=== PATIENT | female | born 1945 | race Caucasian/White ===

== ENCOUNTER 2017-04-19 06:59 | Day surgery (SDC) | payer OTHER, MEDICARE ==
[2017-04-19] MEDS ORDERED: NS 1,000 ML IV SCH (07:15)
[2017-04-19] MEDS ORDERED: FLUMAZENIL 0.5 MG/5 ML MDV IVP ONE (07:24)
[2017-04-19] MEDS ORDERED: MIDAZOLAM 2 MG/2 ML VIAL ONE (07:25)
[2017-04-19] MEDS ORDERED: fentaNYL 100 MCG/2 ML INJ ONE (07:25)
[2017-04-19] MEDS ORDERED: NALOXONE HCL 0.4 MG/ML INJ ONE (07:25)
[2017-04-19 11:41] VITALS: BP 141/70; RESP 20; O2SAT 97
== END 2017-04-19 13:15 | disposition home or self-care (01) ==
LOC: FIMAGING 06:59
PROVIDERS: ATTEND Internal Medicine Hematology & Oncology
PROC: 0BBC3ZX Excision of Right Upper Lung Lobe, Percutaneous Approach, Diagnostic (ICD-10-PCS; principal; 2017-04-19 10:27)
DX: C34.11 Malignant neoplasm of upper lobe, right bronchus or lung (principal)
CPT/HCPCS: J2250; J2310; J3010

== ENCOUNTER → 2017-05-10 | Outpatient (CLI) | payer OTHER, MEDICARE ==
[~2017-05-10] MED LIST: GADOBUTROL 10 ML VIAL IVP ONE
== END ==
LOC: FIMAGING 10:07
PROVIDERS: ATTEND Internal Medicine Hematology & Oncology
DX: M43.6 Torticollis (principal); M50.31 Other cervical disc degeneration, high cervical region; M46.92 Unspecified inflammatory spondylopathy, cervical region; M48.02 Spinal stenosis, cervical region
CPT/HCPCS: 72156; A9585

== ENCOUNTER → 2017-05-18 | Outpatient (CLI) | payer OTHER, MEDICARE | LOC: FIMAGING 10:30 | PROVIDERS: ATTEND Neurological Surgery | DX: M43.12 Spondylolisthesis, cervical region (principal); M43.13 Spondylolisthesis, cervicothoracic region; M50.31 Other cervical disc degeneration, high cervical region ==

== ENCOUNTER → 2017-05-19 | Outpatient (CLI) | payer OTHER, MEDICARE | LOC: FIMAGING 11:58 | PROVIDERS: ATTEND Internal Medicine Critical Care Medicine | DX: Z01.811 Encounter for preprocedural respiratory examination (principal); C34.90 Malignant neoplasm of unspecified part of unspecified bronchus or lung; Z90.2 Acquired absence of lung [part of] | CPT/HCPCS: 78598; A9540; A9558 ==

== ENCOUNTER 2017-05-23 10:36 | Inpatient (IN) | payer OTHER, MEDICARE ==
--- NOTE | 2017-05-23 10:46 | PDHPUP ---
History & Physical Update H&P update statement: This history and physical update is based on an assessment of the patient which was completed after admission or registration (within 24 hours), but prior to the surgery/procedure. H&P update: H&P reviewed & patient examined, no change in patient's condition since H&P completed
[2017-05-23] MEDS ORDERED: ceFAZolin 2 GM/SWFI 2 GM/20 ML SYR IVP ONE (10:48)
[2017-05-23] MEDS ORDERED: LR 1,000 ML IV ONE (10:49)
[2017-05-23] MEDS ORDERED: LIDOCAINE 1% 2 ML INJ ID PRN (10:49)
--- NOTE | 2017-05-23 11:18 | PDANEPAE ---
ANE History of Present Illness Lung cancer ANE Past Medical History - Cardiovascular History Hx Hypertension: No Hx Arrhythmias: No Hx Chest Pain: No Hx Coronary Artery / Peripheral Vascular Disease: No Hx CHF / Valvular Disease: No Hx Palpitations: No - Pulmonary History Hx COPD: No Hx Asthma/Reactive Airway Disease: No Hx Recent Upper Respiratory Infection: No Hx Oxygen in Use at Home: No Hx Sleep Apnea: No Sleep Apnea Screening Result - Last Documented: Negative Pulmonary History Comment: chronic bronchitis - Neurologic History Hx Cerebrovascular Accident: No Hx Seizures: No Hx Dementia: No Neurologic History Comment: cervical dystonia; - Endocrine History Hx Diabetes: No - Renal History Hx Renal Disorders: No - Liver History Hx Hepatic Disorders: No - Neurological & Psychiatric Hx Hx Neurological and Psychiatric Disorders: No - Cancer History Hx Cancer: Yes Cancer History Comment: Small cell lung ca; - Congenital Disorder History Hx Congenital Disorders: No - GI History Hx Gastrointestinal Disorders: No - Other Health History 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 - Chronic Pain History Chronic Pain: Yes (arthritis) - Surgical History Prior Surgeries: lung CA; partial hysterectomy; T&A; wisdom teeth extraction; ANE Review of Systems Review of Systems: - Exercise capacity METS (RN): 4 METS ANE Patient History - Allergies Allergies/Adverse Reactions: No Known Allergies Allergy (Unverified 07/03/16 16:40) - Home Medications Home medications: home medication list seen and reviewed Home Medications: Albuterol [Proventil Inhaler HFA (*)] 1 - 2 puffs IH DAILY PRN 05/19/17 [Last Taken Unknown] Amitriptyline HCl [Elavil 50 mg (*)] 50 mg PO HS 05/19/17 [Last Taken 05/22/17] Cholecalciferol Vit D3 [Vitamin D3 (*)] 1,000 units PO BID 05/19/17 [Last Taken 05/22/17] Estradiol [Estradiol 1 MG (*)] 0.5 mg PO DAILY 05/19/17 [Last Taken 05/22/17] Herbals/Supplements -Info Only 1 ea PO DAILY 05/19/17 [Last Taken 05/22/17] Multivitamins [Multivitamin (*)] 1 each PO DAILY 05/19/17 [Last Taken 05/22/17] [place]-3 Fatty Acids [Fish Oil 1000 mg (*)] 1,000 mg PO BID 05/19/17 [Last Taken 05/16/17] Vitamin B Complex [Super B-50 Complex] 1 each PO DAILY 05/19/17 [Last Taken ] Docusate Sodium [Colace 100 MG (*)] 100 mg PO DAILY PRN 05/23/17 [Last Taken ] - Anes Hx Anes Hx: no prior problems - Smoking Hx Smoking Status: Former smoker - Family Anes Hx Family Hx Anesthesia Complications: denies ANE Labs/Vital Signs - Vital Signs Height: 157.48 cm Weight: 56.245 kg ANE Physical Exam - Airway Neck exam: FROM Mallampati Score: Class 1 Mouth exam: normal dental/mouth exam - Pulmonary Pulmonary: no respiratory distress - Cardiovascular Cardiovascular: regular rate and rhythym - ASA Status ASA Status: II ANE Anesthesia Plan Anesthesia Plan: general endotracheal anesthesia (With double lumen ET, a-line, thorasic epidural (PSR for POPM) with PCEA), epidural Lines/Monitors: arterial line
[2017-05-23] MEDS ORDERED: MIDAZOLAM 2 MG/2 ML VIAL IVP ONE (12:02)
[2017-05-23] MEDS ORDERED: BUPIVACAINE 0.5% 30 ML SDV ONE (12:12)
[2017-05-23] MEDS ORDERED: ROCURONIUM 50 MG/5 ML VIAL ONE (12:16)
[2017-05-23] MEDS ORDERED: LIDOCAINE 2% 5 ML SDV ONE (12:17)
[2017-05-23] MEDS ORDERED: PROPOFOL 200 MG/20 ML VIAL ONE (12:17)
[2017-05-23] MEDS ORDERED: fentaNYL 100 MCG/2 ML INJ ONE ×3 (12:17→17:01)
[2017-05-23] MEDS ORDERED: PHENYLEPHRINE HCL 100 MCG/ML SYR ONE ×2 (14:32→16:18)
[2017-05-23] MEDS ORDERED: NARCOTIC DRIP BAG-TOTAL ALL TYPES EP PRN (14:36)
[2017-05-23] MEDS ORDERED: diphenhydrAMINE 25 MG CAP PO PRN (14:36)
[2017-05-23] MEDS ORDERED: NALOXONE HCL 0.4 MG/ML INJ IVP PRN ×2 (14:36→14:47)
[2017-05-23] MEDS ORDERED: DEXAMETHASONE 4 MG/ML VIAL ONE ×2 (14:45)
[2017-05-23] MEDS ORDERED: ONDANSETRON 4 MG/2 ML VIAL ONE (14:46)
[2017-05-23] MEDS ORDERED: ONDANSETRON 4 MG/2 ML VIAL IVP PRN ×2 (14:47→16:40)
[2017-05-23] MEDS ORDERED: PROMETHAZINE HCL 25 MG/ML INJ IVP PRN (14:47)
[2017-05-23] MEDS ORDERED: SUGAMMADEX SODIUM 200 MG/2 ML VIAL IVP ONE (16:19)
--- NOTE | 2017-05-23 16:39 | POSTOPPROG ---
Post Op Note Date of Operation: 05/23/17 Surgeon: Mark Hassan Linderman Machine Operator: Sharyn Perez Anesthesiologist: Lyle Gallego Anesthesia: GET(General Endotracheal) Pre-op Diagnosis: recurrent lung cancer, adenocarcinoma Post-op Diagnosis: same Indication: 71 Y F c hx R lung CA ~19 y ago, now with second likely primary lung CA. Procedure: R VATS, thoracotomy, pneumonectomy Findings: see below Inf/Abcess present in the surg proc area at time of surgery?: No EBL: 250cc Complications: none Specimen(s): Pathology: multiple, including mediastinal and hilar LNs, R lung, and pleural biopsies Findings: Previous surgical absence of lobe. Many adhesions with lung adhered to thoracic wall. Tumor in lung and adherent to posterior chest wall. Phrenic nerve preserved. Pericardium entered due to adhesions. No definable fissure. Unable to isolate and preserve other lobe.
--- NOTE | 2017-05-23 16:39 | POSTANESTH ---
Post Anesthetic Evaluation Cardiovascular Status: Normal, Stable Respiratory Status: Normal, Stable Level of Consciousness/Mental Status: Can Participate in Eval Pain Control: Adequate, Prn Tx Ordered Nausea/Vomiting Control: Adequate, Prn Tx Ordered Complications Possibly Related to Anesthesia: None Noted
[2017-05-23] MEDS ORDERED: ALBUTEROL 200 PUFFS/18 GM MDI IH PRN (16:43)
[2017-05-23] MEDS: fentaNYL 100 MCG/2 ML INJ IVP PRN ×2 (17:02→17:28)
[2017-05-23] MEDS: NS 1,000 ML IV SCH (18:56)
--- NOTE | 2017-05-23 19:45 | SOAPPROG ---
SOAP Progress Note Assessment/Plan: Assessment: stable/ cxr ok/ hct pending Plan:icu monitor 05/23/17 19:43 Objective: Vital Signs Temp Pulse Resp BP Pulse Ox 36.3 C 87 16 105/49 L 100 05/23/17 17:59 05/23/17 18:00 05/23/17 18:00 05/23/17 18:00 05/23/17 18:00 05/22/17 05/23/17 05/24/17 05:59 05:59 05:59 Intake Total 2210 Output Total 250 Balance 1960 ICD10 Worksheet Patient Problems: Problems Problem Status Onset Lung cancer Acute - ICD10 Problem Qualifiers (1) Lung cancer
[2017-05-23] MEDS ORDERED: ALBUMIN 5% 500 ML IV ONE (20:00)
[2017-05-23] MEDS: AMITRIPTYLINE HCL 50 MG TAB PO SCH (20:13)
[2017-05-23 20:14] LABS: HEMATOCRIT 27.4 % (38.0-47.0)
[2017-05-23] MEDS: DOCUSATE SODIUM 100 MG CAP PO PRN (20:18)
[2017-05-24] MEDS ORDERED: ALBUMIN 5% 500 ML IV ONE (02:00)
[2017-05-24] MEDS: NS 1,000 ML IV SCH ×2 (02:49→12:13)
[2017-05-24] MEDS: HYDROmorph 10MCG/ML&BUP 0.0625% in 100ML NS EP SCH (03:33)
[2017-05-24 04:57] LABS: ANION GAP 11 mEq/L (8-16); CALCIUM 7.3 mg/dL (8.5-10.4); CARBON DIOXIDE 22 mEq/l (22-31); CHLORIDE 108 mEq/L (97-110); CREATININE 0.7 mg/dL (0.6-1.0); GLOMERULAR FILTRATION RATE > 60; GLUCOSE 116 mg/dL (70-100); POTASSIUM 4.1 mEq/L (3.5-5.2); SODIUM 141 mEq/L (134-144)
[2017-05-24 05:04] LABS: HEMATOCRIT 21.2 % (38.0-47.0)
--- NOTE | 2017-05-24 08:59 | SOAPPROG ---
SOAP Progress Note Assessment/Plan: Assessment/Plan: 71 Y F s/p R thoracotomy with completion pneumonectomy for 2nd primary lung cancer. POD#1. Hypotensive. Acute post op blood loss anemia. --Getting fluids and pRBCs. Continue to monitor. Continue epidural--pain well controlled. Continue fernandez while epidural in place. IS. Continue ICU care. S: pain controlled. tired. no sob. feels like R breast implant shifted, but same size. explained that we did breach capsule but implant did not appear damaged. O: gen: alert, nad heent: mild pallor, not much change from baseline, mmm chest: no BS R, CTAB L anteriorly cor: rrr abd: soft, nt ext: no edema wounds: well dressed no shadowing. 05/24/17 08:51 Objective: Vital Signs Temp Pulse Resp BP Pulse Ox 38.5 C H 100 25 H 91/46 L 96 05/24/17 08:00 05/24/17 08:00 05/24/17 08:00 05/24/17 08:00 05/24/17 08:00 Laboratory Results 05/24/17 04:05 05/24/17 04:05 05/23/17 05/24/17 05/25/17 05:59 05:59 05:59 Intake Total 5262 Output Total 1000 Balance 4262 ICD10 Worksheet Patient Problems: Problems Problem Status Onset Lung cancer Acute
[2017-05-24] MEDS: ENOXAPARIN 40 MG/0.4 ML SYR SC SCH (09:09)
[2017-05-24] MEDS: REGARDING ANTICOAG MISC SCH (09:10)
[2017-05-24] MEDS: DC NARCS MISC SCH (09:10)
--- NOTE | 2017-05-24 10:36 | GCON ---
[f rep st] CONSULTATION GAS PLANT TECHNICIAN CONSULTATION REASON FOR CONSULTATION: Exam postoperatively after receiving pneumonectomy for lung cancer. HISTORY OF PRESENT ILLNESS: Ms. Hampton is a very pleasant 71-year-old white female with a past [facility] history of osteoporosis, arthritis, and lung cancer. She is again examined postoperatively after receiving a right pneumonectomy for secondary primary lung cancer, pathology of which is currently p ending. I discussed with the patient who states overall she is doing quite well. She states that th e pain is tolerable and she is not currently breathless. She is currently resting in bed. Chest tub e is in place. PAST MEDICAL HISTORY: Significant for arthritis migraines, osteoporosis, and lung cancer. ALLERGIES: No known allergies to medications. SOCIAL HISTORY: Previous heavy smoker; quit 11 years ago. Infrequent alcohol use. She is a nd has excellent family support. HOME MEDICATIONS: Include alprazolam, amitriptyline, codeine, guaifenesin, prednisone, ProAir, calci um, estradiol, vitamin D, vitamin E, and other multivitamins. PHYSICAL EXAMINATION: VITAL SIGNS: Blood pressure is 91/46, pulse is 100 respirations are 25, tempe rature is 38.5, oxygen saturation 96% on 1 L. GENERAL: She is a well-developed, well-nourished, 71- year-old white female who is resting comfortably in no acute distress. HEENT: Eyes PERRL, EOMI. Th roat shows no erythema or tonsillar hypertrophy. NECK: Supple. No cervical adenopathy. HEART: Re gular rate and rhythm without murmurs, rubs, gallops. LUNGS: Diminished breath sounds on the right. ABDOMEN: Soft, nontender. Bowel sounds are present in all 4 quadrants. EXTREMITIES: No clubbing , cyanosis, or edema. LABORATORIES: Hemoglobin is 7, hematocrit 21. Sodium is 141, potassium 4.1, chloride 108, CO2 is 22 , BUN 16, creatinine 0.7, glucose is 116. Chest x-ray shows status post right pneumonectomy. There is some subcutaneous emphysema. No chest t ubes are noted. IMPRESSION: 1. Lung cancer. 2. Status post right pneumonectomy. 3. History of arthritis. 4. History of migraines. 5. Pain, well controlled. RECOMMENDATIONS: 1. DVT and PE prophylaxis. 2. Stress ulcer prophylaxis. 3. Adequate pain control. 4. PT and OT and out of bed. 5. Adequate nutrition. 6. Await pathology. /[id number]/MODL
--- NOTE | 2017-05-24 10:39 | ASMTCMCOM ---
CM Note CM Note Notes: Patient admitted after planned thoracotomy and pneumonectomy for second primary lung cancer. She is stable in the ICU. Lives independently with . No therapy evals were ordered, therefore I anticipate discharge home with family support. CM available for any changes/needs. Date Signed: 05/24/2017 10:38 AM Electronically Signed By:Taylor Bone RN
[2017-05-24 14:14] LABS: HEMATOCRIT 33.9 % (38.0-47.0); HEMOGLOBIN 11.5 g/dL (12.6-16.3)
--- NOTE | 2017-05-24 16:04 | POSTANESTH ---
Post Anesthetic Evaluation Cardiovascular Status: Normal, Stable, Similar to Pre-Op Cond Respiratory Status: Normal, Stable, Similar to Pre-op Cond. Level of Consciousness/Mental Status: Can Participate in Eval, Alert and Oriented Pain Control: Adequate, Prn Tx Ordered Nausea/Vomiting Control: Adequate, Prn Tx Ordered Complications Possibly Related to Anesthesia: None Noted Notes: Pt seen and examined. POD#1 s/p thoracotomy w/ lobectomy and thoracic epidural for POPC. Pt is comfortable rates pain as 2/10 at rest and 5-6/10 with coughing. Denies nausea or pruritis. Back site is c/d/i. no e/e/e. Has not yet ambulated. Recommend to continue PCEA as ordered. Would ambulate with assistance. Thank you for this interesting consult, please do not hesitate to call with questions or concerns.
[2017-05-24] MEDS ORDERED: FUROSEMIDE 20 MG/2 ML VIAL IVP ONE (18:00)
[2017-05-24 18:28] LABS: HEMATOCRIT 33.1 % (38.0-47.0); HEMOGLOBIN 11.3 g/dL (12.6-16.3)
[2017-05-24 18:37] LABS: ANION GAP 9 mEq/L (8-16); CALCIUM 6.9 mg/dL (8.5-10.4); CARBON DIOXIDE 21 mEq/l (22-31); CHLORIDE 102 mEq/L (97-110); CREATININE 1.6 mg/dL (0.6-1.0); GLOMERULAR FILTRATION RATE 32; GLUCOSE 128 mg/dL (70-100); POTASSIUM 4.6 mEq/L (3.5-5.2); SODIUM 132 mEq/L (134-144)
[2017-05-24] MEDS: DOCUSATE SODIUM 100 MG CAP PO PRN (20:34)
[2017-05-24] MEDS: AMITRIPTYLINE HCL 50 MG TAB PO SCH (20:34)
[2017-05-25] MEDS: NS 1,000 ML IV SCH (03:59)
[2017-05-25] MEDS: HYDROmorph 10MCG/ML&BUP 0.0625% in 100ML NS EP SCH (06:08)
[2017-05-25 06:18] LABS: HEMATOCRIT 33.4 % (38.0-47.0); HEMOGLOBIN 10.8 g/dL (12.6-16.3)
[2017-05-25 06:36] LABS: ANION GAP 7 mEq/L (8-16); CALCIUM 6.9 mg/dL (8.5-10.4); CARBON DIOXIDE 21 mEq/l (22-31); CHLORIDE 106 mEq/L (97-110); CREATININE 1.7 mg/dL (0.6-1.0); GLOMERULAR FILTRATION RATE 30; GLUCOSE 102 mg/dL (70-100); POTASSIUM 4.3 mEq/L (3.5-5.2); SODIUM 134 mEq/L (134-144)
[2017-05-25] MEDS ORDERED: ALBUMIN 25% 0 ML IV ONE (08:37)
[2017-05-25] MEDS: ENOXAPARIN 40 MG/0.4 ML SYR SC SCH (08:40)
[2017-05-25] MEDS: DC NARCS MISC SCH (08:40)
[2017-05-25] MEDS: REGARDING ANTICOAG MISC SCH (08:41)
[2017-05-25] MEDS ORDERED: ALBUMIN 25% 100 ML IV ONE (09:00)
--- NOTE | 2017-05-25 09:02 | PDINTPN ---
Gradall Operator Progress Note Assessment/Plan: Assessment/Plan: * Lung cancer * Status post right pneumonectomy * History of migraines * Decreased urine output * Pain-well controlled * Respiratory -Stable Overall doing well Subjective: Up in chair. Comfortable Objective: Vital Signs Temp Pulse Resp BP Pulse Ox 36.8 C 101 H 23 H 133/64 H 100 05/25/17 08:00 05/25/17 08:00 05/25/17 08:00 05/25/17 08:00 05/25/17 08:00 Laboratory Results 05/25/17 05:50 05/25/17 05:50 05/24/17 05/25/17 05/26/17 05:59 05:59 05:59 Intake Total 5262 4838 Output Total 1000 500 Balance 4262 4338 Physical Exam - Physical Exam General Appearance: alert, no apparent distress EENT: PERRL/EOMI, normal ENT inspection Neck: supple Respiratory: chest non-tender, decreased breath sounds (right) Cardiac/Chest: normal peripheral pulses, regular rate, rhythm Peripheral Pulses: 2+: carotid (R), carotid (L), femoral (R), femoral (L), dorsalis-pedis (R), dorsalis-pedis (L) Abdomen: normal bowel sounds, non-tender, soft Pelvic Exam: deferred Skin: normal color, warm/dry Neuro/Psych: no motor/sensory deficits, alert, normal mood/affect, oriented x 3 ICD10 Worksheet Patient Problems: Problems Problem Status Onset Lung cancer Acute
--- NOTE | 2017-05-25 11:19 | POSTANESTH ---
Post Anesthetic Evaluation Cardiovascular Status: Normal, Stable Respiratory Status: Normal, Stable Level of Consciousness/Mental Status: Can Participate in Eval Pain Control: Adequate, Prn Tx Ordered Nausea/Vomiting Control: Adequate, Prn Tx Ordered Complications Possibly Related to Anesthesia: None Noted Notes: POD #2 post thoracotomy with thorasic epidural. Pt seen and examined. Sitting up in chair and doing well. Pain well controlled not requiring additional meds and "only pressing PCEA button a time or two per day". Denies weakness or numbness in lower extremities. Insertion site inspected and clean and dry without redness or swelling. Cath intact. Plan to continue PCEA at present settings for another day, or possibly two.
--- NOTE | 2017-05-25 13:26 | SOAPPROG ---
SOAP Progress Note Assessment/Plan: Assessment/Plan: 71yo F s/p completion pneumonectomy - Overall, looks ok but with low UOP - Epidural has been working appropriately, and her pain is controlled - Responds well to fluid bolus despite increasing Cr. Will attempt concentrated albumin today, nephrology consult if Cr still rising - Tx to SDU ok 05/25/17 13:25 Subjective: Pain controlled, tolerating diet Objective: Vital Signs Temp Pulse Resp BP Pulse Ox 36.7 C 105 H 23 H 125/78 H 100 05/25/17 12:00 05/25/17 12:00 05/25/17 12:00 05/25/17 12:00 05/25/17 12:00 Laboratory Results 05/25/17 05:50 05/25/17 05:50 05/24/17 05/25/17 05/26/17 05:59 05:59 05:59 Intake Total 5262 4838 Output Total 1000 500 Balance 4235 4338 ICD10 Worksheet Patient Problems: Problems Problem Status Onset Lung cancer Acute
[2017-05-25] MEDS: ALBUTEROL 3 ML DEYVIAL IH PRN ×2 (15:42→20:30)
[2017-05-25] MEDS: AMITRIPTYLINE HCL 50 MG TAB PO SCH (21:01)
[2017-05-25] MEDS: DOCUSATE SODIUM 100 MG CAP PO PRN (21:07)
[2017-05-25] MEDS ORDERED: LORazepam 0.5 MG TAB PO PRN (22:12)
[2017-05-25] MEDS ORDERED: METOPROLOL TARTRATE 25 MG TAB PO ONE (22:12)
--- NOTE | 2017-05-25 22:25 | CPEKG ---
Heart Rate: 146 RR Interval: 411 QRSD Interval: 80 QT Interval: 304 QTC Interval: 474 QRS [place]: 29 T Wave [place]: 67 EKG Severity - ABNORMAL ECG - EKG Impression: ATRIAL FIBRILLATION EKG Impression: CONSIDER ANTEROSEPTAL INFARCT EKG Impression: BORDERLINE T ABNORMALITIES, LATERAL LEADS Electronically Signed By: Romel Rich 26-May-2017 12:05:47
[2017-05-25] MEDS ORDERED: METOPROLOL TARTRATE 25 MG TAB ONE (22:59)
[2017-05-25 23:30] LABS: HEMATOCRIT 31.9 % (38.0-47.0); HEMOGLOBIN 10.8 g/dL (12.6-16.3)
[2017-05-25] MEDS ORDERED: BEER 1 EACH EA PO ONE (23:45)
--- NOTE | 2017-05-25 23:46 | PDHOSCONS ---
Hospitalist Consult Hospitalist Consult: Hospitalist Consultation requested by surgery service. Reason for consultation atrial fibrillation RVR and medical management CC - shortness of breath, atrial fibrillation new onset. HPI - Pleasant 71 yo F with pmx significant for RUL lung ca POD #2 s/p lobectomy , OA, daily alcohol use. OA, reactive airway disease, migraine HINES, osteoporosis with development of new onset Afib with RVR to rate 130s-140s. Patient denies any chest pain,palpitations. no history of LE edema, orthopnea, PND. She is reporting increased shortness of breath throughout the course of the day as well as increased wheezing. Patient denies any subjective fevers/ chills. She reports her postop pain is adequately controlled. She does feel a little bit more anxious but denies any tremor. ROS - negative except as noted above in HPI. Allergies - NKDA Medications - home and current medication list reviewed in EMR. PMHx lung ca s/p partial lobectomy 2000 and now POD #2. osteoarthritis. osteoporosis. reactive airway disease. migraine HINES. torticollis. PSH - RUL lobectomy 2000, now POD #2. bladder repair, hysterectomy. wrist surgery. FHx - breast ca in maternal aunt. patient otherwise denies fhx for CAD, CHF, lung disease or cancers. SHx - Patient is . lives with who has dementia. Patient quit smoking 2005 but has a total 50 pack year history. She drinks 2-3 beers on a daily basis but has never gone without for extended period of time. She denies any illicit drug use or marijuana. COR - FULL patient's with dementia so she desires any of her 3 sons to act as proxy if needed. EXAM Selected Entries 05/25/17 05/25/17 05/25/17 20:30 23:02 23:59 Heart Rate 114 H 142 H 144 H Respiratory 22 H 20 Rate O2 Sat (%) 100 98 Temperature (C) 36.9 C Blood Pressure 137/72 H 143/72 H Mean Arterial 95 Pressure (MAP) O2 (L/minute) 2 2 Activity During At Rest At Rest Vital Signs O2 Delivery Nasal Cannula Nasal Cannula Mode Blood Pressure Right Source Upper Automatic Heart Rate/ Monitor Temperature Axillary Source Heart Rate Automatic Automatic Source Cardiac Rhythm Sinus Tachycardia Gen - NAD. pleasant adult female lays quietly in bed. she appears fatigued and pale but in good spirits. skin - pallor. ENT - dry Mucous membranes. no nasal discharge. Eyes - EOMI. PERRLA. no scleral icterus or conjunctival injection CV - slightly distant heart sounds limited 2/2 tachycardia. trace LE edema. Resp - diminished on the right mid/lower lung base > left bases. wheezing on anterior lung woods. coarse breath sounds posterior lung woods bilaterally. Abd - + BS. soft. NTTP. nondistended. Ext - trace edema. 1+ pedal pulses. moves lower extremities. generalized weakness. Neuro - nonfocal. CN II-XII intact/symmetric. slight tremor bilateral hands. Psych - patient AAAx3. pleasant. slightly anxious but cooperative. thought process/content/questions appropriate. LABS Laboratory Tests 05/25/17 05/25/17 23:24 23:24 Hgb 10.8 L Hct 31.9 L Sodium 134 Potassium 4.0 Chloride 105 Carbon Dioxide 18 L Anion Gap 11 BUN 25 H Creatinine 1.3 H Estimated GFR 40 Glucose 125 H Calcium 7.4 L Troponin I 2.080 H TSH 4.350 EKG - afib, rate 130s. no acute ST changes. baseline in a few leads wanders likely 2/2 artifact. CXR - image and report reviewed. Portable AP Semiupright Chest, 11:52 PM Clinical History: 71-year-old female in the ICU who recently underwent a completion pneumonectomy for recurrent lung cancer on 05/23/2017, and has some new shortness of breath with a history of new-onset atrial fibrillation. Comparison Study: Chest, dated 05/24/2017, at 5:59 AM. Findings: Telemetry monitoring lead lines and oxygen tubing are present. There are skin jewels over the right lateral hemithorax and there is volume loss, consistent with the patient's recent right pneumonectomy. There is more fluid opacification in the right hemithorax, and there is persistent tracheal shift to the right, consistent with the volume loss. Subcutaneous emphysema on the right side persists. The cardiac silhouette is obscured. There is some new increased "haziness" of the left hemithorax, which may reflect some posterior- layering pleural fluid. The pulmonary vasculature is mildly congested. The stomach is moderately air-distended. Impression: 1. Postoperative changes following a recent right pneumonectomy with persistent subcutaneous emphysema on the right side, and some increasing fluid opacification of the right hemithorax. 2. Peribronchial thickening with pulmonary vascular congestion and haziness at the left lung base, which may represent some posterior-layering pleural fluid. Findings were discussed with RISA Betancourt, at extension [phone] at 0:06, on 2016. A/P - 71 yo F POD #2 s/p right upper lobe lobectomy now with new onset atrial fibrillation 1. New onset atrial fib acute with RVR - patient received po dosing metoprolol by surgery service. she also has received ppx dosing lovenox and given acute post op status will see if rate can be rapidly corrected before considering anticoagulation. echo ordered for AM. tsh WNL. patient also with increasing oxygen needs and new congestion on cxr. will diurese. also patient reports hx of daily etoh intake. no evidence of new BBB or acute changes on ekg. case discussed with cardiology. request goal HR for about 100s and prn metoprolol if needed. patient was sleeping and asx at time of onset. Lower suspicion for acute PE as pt on ppx dosing but consideration if work up unrevealing. 2. elevated troponin 2.0 - case was discussed with cardiology Dr. Ghosh. recommend ASA 325mg and okay with ppx dosing lovenox at this time. review of available records with pfts and h&p but I'm not sure if patient had cardiology pre-op eval. Patient is chest pain free at this point and other than HR vitals otherwise stable. 3. hypoxia - patient with increased o2 needs overnight and c/o increased SOB. likely multifactorial including afib and recent surgery with effusion on right. Patient appears congested on CXR and lasix will be given. 4. alcohol use - patient with slight tremor. BPs acceptable tachycardia in setting of afib however. will place on ciwa protocol. give beer with meals. 5. soo - likely pre-renal. s/p IVF now requiring diuresis. monitor bmp. 6. acute blood loss anemia - h/h stable. continue to monitor. 7. reactive airway disease - nebulizer prn. add steroids. oxygen prn. 8. hyperglycemia - nonfasting. continue to monitor. no hx DM II 9. hypocalcemia - would likely correct in setting of patient acute illness/ surgery. check cmp and check corrected calcium. FEN - s/p IVF. TKO now. lasix. electrolyte monitoring and correction as needed. diet as needed. PPX - SCds. on ppx lovenox. no recommendation to increase to tx dosing at this time per cardiology. COR - FULL. Any of patients 3 sons may act as proxy if needed. ADDENDUM - follow up telemetry monitoring with noted with patient in NSR but new ST elevations. EKG repeated and anterolateral ST elevations noted. awaiting repeat AM labs. Spoke with Dr. Ghosh again. Patient is entirely asymptomatic. received ASA and on ppx lovenox. after lasix her respiratory status reported improved. He will review chart and make further recommendations. plan for cardiology consult this AM.
[2017-05-26] MEDS ORDERED: methylPREDNISolone SOD SUCC 125 MG/2 ML VIAL IVP ONE
[2017-05-26 00:05] LABS: ANION GAP 11 mEq/L (8-16); CALCIUM 7.4 mg/dL (8.5-10.4); CARBON DIOXIDE 18 mEq/l (22-31); CHLORIDE 105 mEq/L (97-110); CREATININE 1.3 mg/dL (0.6-1.0); GLOMERULAR FILTRATION RATE 40; GLUCOSE 125 mg/dL (70-100); SODIUM 134 mEq/L (134-144)
[2017-05-26] MEDS ORDERED: FUROSEMIDE 20 MG/2 ML VIAL IVP ONE (00:24)
[2017-05-26] MEDS: methylPREDNISolone SOD SUCC 125 MG/2 ML VIAL IVP SCH ×2 (00:46→08:30)
[2017-05-26] MEDS ORDERED: ASPIRIN 325 MG TAB PO ONE (00:55)
[2017-05-26] MEDS ORDERED: METOPROLOL TARTRATE 5 MG/5 ML INJ IVP ONE (01:07)
[2017-05-26 03:37] LABS: BASE EXCESS -7.4 mEq/L (-2.5-2.5); BICARBONATE 18 mEq/L (22-26); MEASURED OXYGEN SATURATION 98 % (92-95); PCO2 35 mmHg (34-38); PO2 100 mmHg (65-75); TCO2 19 mEq/L (23-27)
[2017-05-26 03:38] LABS: O2 CONCENTRATIION 10 % (0-100); P/F RATIO 1000 RATIO
--- NOTE | 2017-05-26 05:40 | CPEKG ---
Heart Rate: 89 RR Interval: 674 P-R Interval: 208 QRSD Interval: 86 QT Interval: 364 QTC Interval: 443 P [place]: 19 QRS [place]: 15 T Wave [place]: 29 EKG Severity - ABNORMAL ECG - EKG Impression: SINUS RHYTHM EKG Impression: CONSIDER ANTEROSEPTAL INFARCT EKG Impression: ST ELEVATION SUGGESTS PERICARDITIS Electronically Signed By: Romel Rich 26-May-2017 12:05:34
--- NOTE | 2017-05-26 07:12 | CPEKG ---
Heart Rate: 95 RR Interval: 632 P-R Interval: 164 QRSD Interval: 90 QT Interval: 348 QTC Interval: 438 P [place]: 42 QRS [place]: 13 T Wave [place]: 35 EKG Severity - ABNORMAL ECG - EKG Impression: SINUS RHYTHM EKG Impression: CONSIDER ANTEROSEPTAL INFARCT EKG Impression: ST ELEVATION SUGGESTS PERICARDITIS Electronically Signed By: Romel Rich 26-May-2017 12:05:11
[2017-05-26 07:35] LABS: ALANINE AMINOTRANSFERASE 88 IU/L (9-52); ALBUMIN 3.4 g/dL (3.5-5.0); ALKALINE PHOSPHATASE 61 IU/L (38-126); ANION GAP 12 mEq/L (8-16); ASPARTATE AMINOTRANSFERASE 92 IU/L (14-46); CALCIUM 7.5 mg/dL (8.5-10.4); CARBON DIOXIDE 18 mEq/l (22-31); CHLORIDE 105 mEq/L (97-110); CREATININE 1.2 mg/dL (0.6-1.0); GLOMERULAR FILTRATION RATE 44; GLUCOSE 125 mg/dL (70-100); POTASSIUM 4.6 mEq/L (3.5-5.2); SODIUM 135 mEq/L (134-144); TOTAL PROTEIN 5.2 g/dL (6.3-8.2)
[2017-05-26] MEDS ORDERED: PERFLUTREN LIPID MICROSPHERES 1.1 MG/ML VIAL IV ONE (07:45)
[2017-05-26 07:47] LABS: CK-MB INTERPRETATION NEGATIVE (NEGATIVE); TROPONIN I 0.907 ng/mL (0.000-0.034)
[2017-05-26 07:58] LABS: CREATINE KINASE-MB FRACTION 5.54 ng/mL (0.00-3.19)
[2017-05-26] MEDS: ENOXAPARIN 40 MG/0.4 ML SYR SC SCH (08:23)
[2017-05-26] MEDS: DC NARCS MISC SCH (08:23)
[2017-05-26] MEDS: REGARDING ANTICOAG MISC SCH (08:24)
--- NOTE | 2017-05-26 09:11 | SOAPPROG ---
IRIS Progress Note Assessment/Plan: Assessment: Plan: Objective: Vital Signs Temp Pulse Resp BP Pulse Ox 36.6 C 99 15 124/109 H 97 05/26/17 08:00 05/26/17 08:00 05/26/17 08:00 05/26/17 08:00 05/26/17 08:00 Laboratory Results 05/26/17 07:09 05/26/17 07:09 05/25/17 05/26/17 05/27/17 05:59 05:59 05:59 Intake Total 4838 3259 Output Total 500 1050 Balance 4338 2209 ICD10 Worksheet Patient Problems: Problems Problem Status Onset Lung cancer Acute
--- NOTE | 2017-05-26 09:12 | SOAPPROG ---
SOAP Progress Note Assessment/Plan: Assessment: stable/ cxr ok/ hct pending Plan:icu monitor 05/23/17 19:43 05/26/17 09:09 WOUND OK/ CXR STABLE/ AFEBRILE/ WORKUP FOR TROPONIN ELEVATION SHOWS LIKELY PERICARDITIS SHE ALSO HAS LEFT PLEURAL EFFUSION/ CREAT IMPROVED AND UO IMPROVED/ HCT STABLE Objective: Vital Signs Temp Pulse Resp BP Pulse Ox 36.6 C 99 15 124/109 H 97 05/26/17 08:00 05/26/17 08:00 05/26/17 08:00 05/26/17 08:00 05/26/17 08:00 Laboratory Results 05/26/17 07:09 05/26/17 07:09 05/25/17 05/26/17 05/27/17 05:59 05:59 05:59 Intake Total 5628 3259 Output Total 500 1050 Balance 433 2205 ICD10 Worksheet Patient Problems: Problems Problem Status Onset Lung cancer Acute - ICD10 Problem Qualifiers (1) Lung cancer
--- NOTE | 2017-05-26 09:20 | PDINTPN ---
Costing Manager Progress Note Assessment/Plan: Assessment/Plan: * Lung cancer * Status post right pneumonectomy * History of migraines * Elevated troponin-query if this is pericarditis. * Decreased urine output * Pain-well controlled * Respiratory -Stable Overall doing well Subjective: Up in chair. Pain tolerable. Somewhat breathless with exertion. Objective: Vital Signs Temp Pulse Resp BP Pulse Ox 36.6 C 99 15 124/109 H 97 05/26/17 08:00 05/26/17 08:00 05/26/17 08:00 05/26/17 08:00 05/26/17 08:00 Laboratory Results 05/26/17 07:09 05/26/17 07:09 05/25/17 05/26/17 05/27/17 05:59 05:59 05:59 Intake Total 4838 3259 Output Total 500 1050 Balance 4338 2209 Physical Exam - Physical Exam General Appearance: alert, no apparent distress EENT: PERRL/EOMI Neck: non-tender, supple Respiratory: decreased breath sounds (Right), No respiratory distress, No wheezing Abdomen: normal bowel sounds, non-tender, soft Pelvic Exam: deferred Rectal: deferred Skin: normal color, warm/dry Extremities: normal range of motion, non-tender, normal inspection, normal capillary refill Neuro/Psych: no motor/sensory deficits, alert, normal mood/affect, oriented x 3 ICD10 Worksheet Patient Problems: Problems Problem Status Onset Lung cancer Acute
[2017-05-26 10:24] LABS: APTT 30.7 SEC (23.0-38.0); INR 1.16 (0.83-1.16); PROTIME(PATIENT) 14.8 SEC (12.0-15.0)
--- NOTE | 2017-05-26 10:24 | ECHO ---
[email or web address] [address] [address] Main: [phone] Fax: Transthoracic Echocardiogram Name: SARAH JAEGER MR#: [id number] Study Date: 05/26/2017 Study Time: 07:20 AM Date of : 1945 Age: 71 year(s) Height: ( ) Weight: ( ) BSA: Gender: Female Examination: Echo with Definity Indication: Post Surgery EKG Changes Image Quality: Contrast: Requested by: Luba Sams BP: 121 mmHg/109 mmHg Heart Rate: Rhythm: Indication: Post Surgery EKG Changes Procedure Staff Hydraulic Blocker: Sandro Wilkins Reading Physician: Freedom Ghosh Requesting Provider: Conclusions: This is an emergent bedside echo done in a patient postoperative from a right upper lobe resection. She developed ST elevations on her ECG in the high lateral leads. The left ventricle is normal in size with preserved left ventricular systolic function. The visually estimated ejection fraction is 55-60%. There appears to be normal contractility and thickening in all cardiac segments. There is a trivial pericardial effusion. Measurements: Chambers Valvular Assessment AV/MV Valvular Assessment TV/PV Normal Normal Normal Name Value Range Name Value Range Name Value Range Continued Measurements: Findings: Exam Comments: This is a emergent echo using Definity imaging enhancement was used to evaluate wall motion. No regional wall motion abnormalities were noted. Limited views were obtained due to lung interference and implants. .66mg of Definity was used.. (No Signature Object) Patient: SARAH JAEGER Study Date: 05/26/2017 Page 1 of 1 07:20 AM [id number]
--- NOTE | 2017-05-26 10:26 | PDCARCONS ---
Cardiology Consult Reason for Consult: Abnormal ECG with evidence of ST elevations in the high lateral leads; transient episode of atrial fibrillation postoperative from recent right upper lobe resection. Chief Complaint: As above. Requesting Physician: Dr. Bernice Sams. History of Present Illness: 71-year-old female with no cardiovascular history. She is currently in the step -down unit following a right upper lobe resection for probable recurrent lung cancer. She has a history of a previous partial right upper lobe resection done about [address] Hassan. Apparently recently she has had a recurrence of a malignancy in this distribution. She is now postoperative day 3 from this procedure. She has an epidural in place for pain control. Last night she developed transient episode of atrial fibrillation with a rapid ventricular response. Heart rates were noted to be in the 140s to 150s. She was treated with dose of metoprolol which improved her heart rate down to the 120s. A troponin drawn late yesterday evening was elevated at 2.08. The patient had no symptoms of palpitations and denied chest discomfort. At 1 point she did have vague left shoulder pain. On telemetry was noted that she had slight ST elevations. That prompted an ECG which was performed at 5:30 a.m. in the morning. The electrocardiogram demonstrated sinus rhythm with approximately [address] elevations appreciated in the high lateral leads. There were no reciprocal changes noted. In talking to her about this she states that she actually feels a little bit better today than she did yesterday. She adamantly denies chest pain or symptoms of significant dyspnea. Bedside echocardiogram was performed emergently. We used definity contrast. This demonstrated homogeneous contractility of all cardiac segments with a trivial pericardial effusion. In talking to Dr. Hassan about his surgery apparently he did enter the pericardium to control the pulmonary artery. History Information - Allergies/Home Medication List Allergies/Adverse Reactions: No Known Allergies Allergy (Unverified 07/03/16 16:40) Home Medications: Albuterol [Proventil Inhaler HFA (*)] 1 - 2 puffs IH DAILY PRN 05/19/17 [Last Taken Unknown] Amitriptyline HCl [Elavil 50 mg (*)] 50 mg PO HS 05/19/17 [Last Taken 05/22/17] Cholecalciferol Vit D3 [Vitamin D3 (*)] 1,000 units PO BID 05/19/17 [Last Taken 05/22/17] Estradiol [Estradiol 1 MG (*)] 0.5 mg PO DAILY 05/19/17 [Last Taken 05/22/17] Herbals/Supplements -Info Only 1 ea PO DAILY 05/19/17 [Last Taken 05/22/17] Multivitamins [Multivitamin (*)] 1 each PO DAILY 05/19/17 [Last Taken 05/22/17] [place]-3 Fatty Acids [Fish Oil 1000 mg (*)] 1,000 mg PO BID 05/19/17 [Last Taken 05/16/17] Vitamin B Complex [Super B-50 Complex] 1 each PO DAILY 05/19/17 [Last Taken ] Docusate Sodium [Colace 100 MG (*)] 100 mg PO DAILY PRN 05/23/17 [Last Taken ] I have personally reviewed and updated: family history, medical history, social history, surgical history Past Medical History: Lung cancer as described above. Osteoarthritis. Migraine headaches. Osteoporosis. Torticollis. - Surgical History Additional surgical history: Previous right upper lobe partial resection. Bladder repair. Hysterectomy. Arthrodesis. - Family History Positive for: non-pertinent - Social History Smoking Status: Former smoker Alcohol Use: Other (Moderate daily use) Drug Use: None Physical Exam Physical Exam: Temp Pulse Resp BP Pulse Ox 36.6 C 99 15 124/109 H 97 05/26/17 08:00 05/26/17 08:00 05/26/17 08:00 05/26/17 08:00 05/26/17 08:00 O2 (L/minute) 5 Constitutional: no apparent distress Ears, Nose, Mouth, Throat: moist mucous membranes Cardiovascular: regular rate and rhythym, no murmur, rub, or gallop, No JVD Peripheral Pulses: 2+: carotid (R), carotid (L) Respiratory: no respiratory distress, rhonchi (Right lung field) Gastrointestinal: soft, non-tender abdomen, no palpable masses Skin: warm Neurologic: AAOx3 Psychiatric: interacting appropriately Lab and Imaging 05/26/17 07:09 05/26/17 07:09 WBC TNP 05/26/17 07:09 RBC Not Reported 05/26/17 07:09 Hgb Not Reported 05/26/17 07:09 Hct Not Reported 05/26/17 07:09 MCV Not Reported 05/26/17 07:09 MCH Not Reported 05/26/17 07:09 MCHC Not Reported 05/26/17 07:09 RDW Not Reported 05/26/17 07:09 Plt Count Not Reported 05/26/17 07:09 MPV Not Reported 05/26/17 07:09 Neut % (Auto) Not Reported 05/26/17 07:09 Lymph % (Auto) Not Reported 05/26/17 07:09 [place] % (Auto) Not Reported 05/26/17 07:09 Eos % (Auto) Not Reported 05/26/17 07:09 Baso % (Auto) Not Reported 05/26/17 07:09 Nucleat RBC Rel Count Not Reported 05/26/17 07:09 Absolute Neuts (auto) Not Reported 05/26/17 07:09 Absolute Lymphs (auto) Not Reported 05/26/17 07:09 Absolute Monos (auto) Not Reported 05/26/17 07:09 Absolute Eos (auto) Not Reported 05/26/17 07:09 Absolute Basos (auto) Not Reported 05/26/17 07:09 Absolute Nucleated RBC Not Reported 05/26/17 07:09 Immature Gran % Not Reported 05/26/17 07:09 Immature Gran # Not Reported 05/26/17 07:09 Puncture Site RIGHT RADIAL 05/26/17 03:16 Patient Temperature 36.4 DEGREES 05/26/17 03:16 pCO2 35 mmHg (34-38) 05/26/17 03:16 pO2 100 mmHg (65-75) H 05/26/17 03:16 Total CO2 19 mEq/L (23-27) L 05/26/17 03:16 ABG pH 7.32 (7.35-7.45) L 05/26/17 03:16 ABG PO2/FiO2 Ratio 1000 RATIO 05/26/17 03:16 ABG HCO3 18 mEq/L (22-26) L 05/26/17 03:16 ABG O2 Saturation 98 % (92-95) H 05/26/17 03:16 ABG Base Excess -7.4 mEq/L (-2.5-2.5) L 05/26/17 03:16 O2 Concentration % 10 % (0-100) 05/26/17 03:16 Sodium 135 mEq/L (134-144) 05/26/17 07:09 Potassium 4.6 mEq/L (3.5-5.2) 05/26/17 07:09 Chloride 105 mEq/L (97-110) 05/26/17 07:09 Carbon Dioxide 18 mEq/l (22-31) L 05/26/17 07:09 Anion Gap 12 mEq/L (8-16) 05/26/17 07:09 BUN 25 mg/dL (7-23) H 05/26/17 07:09 Creatinine 1.2 mg/dL (0.6-1.0) H 05/26/17 07:09 Estimated GFR 44 05/26/17 07:09 Glucose 125 mg/dL (70-100) H 05/26/17 07:09 Calcium 7.5 mg/dL (8.5-10.4) L 05/26/17 07:09 Total Bilirubin 1.0 mg/dL (0.1-1.4) 05/26/17 07:09 AST 92 IU/L (14-46) H 05/26/17 07:09 ALT 88 IU/L (9-52) H 05/26/17 07:09 Alkaline Phosphatase 61 IU/L (38-126) 05/26/17 07:09 Creatine Kinase 1054 IU/L (0-156) H 05/26/17 07:09 CK-MB (CK-2) Fraction 5.54 ng/mL (0.00-3.19) H 05/26/17 07:09 CK-MB (CK-2) % 0.5 % (0.0-4.0) 05/26/17 07:09 Creatine Kinase Interp NEGATIVE (NEGATIVE) 05/26/17 07:09 Troponin I 0.907 ng/mL (0.000-0.034) H 05/26/17 07:09 Total Protein 5.2 g/dL (6.3-8.2) L 05/26/17 07:09 Albumin 3.4 g/dL (3.5-5.0) L 05/26/17 07:09 TSH 4.350 uIU/mL (0.465-4.680) 05/25/17 23:24 Patient ABO/Rh A NEGATIVE 05/23/17 10:48 Antibody Screen NEGATIVE 05/23/17 10:48 Crossmatch IS Only See Detail 05/23/17 10:48 Visualized and Interpreted Chest x-ray results: Yes Visualized and Interpreted imaging results: Yes Visualized and Interpreted EKG results: Yes EKG additional interpertation: Electrocardiogram done at 5:30 a.m. this morning demonstrates sinus rhythm with 1 mm of J-point/ST elevations in the high lateral leads. Echocardiogram: See the fully dictated report on the chart. A/P Assessment: 71-year-old female currently postoperative day 3 from a right upper lobe resection for recurrent lung cancer. She has no cardiac history. She developed transient atrial fibrillation last night and is now back in sinus rhythm. Her ECG indicates ST elevations in the high lateral leads without significant reciprocal changes. Additionally, she has a slight troponin elevation which at this point appears to be trending downward. This is noted in conjunction with recent lung surgery that involved opening the pericardium. A bedside echocardiogram which was done with definity contrast did not yield any wall motion. She did have a trace pericardial effusion. Her findings are most consistent probable pericarditis. At this point, I do not feel compelled to take her to the quality assurance qa lab analyst and perform angiography. I think that we can follow her conservatively and clinically. Plan: 1. We will trend her troponins throughout the day. 2. I would like to keep her NPO pending her next troponin draw. As long as he keeps trending down remains flat I think that we can go ahead feet her. 3. We will transition her over to p. o. beta blockers. 4. Further recommendations will be made pending her clinical course.
[2017-05-26] MEDS: METOPROLOL TARTRATE 25 MG TAB PO SCH ×2 (11:21→19:20)
--- NOTE | 2017-05-26 13:07 | HOSPPROG ---
Hospitalist Progress Note Assessment/Plan: # elevated troponin - agree likely d/t cassy/myocarditis # a-fib with RVR - started on metop - AC per cards when safe post-operatively # etOH use - placed on CIWA # hypoxia - received lasix; follow # RUL lobectomy POD#3 - epidural - adenoca on path - has hx lobectomy 2000 # GUS - improved with IVF # RAD - steroids (taper quickly), nebulizer # ABLA post op - s/p transfusion Subjective: feels better today; eating; thinks she is less confused Objective: Vital Signs Temp Pulse Resp BP Pulse Ox 36.7 C 99 17 133/91 H 100 05/26/17 12:00 05/26/17 12:00 05/26/17 12:00 05/26/17 12:00 05/26/17 12:00 Laboratory Results 05/26/17 07:09 05/26/17 07:09 05/25/17 05/26/17 05/27/17 05:59 05:59 05:59 Intake Total 4838 3259 Output Total 500 1050 400 Balance 4338 2209 -400 PT 14.8 SEC (12.0-15.0) 05/26/17 10:00 INR 1.16 (0.83-1.16) 05/26/17 10:00 chart reviewed ECG personally reviewed ECG personally reviewed - Physical Exam Constitutional: no apparent distress, appears nourished Cardiovascular: regular rate and rhythym, no murmur, rub, or gallop Respiratory: no respiratory distress, no rales or rhonchi, clear to auscultation , reduced air movement (R sided) Gastrointestinal: normoactive bowel sounds, soft, non-tender abdomen, no palpable masses ICD10 Worksheet Patient Problems: Problems Problem Status Onset Lung cancer Acute
--- NOTE | 2017-05-26 15:35 | POSTANESTH ---
Post Anesthetic Evaluation Cardiovascular Status: Normal, Stable Respiratory Status: Tx Decrease in SpO2 Level of Consciousness/Mental Status: Can Participate in Eval Pain Control: Adequate, Prn Tx Ordered (POD 3. Pain 2/10 level. Increases with activity. Site dry, no redness, tape secure Plan continue epidural for 24 to 48 hours.) Nausea/Vomiting Control: Adequate, Prn Tx Ordered
[2017-05-26] MEDS: AMITRIPTYLINE HCL 50 MG TAB PO SCH (19:20)
[2017-05-26] MEDS: DOCUSATE SODIUM 100 MG CAP PO PRN (19:25)
[2017-05-26] MEDS: LORazepam 1 MG TAB PO PRN (22:15)
[2017-05-27] MEDS: LORazepam 1 MG TAB PO PRN (04:36)
[2017-05-27 05:01] LABS: % IMMATURE GRANULYOCYTES 0.9 % (0.0-1.1); ABSOLUTE IMMATURE GRANULOCYTES 0.12 10^3/uL (0.00-0.10); ABSOLUTE NRBC COUNT 0.02 10^3/uL (0-0.01); ADD DIFF? NO; ADD MORPH? NO; ADD SCAN? NO; ATYPICAL LYMPHOCYTE FLAG 0 (0-99); FRAGMENT RBC FLAG 10 (0-99); HEMATOCRIT 31.5 % (38.0-47.0); HEMOGLOBIN 10.7 g/dL (12.6-16.3); LEFT SHIFT FLG 20 (0-99); LIPEMIA HEMOLYSIS FLAG 90 (0-99); MEAN CELL HEMOGLOBIN 29.2 pg (27.9-34.1); MEAN CELL VOLUME 86.1 fL (81.5-99.8); MEAN PLATELET VOLUME 10.2 fL (8.7-11.7); NRBC-AUTO% 0.1 % (0.0-0.2); PLATELET CLUMPS FLAG 30 (0-99); PLATELET COUNT 218 10^3/uL (150-400); RED BLOOD CELL COUNT 3.66 10^6/uL (4.18-5.33); RED CELL DISTRIBUTION WIDTH 14.7 % (11.5-15.2)
[2017-05-27 05:28] LABS: ANION GAP 8 mEq/L (8-16); CALCIUM 7.9 mg/dL (8.5-10.4); CARBON DIOXIDE 24 mEq/l (22-31); CHLORIDE 104 mEq/L (97-110); CREATININE 0.9 mg/dL (0.6-1.0); GLOMERULAR FILTRATION RATE > 60; GLUCOSE 148 mg/dL (70-100); POTASSIUM 4.5 mEq/L (3.5-5.2); SODIUM 136 mEq/L (134-144)
[2017-05-27] MEDS: methylPREDNISolone SOD SUCC 125 MG/2 ML VIAL IVP SCH ×2 (08:03→21:30)
[2017-05-27] MEDS: ENOXAPARIN 40 MG/0.4 ML SYR SC SCH (08:03)
[2017-05-27] MEDS: METOPROLOL TARTRATE 25 MG TAB PO SCH (08:03)
--- NOTE | 2017-05-27 08:39 | SOAPPROG ---
[facility] Progress Note Assessment/Plan: Assessment: 1. 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 2. Transient, perioperative atrial fibrillation with a rapid ventricular response. 3. Perioperative pericarditis. This is likely related to her surgical procedure and the need to open the pericardium. This is associated with elevated troponins however these are trending downward. 4. Hypertension. 5. Persistent tachycardia. Likely related to her recent surgery, anemia and pain. No indication of significant pericardial effusion. Plan: 1. Will increase her metoprolol up to 50 mg twice daily. 2. I have ordered an EKG for to be done this morning. 3. We will follow along with you. 05/27/17 08:39 Subjective: She states she feels a little bit better today. She denies chest pain/chest pressure and left arm discomfort. She is in sinus tachycardia currently. Troponins have been trending down gradually. Objective: Vital Signs Temp Pulse Resp BP Pulse Ox 37.1 C 118 H 23 H 153/84 H 100 05/26/17 20:00 05/27/17 08:00 05/27/17 08:00 05/27/17 08:00 05/27/17 08:00 Laboratory Results 05/27/17 04:40 05/27/17 04:40 05/26/17 05/27/17 05/28/17 05:59 05:59 05:59 Intake Total 3259 1500 Output Total 1050 650 Balance 2209 850 PT 14.8 SEC (12.0-15.0) 05/26/17 10:00 INR 1.16 (0.83-1.16) 05/26/17 10:00 Physical Exam - Physical Exam General Appearance: WD/WN, no apparent distress Neck: non-tender Respiratory: decreased breath sounds (in the right lung woods), No respiratory distress, No accessory muscle use, No rales, No rhonchi Cardiac/Chest: tachycardia, No edema, No gallop, No JVD Peripheral Pulses: 2+: carotid (R), carotid (L) Abdomen: non-tender, soft Pelvic Exam: deferred Rectal: deferred Neuro/Psych: alert, oriented x 3 ICD10 Worksheet Patient Problems: Problems Problem Status Onset Lung cancer Acute
[2017-05-27] MEDS: REGARDING ANTICOAG MISC SCH (08:56)
[2017-05-27] MEDS: DC NARCS MISC SCH (08:56)
[2017-05-27] MEDS ORDERED: METOPROLOL TARTRATE 25 MG TAB PO ONE ×2 (09:00→18:45)
[2017-05-27] MEDS: ALBUTEROL 3 ML DEYVIAL IH PRN ×2 (09:04→19:45)
[2017-05-27] MEDS ORDERED: methylPREDNISolone SOD SUCC 125 MG/2 ML VIAL IVP SCH ×2 (09:14→20:50)
--- NOTE | 2017-05-27 09:17 | HOSPPROG ---
Hospitalist Progress Note Assessment/Plan: # elevated troponin - agree likely d/t cassy/myocarditis # perioperative a-fib with RVR, now sinus tach - started on metop - increase today - AC per cards when safe post-operatively # acute encephalopathy - may be d/t ativan use and hospital delirium; some concern for etOH w/d but I think this is less likely - discussed with RN - will hold ativan today - stopped benadryl # etOH use - placed on CIWA # hypoxia - recheck CXR today - continue steroids (tapered); consider additional lasix # RUL lobectomy POD#4 - epidural - adenoca on path - has hx lobectomy 2000 # GUS - improved with IVF # RAD - steroids (taper quickly), nebulizer # ABLA post op - s/p transfusion Subjective: confused today; initially thought we are in [place] Objective: Vital Signs Temp Pulse Resp BP Pulse Ox 37.1 C 95 23 H 153/84 H 100 05/26/17 20:00 05/27/17 08:55 05/27/17 08:00 05/27/17 08:00 05/27/17 08:00 Laboratory Results 05/27/17 04:40 05/27/17 04:40 05/26/17 05/27/17 05/28/17 05:59 05:59 05:59 Intake Total 3259 1500 Output Total 1050 650 Balance 2209 850 PT 14.8 SEC (12.0-15.0) 05/26/17 10:00 INR 1.16 (0.83-1.16) 05/26/17 10:00 high risk with encephalopathy - Physical Exam Constitutional: unkempt Cardiovascular: systolic murmur, tachycardia, No irregularly irregular, No diastolic murmur Respiratory: no respiratory distress, no rales or rhonchi, reduced air movement (R sided), expiratory wheeze Gastrointestinal: normoactive bowel sounds, soft, non-tender abdomen, no palpable masses ICD10 Worksheet Patient Problems: Problems Problem Status Onset Lung cancer Acute
--- NOTE | 2017-05-27 09:31 | PDINTPN ---
Cable Operator Progress Note Assessment/Plan: Assessment/Plan: * Lung cancer * Status post right pneumonectomy-chest x-ray pending * History of migraines * Pericarditis * Confusion-likely secondary to receiving Ativan last night. Feels is unlikely to be withdrawal from alcohol * Decreased urine output * Pain-well controlled * Respiratory -Stable Overall doing well Subjective: Sitting up in chair. Comfortable. Somewhat confused, but easily room reoriented Objective: Vital Signs Temp Pulse Resp BP Pulse Ox 37.1 C 89 22 H 153/84 H 100 05/26/17 20:00 05/27/17 09:08 05/27/17 09:08 05/27/17 08:00 05/27/17 09:08 Laboratory Results 05/27/17 04:40 05/27/17 04:40 05/26/17 05/27/17 05/28/17 05:59 05:59 05:59 Intake Total 3259 1500 Output Total 1050 650 Balance 2209 850 PT 14.8 SEC (12.0-15.0) 05/26/17 10:00 INR 1.16 (0.83-1.16) 05/26/17 10:00 Physical Exam - Physical Exam General Appearance: alert EENT: PERRL/EOMI Neck: non-tender, full range of motion, supple, normal inspection Respiratory: decreased breath sounds (Right), No crackles, No wheezing Cardiac/Chest: normal peripheral pulses, regular rate, rhythm, systolic murmur Abdomen: normal bowel sounds, non-tender, soft Pelvic Exam: deferred Rectal: deferred Skin: normal color, warm/dry Extremities: normal range of motion, non-tender, normal inspection, normal capillary refill Neuro/Psych: alert, oriented x 3, other (Periods of confusion) ICD10 Worksheet Patient Problems: Problems Problem Status Onset Lung cancer Acute
--- NOTE | 2017-05-27 09:34 | CPEKG ---
Heart Rate: 93 RR Interval: 645 P-R Interval: 204 QRSD Interval: 88 QT Interval: 356 QTC Interval: 443 P [place]: 50 QRS [place]: 21 T Wave [place]: 30 EKG Severity - ABNORMAL ECG - EKG Impression: SINUS RHYTHM EKG Impression: VENTRICULAR PREMATURE COMPLEX EKG Impression: CONSIDER ANTEROSEPTAL INFARCT Electronically Signed By: Santino Somers 29-May-2017 11:48:53
[2017-05-27] MEDS ORDERED: FLU VACC QS 2017-18 (3YR+)/PF 0.5 ML SYR (FLUARIX QUAD) IM ONE (09:48)
[2017-05-27] MEDS ORDERED: FUROSEMIDE 20 MG/2 ML VIAL IVP ONE (11:27)
--- NOTE | 2017-05-27 11:36 | SOAPPROG ---
SOAP Progress Note Assessment/Plan: Assessment/Plan: 71yo F s/p completion pneumonectomy - disoriented this AM, got ativan last night. Will dc this from MAR - Epidural in place, ideally remove this tomorrow - Aggressive IS, pulm toilet. Stable on NC - pericarditis stable - Cont SDU 05/25/17 13:25 05/27/17 11:33 05/27/17 11:35 Subjective: disoriented this AM but denies pain Objective: Vital Signs Temp Pulse Resp BP Pulse Ox 35.7 C L 88 22 H 153/84 H 100 05/27/17 09:55 05/27/17 09:55 05/27/17 09:08 05/27/17 08:00 05/27/17 09:08 Laboratory Results 05/27/17 04:40 05/27/17 04:40 05/26/17 05/27/17 05/28/17 05:59 05:59 05:59 Intake Total 3259 1500 Output Total 1050 650 Balance 2209 850 PT 14.8 SEC (12.0-15.0) 05/26/17 10:00 INR 1.16 (0.83-1.16) 05/26/17 10:00 ICD10 Worksheet Patient Problems: Problems Problem Status Onset Lung cancer Acute
--- NOTE | 2017-05-27 12:44 | POSTANESTH ---
Post Anesthetic Evaluation Cardiovascular Status: Normal, Stable, Similar to Pre-Op Cond Respiratory Status: Normal, Stable, Similar to Pre-op Cond. Level of Consciousness/Mental Status: Can Participate in Eval, Mildly Sleepy, Arousable Pain Control: Adequate, Prn Tx Ordered (Patient seen and evaluated due to continuos thoracic epdirual. Patient reports pain level of 1/10 when not coughing. Pain increases with activity and coughing. On inspection of patient' s back, entire epidural catheter could be seen under tegaderm dressing. Pump still running and epidural infusion could be watched exiting catheter's fenestrations and running down patient's back. Nurse reported that overnight the dressing needed to be "re-enforced" with additional tegaderms. Suspect the catheter came out sometime overnight with patient movement that also disrupted the original tegaderm dression. Patient did receive lovenox this morning around 8am. PHUONG draft recommendations request holding lovenox for 4 hours after catheter is removed. As actual time that catheter was removed cannot be determined, have asked TECHNOLOGY PROFESSIONAL to assess for any loss of lower extremity motor function and notify anesthesia immediately if symptoms present.)
[2017-05-27] MEDS ORDERED: DILTIAZEM 125 MG in D5W 125 ML IV SCH (13:30)
[2017-05-27] MEDS ORDERED: METOPROLOL TARTRATE 5 MG/5 ML INJ IVP ONE (14:00)
[2017-05-27] MEDS ORDERED: METOPROLOL TARTRATE 5 MG/5 ML INJ IVP PRN (16:37)
--- NOTE | 2017-05-27 18:30 | ASMTCMCOM ---
CM Note CM Note Notes: Reviewed chart regarding discharge plan, pt's progress. Per MD notes, pt confused, disoriented today; received Ativan last noc. Pt slowly improving s/p planned thoracotomy, pneumoncetomy for lung cancer. Epidural remains in place, will likely be discontinued 05/28/17. PT/OT rec home w/ home care. CM will cont to follow and will meet w/ pt to discuss HC options. Current Discharge Plan: Home w/ home care and family support Date Signed: 05/27/2017 06:29 PM Electronically Signed By:Pauline Garnica RN
[2017-05-27] MEDS ORDERED: LORazepam 0.5 MG TAB PO ONE (18:45)
[2017-05-27] MEDS: DOCUSATE SODIUM 100 MG CAP PO PRN (19:46)
[2017-05-27] MEDS: AMITRIPTYLINE HCL 50 MG TAB PO SCH (19:47)
[2017-05-27] MEDS ORDERED: LEVALBUTEROL 1.25 MG/3 ML DEYVIAL IH ONE (20:49)
[2017-05-27] MEDS ORDERED: HALOPERIDOL LACT 5 MG/ML INJ IVP PRN (20:49)
[2017-05-27] MEDS ORDERED: METOPROLOL TARTRATE 50 MG TAB PO SCH (21:00)
[2017-05-27] MEDS ORDERED: METOPROLOL TARTRATE 25 MG TAB PO SCH (21:00)
[2017-05-27 21:11] LABS: CALCULATED OXYGEN SATURATION 54 % (92-95); O2 CONCENTRATIION 40 % (0-100)
[2017-05-27] MEDS: IPRATROPIUM BROMIDE 0.5 MG/2.5 ML DEYVIAL IH SCH (21:15)
[2017-05-27] MEDS ORDERED: FUROSEMIDE 40 MG/4 ML VIAL IVP ONE (21:35)
[2017-05-27] MEDS ORDERED: DILTIAZEM 25 MG/5 ML VIAL IVP SCH (21:45)
--- NOTE | 2017-05-27 21:47 | HOSPPROG ---
Hospitalist Progress Note Assessment/Plan: 75minutes of critical care time spent, at bedside with patient, addressing the following issues: -contacted by nurse for ongoing tachypnea, atrial fibrillation with rapid ventricular response, acute encephalopathy -evaluated patient, she is visibly tachypneic, visibly labored breathing, alert awake oriented x3 with 6/7 concentration, 3/3 naming, but poor attention, somnolence, picking, experiencing visual hallucinations, heart rhythm is irregularly irregular, tachycardic, rate between 110-140, lungs have expiratory wheezes in the left posterior and left anterior woods, with some inspiratory crackles in the left and right bases, trace bilateral lower extremity edema -reviewed daily progress notes, chest x-ray from this morning, labs -I believe the most likely cause of the patient's respiratory distress is a combination of worsening acute reactive airway disease as well as ongoing congestive heart failure exacerbation, based on chest x-ray demonstrating some increased pulmonary infiltrates on the left and her profoundly reactive airways on physical exam -given her AFib RVR, adjust her nebulizer treatments to Xopenex/Atrovent scheduled q.6 hours, give 1 dose of single agent Xopenex now, increase steroids to methylprednisolone 60 mg q.6 hours scheduled -give dose of 40 mg IV Lasix now, place Renee catheter for strict I&Os -discussed with Dr. Toan Mar, we agree that the AFib RVR is likely a response to the patient's reactive airways and CHF, patient should likely receive a orion blocking agent given her reactive airways, would like to titrate off of the metoprolol and on to diltiazem, give 1 dose of 5 mg IV now, gauge response, initiate drip thereafter and discontinue the scheduled metoprolol if reasonable response achieved -getting EKG and trop -if no response from the diltiazem, then Dr. Mar is agreeable to either digoxin load or amiodarone drip -discussed with Dr. Cornelius Mirza, primary surgery service, updated him on the situation and we discussed the risks of positive pressure ventilation in a patient who is post lobectomy, notably tension pneumothorax and tamponade -we agreed that we should attempt to oxygenate the patient with high-flow oxygen , the above treatment modalities for the underlying cause of her respiratory distress, and as a last resort temporizing things with BiPAP and then possibly intubate if necessary -d/w Dr. Self, we will hold on BiPAP at this time given the risks to the R stump -if she requires intubation, then she will need a bronchoscope and the left mainstem should be location of tube -if the patient is on positive pressure ventilation, and she experiences further decompensation, stat chest x-ray should be performed to evaluate for pneumothorax -signed out above information to Dr. Sams -she remains critically ill, high risk of worsening morbidity/mortality Objective: Vital Signs Temp Pulse Resp BP Pulse Ox 36.7 C 138 H 38 H 133/98 H 94 05/27/17 19:50 05/27/17 19:50 05/27/17 19:50 05/27/17 19:50 05/27/17 19:50 Laboratory Results 05/27/17 04:40 05/27/17 04:40 05/26/17 05/27/17 05/28/17 05:59 05:59 05:59 Intake Total 3259 1500 250 Output Total 0048 393 2513 Balance 2209 850 -1300 PT 14.8 SEC (12.0-15.0) 05/26/17 10:00 INR 1.16 (0.83-1.16) 05/26/17 10:00 ICD10 Worksheet Patient Problems: Problems Problem Status Onset Lung cancer Acute
[2017-05-27 21:49] LABS: BICARBONATE 20 mEq/L (22-26); MEASURED OXYGEN SATURATION 90 % (92-95); PCO2 31 mmHg (34-38); PO2 58 mmHg (65-75); TCO2 21 mEq/L (23-27)
--- NOTE | 2017-05-27 22:11 | CPEKG ---
Heart Rate: 109 RR Interval: 550 QRSD Interval: 82 QT Interval: 344 QTC Interval: 464 QRS [place]: 26 T Wave [place]: 19 EKG Severity - ABNORMAL ECG - EKG Impression: ATRIAL FIBRILLATION, V-RATE 94-133 Electronically Signed By: Santino Somers 29-May-2017 11:48:20
--- NOTE | 2017-05-27 23:54 | GOP ---
[f rep st] OPERATIVE REPORT DATE OF OPERATION: 05/23/2017 SURGEON: Mark Hassan MD SHEET HEATER: Sharyn Perez P.A.-C. ANESTHESIOLOGIST: Dr. Small. PREOPERATIVE DIAGNOSIS: Recurrent right lung cancer. POSTOPERATIVE DIAGNOSIS: Recurrent right lung cancer. PROCEDURE PERFORMED: 1. Thoracoscopy. 2. Thoracotomy. 3. Intrapericardial pneumonectomy. FINDINGS: We found a fairly large tumor in the upper segment of the remaining right lower lobe on the right side. The lung was somewhat fixed to the chest wall from a previous old thoracotomy incision. There was no clear separation between the lower lobe and the middle lobe. We tried for quite some time to separate the middle lobe from the lower lobe, but the middle lobe was quite atretic and small. This was thought to be unsalvageable considering the difficult of the dissection. Some lymph nodes were dissected free from the mediastinum and sent out for evaluation, but did not appear to be involved. DESCRIPTION OF PROCEDURE: The patient was taken to the operating room after she received satisfactory general endotracheal anesthesia by Dr. Small with a double-lumen endotracheal tube, art line monitoring and an epidural catheter. The patient was placed in the left lateral decubitus position and prepped and draped in the usual sterile fashion. A short incision was made in the lower portion of the right chest below the previous thoracotomy incision and a trocar was introduced into the chest. Adequate visualization was obtained. However, the lung with markedly adherent to the chest wall. Additional trocars were placed under direct vision. I attempted to dissect through the lung to the chest wall, but this was met with significant difficulty and was considered somewhat risky. The lung was cleared from the old thoracotomy incision relatively easily and the procedure was then converted to an open thoracotomy. Posterior lateral incision was made through the previous thoracotomy incision and carried down. The muscle was divided with electrocautery and the 4th intercostal space was entered carefully . Extensive dissection adhesiolysis was then performed to free the lung away from the rest of the chest wall so the incision could be enlarged and the ribs spread. This was slowly and tediously accomplished until the entire lung was freed up from the posterior lateral chest wall. The area of the tumor was then delineated. The hilum was difficult to dissect because of previous surgery. However, the inferior pulmonary vein was easy to identify and this was dissected free and encircled. The pulmonary artery was a little more difficult. The pericardium was opened for a short distance superiorly and the proximal pulmonary artery was identified and exposed for control. The pulmonary artery was encircled and eventually divided with the Endo-PRASHANT stapler, as was the inferior pulmonary vein. Prior to that, however, extensive dissection was done freeing up the lung, trying to separate the middle lobe from the remaining lower lobe. It was unclear which lobe the tumor actually involved, and there was no clear demarcation between a somewhat atretic remaining middle lobe and the right lower lobe. After a long dissection, it was elected to proceed with a pneumonectomy. After division of the pulmonary artery and inferior pulmonary vein, the bronchus was identified. This was dissected free and divided with a PRASHANT stapler. Any remaining attachments to the chest wall or mediastinum were freed up and until the lung could be removed and sent to pathology. Hemostasis was then carefully obtained. The bronchial stump was tested under water and appeared to be quite airtight. Hemostasis was assured. A segment of associated pleura was freed up and secured over the bronchial stump with 3-0 Vicryl sutures. The chest was then closed with #1 Vicryl pericostal sutures drilled through the inferior rib, and the muscles were approximated with running 0 Vicryl sutures, the subcu with 2-0 Vicryl sutures and the skin with skin jewels. All port incisions were infiltrated with 0.5% Marcaine. No chest tube was used. She tolerated the procedure quite well. Blood loss was less than 500 mL. There were no complications. She was taken to the recovery room in good condition. /[id number]/MODL MTDD
[2017-05-28] MEDS ORDERED: methylPREDNISolone SOD SUCC 125 MG/2 ML VIAL IVP SCH
[2017-05-28] MEDS: LEVALBUTEROL 0.63 MG/3 ML DEYVIAL IH SCH ×4 (00:14→17:25)
[2017-05-28] MEDS: IPRATROPIUM BROMIDE 0.5 MG/2.5 ML DEYVIAL IH SCH ×4 (00:14→17:25)
[2017-05-28] MEDS: DILTIAZEM 125 MG in D5W 125 ML IV SCH ×2 (01:02→07:09)
[2017-05-28] MEDS ORDERED: HALOPERIDOL LACT 5 MG/ML INJ IVP ONE (01:28)
[2017-05-28] MEDS: methylPREDNISolone SOD SUCC 125 MG/2 ML VIAL IVP SCH ×4 (04:03→23:04)
[2017-05-28] MEDS ORDERED: FUROSEMIDE 40 MG/4 ML VIAL IVP ONE ×3 (04:41→15:45)
[2017-05-28] MEDS ORDERED: QUEtiapine FUMARATE 25 MG TAB PO SCH (04:45)
--- NOTE | 2017-05-28 05:18 | HOSPPROG ---
Hospitalist Progress Note Assessment/Plan: Hospitalist Night Float Note Paged by RN. Reports concerned that patient was restless and not sleeping through the night. was wanting medications to ensure patient was sedated. Patient overnight has diuresed 2000 mls. respiratory status without changes. bipap placed for approximately 15 minutes before I arrived. Spoke to patient's . reviewed current status and that patient with intermittent confusion likely due to encephalopathy with multiple conditions both respiratory/cardiac on going. I noted that completely sedating patient could jeopardize patient respiratory drive and that it is not recommended. reviewed that patient with steroids, neb treatment for Reactive airway, dilt for afib 2/2 RAD. patient was restless and received 2 doses of haldol overnight with temporary response but remained awake. Will do trial of low dose seroquel. d/c bipap at this time. Patient without need for additional airway support so will continue to monitor with vapotherm. additional dose lasix ordered. cxr this AM. Objective: Vital Signs Temp Pulse Resp BP Pulse Ox 37.2 C 98 33 H 132/116 H 95 05/28/17 00:00 05/28/17 03:57 05/28/17 03:57 05/28/17 03:57 05/28/17 03:57 Laboratory Results 05/27/17 04:40 05/27/17 04:40 05/26/17 05/27/17 05/28/17 05:59 05:59 05:59 Intake Total 3259 1500 250 Output Total 0561 308 0828 Balance 2209 850 -1300 PT 14.8 SEC (12.0-15.0) 05/26/17 10:00 INR 1.16 (0.83-1.16) 05/26/17 10:00 ICD10 Worksheet Patient Problems: Problems Problem Status Onset Lung cancer Acute
[2017-05-28 05:41] LABS: % IMMATURE GRANULYOCYTES 1.3 % (0.0-1.1); ABSOLUTE IMMATURE GRANULOCYTES 0.29 10^3/uL (0.00-0.10); ABSOLUTE NRBC COUNT 0.04 10^3/uL (0-0.01); ADD DIFF? NO; ADD MORPH? NO; ADD SCAN? NO; ATYPICAL LYMPHOCYTE FLAG 10 (0-99); FRAGMENT RBC FLAG 0 (0-99); HEMATOCRIT 33.9 % (38.0-47.0); HEMOGLOBIN 11.3 g/dL (12.6-16.3); LEFT SHIFT FLG 10 (0-99); LIPEMIA HEMOLYSIS FLAG 80 (0-99); MEAN CELL HEMOGLOBIN 28.3 pg (27.9-34.1); MEAN CELL HEMOGLOBIN CONCENTR. 33.3 g/dL (32.4-36.7); MEAN PLATELET VOLUME 10.1 fL (8.7-11.7); NRBC-AUTO% 0.2 % (0.0-0.2); PLATELET CLUMPS FLAG 0 (0-99); PLATELET COUNT 298 10^3/uL (150-400); RED BLOOD CELL COUNT 3.99 10^6/uL (4.18-5.33); RED CELL DISTRIBUTION WIDTH 14.4 % (11.5-15.2)
[2017-05-28 05:45] LABS: CALCULATED OXYGEN SATURATION 95 % (92-95); O2 CONCENTRATIION 100 % (0-100)
[2017-05-28 06:43] LABS: ALANINE AMINOTRANSFERASE 158 IU/L (9-52); ALBUMIN 3.6 g/dL (3.5-5.0); ALKALINE PHOSPHATASE 176 IU/L (38-126); ANION GAP 16 mEq/L (8-16); ASPARTATE AMINOTRANSFERASE 111 IU/L (14-46); BILIRUBIN,TOTAL 1.9 mg/dL (0.1-1.4); CALCIUM 8.6 mg/dL (8.5-10.4); CARBON DIOXIDE 27 mEq/l (22-31); CHLORIDE 99 mEq/L (97-110); GLOMERULAR FILTRATION RATE 55; GLUCOSE 175 mg/dL (70-100); POTASSIUM 3.4 mEq/L (3.5-5.2); SODIUM 142 mEq/L (134-144); TOTAL PROTEIN 6.3 g/dL (6.3-8.2)
[2017-05-28 06:54] LABS: TROPONIN I 0.188 ng/mL (0.000-0.034)
[2017-05-28] MEDS ORDERED: PROTOCOL MAGNESIUM 1 DOSE IV PRN (08:17)
[2017-05-28] MEDS ORDERED: PROTOCOL POTASSIUM 1 DOSE MISC PRN (08:17)
--- NOTE | 2017-05-28 08:34 | PDINTPN ---
[employer] Progress Note Assessment/Plan: Assessment/Plan: * Lung cancer * Status post right pneumonectomy * Pneumonia-possible aspiration -will start Zosyn and azithromycin * Acute respiratory failure-secondary to above. Now on high-flow oxygen. Will hold on BiPAP secondary to fresh pneumonectomy in stump. If she requires intubation, this will be a somewhat difficult left mainstem intubation. -wean FiO2 as tolerated * Increase loops of bowel seen on chest x-ray-will obtain abdominal series * AFib-episode last night. Currently in sinus but mildly tachycardic * History of migraines * Pericarditis * Confusion-likely metabolic * Pain-well controlled Case discussed with Cardiology, hospitalist and nurse. Subjective: Confused and somewhat breathless. Pain is okay. Denies any current nausea or vomiting. Objective: Vital Signs Temp Pulse Resp BP Pulse Ox 36.4 C 100 25 H 137/56 H 100 05/28/17 07:00 05/28/17 07:09 05/28/17 07:00 05/28/17 07:00 05/28/17 07:00 Laboratory Results 05/28/17 05:09 05/28/17 05:09 05/27/17 05/28/17 05/29/17 05:59 05:59 05:59 Intake Total 1500 450 Output Total 650 3850 Balance 850 -3400 PT 14.8 SEC (12.0-15.0) 05/26/17 10:00 INR 1.16 (0.83-1.16) 05/26/17 10:00 Chest [id number] by myself. Left lung showing evidence of infiltrate in all lobes. Also likely fluid overload. Subcutaneous air still present. Physical Exam - Physical Exam General Appearance: alert, anxiety EENT: PERRL/EOMI Neck: non-tender, supple Respiratory: respiratory distress (Moderate), crackles (Throughout left lung), other (Subcutaneous emphysema), No wheezing Cardiac/Chest: normal peripheral pulses, regular rate, rhythm, systolic murmur Abdomen: non-tender, soft, distended (Mild) Pelvic Exam: deferred Rectal: deferred Skin: normal color, warm/dry Neuro/Psych: alert, other (Some confusion) ICD10 Worksheet Patient Problems: Problems Problem Status Onset Lung cancer Acute
--- NOTE | 2017-05-28 08:42 | HOSPPROG ---
Hospitalist Progress Note Assessment/Plan: # sepsis - suspect d/t pna - BCx drawn # acute hypoxic resp failure - d/t pna, pulm edema, single lung - abx, BDs, steroids, diuretics # pneumonia - start zosyn azith (per pulmonary) # acute dCHF with pulm edema - diuresis, rate control per cards # perioperative a-fib with RVR, back in a-fib, was sinus yesterday morning - Dr Ghosh to change to metop (had been on dilt overnight) - AC per cards when safe post-operatively # elevated troponin - agree likely d/t cassy/myocarditis # acute encephalopathy - suspect this is metabolic d/t infection and ICU delirium - care with sedating meds # etOH use - does not appear to be in w/d # RUL lobectomy POD#5 - adenoCa on path - has hx lobectomy 2000 # GUS - improved with IVF # RAD - steroids (taper quickly), nebulizer # ABLA post op - s/p transfusion 40 minutes floor CC time Subjective: confused overnight; now on significantly more O2 Objective: Vital Signs Temp Pulse Resp BP Pulse Ox 36.4 C 100 25 H 137/56 H 100 05/28/17 07:00 05/28/17 07:09 05/28/17 07:00 05/28/17 07:00 05/28/17 07:00 Laboratory Results 05/28/17 05:09 05/28/17 05:09 05/27/17 05/28/17 05/29/17 05:59 05:59 05:59 Intake Total 1500 450 Output Total 650 3850 Balance 850 -3400 PT 14.8 SEC (12.0-15.0) 05/26/17 10:00 INR 1.16 (0.83-1.16) 05/26/17 10:00 - Physical Exam Constitutional: unkempt Cardiovascular: regular rate and rhythym, no murmur, rub, or gallop Respiratory: reduced air movement (R sided), inspiratory crackles (L sided, mostly higher), respiratory distress (moderate) Gastrointestinal: soft, non-tender abdomen, no palpable masses ICD10 Worksheet Patient Problems: Problems Problem Status Onset Lung cancer Acute
--- NOTE | 2017-05-28 09:29 | SOAPPROG ---
SOAP Progress Note Assessment/Plan: Assessment: 1. Postoperative day 5 following a right upper lobe resection for recurrent adenocarcinoma. 2. Multiple episodes of self-limited perioperative atrial fibrillation with a rapid ventricular response. 3. Perioperative pericarditis. This is likely related to her surgical procedure and the need to open the pericardium. This is associated with elevated troponins that continued to trend downward. 4. Hypertension. 5. Persistent tachycardia. Likely related to her recent surgery, anemia, infection, hypoxemia and pain. No indication of significant pericardial effusion. 6. Respiratory failure. This is multifactorial related to her pneumonectomy, mild congestive heart failure and probable pneumonia. Plan: 1. I have discussed her case with the filter bed placer and Hospital Medicine. There are plans for broad-spectrum antibiotics to be started today. 2. I have given her a dose of Lasix 40 mg IV this morning. We will plan to carefully follow her net fluid output. 3. I will discontinue her IV diltiazem. I started her on p.o. Cardizem 30 mg every 6 hours. 4. We will follow along with you. Unfortunately, I think her prognosis is guarded. 05/28/17 09:27 Subjective: Yesterday afternoon she developed atrial fibrillation with a rapid ventricular response. She was treated with IV metoprolol. P.o. metoprolol was continued. Apparently, she developed worsening respiratory failure. As result, she was moved over to the ICU. She has been afebrile. She has developed a leukocytosis. Her chest x-ray indicates cephalization as well as patchy infiltrates in the left lung suspicious for pneumonia. Objective: Vital Signs Temp Pulse Resp BP Pulse Ox 36.4 C 100 25 H 137/56 H 100 05/28/17 07:00 05/28/17 07:09 05/28/17 07:00 05/28/17 07:00 05/28/17 07:00 Laboratory Results 05/28/17 05:09 05/28/17 05:09 05/27/17 05/28/17 05/29/17 05:59 05:59 05:59 Intake Total 1500 450 Output Total 650 3850 Balance 850 -3400 PT 14.8 SEC (12.0-15.0) 05/26/17 10:00 INR 1.16 (0.83-1.16) 05/26/17 10:00 Physical Exam - Physical Exam General Appearance: WD/WN, mild distress Neck: non-tender Respiratory: other (Diffuse rhonchorous breath sounds, obvious crepitus) Cardiac/Chest: tachycardia Peripheral Pulses: 2+: carotid (R), carotid (L) Abdomen: non-tender Pelvic Exam: deferred Rectal: deferred ICD10 Worksheet Patient Problems: Problems Problem Status Onset Lung cancer Acute
[2017-05-28] MEDS ORDERED: LORazepam 2 MG/ML INJ ONE (09:43)
[2017-05-28] MEDS: ENOXAPARIN 40 MG/0.4 ML SYR SC SCH (09:49)
[2017-05-28] MEDS ORDERED: POTASSIUM CL 10 MEQ TAB PO ONE (10:33)
[2017-05-28] MEDS: AZITHROMYCIN IV 500 MG in D5W 250 ML IV SCH (10:46)
[2017-05-28] MEDS ORDERED: LORazepam 2 MG/ML INJ IVP ONE (11:05)
[2017-05-28] MEDS ORDERED: POTASSIUM CL 10 MEQ TAB ONE (11:06)
[2017-05-28] MEDS: DILTIAZEM 30 MG TAB PO SCH ×2 (12:02→17:28)
[2017-05-28] MEDS: PIPERACILLIN/TAZO 4.5 GM/DEX 100 ML IV SCH ×3 (12:03→23:04)
--- NOTE | 2017-05-28 14:47 | SOAPPROG ---
SOAP Progress Note Assessment/Plan: Assessment/Plan: 71yo F s/p completion pneumonectomy - Mental status back at baseline, cont to hold benzos - pulm status remains tenuous, on hi flow NC today and maintaing. Lungs sound wet and did get lasix earlier today. CXR also shows what appears to be pna as well. - Discussed with david Self for bipap if needed, if requires intubation will attempt to make L mainstem if possible. 05/25/17 13:25 05/27/17 11:33 05/27/17 11:35 05/28/17 14:45 Subjective: more alert and oriented today. Objective: Vital Signs Temp Pulse Resp BP Pulse Ox 36.6 C 97 30 H 132/71 H 94 05/28/17 12:00 05/28/17 14:00 05/28/17 14:00 05/28/17 14:00 05/28/17 14:00 Microbiology 05/28/17 10:10 Respiratory Panel (PCR) - Final Nasal, Sinus - Other No Organism Detected Laboratory Results 05/28/17 05:09 05/28/17 05:09 05/27/17 05/28/17 05/29/17 05:59 05:59 05:59 Intake Total 0962 290 6922 Output Total 650 3850 1725 Balance 850 -3400 -503 PT 14.8 SEC (12.0-15.0) 05/26/17 10:00 INR 1.16 (0.83-1.16) 05/26/17 10:00 ICD10 Worksheet Patient Problems: Problems Problem Status Onset Lung cancer Acute
--- NOTE | 2017-05-28 14:56 | CPEKG ---
Heart Rate: 97 RR Interval: 619 P-R Interval: 175 QRSD Interval: 86 QT Interval: 348 QTC Interval: 442 P [place]: 57 QRS [place]: 30 T Wave [place]: 43 EKG Severity - ABNORMAL ECG - EKG Impression: SINUS RHYTHM EKG Impression: Q WAVES ANTERIOR LEADS, POSSIBLE OLD ANTERIOR SD AGE INDETERMINANT Electronically Signed By: Santino Somers 29-May-2017 11:48:03
[2017-05-28] MEDS: LORazepam 2 MG/ML INJ IVP PRN ×2 (16:52→20:39)
[2017-05-28 17:57] LABS: POTASSIUM 3.2 mEq/L (3.5-5.2)
[2017-05-28] MEDS ORDERED: PROPOFOL/EMULSION 1,000 MG/100 ML BOTTLE IV ONE (19:21)
--- NOTE | 2017-05-28 19:57 | PDINTPN ---
Orthotic/Prosthetic Clinician Progress Note Assessment/Plan: Assessment/Plan: * Lung cancer * Status post right pneumonectomy * Pneumonia-possible aspiration -will start Zosyn and azithromycin * Acute respiratory failure-secondary to above. Worsening FiO2 requirements as well as tachypnea -will intubated placed on mechanical ventilation * Increase loops of bowel seen on chest x-ray-will obtain abdominal series * AFib-episode last night. Currently in sinus but mildly tachycardic * History of migraines * Sedation-will start propofol and fentanyl drips * Pericarditis * Confusion-likely metabolic * Pain-well controlled Case discussed with Cardiology, hospitalist and nurse. 35 minutes of critical care time spent with patient Subjective: Called to see patient regarding worsening respiratory status. Markedly more hypoxemic with increased work of breathing. Objective: Vital Signs Temp Pulse Resp BP Pulse Ox 36.7 C 101 H 31 H 156/54 H 93 05/28/17 16:00 05/28/17 18:00 05/28/17 18:00 05/28/17 18:00 05/28/17 18:00 Microbiology 05/28/17 10:10 Respiratory Panel (PCR) - Final Nasal, Sinus - Other No Organism Detected Laboratory Results 05/28/17 05:09 05/28/17 17:30 05/27/17 05/28/17 05/29/17 05:59 05:59 05:59 Intake Total 6324 583 8874 Output Total 650 3850 2175 Balance 850 -3400 -603 PT 14.8 SEC (12.0-15.0) 05/26/17 10:00 INR 1.16 (0.83-1.16) 05/26/17 10:00 Laboratory Results 05/28/17 05:09 05/28/17 17:30 05/28/17 05:29 Patient Temperature 37.0 DEGREES DEGREES POC pH 7.48 H (7.35 - 7.45) POC pCO2 32 mmHg L mmHg (34 - 38) POC pO2 69 mmHg mmHg (65 - 75) POC HCO3 24 mEq/L mEq/L (22 - 26) POC Total CO2 25 mEq/L mEq/L (23 - 27) POC Base Excess 1.0 mEq/L mEq/L (-2.5 - 2.5) POC O2 Sat (Calc) 95 % % (92 - 95) Physical Exam - Physical Exam General Appearance: alert, severe distress EENT: PERRL/EOMI Neck: non-tender, full range of motion Respiratory: crackles (Left), No respiratory distress, No wheezing Cardiac/Chest: normal peripheral pulses, regular rate, rhythm Abdomen: normal bowel sounds, non-tender, soft Pelvic Exam: deferred Rectal: deferred Skin: normal color, warm/dry Extremities: normal range of motion, non-tender, normal inspection, normal capillary refill ICD10 Worksheet Patient Problems: Problems Problem Status Onset Lung cancer Acute
[2017-05-28] MEDS: PROPOFOL/EMULSION 100 ML IV SCH (20:00)
[2017-05-28] MEDS ORDERED: SUCCINYLCHOLINE CHLORIDE*ANESTHESIA ONLY*200 MG/10 ML SYR IVP ONE (20:01)
[2017-05-28] MEDS ORDERED: MIDAZOLAM 2 MG/2 ML VIAL ONE (20:01)
--- NOTE | 2017-05-28 20:13 | GPN ---
[f rep st] PROCEDURE NOTE PROCEDURE: Fiberoptic bronchoscopy. INDICATION: Left-sided pneumonia. ANESTHESIA: She is currently sedated and on mechanical ventilation. The procedure was performed in the intensive care unit. Continuous pulse ox, EKG and blood pressure monitoring. Please note N95 masks were used throughout the procedure. Also note, patient is on [facility] anical ventilation, which is by definition a closed circuit and posed no risk for airborne pathogens. DESCRIPTION OF PROCEDURE: The bronchoscope was entered through a #7 endotracheal tube. Distal trach ea and robin were visualized, showed no endobronchial lesion, normal-appearing mucosa. The bronchos cope was entered into the right. The stump is healing well. Bronchoscope was entered in the left pro ng. Left upper lobe, lingula, left lower lobe including subsegments were subsequently visualized and showed no endobronchial lesions and normal-appearing mucosa. Bronchoalveolar lavage was taken from the left lower lobe. This was sent for C and S, AFB, fungal cultures, and viral studies. Patient tolerated the procedure well. There were no apparent complications. Portable chest x-ray crouch s been called for. /[id number]/MODL
[2017-05-28] MEDS: FAMOTIDINE 20 MG/NACL 50 ML IV SCH (20:21)
[2017-05-28] MEDS: CHLORHEXIDINE GLUCONATE 15 ML UDL PO SCH (20:21)
[2017-05-28] MEDS: fentaNYL/NACL 100 ML IV SCH (20:34)
[2017-05-28 21:19] LABS: BASE EXCESS 3.4 mEq/L (-2.5-2.5); BICARBONATE 27 mEq/L (22-26); MEASURED OXYGEN SATURATION 98 % (92-95); PCO2 39 mmHg (34-38); PO2 117 mmHg (65-75); TCO2 28 mEq/L (23-27)
[2017-05-28 21:21] LABS: ASSIST CONTROL YES; END TIDAL CO2 22; O2 CONCENTRATIION 100 % (0-100); P/F RATIO 117 RATIO; TOTAL RATE 16
[2017-05-29] MEDS: IPRATROPIUM HFA INHALER IH SCH ×5 (00:17→23:33)
[2017-05-29] MEDS: LEVALBUTEROL INHALER 200 PUFFS/15 GM MDI IH SCH ×5 (00:18→23:32)
[2017-05-29] MEDS: DILTIAZEM 30 MG TAB PO SCH ×2 (00:21→06:13)
[2017-05-29] MEDS: PROPOFOL/EMULSION 100 ML IV SCH ×3 (00:21→18:43)
[2017-05-29] MEDS: POTASSIUM Cl (KCl) 50 ML IV SCH ×2 (00:21→01:45)
[2017-05-29] MEDS: AMITRIPTYLINE HCL 50 MG TAB PO SCH (00:22)
[2017-05-29] MEDS: methylPREDNISolone SOD SUCC 125 MG/2 ML VIAL IVP SCH ×3 (04:39→18:14)
[2017-05-29 04:43] LABS: % IMMATURE GRANULYOCYTES 1.4 % (0.0-1.1); ABSOLUTE IMMATURE GRANULOCYTES 0.21 10^3/uL (0.00-0.10); ABSOLUTE NRBC COUNT 0.02 10^3/uL (0-0.01); ADD DIFF? NO; ADD MORPH? NO; ADD SCAN? NO; ATYPICAL LYMPHOCYTE FLAG 10 (0-99); FRAGMENT RBC FLAG 0 (0-99); HEMATOCRIT 28.7 % (38.0-47.0); HEMOGLOBIN 9.9 g/dL (12.6-16.3); LEFT SHIFT FLG 10 (0-99); LIPEMIA HEMOLYSIS FLAG 90 (0-99); MEAN CELL HEMOGLOBIN CONCENTR. 34.5 g/dL (32.4-36.7); MEAN CELL VOLUME 84.2 fL (81.5-99.8); MEAN PLATELET VOLUME 9.8 fL (8.7-11.7); NRBC-AUTO% 0.1 % (0.0-0.2); PLATELET CLUMPS FLAG 0 (0-99); PLATELET COUNT 222 10^3/uL (150-400); RED BLOOD CELL COUNT 3.41 10^6/uL (4.18-5.33); RED CELL DISTRIBUTION WIDTH 14.5 % (11.5-15.2)
[2017-05-29 04:54] LABS: ALANINE AMINOTRANSFERASE 108 IU/L (9-52); ALBUMIN 2.6 g/dL (3.5-5.0); ALKALINE PHOSPHATASE 111 IU/L (38-126); ANION GAP 7 mEq/L (8-16); ASPARTATE AMINOTRANSFERASE 43 IU/L (14-46); BILIRUBIN,TOTAL 1.2 mg/dL (0.1-1.4); CALCIUM 7.6 mg/dL (8.5-10.4); CARBON DIOXIDE 30 mEq/l (22-31); CHLORIDE 102 mEq/L (97-110); CREATININE 1.1 mg/dL (0.6-1.0); GLOMERULAR FILTRATION RATE 49; GLUCOSE 137 mg/dL (70-100); MAGNESIUM 2.1 mg/dL (1.6-2.3); POTASSIUM 3.9 mEq/L (3.5-5.2); SODIUM 139 mEq/L (134-144); TOTAL PROTEIN 4.5 g/dL (6.3-8.2)
[2017-05-29] MEDS: fentaNYL/NACL 100 ML IV SCH (05:11)
[2017-05-29 05:57] LABS: BASE EXCESS 4.3 mEq/L (-2.5-2.5); BICARBONATE 28 mEq/L (22-26); MEASURED OXYGEN SATURATION 95 % (92-95); PCO2 39 mmHg (34-38); PO2 74 mmHg (65-75); TCO2 29 mEq/L (23-27)
[2017-05-29 05:58] LABS: ASSIST CONTROL YES
[2017-05-29 05:59] LABS: END TIDAL CO2 21; O2 CONCENTRATIION 75 % (0-100); P/F RATIO 99 RATIO; TOTAL RATE 30
[2017-05-29] MEDS: PIPERACILLIN/TAZO 4.5 GM/DEX 100 ML IV SCH ×3 (06:13→18:14)
[2017-05-29] MEDS ORDERED: POTASSIUM Cl (KCl) 50 ML IV ONE (06:35)
[2017-05-29] MEDS: CHLORHEXIDINE GLUCONATE 15 ML UDL PO SCH ×2 (08:39→20:05)
--- NOTE | 2017-05-29 08:46 | CPEKG ---
Heart Rate: 89 RR Interval: 674 P-R Interval: 216 QRSD Interval: 86 QT Interval: 380 QTC Interval: 463 P [place]: 30 QRS [place]: 22 T Wave [place]: 36 EKG Severity - ABNORMAL ECG - EKG Impression: SINUS RHYTHM EKG Impression: CONSIDER ANTEROSEPTAL INFARCT Electronically Signed By: Santino Somers 29-May-2017 11:47:03
--- NOTE | 2017-05-29 09:10 | SOAPPROG ---
SOAP Progress Note Assessment/Plan: Assessment: stable/ cxr ok/ hct pending Plan:icu monitor 05/23/17 19:43 05/26/17 09:09 WOUND OK/ CXR STABLE/ AFEBRILE/ WORKUP FOR TROPONIN ELEVATION SHOWS LIKELY PERICARDITIS SHE ALSO HAS LEFT PLEURAL EFFUSION/ CREAT IMPROVED AND UO IMPROVED/ HCT STABLE 05/29/17 09:04 PT STABLE NOW BUT HAD TO BE REINTUBATED OVER THE WEEKEND/ CXR STABLE WITH INTERSTITIAL INFILTRATE/ HCT 29/ LABS OK WOUND OK/ CHEST CLEAR/ VS STABLE/ UO BRISK/ AFEBRILE CONTINUE VENT SUPPORT AND DIURESIS Objective: Vital Signs Temp Pulse Resp BP Pulse Ox 36.6 C 90 29 H 100/51 L 92 05/29/17 00:00 05/29/17 07:00 05/29/17 08:03 05/29/17 07:00 05/29/17 08:03 Microbiology 05/28/17 10:10 Respiratory Panel (PCR) - Final Nasal, Sinus - Other No Organism Detected Laboratory Results 05/29/17 04:35 05/29/17 04:35 05/28/17 05/29/17 05/30/17 05:59 05:59 05:59 Intake Total 450 2203 Output Total 3850 2750 Balance -3400 -547 PT 14.8 SEC (12.0-15.0) 05/26/17 10:00 INR 1.16 (0.83-1.16) 05/26/17 10:00 ICD10 Worksheet Patient Problems: Problems Problem Status Onset Lung cancer Acute - ICD10 Problem Qualifiers (1) Lung cancer
[2017-05-29] MEDS ORDERED: methylPREDNISolone SOD SUCC 125 MG/2 ML VIAL IVP SCH (09:42)
--- NOTE | 2017-05-29 09:47 | HOSPPROG ---
Hospitalist Progress Note Assessment/Plan: # sepsis - suspect d/t pna - BCx drawn, pending - not on pressors # acute hypoxic resp failure - d/t pna, pulm edema, single lung - re-intubated 05/28; consider optimal placement of ETT - abx, BDs, steroids (taper today), diuretics # pneumonia - start zosyn, azith (per pulmonary) # acute dCHF with pulm edema - diuresis, rate control per cards - still positive about 7L since admit # perioperative a-fib with RVR, now back in NSR - PO dilt - AC per cards when safe post-operatively # elevated troponin - agree likely d/t cassy/myocarditis # acute encephalopathy - suspect this is metabolic d/t infection and ICU delirium - care with sedating meds # etOH use - does not appear to be in w/d # RUL lobectomy POD#6 - adenoCa on path - has hx lobectomy 2000 # GUS - improved with IVF # RAD - steroids (taper today), nebulizer # ABLA post op - s/p transfusion 35 minutes floor CC time Subjective: re-intubated last night for worsening resp distress Objective: Vital Signs Temp Pulse Resp BP Pulse Ox 36.6 C 90 29 H 100/51 L 92 05/29/17 00:00 05/29/17 07:00 05/29/17 08:03 05/29/17 07:00 05/29/17 08:03 Microbiology 05/28/17 19:45 Gram Stain - Final Lung Left Lower Lobe - Aspirate 05/28/17 10:10 Respiratory Panel (PCR) - Final Nasal, Sinus - Other No Organism Detected Laboratory Results 05/29/17 04:35 05/29/17 04:35 05/28/17 05/29/17 05/30/17 05:59 05:59 05:59 Intake Total 450 2203 Output Total 3850 2750 Balance -3400 -547 PT 14.8 SEC (12.0-15.0) 05/26/17 10:00 INR 1.16 (0.83-1.16) 05/26/17 10:00 - Physical Exam Constitutional: other (intubated, sedated) Cardiovascular: regular rate and rhythym, no murmur, rub, or gallop Respiratory: no respiratory distress, reduced air movement (R sided), inspiratory crackles (mild) Gastrointestinal: soft, non-tender abdomen, no palpable masses ICD10 Worksheet Patient Problems: Problems Problem Status Onset Lung cancer Acute
[2017-05-29] MEDS: AZITHROMYCIN IV 500 MG in D5W 250 ML IV SCH (09:57)
[2017-05-29] MEDS: FAMOTIDINE 20 MG/NACL 50 ML IV SCH ×2 (09:57→20:05)
[2017-05-29] MEDS: ENOXAPARIN 40 MG/0.4 ML SYR SC SCH (09:58)
--- NOTE | 2017-05-29 11:49 | PDCARPN ---
Cardiology Progress Note Chief Complaint: No complaints - intubated and sedated (last night) Assessment/Plan: Assessment: Patient is a 71 y/o female with history of adenocarcinoma (lung) s/p right upper lobe resection (POD#6) with HTN, diastolic CHF, and pAF, with normal sinus rhythm currently noted. Last night, respiratory distress led to intubation by pulm/crit care team. Minimal troponin elevation thought secondary to cassy- post operative pericarditis (this being the diagnosis rendered over weekend). No further elevation in troponin has been noted ( reassessment today is pending). Ongoing broad spectrum antibiotic coverage for suspected pneumonia. Plans to extubate later today (if possible). I was present for multi D rounds this morning, and spoke directly with the . Plan: (1) From a cardiovascular standpoint, would continue with conservative management (2) Would repeat troponin today (3) There is a likelihood that the patient may revisit atrial fibrillation with all the events that are being noted. Would continue CCB therapy as at present for rate and rhythm control (4) We will continue to follow this patient Subjective: Intubated and sedated Reviewed/Discussed With: family, hospitalist, multidisciplinary team Objective: Vital Signs (8 Hrs) Pulse Resp BP Pulse Ox 05/29/17 11:19 93 22 H 92 05/29/17 11:00 93 24 H 112/61 92 05/29/17 10:00 96 20 104/52 L 93 05/29/17 09:00 90 17 107/52 L 95 05/29/17 08:03 29 H 92 05/29/17 07:00 90 16 100/51 L 96 05/29/17 06:00 91 20 117/61 97 05/29/17 04:00 91 15 104/55 L 97 Intake/Output (24 Hrs) 05/28/17 05/29/17 05/30/17 05:59 05:59 05:59 Intake Total 450 2203 Output Total 3850 2750 Balance -3400 -547 Intake: Oral (ml) 200 1100 IV Intake (ml) 888 IV Infused (ml) 250 215 Ns 1,000 ml @ 30 mls/hr 250 IV CONT GENIE Rx#: [id number] Propofol/Emulsion 100 ml 116 @ Per Protocol IV CONT GENIE Rx#:[id number] fentaNYL/NACL 100 ml @ 99 Per Protocol IV CONT GENIE Rx#:[id number] Output: Urine (ml) 3850 2750 Catheter 2300 2300 Toilet 1550 450 Other: Weight 59.7 kg Number of Voids Catheter 12 Number of Stools Catheter 1 Result Diagrams: 05/29/17 04:35 05/29/17 04:35 Cardiac Labs: Cardiac Lab Results (72 Hrs) 05/28/17 05/27/17 05/26/17 05:09 21:15 13:16 Troponin I 0.188 H 0.208 H 0.503 H Telemetry: normal sinus rhythm - Physical Exam Constitutional: other (sedated and intubated) Ears, Nose, Mouth, Throat: moist mucous membranes Cardiovascular: regular rate and rhythm, no murmurs Peripheral Pulses: 2+: dorsalis-pedis (R), dorsalis-pedis (L) Respiratory: other (diminished breath sounds on the right) Skin: other (trace edema to BLE) Neurologic: paresis Psychiatric: other (intubated and sedated) ICD10 Worksheet Patient Problems: Problems Problem Status Onset Lung cancer Acute
--- NOTE | 2017-05-29 12:26 | PDINTPN ---
Milking Worker Progress Note Assessment/Plan: Assessment: * Lung cancer, recurrent * Status post right pneumonectomy * Pneumonia verses relative pulmonary edema in unilateral lung. On Zosyn and azithromycin, CVP pending * Acute respiratory failure-secondary to above. On 75% FiO2. On CPAP and doing well with this. Inspiratory pressures are low: 16. * AFib. Paroxysmal, no recurrence. In sinus rhythm now, blood pressure okay. * History of migraines * Pericarditis * Confusion, postop. Hard to assess now * Pain. Appears well controlled * Prophylaxis: On enoxaparin and Pepcid Plan: Continue ventilatory support, supportive care. Continue antibiotics. Check CVP: Diurese as tolerated. Continue patient on CPAP is she is tolerating this well, keep peak pressures as low as possible. Follow laboratory , blood gas and chest x-ray. 50 minutes of critical care time spent directly with the patient. X-rays and records personally reviewed. Discussed with the patient's and son, surgery, RT, nursing, and the ICU multi disciplinary team. Subjective: Sedated, on the ventilator, appears comfortable. Objective: Vital Signs Temp Pulse Resp BP Pulse Ox 36.6 C 93 22 H 112/61 92 05/29/17 00:00 05/29/17 11:19 05/29/17 11:19 05/29/17 11:00 05/29/17 11:19 Microbiology 05/28/17 19:45 Gram Stain - Final Lung Left Lower Lobe - Aspirate 05/28/17 10:10 Respiratory Panel (PCR) - Final Nasal, Sinus - Other No Organism Detected Laboratory Results 05/29/17 04:35 05/29/17 04:35 05/28/17 05/29/17 05/30/17 05:59 05:59 05:59 Intake Total 450 2203 Output Total 3850 2750 Balance -3400 -547 PT 14.8 SEC (12.0-15.0) 05/26/17 10:00 INR 1.16 (0.83-1.16) 05/26/17 10:00 Microbiology 05/28/17 10:10 Nasal, Sinus - Other Respiratory Panel (PCR) - Final No Organism Detected Laboratory Tests 05/29/17 05/29/17 04:35 05:40 pCO2 39 H pO2 74 ABG pH 7.47 H O2 Concentration % 75 Respiration Rate 30 Calcium 7.6 L Magnesium 2.1 Total Bilirubin 1.2 AST 43 ALT 108 H Albumin 2.6 L CXR: Status post right pneumonectomy. Endotracheal tube at the robin. Infiltrates on the left about the same, most consistent with volume overload/ congestive heart failure. Cannot rule out a component of pneumonia. Physical Exam - Physical Exam General Appearance: other (Sedated, on ventilator, appears comfortable) EENT: ET tube, other (Nasogastric tube in place) Neck: normal inspection (No obvious JVD) Respiratory: decreased breath sounds (On left), rales (Scattered rales at left base), other (Scant secretions), No rhonchi, No wheezing Cardiac/Chest: regular rate, rhythm (Distant heart tones) Abdomen: non-tender, soft, No normal bowel sounds (Decreased, present) Pelvic Exam: other (Renee catheter in place) Skin: warm/dry, pallor Extremities: No pedal edema Neuro/Psych: no motor/sensory deficits (Moves all extremities weakly), No cognition abnormalities (Can't assess) ICD10 Worksheet Patient Problems: Problems Problem Status Onset Lung cancer Acute
[2017-05-29] MEDS ORDERED: FUROSEMIDE 20 MG/2 ML VIAL IVP ONE (12:36)
[2017-05-29] MEDS: DILTIAZEM 30 MG TAB TUBE SCH ×2 (12:38→18:14)
--- NOTE | 2017-05-29 16:40 | ASMTCMCOM ---
CM Note CM Note Notes: Spoke to and son regarding possible discharge plans. Explained the different levels of rehab. They report that patient was independent at home but needs knee surgery so needed some assist getting up and down the stairs. and son live at home with her. 's mother is in [facility]. Patient on vent will need therapy evals. Patient may qualify for In-pt Rehab? If SNF level their preference 1. [facility], 2. [facility]. CM to follow. Date Signed: 05/29/2017 04:39 PM Electronically Signed By:Flower Rouse LCSW
[2017-05-29 18:14] LABS: POTASSIUM 4.6 mEq/L (3.5-5.2)
[2017-05-29] MEDS: AMITRIPTYLINE HCL 50 MG TAB TUBE SCH (20:05)
[2017-05-30] MEDS: methylPREDNISolone SOD SUCC 125 MG/2 ML VIAL IVP SCH ×3 (00:03→11:39)
[2017-05-30] MEDS: PIPERACILLIN/TAZO 4.5 GM/DEX 100 ML IV SCH ×2 (00:03→05:35)
[2017-05-30] MEDS: DILTIAZEM 30 MG TAB TUBE SCH ×5 (00:03→23:27)
[2017-05-30 03:47] LABS: CALCULATED OXYGEN SATURATION 85 % (92-95); O2 CONCENTRATIION 75 % (0-100)
[2017-05-30 04:31] LABS: ABSOLUTE NRBC COUNT 0.05 10^3/uL (0-0.01); ADD DIFF? YES; ADD MORPH? NO; ADD SCAN? NO; ATYPICAL LYMPHOCYTE FLAG 20 (0-99); FRAGMENT RBC FLAG 0 (0-99); HEMATOCRIT 32.5 % (38.0-47.0); HEMOGLOBIN 10.5 g/dL (12.6-16.3); LEFT SHIFT FLG 20 (0-99); LIPEMIA HEMOLYSIS FLAG 80 (0-99); MEAN CELL HEMOGLOBIN 28.5 pg (27.9-34.1); MEAN CELL HEMOGLOBIN CONCENTR. 32.3 g/dL (32.4-36.7); MEAN CELL VOLUME 88.3 fL (81.5-99.8); MEAN PLATELET VOLUME 9.9 fL (8.7-11.7); NRBC-AUTO% 0.3 % (0.0-0.2); PLATELET CLUMPS FLAG 0 (0-99); PLATELET COUNT 284 10^3/uL (150-400); RED BLOOD CELL COUNT 3.68 10^6/uL (4.18-5.33); RED CELL DISTRIBUTION WIDTH 14.6 % (11.5-15.2)
[2017-05-30] MEDS: LEVALBUTEROL INHALER 200 PUFFS/15 GM MDI IH SCH ×3 (04:34→17:28)
[2017-05-30] MEDS: IPRATROPIUM HFA INHALER IH SCH ×3 (04:34→17:28)
[2017-05-30 04:42] LABS: ANION GAP 8 mEq/L (8-16); CALCIUM 8.2 mg/dL (8.5-10.4); CARBON DIOXIDE 31 mEq/l (22-31); CHLORIDE 101 mEq/L (97-110); CREATININE 1.4 mg/dL (0.6-1.0); GLOMERULAR FILTRATION RATE 37; GLUCOSE 128 mg/dL (70-100); MAGNESIUM 2.3 mg/dL (1.6-2.3); POTASSIUM 4.4 mEq/L (3.5-5.2); SODIUM 140 mEq/L (134-144)
[2017-05-30 05:30] LABS: PLATELET ESTIMATE ADEQUATE (ADEQ); POLYCHROMASIA 1+
[2017-05-30 05:31] LABS: MICROCYTES 2+
[2017-05-30] MEDS: PROPOFOL/EMULSION 100 ML IV SCH ×2 (05:40→23:02)
[2017-05-30] MEDS: FAMOTIDINE 20 MG/NACL 50 ML IV SCH (08:58)
[2017-05-30] MEDS: AZITHROMYCIN IV 500 MG in D5W 250 ML IV SCH (08:58)
[2017-05-30] MEDS: CHLORHEXIDINE GLUCONATE 15 ML UDL PO SCH ×2 (08:58→20:27)
[2017-05-30] MEDS: ENOXAPARIN 40 MG/0.4 ML SYR SC SCH (08:58)
[2017-05-30] MEDS ORDERED: ALBUMIN 25% 200 ML IV ONE (09:29)
--- NOTE | 2017-05-30 09:33 | HOSPPROG ---
Hospitalist Progress Note Assessment/Plan: 71F admitted post R lung resection (hx lobectomy). Course c/b resp failure requiring reintubation 05/28, wtill with high O2 requirements on vent. Must take great care with ventilation given recent lung resection. # sepsis - suspect d/t pna - BCx drawn, pending - not on pressors # acute hypoxic resp failure - d/t pna, pulm edema, single lung - re-intubated 05/28; mus be very careful with peak pressures given recent R sided pneumonectomy - abx, BDs, steroids (taper today), diuretics # pneumonia - cont zosyn, azith (per pulmonary) # GUS - suspect mild overdiuresis - small amount of albumin - recheck at 2p # acute dCHF with pulm edema - - positive about 7L since admit - will have to hold on diuresis # perioperative a-fib with RVR, now back in NSR - PO dilt - AC per cards when safe post-operatively # elevated troponin - agree likely d/t cassy/myocarditis # acute encephalopathy - suspect this is metabolic d/t infection and ICU delirium - care with sedating meds # etOH use - does not appear to be in w/d # RUL lobectomy POD#7 - adenoCa on path - has hx lobectomy 2000 # RAD - steroids (taper today), nebulizer # ABLA post op - s/p transfusion 35 minutes floor CC time Subjective: still intubated; unable to wean yesterday Objective: Vital Signs Temp Pulse Resp BP Pulse Ox 37.4 C 100 28 H 148/53 H 98 05/30/17 09:00 05/30/17 09:00 05/30/17 09:00 05/30/17 09:00 05/30/17 09:00 Microbiology 05/28/17 19:45 Gram Stain - Final Lung Left Lower Lobe - Aspirate 05/28/17 19:45 Mycobacterial Smear (ELISABETH) - Final Lung Left Lower Lobe - Bronchial Washings Laboratory Results 05/30/17 04:12 05/30/17 04:12 05/29/17 05/30/17 05/31/17 05:59 05:59 05:59 Intake Total 2203 1215 Output Total 2750 1225 Balance -547 -10 PT 14.8 SEC (12.0-15.0) 05/26/17 10:00 INR 1.16 (0.83-1.16) 05/26/17 10:00 - Physical Exam Constitutional: no apparent distress, other (alert, following commands) Cardiovascular: regular rate and rhythym, no murmur, rub, or gallop Respiratory: reduced air movement (R sided), inspiratory crackles, other (ET Tube), No expiratory wheeze, No bronchial breath sounds Gastrointestinal: normoactive bowel sounds, soft, non-tender abdomen, no palpable masses Genitourinary: fernandez in urethra ICD10 Worksheet Patient Problems: Problems Problem Status Onset Lung cancer Acute
--- NOTE | 2017-05-30 09:55 | SOAPPROG ---
SOAP Progress Note Assessment/Plan: Assessment/Plan: 71 Y F s/p R thoracotomy with completion pneumonectomy for 2nd primary lung cancer. Seen by myself earlier this am and also Dr. Hassan. D/w'ed pathology laboratory technologist. CXR stable. O2 requirements about the same, maybe slightly better. Wounds ok. Serious situation with only one lung and now has compromise. Continue respiratory support. Cr up today, 1.4. Continue ICU care. S: sedated. on vent. O: gen: alert, nad heent: mild pallor, not much change from baseline, mmm chest: + rhonchi on R cor: rrr abd: soft, nt wounds: cdi 05/30/17 09:55 Objective: Vital Signs Temp Pulse Resp BP Pulse Ox 37.4 C 100 28 H 148/53 H 98 05/30/17 09:00 05/30/17 09:00 05/30/17 09:00 05/30/17 09:00 05/30/17 09:00 Microbiology 05/28/17 19:45 Gram Stain - Final Lung Left Lower Lobe - Aspirate 05/28/17 19:45 Mycobacterial Smear (ELISABETH) - Final Lung Left Lower Lobe - Bronchial Washings Laboratory Results 05/30/17 04:12 05/30/17 04:12 05/29/17 05/30/17 05/31/17 05:59 05:59 05:59 Intake Total 2203 1215 Output Total 2750 1225 Balance -547 -10 PT 14.8 SEC (12.0-15.0) 05/26/17 10:00 INR 1.16 (0.83-1.16) 05/26/17 10:00 ICD10 Worksheet Patient Problems: Problems Problem Status Onset Lung cancer Acute
--- NOTE | 2017-05-30 11:34 | PDINTPN ---
Floorwalker Progress Note Assessment/Plan: Assessment: 71-year-old with a history of lung cancer approximately 20 years ago with lobectomy on the left. Status post recurrence. Admitted 05/23 for left pneumonectomy. Extubated postoperatively but reintubated 05/28 secondary to respiratory failure. [place] to have possible aspiration pneumonia? Verses a component relative pulmonary edema. FiO2 requirements have been as high as 75% and chest x-ray on the left consistent with pulmonary edema with or without consolidation/pneumonia. * Lung cancer, recurrent * Status post right pneumonectomy * Pneumonia verses relative pulmonary edema in unilateral lung. On Zosyn and azithromycin, CVP pending * Acute respiratory failure-secondary to above. On 75% FiO2. On CPAP and doing well with this. Inspiratory pressures are low: 16. * AFib. Paroxysmal, no recurrence. In sinus rhythm now, blood pressures OK. * History of migraines * Pericarditis * Confusion, postop. Hard to assess now * Pain. Appears well controlled * Prophylaxis: On enoxaparin and Pepcid Plan: Continue ventilatory support, supportive care. Continue sedation. Continue antibiotics. Continue to follow CVP, diurese as necessary. Continue CPAP is she is tolerating this well, and pressures/peak pressures are low. Follow laboratory, blood gas and chest x-ray. 45 minutes of critical care time spent directly with the patient. Discussed with the patient's and son, surgery, RT, nursing, and the ICU multi disciplinary team. Subjective: Sedated, on ventilator. Appears comfortable. Objective: Vital Signs Temp Pulse Resp BP Pulse Ox 37.5 C 102 H 27 H 145/67 H 90 L 05/30/17 10:00 05/30/17 10:00 05/30/17 10:00 05/30/17 10:00 05/30/17 10:00 Microbiology 05/28/17 19:45 Gram Stain - Final Lung Left Lower Lobe - Aspirate 05/28/17 19:45 Mycobacterial Smear (ELISABETH) - Final Lung Left Lower Lobe - Bronchial Washings Laboratory Results 05/30/17 04:12 05/30/17 04:12 05/29/17 05/30/17 05/31/17 05:59 05:59 05:59 Intake Total 2203 1215 Output Total 2750 1225 105 Balance -547 -10 -105 PT 14.8 SEC (12.0-15.0) 05/26/17 10:00 INR 1.16 (0.83-1.16) 05/26/17 10:00 Laboratory Tests 05/30/17 05/30/17 03:29 04:12 POC pH 7.38 POC pCO2 53 H POC pO2 51 L POC FiO2 75 Calcium 8.2 L Magnesium 2.3 CXR: Improving left-sided infiltrates. Lines and tubes in good position. Decreased subcu air on right. Physical Exam - Physical Exam General Appearance: other (Sedated, on vent) EENT: ET tube, other (Nasogastric tube in place) Neck: normal inspection (No JVD. CVP reportedly 3-4 range.) Respiratory: decreased breath sounds (On left, few rales. Scant secretions.), rales, No respiratory distress, No rhonchi, No wheezing Cardiac/Chest: tachycardia (Sinus) Abdomen: normal bowel sounds, non-tender, soft, other (Tolerating tube feeding) Pelvic Exam: other (Renee catheter in place,) Skin: warm/dry, pallor Extremities: No pedal edema Neuro/Psych: no motor/sensory deficits, cognition abnormalities (Hard to assess) ICD10 Worksheet Patient Problems: Problems Problem Status Onset Lung cancer Acute
[2017-05-30] MEDS: PIPERACILLIN/TAZO 2.25 GM/DEX 50 ML IV SCH ×2 (11:40→17:36)
[2017-05-30 15:05] LABS: ANION GAP 10 mEq/L (8-16); CALCIUM 8.4 mg/dL (8.5-10.4); CARBON DIOXIDE 33 mEq/l (22-31); CHLORIDE 99 mEq/L (97-110); CREATININE 1.3 mg/dL (0.6-1.0); GLOMERULAR FILTRATION RATE 40; GLUCOSE 131 mg/dL (70-100); POTASSIUM 3.9 mEq/L (3.5-5.2); SODIUM 142 mEq/L (134-144)
--- NOTE | 2017-05-30 15:24 | ASMTCMCOM ---
CM Note CM Note Notes: "Family Meeting" with patient's and 2 sons. Medical questions answered by Dr. Prieto and Liza Chino, guest services. Family very pleased with the care at [facility]. Talked a little about possible SNF rehab needs on discharge. Family would like her information to go to [facility]. Referral made. Date Signed: 05/30/2017 03:24 PM Electronically Signed By:Flower Rouse LCSW
[2017-05-30] MEDS: LORazepam 2 MG/ML INJ IVP PRN (16:14)
--- NOTE | 2017-05-30 16:50 | PDCARPN ---
Cardiology Progress Note Chief Complaint: Patient intubated and sedated. Assessment/Plan: Assessment: 71-year-old female significant history of hypertension, diastolic heart failure paroxysmal atrial fibrillation, previous history lobectomy 15 years ago, recent adenocarcinoma (lung) status post right upper lobe resection (postop day 7). Complication due to respiratory failure with re-intubation on 05/18. Currently sedated and ventilated. Patient also experience postop atrial fibrillation with rapid ventricular response. Patient diagnosed with pneumonia. Noted to have elevated troponin, up to 2.5, felt to be cassy/myocarditis, troponins have been on a downward decline. Echocardiogram done on May 26 LV normal size with preserved LV systolic function, EF 55-60%, no wall motion abnormality , trivial pericardial effusion. Today Patient remains intubated and sedated on ventilator. She is following commands grossly. She remains in sinus rhythm/sinus tach with no malignant arrhythmias or pauses. Last troponin level recorded was May 28, 0.188. Today, creatinine elevation of 1.4, diuresis is hold. Patient is 7 kilos above hospital admission weight. Plan: 1. PAF: Patient has maintained sinus rhythm. Continue on diltiazem. Patient with CHADS-VAS score of 2, consider to start AC when deem safe from surgery 2. Acute diastolic heart failure: Patient remained 7 kilos above admission weight. Diuresis on hold due to elevated creatinine. Re-evaluate creatinine in a.m., with consideration restarting diuretic therapy. 3. Elevated troponin: Likely due to cassy/myocarditic, normal LV systolic function, downward trending troponins, repeat troponin level in a.m.. Consideration Lisha/MPI before discharge. 4. Acute hypoxic respiratory failure: Patient status post lobectomy comma pneumonia comma reintubated comma and currently on ventilator. Being followed by pulmonology. 5. Pneumonia: Patient remains on antibiotic therapy. 6. Status post right upper lobe resection: POD 7, dress CDI. 05/30/17 16:59 Subjective: Patient intubated and sedated Reviewed/Discussed With: family (Patient ), other (Dr Alvarado) Objective: Vital Signs (8 Hrs) Temp Pulse Resp BP Pulse Ox 05/30/17 16:00 37.2 C 100 20 143/69 H 96 05/30/17 15:37 97 10 L 94 05/30/17 14:00 37.2 C 96 12 140/57 H 96 05/30/17 12:00 37.4 C 103 H 12 140/63 H 96 05/30/17 11:45 102 H 5 L 99 05/30/17 11:39 102 H 139/59 H 05/30/17 10:00 37.5 C 102 H 27 H 145/67 H 90 L 05/30/17 09:00 37.4 C 100 28 H 148/53 H 98 Intake/Output (24 Hrs) 05/29/17 05/30/17 05/31/17 05:59 05:59 05:59 Intake Total 2203 1215 200 Output Total 2750 1225 455 Balance -382 -10 -255 Intake: Oral (ml) 1100 IV Intake (ml) 888 377 IV Infused (ml) 215 838 200 Albumin 25% 200 ml @ As 200 Directed IV ONCE ONE Rx#: [id number] Azithromycin IV 500 mg In 255 D5w 250 ml @ 255 mls/hr IV DAILY [facility] Rx#: [id number] Famotidine 20 mg/NaCl 50 50 ml @ 200 mls/hr IV Q12HRS [facility] Rx#:[id number] POTASSIUM Cl (KCl) 50 ml 50 @ 25 mls/hr IV ONCE ONE Rx#:[id number] Piperacillin/Tazo 4.5 gm/ 200 Dex 100 ml @ 200 mls/hr IV Q6HRS [facility] Rx#: [id number] Propofol/Emulsion 100 ml 116 104 @ Per Protocol IV CONT [facility] Rx#:[id number] fentaNYL/NACL 100 ml @ 99 179 Per Protocol IV CONT [facility] Rx#:[id number] Output: Urine (ml) 2750 1225 455 Catheter 2300 725 455 Toilet 450 500 Other: Weight 59.7 kg 60 kg Number of Stools Catheter 1 Result Diagrams: 05/30/17 04:12 05/30/17 14:30 Cardiac Labs: Cardiac Lab Results (72 Hrs) 05/28/17 05/27/17 05:09 21:15 Troponin I 0.188 H 0.208 H - Physical Exam Constitutional: no apparent distress, other (Patient intubated and sedated, following general commands) Ears, Nose, Mouth, Throat: moist mucous membranes Cardiovascular: regular rate and rhythm, no murmurs, jugular vein distention (5- 6 above sternal notch at 45 degree angle.), pulses symmetric bilat, No carotid bruit Peripheral Pulses: 1+: dorsalis-pedis (R), dorsalis-pedis (L) Respiratory: other (Absent sounds on right, diminished on left in bases. No rales noted. No wheezing is) Gastrointestinal: normoactive bowel sounds Skin: warm, other (Right lateral chest dressing clean dry and intact.), No no edema (+1 to 2 peripheral edema bilateral lower extremities to thighs.) Neurologic: other (Patient intubated and sedated on ventilator. Does follow general commands when asked. Shakes head yes and no to questions.) ICD10 Worksheet Patient Problems: Problems Problem Status Onset Lung cancer Acute
[2017-05-30] MEDS ORDERED: VANCOMYCIN 750 MG in D5W 150 ML IV SCH (17:30)
[2017-05-30] MEDS ORDERED: NS 1,000 ML IV SCH (17:30)
[2017-05-30] MEDS: methylPREDNISolone SOD SUCC 40 MG/ML VIAL IVP SCH ×2 (17:36→23:26)
[2017-05-30 18:06] LABS: POTASSIUM 3.9 mEq/L (3.5-5.2)
[2017-05-30] MEDS ORDERED: FAMOTIDINE 20 MG/NACL 50 ML IV SCH (21:00)
[2017-05-30] MEDS ORDERED: POTASSIUM Cl (KCl) 50 ML IV ONE (22:48)
[2017-05-30] MEDS: FAMOTIDINE 20 MG TAB TUBE SCH (23:03)
[2017-05-30] MEDS: AMITRIPTYLINE HCL 50 MG TAB TUBE SCH (23:03)
[2017-05-31] MEDS: LEVALBUTEROL INHALER 200 PUFFS/15 GM MDI IH SCH ×4 (00:07→19:10)
[2017-05-31] MEDS: IPRATROPIUM HFA INHALER IH SCH ×4 (00:07→19:10)
[2017-05-31] MEDS: PIPERACILLIN/TAZO 2.25 GM/DEX 50 ML IV SCH ×5 (00:13→23:25)
[2017-05-31 04:26] LABS: ABSOLUTE NRBC COUNT 0.04 10^3/uL (0-0.01); ADD DIFF? YES; ADD MORPH? NO; ADD SCAN? NO; ATYPICAL LYMPHOCYTE FLAG 20 (0-99); FRAGMENT RBC FLAG 0 (0-99); HEMATOCRIT 29.4 % (38.0-47.0); HEMOGLOBIN 9.6 g/dL (12.6-16.3); LEFT SHIFT FLG 40 (0-99); LIPEMIA HEMOLYSIS FLAG 80 (0-99); MEAN CELL HEMOGLOBIN 28.9 pg (27.9-34.1); MEAN CELL HEMOGLOBIN CONCENTR. 32.7 g/dL (32.4-36.7); MEAN CELL VOLUME 88.6 fL (81.5-99.8); MEAN PLATELET VOLUME 9.5 fL (8.7-11.7); NRBC-AUTO% 0.2 % (0.0-0.2); PLATELET CLUMPS FLAG 0 (0-99); PLATELET COUNT 304 10^3/uL (150-400); RED BLOOD CELL COUNT 3.32 10^6/uL (4.18-5.33); RED CELL DISTRIBUTION WIDTH 14.3 % (11.5-15.2)
[2017-05-31 04:39] LABS: ANION GAP 10 mEq/L (8-16); CALCIUM 8.6 mg/dL (8.5-10.4); CARBON DIOXIDE 32 mEq/l (22-31); CHLORIDE 101 mEq/L (97-110); CREATININE 1.4 mg/dL (0.6-1.0); GLOMERULAR FILTRATION RATE 37; GLUCOSE 126 mg/dL (70-100); MAGNESIUM 2.6 mg/dL (1.6-2.3); POTASSIUM 4.2 mEq/L (3.5-5.2); SODIUM 143 mEq/L (134-144)
[2017-05-31 04:49] LABS: TROPONIN I 0.059 ng/mL (0.000-0.034)
[2017-05-31 05:13] LABS: HYPOCHROMIA 1+; MICROCYTES 1+; PLATELET ESTIMATE ADEQUATE (ADEQ)
[2017-05-31 05:49] LABS: BASE EXCESS 4.1 mEq/L (-2.5-2.5); BICARBONATE 29 mEq/L (22-26); MEASURED OXYGEN SATURATION 92 % (92-95); PCO2 46 mmHg (34-38); PO2 60 mmHg (65-75); TCO2 30 mEq/L (23-27)
[2017-05-31 05:50] LABS: CPAP YES; END TIDAL CO2 30; P/F RATIO 133 RATIO; PATIENT RATE 18; PRESSURE SUPPORT 10
[2017-05-31] MEDS: methylPREDNISolone SOD SUCC 40 MG/ML VIAL IVP SCH ×2 (06:36→21:04)
[2017-05-31] MEDS: DILTIAZEM 30 MG TAB TUBE SCH (06:38)
[2017-05-31] MEDS: CHLORHEXIDINE GLUCONATE 15 ML UDL PO SCH (07:27)
[2017-05-31] MEDS: ENOXAPARIN 40 MG/0.4 ML SYR SC SCH (09:10)
[2017-05-31] MEDS: AZITHROMYCIN IV 500 MG in D5W 250 ML IV SCH (09:10)
[2017-05-31] MEDS ORDERED: DILTIAZEM 125 MG in D5W 125 ML IV ONE (09:48)
--- NOTE | 2017-05-31 09:51 | SOAPPROG ---
SOAP Progress Note Assessment/Plan: Assessment: stable/ cxr ok/ hct pending Plan:icu monitor 05/23/17 19:43 05/26/17 09:09 WOUND OK/ CXR STABLE/ AFEBRILE/ WORKUP FOR TROPONIN ELEVATION SHOWS LIKELY PERICARDITIS SHE ALSO HAS LEFT PLEURAL EFFUSION/ CREAT IMPROVED AND UO IMPROVED/ HCT STABLE 05/29/17 09:04 PT STABLE NOW BUT HAD TO BE REINTUBATED OVER THE WEEKEND/ CXR STABLE WITH INTERSTITIAL INFILTRATE/ HCT 29/ LABS OK WOUND OK/ CHEST CLEAR/ VS STABLE/ UO BRISK/ AFEBRILE CONTINUE VENT SUPPORT AND DIURESIS 05/31/17 09:49 MORE ALERT/ COMFORTABLE/ VS STABLE CXR IMPROVED/ UO BRISK/ LABS STABLE/ WOUND OK/ AFEBRILE/ HOPEFULLY WEAN TODAY Objective: Vital Signs Temp Pulse Resp BP Pulse Ox 37.3 C 104 H 12 155/61 H 96 05/31/17 06:00 05/31/17 08:30 05/31/17 08:30 05/31/17 06:00 05/31/17 08:30 Microbiology 05/28/17 19:45 Gram Stain - Final Lung Left Lower Lobe - Aspirate 05/28/17 19:45 Mycobacterial Smear (ELISABETH) - Final Lung Left Lower Lobe - Bronchial Washings Laboratory Results 05/31/17 04:15 05/31/17 04:15 05/30/17 05/31/17 06/01/17 05:59 05:59 05:59 Intake Total 1215 1355 Output Total 1225 955 Balance -10 400 PT 14.8 SEC (12.0-15.0) 05/26/17 10:00 INR 1.16 (0.83-1.16) 05/26/17 10:00 ICD10 Worksheet Patient Problems: Problems Problem Status Onset Lung cancer Acute - ICD10 Problem Qualifiers (1) Lung cancer
[2017-05-31] MEDS ORDERED: DILTIAZEM 125 MG in D5W 125 ML IV SCH (10:00)
[2017-05-31] MEDS ORDERED: DILTIAZEM 25 MG/5 ML VIAL IVP SCH (10:00)
[2017-05-31] MEDS: DILTIAZEM HCL/D5W 125 ML IV SCH (10:05)
[2017-05-31] MEDS: METOPROLOL TARTRATE 5 MG/5 ML INJ IVP SCH ×4 (10:08→23:25)
--- NOTE | 2017-05-31 11:48 | PDINTPN ---
Skidder Driver Progress Note Assessment/Plan: Assessment: 71-year-old with a history of lung cancer approximately 20 years ago with lobectomy on the left. Status post recurrence versus new primary. Admitted 05/23 for left pneumonectomy. Extubated postoperatively but reintubated 05/28 secondary to respiratory failure. [place] to have possible aspiration pneumonia? Verses a component relative pulmonary edema. FiO2 requirements have been as high as 75% and chest x-ray on the left consistent with pulmonary edema with or without consolidation/pneumonia/ARDS. * Lung cancer, recurrent * Status post right pneumonectomy * Pneumonia verses relative pulmonary edema/ARDS in unilateral lung. On Zosyn and azithromycin, CVP pending * Acute respiratory failure-secondary to above. On 45% FiO2 this a.m. Was back on SIMV yesterday and last night. Tolerated CPAP wean this morning. Inspiratory pressures remain low. Will extubate this a.m., realizing that re- intubation could be needed. I feel this is relatively unlikely. * AFib. Paroxysmal, recurrence again this morning. In sinus rhythm again now with diltiazem drip and metoprolol. Blood pressures are fine. * History of migraines * History of Pericarditis * Confusion, postop. Hard to assess currently. Will re-evaluate post extubation. * Pain. Appears well controlled * Prophylaxis: On enoxaparin and Pepcid Plan: Extubate this morning and follow respiratory status closely. May need some ventilatory support with Vapotherm or possibly BiPAP post extubation? Continue supportive care. Discontinue propofol, continue fentanyl at 25 for now. Continue Zosyn. Continue Zithromax for a total of 5 days, DC vancomycin. Continue to follow CVP, diurese as necessary. Follow laboratory, blood gas and chest x-ray as needed. 55 minutes of critical care time spent directly with the patient. Discussed with the patient's , RT, nursing, and the ICU multi disciplinary team. Addendum: Approximately 2 hours after extubation she became more confused with agitation and delirium. Unable to cooperate with staff, pulling at lines, tubes , oxygen, yelling out, etc. Haldol and Precedex ordered along with soft restraints and a roll belt. Subjective: On ventilator, restless at times. Now down to 45%. Objective: Vital Signs Temp Pulse Resp BP Pulse Ox 37.8 C 115 H 34 H 157/76 H 87 L 11/22/17 10:00 05/31/17 10:08 05/31/17 10:00 05/31/17 10:08 05/31/17 10:00 Microbiology 05/28/17 19:45 Gram Stain - Final Lung Left Lower Lobe - Aspirate 05/28/17 19:45 Mycobacterial Smear (ELISABETH) - Final Lung Left Lower Lobe - Bronchial Washings Laboratory Results 05/31/17 04:15 05/31/17 04:15 05/30/17 05/31/17 06/01/17 05:59 05:59 05:59 Intake Total 1215 1355 Output Total 1225 955 400 Balance -10 400 -400 PT 14.8 SEC (12.0-15.0) 05/26/17 10:00 INR 1.16 (0.83-1.16) 05/26/17 10:00 Laboratory Tests 05/31/17 05/31/17 04:15 05:43 pCO2 46 H pO2 60 L ABG pH 7.41 O2 Concentration % 45 PEEP 8 Pressure Support 10 CPAP YES Calcium 8.6 Magnesium 2.6 H Troponin I 0.059 H Sputum from 05/28: Growing MSSA CXR: About the same regarding interstitial changes on the left, right pneumonectomy. Lines and tubes in good position. Physical Exam - Physical Exam General Appearance: mild distress (Secondary to endotracheal tube), other ( Restless, arouses,) EENT: PERRL/EOMI, ET tube, other (Orogastric tube in place) Neck: normal inspection (No JVD. CVP pending.) Respiratory: lungs clear (Anteriorly on the left), decreased breath sounds (At left base), rales (Few rales at left base), No rhonchi (Little in the way of secretions), No wheezing Cardiac/Chest: irregularly irregular (Back in atrial fibrillation briefly this morning, now resolved, regular at approximately 100, sinus) Abdomen: normal bowel sounds, non-tender, soft Pelvic Exam: other (Renee catheter in place, good urine output) Skin: warm/dry, pallor Extremities: No pedal edema Neuro/Psych: cognition abnormalities (Appears intact), No no motor/sensory deficits (Moves all extremities) ICD10 Worksheet Patient Problems: Problems Problem Status Onset Lung cancer Acute
[2017-05-31] MEDS ORDERED: METOPROLOL TARTRATE 5 MG/5 ML INJ IVP SCH (12:00)
[2017-05-31] MEDS ORDERED: HALOPERIDOL LACT 5 MG/ML INJ IVP PRN (12:28)
[2017-05-31] MEDS ORDERED: HALOPERIDOL LACT 5 MG/ML INJ ONE (12:29)
[2017-05-31] MEDS ORDERED: DEXMEDETOMIDINE HCL 400 MCG in NS 100 ML IV SCH (12:30)
[2017-05-31] MEDS: DEXMEDETOMIDINE IN 0.9 % NACL 100 ML IV SCH ×2 (12:59→16:58)
[2017-05-31 14:19] LABS: O2 CONCENTRATIION 45 % (0-100)
--- NOTE | 2017-05-31 14:31 | PDCARPN ---
Cardiology Progress Note Chief Complaint: Patient is agitated, confused to time and place , wants to leave Assessment/Plan: Assessment: 71-year-old female significant history of hypertension, diastolic heart failure paroxysmal atrial fibrillation, previous history lobectomy 15 years ago, recent adenocarcinoma (lung) status post right upper lobe resection (postop day 7). Complication due to respiratory failure with re-intubation on 05/18. Patient also experience postop atrial fibrillation with rapid ventricular response. Patient diagnosed with pneumonia. Noted to have elevated troponin, up to 2.5, felt to be cassy/myocarditis, troponins have been on a downward decline. Echocardiogram done on May 26 LV normal size with preserved LV systolic function, EF 55-60%, no wall motion abnormality, trivial pericardial effusion. Today, around a 30, patient went back into atrial fibrillation comma with reported rates up to 140 BPM. Diltiazem IV restarted, p.o. diltiazem placed on hold. Patient was also given IV metoprolol. Returning back into sinus rhythm. Patient extubated, currently patient is very agitated, and confused about place and time. Rapidly desaturates without oxygen therapy. Has been started on Haldol comma and soon presedex. Chest x-ray done this morning, showing expected features of right pneumonectomy and minimum interstitial edema. BUN remains at 44, creatinine of 1.4, repeated troponin done this morning showing continued decrease, today at 0.05. Patient noted be hypertensive with agitation Plan: 1. PAF: Patient converted back into AFib briefly this morning, converted back to sinus rhythm with the being started on IV diltiazem and IV metoprolol. Will continue on current dosages, with plans of re-evaluation in the morning, potentially when she is more alert, and take p. o., changes soon over too p.o. Patient with CHADS-VAS score of 2, consider to start AC when deem safe from surgery 2. Acute diastolic heart failure: BUN and creatine remain elevated, consider to restart diuretics in a.m.. 3. Elevated troponin: Likely due to cassy/myocarditic, normal LV systolic function, downward trending troponins, repeat troponin level in a.m.. Consideration Lisha/MPI before discharge. 4. Acute hypoxic respiratory failure: Patient status post lobectomy, pneumonia. Extubated today, rapid desaturation off oxygen therapy, patient is being followed by pulmonology. 5. Pneumonia: Patient remains on antibiotic therapy. 6. Status post right upper lobe resection: POD 8, dress CDI, being followed by surgery. 05/31/17 14:15 Subjective: Patient agitated and not answering questions. Confused to time and place. Reviewed/Discussed With: other (Dr Alvarado and Dr Jake Prieto) Objective: Vital Signs (8 Hrs) Temp Pulse Resp BP Pulse Ox 05/31/17 14:00 37.4 C 93 16 165/78 H 88 L 05/31/17 13:10 98 13 173/72 H 93 05/31/17 12:42 162/78 H 05/31/17 12:00 107 H 18 185/80 H 92 05/31/17 10:08 115 H 157/76 H 05/31/17 10:05 115 H 05/31/17 10:00 37.8 C 86 34 H 157/76 H 87 L 05/31/17 08:30 104 H 12 96 05/31/17 06:15 101 H 92 Intake/Output (24 Hrs) 05/30/17 05/31/17 06/01/17 05:59 05:59 05:59 Intake Total 1215 1355 Output Total 1225 955 500 Balance -10 400 -500 Intake: IV Intake (ml) 377 874 IV Infused (ml) 838 481 Albumin 25% 200 ml @ As 200 Directed IV ONCE ONE Rx#: [id number] Azithromycin IV 500 mg In 255 D5w 250 ml @ 255 mls/hr IV DAILY [facility] Rx#: [id number] Famotidine 20 mg/NaCl 50 50 ml @ 200 mls/hr IV Q12HRS [facility] Rx#:[id number] POTASSIUM Cl (KCl) 50 ml 50 @ 25 mls/hr IV ONCE ONE Rx#:[id number] Piperacillin/Tazo 4.5 gm/ 200 Dex 100 ml @ 200 mls/hr IV Q6HRS [facility] Rx#: [id number] Propofol/Emulsion 100 ml 104 109 @ Per Protocol IV CONT [facility] Rx#:[id number] fentaNYL 1,000 mcg In Ns 83 100 ml @ Per Protocol IV CONT [facility] Rx#:[id number] fentaNYL/NACL 100 ml @ 179 89 Per Protocol IV CONT [facility] Rx#:[id number] Output: Urine (ml) 1225 955 500 Catheter 725 955 500 Toilet 500 Other: Weight 60 kg Result Diagrams: 05/31/17 04:15 05/31/17 04:15 Cardiac Labs: Cardiac Lab Results (72 Hrs) 05/31/17 04:15 Troponin I 0.059 H - Physical Exam Constitutional: apparent distress, other (Agitated, female.) Cardiovascular: regular rate and rhythm (Sinus tachycardia on the monitor.), jugular vein distention Skin: no edema, other (Right posterior dressing clean dry and intact.) Psychiatric: anxious, other (Agitated, confused to time and place.) ICD10 Worksheet Patient Problems: Problems Problem Status Onset Lung cancer Acute
--- NOTE | 2017-05-31 15:49 | HOSPPROG ---
Hospitalist Progress Note Assessment/Plan: patient currentlky followed by pulm crit care and cardiology as well as gen surger primary hosp medicine will sign off; please call w ?'s Objective: Vital Signs Temp Pulse Resp BP Pulse Ox 37.4 C 83 15 165/78 H 89 L 05/31/17 14:00 05/31/17 14:28 05/31/17 14:28 05/31/17 14:00 05/31/17 14:28 Microbiology 05/28/17 19:45 Gram Stain - Final Lung Left Lower Lobe - Aspirate Bronchial Washings Culture - Final [place] Albicans Staphylococcus Aureus 05/28/17 19:45 Mycobacterial Smear (ELISABETH) - Final Lung Left Lower Lobe - Bronchial Washings Laboratory Results 05/31/17 04:15 05/31/17 04:15 05/30/17 05/31/17 06/01/17 05:59 05:59 05:59 Intake Total 1215 1355 Output Total 1225 955 500 Balance -10 400 -500 PT 14.8 SEC (12.0-15.0) 05/26/17 10:00 INR 1.16 (0.83-1.16) 05/26/17 10:00 ICD10 Worksheet Patient Problems: Problems Problem Status Onset Lung cancer Acute
[2017-05-31 16:22] LABS: TCO2 28 mEq/L (23-27)
[2017-05-31 16:28] LABS: BASE EXCESS 1.8 mEq/L (-2.5-2.5); BICARBONATE 26 mEq/L (22-26); MEASURED OXYGEN SATURATION 70 % (92-95); PCO2 43 mmHg (34-38)
[2017-05-31] MEDS ORDERED: FUROSEMIDE 40 MG/4 ML VIAL IVP ONE (16:29)
[2017-05-31 16:34] LABS: O2 CONCENTRATIION 100 % (0-100); P/F RATIO 37 RATIO
[2017-05-31 16:36] LABS: PO2 37 mmHg (65-75)
[2017-05-31] MEDS: ENALAPRILAT DIHYDRATE 1.25 MG/ML VIAL IVP PRN (16:40)
--- NOTE | 2017-05-31 18:57 | SOAPPROG ---
SOAP Progress Note Assessment/Plan: Assessment: stable/ cxr ok/ hct pending Plan:icu monitor 05/23/17 19:43 05/26/17 09:09 WOUND OK/ CXR STABLE/ AFEBRILE/ WORKUP FOR TROPONIN ELEVATION SHOWS LIKELY PERICARDITIS SHE ALSO HAS LEFT PLEURAL EFFUSION/ CREAT IMPROVED AND UO IMPROVED/ HCT STABLE 05/29/17 09:04 PT STABLE NOW BUT HAD TO BE REINTUBATED OVER THE WEEKEND/ CXR STABLE WITH INTERSTITIAL INFILTRATE/ HCT 29/ LABS OK WOUND OK/ CHEST CLEAR/ VS STABLE/ UO BRISK/ AFEBRILE CONTINUE VENT SUPPORT AND DIURESIS 05/31/17 09:49 MORE ALERT/ COMFORTABLE/ VS STABLE CXR IMPROVED/ UO BRISK/ LABS STABLE/ WOUND OK/ AFEBRILE/ HOPEFULLY WEAN TODAY 05/31/17 18:55 Status post pneumonectomy on the right/doing well this a.m. but now struggling on BiPAP/vital signs stable/afebrile Anxiety seemed to create respiratory troubles for her rather than the other way around May need to consider re-intubation and sedation Path shows all negative nodes and clear margins but a large tumor at 5.5 cm Objective: Vital Signs Temp Pulse Resp BP Pulse Ox 37.7 C 89 25 H 160/95 H 90 L 05/31/17 18:00 05/31/17 18:00 05/31/17 18:00 05/31/17 18:00 05/31/17 18:00 Microbiology 05/28/17 19:45 Gram Stain - Final Lung Left Lower Lobe - Aspirate Bronchial Washings Culture - Final [place] Albicans Staphylococcus Aureus 05/28/17 19:45 Mycobacterial Smear (ELISABETH) - Final Lung Left Lower Lobe - Bronchial Washings Laboratory Results 05/31/17 04:15 05/31/17 04:15 05/30/17 05/31/17 06/01/17 05:59 05:59 05:59 Intake Total 1215 1355 485 Output Total 1222 109 875 Balance -10 400 -390 PT 14.8 SEC (12.0-15.0) 05/26/17 10:00 INR 1.16 (0.83-1.16) 05/26/17 10:00 ICD10 Worksheet Patient Problems: Problems Problem Status Onset Lung cancer Acute - ICD10 Problem Qualifiers (1) Lung cancer
[2017-05-31 19:35] LABS: POTASSIUM 3.9 mEq/L (3.5-5.2)
[2017-05-31] MEDS ORDERED: LIDOCAINE 2% JELLY 5 ML TUBE ONE (20:04)
[2017-05-31] MEDS ORDERED: PROPOFOL/EMULSION 1,000 MG/100 ML BOTTLE IV ONE (20:13)
[2017-05-31] MEDS ORDERED: LIDOCAINE 1% 300 MG/30 ML SDV ONE (20:20)
[2017-05-31] MEDS ORDERED: MIDAZOLAM 2 MG/2 ML VIAL IVP ONE (20:45)
[2017-05-31] MEDS ORDERED: VANCOMYCIN HCL/NORMAL SALINE 250 ML IV ONE (20:46)
--- NOTE | 2017-05-31 20:47 | CPEKG ---
Heart Rate: 81 RR Interval: 741 P-R Interval: 192 QRSD Interval: 92 QT Interval: 384 QTC Interval: 446 P [place]: 60 QRS [place]: 31 T Wave [place]: 38 EKG Severity - ABNORMAL ECG - EKG Impression: SINUS RHYTHM EKG Impression: CONSIDER ANTEROSEPTAL INFARCT Electronically Signed By: Romel Alvarado 01-Jun-2017 08:25:11
[2017-05-31] MEDS: AMITRIPTYLINE HCL 50 MG TAB TUBE SCH (20:50)
[2017-05-31] MEDS: FAMOTIDINE 20 MG TAB TUBE SCH (20:51)
[2017-05-31] MEDS ORDERED: fentaNYL 100 MCG/2 ML INJ ONE (20:58)
[2017-05-31] MEDS: PROPOFOL/EMULSION 100 ML IV SCH (21:04)
--- NOTE | 2017-05-31 21:08 | GPN ---
[f rep st] PROCEDURE NOTE DATE OF PROCEDURE: 05/31/2017 NAME OF PROCEDURE: Flexible fiberoptic bronchoscopy. REASON FOR PROCEDURE: Refractory hypoxemia. PROCEDURE NOTE: The risks and benefits of the procedure were explained to the patient's , who agreed to proceed. The entire procedure was performed in the intensive care unit with the patient u nder blood pressure, EKG and oximetry monitoring. It was my assessment that there was no risk of air borne infection from the procedure. Due to severe hypoxemia, with oxygen saturations in the mid 50s, the procedure was performed emergently. Two cc of Versed were given intravenously. A bite block wa s placed between the patient's teeth, and the bronchoscope was advanced through the bite block into t he vocal cords. 1% lidocaine was used topically on the posterior pharynx, and bronchoscope was quick ly advanced through the vocal cords into the main trachea. A 7.0 endotracheal tube was advanced over the bronchoscope and secured in place in the distal trachea. The endotracheal tube was bagged manua lly with 100% oxygen and saturations came up to the 70s. I reintroduced the bronchoscope and confirm ed placement in the distal trachea several cm above the robin. There was a small amount of thin blo jonas secretions in proximal airways and at the right mainstem bronchus stump, which was intact as well as could be visualized. There was no air leak from the stump. I then turned to the left-sided airw ays, which were all patent with no endobronchial lesions or significant secretions besides a small am ount of watery bloody secretions which were easily suctioned. A 15 cc lavage was done of the upper l obe, with return of watery bloody secretions. The bronchoscope was then removed after appropriate po sition was confirmed in the distal trachea. A specimen was sent for Gram stain and culture. There w ere no complications apparent at the end of the procedure. There was no blood loss. /[id number]/MODL
[2017-05-31 21:15] LABS: BASE EXCESS 3.8 mEq/L (-2.5-2.5); BICARBONATE 30 mEq/L (22-26); MEASURED OXYGEN SATURATION 98 % (92-95); PCO2 57 mmHg (34-38); PO2 125 mmHg (65-75); TCO2 32 mEq/L (23-27)
[2017-05-31 21:16] LABS: ASSIST CONTROL YES; END TIDAL CO2 35; O2 CONCENTRATIION 100 % (0-100); P/F RATIO 125 RATIO; TOTAL RATE 20
[2017-06-01] MEDS: LEVALBUTEROL INHALER 200 PUFFS/15 GM MDI IH SCH ×5 (00:34→23:35)
[2017-06-01] MEDS: IPRATROPIUM HFA INHALER IH SCH ×5 (00:35→23:35)
[2017-06-01] MEDS: DILTIAZEM HCL/D5W 125 ML IV SCH (01:06)
[2017-06-01] MEDS: PROPOFOL/EMULSION 100 ML IV SCH ×4 (03:49→23:12)
[2017-06-01 03:56] LABS: ADD MORPH? NO; ATYPICAL LYMPHOCYTE FLAG 20 (0-99); FRAGMENT RBC FLAG 0 (0-99); HEMATOCRIT 30.5 % (38.0-47.0); HEMOGLOBIN 9.9 g/dL (12.6-16.3); LEFT SHIFT FLG 30 (0-99); LIPEMIA HEMOLYSIS FLAG 80 (0-99); MEAN CELL HEMOGLOBIN 28.9 pg (27.9-34.1); MEAN CELL HEMOGLOBIN CONCENTR. 32.5 g/dL (32.4-36.7); MEAN CELL VOLUME 88.9 fL (81.5-99.8); MEAN PLATELET VOLUME 9.8 fL (8.7-11.7); PLATELET COUNT 181 10^3/uL (150-400); RED BLOOD CELL COUNT 3.43 10^6/uL (4.18-5.33)
[2017-06-01 04:16] LABS: ALANINE AMINOTRANSFERASE 78 IU/L (9-52); ALBUMIN 2.9 g/dL (3.5-5.0); ALKALINE PHOSPHATASE 134 IU/L (38-126); ANION GAP 9 mEq/L (8-16); ASPARTATE AMINOTRANSFERASE 40 IU/L (14-46); BILIRUBIN,TOTAL 0.6 mg/dL (0.1-1.4); CALCIUM 8.2 mg/dL (8.5-10.4); CARBON DIOXIDE 34 mEq/l (22-31); CHLORIDE 103 mEq/L (97-110); CREATININE 1.2 mg/dL (0.6-1.0); GLOMERULAR FILTRATION RATE 44; GLUCOSE 144 mg/dL (70-100); POTASSIUM 3.9 mEq/L (3.5-5.2); SODIUM 146 mEq/L (134-144); TOTAL PROTEIN 4.7 g/dL (6.3-8.2)
[2017-06-01] MEDS ORDERED: POTASSIUM Cl (KCl) 50 ML IV ONE (04:19)
[2017-06-01 04:25] LABS: ADD SCAN? NO; PLATELET CLUMPS FLAG 300 (0-99)
[2017-06-01 04:29] LABS: ADD DIFF? YES
[2017-06-01 04:34] LABS: PLATELET ESTIMATE ADEQUATE (ADEQ)
[2017-06-01 04:35] LABS: TOXIC GRANULATION PRESENT
[2017-06-01 04:47] LABS: ASSIST CONTROL YES; BASE EXCESS 5.3 mEq/L (-2.5-2.5); BICARBONATE 31 mEq/L (22-26); END TIDAL CO2 31; MEASURED OXYGEN SATURATION 96 % (92-95); O2 CONCENTRATIION 50 % (0-100); P/F RATIO 164 RATIO; PCO2 50 mmHg (34-38); PO2 82 mmHg (65-75); TCO2 32 mEq/L (23-27); TOTAL RATE 22
[2017-06-01] MEDS: PIPERACILLIN/TAZO 2.25 GM/DEX 50 ML IV SCH ×4 (05:04→23:13)
[2017-06-01] MEDS: METOPROLOL TARTRATE 5 MG/5 ML INJ IVP SCH ×4 (05:04→23:13)
[2017-06-01] MEDS: AZITHROMYCIN IV 500 MG in D5W 250 ML IV SCH (08:15)
[2017-06-01] MEDS: methylPREDNISolone SOD SUCC 40 MG/ML VIAL IVP SCH ×2 (08:15→20:05)
[2017-06-01] MEDS: ENOXAPARIN 40 MG/0.4 ML SYR SC SCH (08:15)
--- NOTE | 2017-06-01 09:57 | PDINTPN ---
Deck Mechanic Progress Note Assessment/Plan: Assessment: 71-year-old with a history of lung cancer approximately 20 years ago with lobectomy on the left. Status post recurrence versus new primary. Admitted 05/23 for left pneumonectomy. Extubated postoperatively but reintubated 05/28 secondary to respiratory failure. [place] to have possible aspiration pneumonia? Verses a component relative pulmonary edema. FiO2 requirements have been as high as 75% and chest x-ray on the left consistent with pulmonary edema with or without consolidation/pneumonia/ARDS. * Lung cancer, recurrent * Status post right pneumonectomy * Pneumonia verses relative pulmonary edema/ARDS in unilateral lung. On Zosyn and azithromycin, CVP pending * Acute respiratory failure-secondary to above. Reintubated last night secondary to recurrence respiratory failure, hypoxemia, agitation and confusion. On 50% FiO2 now, doing well, stable. Chest x-ray pending. Prolonged ventilatory support may be needed? * AFib. Paroxysmal. In sinus rhythm again now with diltiazem drip and metoprolol. Blood pressures fine. * History of migraines * History of Pericarditis * Confusion, postop. Hard to assess currently. Was quite agitated and confused , with acute delirium post extubation yesterday. * Pain. Appears well controlled * Prophylaxis: On enoxaparin and Pepcid * Nutrition: None currently. Will place NG and again 2 feedings Plan: Continue ventilatory support, propofol, fentanyl. Continue supportive care. Continue Zosyn, await repeat bronch cultures from yesterday but I anticipate these will be negative. Feeding tube to be placed, start tube feedings. Continue to follow CVP, diurese as necessary. Follow laboratory, blood gas and chest x-ray. 45 minutes of critical care time spent directly with the patient. Discussed with the patient's , RT, nursing, and the ICU multi disciplinary team. Subjective: Reintubated last night secondary to hypoxemia. This was associated with confusion/agitation/delirium. On ventilator, sedated with propofol and fentanyl , appears comfortable currently Objective: Vital Signs Temp Pulse Resp BP Pulse Ox 36.9 C 72 22 H 120/45 L 100 06/01/17 08:00 06/01/17 08:30 06/01/17 08:30 06/01/17 08:00 06/01/17 08:30 Microbiology 05/31/17 20:30 Gram Stain - Final Lung Left Lobe - Bronchial Washings 05/28/17 19:45 Gram Stain - Final Lung Left Lower Lobe - Aspirate Bronchial Washings Culture - Final [place] Albicans Staphylococcus Aureus Laboratory Results 06/01/17 03:45 06/01/17 03:45 05/31/17 06/01/17 06/02/17 05:59 05:59 05:59 Intake Total 1355 1204 Output Total 955 2000 Balance 400 -796 PT 14.8 SEC (12.0-15.0) 05/26/17 10:00 INR 1.16 (0.83-1.16) 05/26/17 10:00 Laboratory Tests 05/28/17 06/01/17 06/01/17 10:10 03:45 04:30 pCO2 50 H pO2 82 H ABG pH 7.40 O2 Concentration % 50 Respiration Rate 22 Assist Control YES Tidal Volume 325 Calcium 8.2 L Total Bilirubin 0.6 AST 40 ALT 78 H NT-Pro-B Natriuret Pep 52143 H Albumin 2.9 L Urine Legionella Ag Negative Ur Strep pneumoniae Ag Negative CXR: Pending Physical Exam - Physical Exam General Appearance: other (Sedated, on the ventilator) EENT: PERRL/EOMI, ET tube Neck: normal inspection (No obvious JVD) Respiratory: decreased breath sounds (Course), rales (Few rales at left base), No rhonchi, No wheezing Cardiac/Chest: regular rate, rhythm Abdomen: non-tender, soft, No normal bowel sounds (Present, decreased) Pelvic Exam: other (Renee catheter in place, good urine output, output greater than input last 24 hours) Skin: normal color, warm/dry Extremities: No pedal edema Neuro/Psych: cognition abnormalities (Agitated, confused prior to re-intubation) , No no motor/sensory deficits ICD10 Worksheet Patient Problems: Problems Problem Status Onset Lung cancer Acute
--- NOTE | 2017-06-01 10:28 | SOAPPROG ---
SOAP Progress Note Assessment/Plan: Assessment: s/p pneumonectomy - had to be reintubated last evening [place] out around Jun 07, 2017 May need dht and tube feeds S: Intubated and sedated O: Lying in bed, calm, sedated dressing intact on right chest Lung sounds coarse on L Intubated Plan: 06/01/17 10:25 06/01/17 10:28 Objective: Vital Signs Temp Pulse Resp BP Pulse Ox 36.9 C 72 22 H 120/45 L 100 06/01/17 08:00 06/01/17 08:30 06/01/17 08:30 06/01/17 08:00 06/01/17 08:30 Microbiology 05/31/17 20:30 Gram Stain - Final Lung Left Lobe - Bronchial Washings 05/28/17 19:45 Gram Stain - Final Lung Left Lower Lobe - Aspirate Bronchial Washings Culture - Final [place] Albicans Staphylococcus Aureus Laboratory Results 06/01/17 03:45 06/01/17 03:45 05/31/17 06/01/17 06/02/17 05:59 05:59 05:59 Intake Total 1355 1204 Output Total 955 1999 Balance 400 -796 PT 14.8 SEC (12.0-15.0) 05/26/17 10:00 INR 1.16 (0.83-1.16) 05/26/17 10:00 ICD10 Worksheet Patient Problems: Problems Problem Status Onset Lung cancer Acute
[2017-06-01] MEDS ORDERED: FUROSEMIDE 40 MG/4 ML VIAL IVP ONE (11:22)
[2017-06-01] MEDS ORDERED: POLYETHYLENE GLYCOL 3350 17 GM PKT PO PRN (12:48)
[2017-06-01] MEDS ORDERED: LACTULOSE 20 GM/30 ML UDCUP PO PRN (12:48)
[2017-06-01] MEDS ORDERED: MAGNESIUM HYDROXIDE 30 ML UDCUP PO PRN (12:48)
[2017-06-01] MEDS ORDERED: BISACODYL 10 MG SUPP PR PRN (12:48)
[2017-06-01] MEDS: PETROLAT,WHT/MIN OIL/SOD CHL 3.5 GM OPHT.OINT EACHEYE PRN (13:39)
[2017-06-01] MEDS: ALTEPLASE 2 MG VIAL IVP PRN (17:25)
[2017-06-01 18:28] LABS: POTASSIUM 3.6 mEq/L (3.5-5.2)
[2017-06-01] MEDS: POTASSIUM Cl (KCl) 50 ML IV SCH ×2 (20:04→20:05)
[2017-06-01] MEDS: AMITRIPTYLINE HCL 50 MG TAB TUBE SCH (20:04)
[2017-06-01] MEDS: SENNOSIDES 17.6 MG/10 ML UDL - IF LIQUID ORDERED PO SCH (20:04)
[2017-06-01] MEDS: FAMOTIDINE 20 MG TAB TUBE SCH (20:04)
[2017-06-02 04:26] LABS: ADD DIFF? YES; ADD MORPH? NO; ADD SCAN? NO; ATYPICAL LYMPHOCYTE FLAG 0 (0-99); FRAGMENT RBC FLAG 0 (0-99); HEMATOCRIT 30.5 % (38.0-47.0); LEFT SHIFT FLG 20 (0-99); LIPEMIA HEMOLYSIS FLAG 80 (0-99); MEAN CELL HEMOGLOBIN 28.8 pg (27.9-34.1); MEAN CELL HEMOGLOBIN CONCENTR. 32.8 g/dL (32.4-36.7); MEAN CELL VOLUME 87.9 fL (81.5-99.8); MEAN PLATELET VOLUME 9.8 fL (8.7-11.7); PLATELET CLUMPS FLAG 0 (0-99); PLATELET COUNT 280 10^3/uL (150-400); RED BLOOD CELL COUNT 3.47 10^6/uL (4.18-5.33); RED CELL DISTRIBUTION WIDTH 13.7 % (11.5-15.2)
[2017-06-02 04:47] LABS: ANION GAP 5 mEq/L (8-16); CALCIUM 8.4 mg/dL (8.5-10.4); CARBON DIOXIDE 36 mEq/l (22-31); CHLORIDE 103 mEq/L (97-110); CREATININE 1.2 mg/dL (0.6-1.0); GLOMERULAR FILTRATION RATE 44; GLUCOSE 148 mg/dL (70-100); POTASSIUM 4.1 mEq/L (3.5-5.2); SODIUM 144 mEq/L (134-144)
[2017-06-02] MEDS: PIPERACILLIN/TAZO 2.25 GM/DEX 50 ML IV SCH ×4 (05:02→23:21)
[2017-06-02] MEDS: METOPROLOL TARTRATE 5 MG/5 ML INJ IVP SCH ×4 (05:02→23:22)
[2017-06-02] MEDS: PROPOFOL/EMULSION 100 ML IV SCH ×4 (05:03→23:21)
[2017-06-02 05:06] LABS: CALCULATED OXYGEN SATURATION 99 % (92-95); O2 CONCENTRATIION 45 % (0-100)
[2017-06-02 05:11] LABS: PLATELET ESTIMATE ADEQUATE (ADEQ)
[2017-06-02] MEDS: LEVALBUTEROL INHALER 200 PUFFS/15 GM MDI IH SCH ×4 (05:13→23:05)
[2017-06-02] MEDS: IPRATROPIUM HFA INHALER IH SCH ×4 (05:13→23:06)
--- NOTE | 2017-06-02 09:17 | SOAPPROG ---
SOAP Progress Note Assessment/Plan: Assessment: s/p pneumonectomy - had to be reintubated RR down on vent since alkalotic [place] out around Jun 07, 2017 Tube feeds at goal Tough situation. If cannot be weaned again or requires reintubation, then trach will likely be needed S: Intubated and sedated O: Lying in bed, calm, sedated Lung sounds more clear today on the left. None on right Intubated Plan: 06/01/17 10:25 06/01/17 10:28 06/02/17 09:14 Objective: Vital Signs Temp Pulse Resp BP Pulse Ox 37.6 C 95 16 107/47 L 100 06/02/17 08:00 06/02/17 08:31 06/02/17 08:31 06/02/17 08:00 06/02/17 08:31 Microbiology 05/31/17 20:30 Gram Stain - Final Lung Left Lobe - Bronchial Washings Laboratory Results 06/02/17 04:10 06/02/17 04:10 06/01/17 06/02/17 06/03/17 05:59 05:59 05:59 Intake Total 1204 2218 Output Total 1999 2059 Balance -796 158 PT 14.8 SEC (12.0-15.0) 05/26/17 10:00 INR 1.16 (0.83-1.16) 05/26/17 10:00 ICD10 Worksheet Patient Problems: Problems Problem Status Onset Lung cancer Acute
[2017-06-02] MEDS: FUROSEMIDE 40 MG/4 ML VIAL IVP SCH (09:32)
[2017-06-02] MEDS: methylPREDNISolone SOD SUCC 40 MG/ML VIAL IVP SCH ×2 (09:32→19:50)
[2017-06-02] MEDS: ENOXAPARIN 40 MG/0.4 ML SYR SC SCH (09:33)
[2017-06-02] MEDS: SENNOSIDES 17.6 MG/10 ML UDL - IF LIQUID ORDERED PO SCH ×2 (09:33→19:50)
[2017-06-02] MEDS ORDERED: DEXMEDETOMIDINE IN 0.9 % NACL 100 ML IV SCH (10:30)
[2017-06-02] MEDS ORDERED: DEXMEDETOMIDINE HCL 400 MCG in NS 100 ML IV SCH (10:30)
[2017-06-02] MEDS ORDERED: PROPOFOL/EMULSION 1,000 MG/100 ML BOTTLE IV ONE (11:52)
[2017-06-02] MEDS: fentaNYL/NACL 100 ML IV SCH ×2 (12:24→19:27)
--- NOTE | 2017-06-02 12:44 | ASMTCMCOM ---
CM Note CM Note Notes: Patient had to be reintubated. If patient cannot be weaned she may need a trach. CM will follow. Date Signed: 06/02/2017 12:43 PM Electronically Signed By:Lucrecia James LCSW
--- NOTE | 2017-06-02 13:23 | PDINTPN ---
Economic Development Director Progress Note Assessment/Plan: Assessment: 71-year-old with a history of lung cancer approximately 20 years ago with lobectomy on the left. Status post recurrence versus new primary. Admitted 05/23 for left pneumonectomy. Extubated postoperatively but reintubated 05/28 secondary to respiratory failure. [place] to have possible aspiration pneumonia?, verses a component of pulmonary edema/ARDS. Extubated from 45%. Was tolerating CPAP weans. Developed acute delirium post extubation and recurrent hypoxemia/Respiratory/ventilatory failure. Reintubated 05/31 in the p.m. * Lung cancer, recurrent * Status post right pneumonectomy 05/23 * Pneumonia verses relative pulmonary edema/ARDS in unilateral lung. On Zosyn, completed azithromycin. MSSA did grow on initial cultures, not growing from bronch wash. * Acute respiratory failure-secondary to above. Reintubated 05/31 secondary to recurrence respiratory failure, hypoxemia, agitation and confusion. Bronchoscopy on re-intubation was unrevealing. No obstruction, no secretions. On 40% FiO2 now, doing well, stable. Chest x-ray improving. * AFib. Paroxysmal. In sinus rhythm again now with diltiazem drip and metoprolol. Blood pressures fine. * Acute delirium. Present post extubation on 05/31. Hard to control even with Precedex and Haldol. Difficult to assess now but may be a recurrence issue when she is next extubated. She was confused as well and became increasingly agitated after surgery and prior to her intubation on 05/28. * History of migraines * History of Pericarditis * Pain. Appears well controlled * Prophylaxis: On enoxaparin and Pepcid * Nutrition: On tube feedings via NG. Plan: Continue ventilatory support, propofol, fentanyl. Precedex was tried again today but she did not tolerate this secondary to restlessness/agitation at maximum dose. Continue supportive care. Continue Zosyn. Continue Lasix diuresis. Follow CVP. We will try to restart CPAP trials today if she is not too sedated. 45 minutes of critical care time spent directly with the patient. Discussed with the patient's and son, RT, nursing, and the ICU multi disciplinary team. Subjective: Sedated, on the ventilator. Comfortable on propofol. When transition to Precedex she was more restless, agitated even at maximum dosages. Objective: Vital Signs Temp Pulse Resp BP Pulse Ox 38.1 C 84 14 133/56 H 98 06/02/17 12:00 06/02/17 12:29 06/02/17 12:29 06/02/17 12:29 06/02/17 12:00 Microbiology 05/31/17 20:30 Gram Stain - Final Lung Left Lobe - Bronchial Washings Laboratory Results 06/02/17 04:10 06/02/17 04:10 06/01/17 06/02/17 06/03/17 05:59 05:59 05:59 Intake Total 1204 2218 Output Total 1999 2059 Balance -796 158 PT 14.8 SEC (12.0-15.0) 05/26/17 10:00 INR 1.16 (0.83-1.16) 05/26/17 10:00 Laboratory Tests 06/02/17 06/02/17 04:10 04:52 POC pH 7.55 H POC pCO2 39 H POC pO2 125 H POC O2 Sat (Calc) 99 H POC FiO2 45 Calcium 8.4 L CXR: Improving left-sided interstitial changes and possible left lower lobe infiltrate. Lines and tubes in good position. Physical Exam - Physical Exam General Appearance: no apparent distress, other (Sedated, on the ventilator) EENT: PERRL/EOMI, ET tube, other (NG tube in place) Neck: normal inspection (No obvious JVD) Respiratory: decreased breath sounds (On left, but improving. Breath sounds are coarse), rales (Few rales at left base.), No rhonchi, No wheezing Cardiac/Chest: tachycardia (Sinus, when less sedated) Abdomen: normal bowel sounds, non-tender, soft, other (Tolerating tube feedings at goal) Pelvic Exam: other (Renee catheter in place. Good urine output. Input about equal to output over the last several days.) Skin: warm/dry, pallor Extremities: No pedal edema Neuro/Psych: no motor/sensory deficits (Moves all extremities), cognition abnormalities (Hard to assess currently, agitated/delirium previously) ICD10 Worksheet Patient Problems: Problems Problem Status Onset Lung cancer Acute
--- NOTE | 2017-06-02 14:44 | GCON ---
[f rep st] CONSULTATION ONCOLOGY INITIAL VISIT. REASON FOR VISIT: Evaluation and management of lung cancer. HISTORY OF PRESENT ILLNESS: The patient is a 71-year-old woman who was diagnosed with stage I well-d ifferentiated adenocarcinoma of the right upper lobe in September 2000. She underwent a right upper lobe ctomy. Tumor was 2.2 cm with no invasion. [place] to be confined to the lung. Nodes were negative. Sh e did not receive any additional therapy. Recently, she had had a CT scan that identified a more nod ular area in the region of the right upper lobe lobectomy region. A CT in August 2015 was unchange d. A PET scan showed that this was a PET avid mass initially measuring 1.1 x 1 cm and had multiple e nlarged lymph nodes in the right axilla that were not PET avid, and those have been evaluated by charlene oshea and consistent with microscopic silicone gel bleed. She also had an abnormality in first cerv ical vertebrae, but on further review it was thought to be due to the adjacent muscle, consistent wit h torticollis. She had a needle biopsy performed that showed an invasive well-differentiated adenocarcinoma, so she was referred to Surgery and she underwent resection by Dr. Hassan on May 24. She ended up [facility] to have a right pneumonectomy. Her course has been complicated with requiring reintubation after extubation due to respiratory failure on May 28. Family is with the patient, but she is sedat ed and intubated. ALLERGIES: She has no known drug allergies. HOME MEDICATIONS: Included B complex vitamins, omega-3 fatty acids, multivitamin, estradiol, docusat e, cholecalciferol, amitriptyline, albuterol. CHRONIC ILLNESSES: Include lung cancer as described above, migraine headaches and torticollis. SURGICAL HISTORY: Includes previous right upper lobectomy in 2000, abdominal hysterectomy, bilateral salpingo-oophorectomy, facial plastic surgery and bilateral breast implants. FAMILY HISTORY: Noncontributory. SOCIAL HISTORY: She is a former smoker, [id number] but quit in 2004. Last colonoscopy was 2013. She is . REVIEW OF SYSTEMS: Could not be obtained due to sedation and intubation. PHYSICAL EXAMINATION: VITAL SIGNS: Temperature is 38.1, pulse of 84, blood pressure is 133/56. GEN ERAL: She is intubated and sedated. LUNGS: Some decreased breath sounds. Some slight rales. No w heezing. CARDIAC: Regular, shifted a little bit to the right. ABDOMEN: Soft. NEUROLOGICAL: Eval uation could not be performed. LABORATORY: She is anemic at 10 g/dL, white count elevated at 18,000. Creatinine is 1.2. Last BNP was 12,000. Last chest x-ray today showed improved lung volumes and some likely left lung redistribution pulmonar y edema. Pathology, which I discussed with the family, showed a well-differentiated adenocarcinoma at 5.5 cm w ith visceral pleural involvement, but margins were negative. There were 3 lymph nodes identified. N one with malignancy. IMPRESSION: 1. Stage 2b well-differentiated, non-small cell lung cancer, status post right pneumonectomy. 2. Remote history of stage I well-differentiated lung cancer in 2000. 3. Respiratory failure postop. I discussed the situation with Dr. Prieot and at this point a lot of the problem she is having is post pneumonectomy with fluid shifting over to the left lung. Family is worried about her long-term func tionality and I explained to them that it will be diminished, but at this point it is difficult to kn ow by how much. It does appear that more extensive surgery was necessary because the tumor was large r than expected, but they were able to get it entirely out. The estimated 5 year survival is about 5 0%. Adjuvant chemotherapy might help lower that by about 20%-25%, but she would have to be doing francis lly well, recovering well from the surgery before considering that. asked if [place] help with her breathing down the road, and I told him that would be helpful as she will pr obably need to be on oxygen at this elevation. We will be available for any questions that arise and will check in from [id number], but I do not h ave any further recommendations at this time. /[id number]/MODL
[2017-06-02 18:01] LABS: POTASSIUM 3.7 mEq/L (3.5-5.2)
[2017-06-02] MEDS ORDERED: POTASSIUM Cl (KCl) 50 ML IV ONE (19:00)
[2017-06-02] MEDS: AMITRIPTYLINE HCL 50 MG TAB TUBE SCH (19:50)
[2017-06-02] MEDS: FAMOTIDINE 20 MG TAB TUBE SCH (19:50)
[2017-06-03] MEDS: DILTIAZEM 30 MG TAB TUBE SCH ×5 (00:24→23:59)
[2017-06-03] MEDS: PROPOFOL/EMULSION 100 ML IV SCH ×4 (01:15→22:56)
[2017-06-03] MEDS: fentaNYL/NACL 100 ML IV SCH ×3 (01:15→15:11)
[2017-06-03 04:30] LABS: ADD DIFF? YES; ADD MORPH? NO; ADD SCAN? NO; ATYPICAL LYMPHOCYTE FLAG 10 (0-99); FRAGMENT RBC FLAG 0 (0-99); HEMATOCRIT 31.2 % (38.0-47.0); HEMOGLOBIN 9.9 g/dL (12.6-16.3); LEFT SHIFT FLG 30 (0-99); LIPEMIA HEMOLYSIS FLAG 80 (0-99); MEAN CELL HEMOGLOBIN 28.9 pg (27.9-34.1); MEAN CELL HEMOGLOBIN CONCENTR. 31.7 g/dL (32.4-36.7); MEAN CELL VOLUME 91.2 fL (81.5-99.8); MEAN PLATELET VOLUME 9.8 fL (8.7-11.7); PLATELET CLUMPS FLAG 0 (0-99); PLATELET COUNT 288 10^3/uL (150-400); RED BLOOD CELL COUNT 3.42 10^6/uL (4.18-5.33); RED CELL DISTRIBUTION WIDTH 14.2 % (11.5-15.2)
[2017-06-03] MEDS: LEVALBUTEROL INHALER 200 PUFFS/15 GM MDI IH SCH ×3 (04:49→16:07)
[2017-06-03] MEDS: IPRATROPIUM HFA INHALER IH SCH ×3 (04:49→16:06)
[2017-06-03 04:52] LABS: ALANINE AMINOTRANSFERASE 80 IU/L (9-52); ALBUMIN 2.7 g/dL (3.5-5.0); ALKALINE PHOSPHATASE 84 IU/L (38-126); ANION GAP 8 mEq/L (8-16); ASPARTATE AMINOTRANSFERASE 24 IU/L (14-46); BILIRUBIN,TOTAL 0.3 mg/dL (0.1-1.4); CALCIUM 8.5 mg/dL (8.5-10.4); CARBON DIOXIDE 35 mEq/l (22-31); CHLORIDE 105 mEq/L (97-110); CREATININE 1.2 mg/dL (0.6-1.0); GLOMERULAR FILTRATION RATE 44; GLUCOSE 106 mg/dL (70-100); HYPOCHROMIA 1+; PLATELET ESTIMATE ADEQUATE (ADEQ); POLYCHROMASIA 1+; POTASSIUM 4.1 mEq/L (3.5-5.2); SODIUM 148 mEq/L (134-144); TOTAL PROTEIN 4.7 g/dL (6.3-8.2)
[2017-06-03 05:08] LABS: BASE EXCESS 6.8 mEq/L (-2.5-2.5); BICARBONATE 33 mEq/L (22-26); MEASURED OXYGEN SATURATION 98 % (92-95); PCO2 59 mmHg (34-38); PO2 103 mmHg (65-75); SIMV YES; TCO2 35 mEq/L (23-27)
[2017-06-03 05:09] LABS: PATIENT RATE 16; PRESSURE SUPPORT 7
[2017-06-03] MEDS: PIPERACILLIN/TAZO 2.25 GM/DEX 50 ML IV SCH ×4 (06:08→23:58)
[2017-06-03] MEDS: METOPROLOL TARTRATE 5 MG/5 ML INJ IVP SCH ×3 (06:12→17:48)
[2017-06-03] MEDS: FUROSEMIDE 40 MG/4 ML VIAL IVP SCH (08:39)
[2017-06-03] MEDS: SENNOSIDES 17.6 MG/10 ML UDL - IF LIQUID ORDERED PO SCH ×2 (08:39→20:36)
[2017-06-03] MEDS: ENOXAPARIN 40 MG/0.4 ML SYR SC SCH (08:39)
[2017-06-03] MEDS: methylPREDNISolone SOD SUCC 40 MG/ML VIAL IVP SCH ×2 (08:40→20:35)
--- NOTE | 2017-06-03 12:00 | SOAPPROG ---
SOAP Progress Note Assessment/Plan: Assessment: s/p pneumonectomy - had to be reintubated Tried precedex yesterday which was not successful Flo out around Jun 07, 2017 Tube feeds at goal Tough situation. If cannot be weaned again or requires reintubation, then trach will likely be needed S: Intubated and sedated O: Lying in bed, calm, sedated Lung sounds clear today on the left. No breath sounds on right Intubated Plan: 06/01/17 10:25 06/01/17 10:28 06/02/17 09:14 06/03/17 12:00 Objective: Vital Signs Temp Pulse Resp BP Pulse Ox 36.9 C 114 H 11 L 125/46 H 100 06/03/17 10:00 06/03/17 11:17 06/03/17 10:00 06/03/17 11:17 06/03/17 10:00 Microbiology 05/28/17 11:50 Blood Culture - Final Blood 05/28/17 10:05 Blood Culture - Final Blood 05/31/17 20:30 Gram Stain - Final Lung Left Lobe - Bronchial Washings Bronchial Washings Culture - Final [facility] Laboratory Results 06/03/17 04:20 06/03/17 04:20 06/02/17 06/03/17 06/04/17 05:59 05:59 05:59 Intake Total 4 8963 Output Total 2059 1999 Balance 158 386 PT 14.8 SEC (12.0-15.0) 05/26/17 10:00 INR 1.16 (0.83-1.16) 05/26/17 10:00 ICD10 Worksheet Patient Problems: Problems Problem Status Onset Lung cancer Acute
--- NOTE | 2017-06-03 12:36 | PDINTPN ---
It Sales Executive Progress Note Assessment/Plan: Assessment: 71-year-old with a history of lung cancer approximately 20 years ago with lobectomy on the left. Status post recurrence versus new primary. Admitted 05/23 for left pneumonectomy. Extubated postoperatively but reintubated 05/28 secondary to respiratory failure. [place] to have possible aspiration pneumonia?, verses a component of pulmonary edema/ARDS. Extubated from 45%. Was tolerating CPAP weans. Developed acute delirium post extubation and recurrent hypoxemia/Respiratory/ventilatory failure. Reintubated 05/31 in the p.m. * Lung cancer, recurrent * Status post right pneumonectomy 05/23 * Pneumonia verses relative pulmonary edema/ARDS in unilateral lung. On Zosyn, completed azithromycin. MSSA did grow on initial cultures, not growing from bronch wash. * Acute respiratory failure-secondary to above. Reintubated 05/31 secondary to recurrence respiratory failure, hypoxemia, agitation and confusion. Bronchoscopy on re-intubation was unrevealing: no obstruction, no secretions. On 40% FiO2 now, doing well, stable. Chest x-ray continues to improve. However , she does not tolerate CPAP weans despite being comfortable when she is supported on the ventilator. Respiratory repeat increases, become somewhat agitated. * AFib. Paroxysmal. In sinus rhythm again now with diltiazem given per NG and metoprolol. Blood pressures fine. * Acute delirium. Present post extubation on 05/31. Hard to control even with Precedex and Haldol. Difficult to assess now but may be a recurrence issue when she is next extubated. After her surgery she became confused as well and became increasingly agitated after prior to her intubation on 05/28. She has not done well with Precedex: This did not control her agitation even at maximum doses. * History of migraines * History of Pericarditis * Pain. Appears well controlled * Prophylaxis: On enoxaparin and Pepcid * Nutrition: On tube feedings via NG. Plan: Continue ventilatory support, adjustments made to optimize respiratory status. Continue propofol and fentanyl, but decrease to allow improved weaning. Discussed with nursing. Continue short CPAP weans with increased pressure support, observe directly during next wean, then advance as tolerated. Continue supportive care. Continue Zosyn, tube feedings, etc. Continue Lasix diuresis, adjust based on Is and Os. Follow CVP. 45 minutes of critical care time spent directly with the patient. Discussed with the patient's , RT, nursing, and the ICU multi disciplinary team. Subjective: Sedated, on ventilator. Relatively cough on except when she is on CPAP trials. Respiratory rate then increases in she becomes somewhat agitated. Objective: Vital Signs Temp Pulse Resp BP Pulse Ox 37.6 C 115 H 46 H 156/59 H 100 06/03/17 12:00 06/03/17 12:00 06/03/17 12:00 06/03/17 12:00 06/03/17 12:00 Microbiology 05/28/17 11:50 Blood Culture - Final Blood 05/28/17 10:05 Blood Culture - Final Blood 05/31/17 20:30 Gram Stain - Final Lung Left Lobe - Bronchial Washings Bronchial Washings Culture - Final [facility] Laboratory Results 06/03/17 04:20 06/03/17 04:20 06/02/17 06/03/17 06/04/17 05:59 05:59 05:59 Intake Total 2218 2386 Output Total 2059 1999 Balance 158 386 PT 14.8 SEC (12.0-15.0) 05/26/17 10:00 INR 1.16 (0.83-1.16) 05/26/17 10:00 CXR: Continued improvement in interstitial infiltrates. Lung is clear otherwise. Lines and tubes in good position. Physical Exam - Physical Exam General Appearance: other (Sedated, arouses), No no apparent distress EENT: PERRL/EOMI, ET tube, other (NG tube in place) Neck: normal inspection (No obvious JVD. CVP pending.) Respiratory: lungs clear (On left.), other (Few secretions. Transmitted breath sounds with bronchial changes.), No rales, No rhonchi, No wheezing Cardiac/Chest: regular rate, rhythm (to sinus tach - no further atrial fibrillation at this time.) Abdomen: normal bowel sounds, non-tender, soft, other (Tolerating tube feeding) Pelvic Exam: other ( Renee catheter in place, good urine output) Skin: normal color, warm/dry Extremities: No pedal edema Neuro/Psych: no motor/sensory deficits, cognition abnormalities (Hard to assess with propofol and fentanyl. Likely confused) ICD10 Worksheet Patient Problems: Problems Problem Status Onset Lung cancer Acute
--- NOTE | 2017-06-03 14:00 | ASMTCMCOM ---
CM Note CM Note Notes: Pt remains vented and sedated, dc needs unclear, CM w/f. Date Signed: 06/03/2017 01:59 PM Electronically Signed By:Ester Heredia RN
[2017-06-03 17:56] LABS: POTASSIUM 4.1 mEq/L (3.5-5.2)
[2017-06-03] MEDS: AMITRIPTYLINE HCL 50 MG TAB TUBE SCH (20:35)
[2017-06-03] MEDS: FAMOTIDINE 20 MG TAB TUBE SCH (20:35)
[2017-06-04] MEDS: LEVALBUTEROL INHALER 200 PUFFS/15 GM MDI IH SCH ×4 (00:41→16:24)
[2017-06-04] MEDS: IPRATROPIUM HFA INHALER IH SCH ×4 (00:41→16:24)
[2017-06-04] MEDS: fentaNYL/NACL 100 ML IV SCH ×3 (00:51→19:30)
[2017-06-04 04:36] LABS: ADD DIFF? YES; ADD MORPH? NO; ADD SCAN? NO; ATYPICAL LYMPHOCYTE FLAG 10 (0-99); FRAGMENT RBC FLAG 0 (0-99); HEMATOCRIT 30.6 % (38.0-47.0); HEMOGLOBIN 9.8 g/dL (12.6-16.3); LEFT SHIFT FLG 20 (0-99); LIPEMIA HEMOLYSIS FLAG 80 (0-99); MEAN CELL HEMOGLOBIN 28.8 pg (27.9-34.1); MEAN PLATELET VOLUME 10.3 fL (8.7-11.7); PLATELET CLUMPS FLAG 0 (0-99); PLATELET COUNT 294 10^3/uL (150-400); RED CELL DISTRIBUTION WIDTH 13.8 % (11.5-15.2)
[2017-06-04 04:49] LABS: ANION GAP 7 mEq/L (8-16); CALCIUM 8.8 mg/dL (8.5-10.4); CARBON DIOXIDE 38 mEq/l (22-31); CHLORIDE 101 mEq/L (97-110); GLOMERULAR FILTRATION RATE 55; GLUCOSE 128 mg/dL (70-100); POTASSIUM 4.6 mEq/L (3.5-5.2); SODIUM 146 mEq/L (134-144)
[2017-06-04] MEDS: METOPROLOL TARTRATE 5 MG/5 ML INJ IVP SCH ×5 (05:12→23:58)
[2017-06-04] MEDS: DILTIAZEM 30 MG TAB TUBE SCH ×4 (05:13→23:58)
[2017-06-04 05:15] LABS: POLYCHROMASIA 1+
[2017-06-04 05:16] LABS: PLATELET ESTIMATE ADEQUATE (ADEQ)
[2017-06-04] MEDS: PIPERACILLIN/TAZO 2.25 GM/DEX 50 ML IV SCH ×3 (05:16→17:44)
[2017-06-04 05:24] LABS: BASE EXCESS 9.2 mEq/L (-2.5-2.5); BICARBONATE 35 mEq/L (22-26); MEASURED OXYGEN SATURATION 99 % (92-95); PCO2 58 mmHg (34-38); PO2 114 mmHg (65-75); TCO2 36 mEq/L (23-27)
[2017-06-04 05:25] LABS: END TIDAL CO2 40; O2 CONCENTRATIION 40 % (0-100); P/F RATIO 285 RATIO; PATIENT RATE 14; SIMV YES
[2017-06-04 05:26] LABS: PRESSURE SUPPORT 10
[2017-06-04] MEDS: PROPOFOL/EMULSION 100 ML IV SCH ×3 (05:34→18:17)
[2017-06-04] MEDS: ENOXAPARIN 40 MG/0.4 ML SYR SC SCH (08:22)
[2017-06-04] MEDS: FUROSEMIDE 40 MG/4 ML VIAL IVP SCH (08:22)
[2017-06-04] MEDS: methylPREDNISolone SOD SUCC 40 MG/ML VIAL IVP SCH (08:22)
[2017-06-04] MEDS: SENNOSIDES 17.6 MG/10 ML UDL - IF LIQUID ORDERED PO SCH ×2 (08:22→21:51)
--- NOTE | 2017-06-04 09:45 | SOAPPROG ---
SOAP Progress Note Assessment/Plan: Assessment: s/p pneumonectomy - had to be reintubated Tolerated CPAP for an hour last night More calm Flo out around Jun 07, 2017 Tube feeds at goal Tough situation. If cannot be weaned again or requires reintubation, then trach will likely be needed - more hopeful today S: Intubated and lightly sedated O: Lying in bed, calm, sedated Lung sounds clear today on the left. No breath sounds on right Intubated Plan: 06/01/17 10:25 06/01/17 10:28 06/02/17 09:14 06/03/17 12:00 06/04/17 09:44 Objective: Vital Signs Temp Pulse Resp BP Pulse Ox 37.5 C 88 12 111/43 L 100 06/04/17 08:00 06/04/17 08:23 06/04/17 08:23 06/04/17 08:00 06/04/17 08:23 Microbiology 05/28/17 11:50 Blood Culture - Final Blood 05/28/17 10:05 Blood Culture - Final Blood Laboratory Results 06/04/17 04:15 06/04/17 04:15 06/03/17 06/04/17 06/05/17 05:59 05:59 05:59 Intake Total 2386 1849.5 Output Total 1999 2300 Balance 386 -450.5 PT 14.8 SEC (12.0-15.0) 05/26/17 10:00 INR 1.16 (0.83-1.16) 05/26/17 10:00 ICD10 Worksheet Patient Problems: Problems Problem Status Onset Lung cancer Acute
--- NOTE | 2017-06-04 15:16 | PDINTPN ---
Pension Fund Manager Progress Note Assessment/Plan: Assessment: 71-year-old with a history of lung cancer approximately 20 years ago with lobectomy on the left. Status post recurrence versus new primary. Admitted 05/23 for left pneumonectomy. Extubated postoperatively but reintubated 05/28 secondary to respiratory failure. [place] to have possible aspiration pneumonia verses a component of pulmonary edema/ARDS. Extubated from 45%. Was tolerating CPAP weans at that time. Developed acute delirium post extubation and recurrent hypoxemia/respiratory/ventilatory failure. Reintubated 05/31 in the p.m. * Lung cancer, recurrent * Status post right pneumonectomy 05/23 * Pneumonia verses relative pulmonary edema/ARDS in unilateral lung. On Zosyn, completed azithromycin. MSSA did grow on initial cultures, not growing from bronch wash. * Acute respiratory failure-secondary to above. Reintubated 05/31 secondary to recurrence respiratory failure, hypoxemia, agitation and confusion. Bronchoscopy on re-intubation was unrevealing: no obstruction, no secretions. On 40% FiO2 now, doing well, stable. Chest x-ray improved. Now tolerating some CPAP weans without agitation, not others. She remains comfortable when she is supported on the ventilator. Requiring relatively high dose propofol and fentanyl to maintain this. * AFib. Paroxysmal. In sinus rhythm again now with diltiazem given per NG and metoprolol. Blood pressures fine. * Acute delirium. Present post extubation on 05/31. Hard to control even with Precedex and Haldol. Difficult to assess now but may be a recurrence issue when she is next extubated. After her surgery she became confused as well and became increasingly agitated after prior to her intubation on 05/28. She has not done well with Precedex: This did not control her agitation even at maximum doses. Haldol was not effective either. * Leukocytosis. White blood cell count has been persistently elevated since surgery, up and down. 23K today. Afebrile. No obvious active infectious source. On steroids but relatively low dose. * History of migraines * History of Pericarditis * Pain. Appears well controlled * Prophylaxis: On enoxaparin and Pepcid * Nutrition: On tube feedings via NG. Plan: Continue ventilatory support, propofol, fentanyl. Continue CPAP weans, advance as tolerated. Will DC Solu-Medrol and give prednisone taper for few days via NG tube. Continue supportive care otherwise. Continue Zosyn for a total of 7 days, stopping Wednesday 06/06. Re-culture as needed afterwards. Continue tube feedings. Continue Lasix diuresis. Follow CVP. 40 minutes of critical care time spent directly with the patient. Discussed with the patient's , RT, nursing, and the ICU multi disciplinary team. Subjective: Sedated, arouses weakly. Objective: Vital Signs Temp Pulse Resp BP Pulse Ox 37.5 C 85 11 L 111/44 L 100 06/04/17 14:00 06/04/17 14:00 06/04/17 14:00 06/04/17 14:00 06/04/17 14:00 Laboratory Results 06/04/17 04:15 06/04/17 04:15 06/03/17 06/04/17 06/05/17 05:59 05:59 05:59 Intake Total 2386 1849.5 Output Total 2000 2300 1525 Balance 386 -450.5 -1525 PT 14.8 SEC (12.0-15.0) 05/26/17 10:00 INR 1.16 (0.83-1.16) 05/26/17 10:00 Laboratory Tests 05/28/17 06/04/17 10:10 05:10 pCO2 58 H pO2 114 H ABG pH 7.40 ABG O2 Saturation 99 H O2 Concentration % 40 Actual Respiration Rate 14 Set Respiration Rate 12 SIMV YES Tidal Volume 325 PEEP 5 Pressure Support 10 Urine Legionella Ag Negative Ur Strep pneumoniae Ag Negative CXR: No significant changes. Increased interstitial markings on the left remain improved. Lines and tubes in good position Physical Exam - Physical Exam General Appearance: no apparent distress, other (Sedated) EENT: PERRL/EOMI, ET tube, other (Nasogastric to) Neck: normal inspection (CVP 3-4 range) Respiratory: lungs clear (On the left), No rales, No rhonchi Cardiac/Chest: regular rate, rhythm Abdomen: normal bowel sounds, non-tender, soft, other (Tolerating tube feedings at goal) Pelvic Exam: other (Renee catheter in place. Input and output about equal over the last 4 days) Skin: normal color, warm/dry Extremities: No pedal edema Neuro/Psych: no motor/sensory deficits (Moves all extremities), cognition abnormalities (Hard to assess. Remains confused and agitated with decreased sedation and with some CPAP trials.) ICD10 Worksheet Patient Problems: Problems Problem Status Onset Lung cancer Acute
[2017-06-04 18:18] LABS: POTASSIUM 4.1 mEq/L (3.5-5.2)
[2017-06-04] MEDS: FAMOTIDINE 20 MG TAB TUBE SCH (21:51)
[2017-06-04] MEDS: AMITRIPTYLINE HCL 50 MG TAB TUBE SCH (21:51)
[2017-06-05] MEDS: LEVALBUTEROL INHALER 200 PUFFS/15 GM MDI IH SCH ×3 (00:11→11:52)
[2017-06-05] MEDS: IPRATROPIUM HFA INHALER IH SCH ×3 (00:11→11:53)
[2017-06-05] MEDS: PETROLAT,WHT/MIN OIL/SOD CHL 3.5 GM OPHT.OINT EACHEYE PRN (00:15)
[2017-06-05] MEDS: PROPOFOL/EMULSION 100 ML IV SCH ×2 (00:16→05:28)
[2017-06-05] MEDS: fentaNYL/NACL 100 ML IV SCH (04:05)
[2017-06-05] MEDS: PIPERACILLIN/TAZO 2.25 GM/DEX 50 ML IV SCH ×4 (05:25→17:47)
[2017-06-05] MEDS: DILTIAZEM 30 MG TAB TUBE SCH ×4 (05:25→22:59)
[2017-06-05] MEDS: METOPROLOL TARTRATE 5 MG/5 ML INJ IVP SCH ×4 (05:27→22:58)
[2017-06-05 05:30] LABS: ADD DIFF? YES; ADD MORPH? NO; ADD SCAN? NO; ATYPICAL LYMPHOCYTE FLAG 20 (0-99); FRAGMENT RBC FLAG 0 (0-99); HEMATOCRIT 28.8 % (38.0-47.0); HEMOGLOBIN 9.3 g/dL (12.6-16.3); LEFT SHIFT FLG 20 (0-99); LIPEMIA HEMOLYSIS FLAG 80 (0-99); MEAN CELL HEMOGLOBIN 28.7 pg (27.9-34.1); MEAN CELL HEMOGLOBIN CONCENTR. 32.3 g/dL (32.4-36.7); MEAN CELL VOLUME 88.9 fL (81.5-99.8); MEAN PLATELET VOLUME 9.9 fL (8.7-11.7); PLATELET CLUMPS FLAG 0 (0-99); PLATELET COUNT 274 10^3/uL (150-400); RED BLOOD CELL COUNT 3.24 10^6/uL (4.18-5.33); RED CELL DISTRIBUTION WIDTH 13.6 % (11.5-15.2)
[2017-06-05 05:59] LABS: CALCIUM 8.6 mg/dL (8.5-10.4); CHLORIDE 98 mEq/L (97-110); GLOMERULAR FILTRATION RATE 55; GLUCOSE 94 mg/dL (70-100); MAGNESIUM 2.1 mg/dL (1.6-2.3); SODIUM 143 mEq/L (134-144)
[2017-06-05 06:06] LABS: ANION GAP 6 mEq/L (8-16); CARBON DIOXIDE 39 mEq/l (22-31)
[2017-06-05 06:12] LABS: PLATELET ESTIMATE ADEQUATE (ADEQ)
[2017-06-05 06:47] LABS: BASE EXCESS 11.3 mEq/L (-2.5-2.5); BICARBONATE 36 mEq/L (22-26); CPAP YES; MEASURED OXYGEN SATURATION 99 % (92-95); PCO2 52 mmHg (34-38); PO2 127 mmHg (65-75); TCO2 38 mEq/L (23-27)
[2017-06-05 06:48] LABS: END TIDAL CO2 40; PATIENT RATE 20; PRESSURE SUPPORT 10
[2017-06-05 07:05] LABS: P/F RATIO 318 RATIO
[2017-06-05 07:11] LABS: O2 CONCENTRATIION 40 % (0-100)
--- NOTE | 2017-06-05 09:45 | SOAPPROG ---
SOAP Progress Note Assessment/Plan: Assessment/Plan: 71 Y F s/p R thoracotomy with completion pneumonectomy for 2nd primary lung cancer. Seen with Dr. Hassan. ARF/element of ARDS - had to be reintubated. Possible attempt at wean today. CXR stable. Low grade fever. Still with leukocytosis but getting steroids. Flo out around Jun 07, 2017. Tolerating tube feeds, at goal. Tough situation. If cannot be weaned again or requires reintubation, then trach will likely be needed - more hopeful today S: Intubated and lightly sedated. Nods head to us that she is getting better. O: Lying in bed, moving onto side. Rhonchi vs bronchial BS on L. No breath sounds on right Intubated wounds clean rrr Continue ICU care. 06/05/17 09:45 Objective: Vital Signs Temp Pulse Resp BP Pulse Ox 37.7 C 104 H 16 137/58 H 99 06/05/17 08:00 06/05/17 08:00 06/05/17 08:00 06/05/17 08:00 06/05/17 08:00 Laboratory Results 06/05/17 05:22 06/05/17 05:22 06/04/17 06/05/17 06/06/17 05:59 05:59 05:59 Intake Total 1849.5 2506 Output Total 2300 2525 Balance -450.5 -19 PT 14.8 SEC (12.0-15.0) 05/26/17 10:00 INR 1.16 (0.83-1.16) 05/26/17 10:00 ICD10 Worksheet Patient Problems: Problems Problem Status Onset Lung cancer Acute
[2017-06-05] MEDS: SENNOSIDES 17.6 MG/10 ML UDL - IF LIQUID ORDERED PO SCH ×2 (10:55→23:28)
[2017-06-05] MEDS: FUROSEMIDE 40 MG/4 ML VIAL IVP SCH (12:08)
[2017-06-05] MEDS: LORazepam 2 MG/ML INJ IVP PRN (12:12)
[2017-06-05] MEDS ORDERED: ALBUTEROL 200 PUFFS/18 GM MDI IH PRN (12:46)
--- NOTE | 2017-06-05 13:46 | PDINTPN ---
Tissue Packer Progress Note Assessment/Plan: Assessment/plan: 71 F known to me from outpatient preop evaluation. She had a remote lung cancer in 2000 that was treated with resection and stayed stable for years. After an episode of PNA in [address], but appeared benign until recently when a new nodule appeared, was PET-avid, and biopsy showed well- differentiated adenocarcinoma. With a pre-op FEV1 of 1.93 L (97% predicted) she was thought likely to tolerate a pneumonectomy if needed, which occurred on . She was extubated postop, but required re-intubation 05/28, perhaps from an aspiration event since BAL revealed MSSA. Another attempt at extubation failed on 05/31, but she has remained stable since with excellent weans through her 7.0 ETT, though her mental status has also been challenging. * Acute respiratory failure with hypoxemia- She has been treated for PNA and her O2 requirement is quite low. Since she is about 3 weeks postop, I dc'd fentanyl to minimize delerium, weaned her on T-piece for at least 2 hours, and successfully extubated. She should remain vent free at this point, barring some new complication. Given her events, I will avoid feeding the remainder of today and resume tomorrow. * Atrial fibrillation- controlled on diltiazem at the moment with lovenox. Depending on course will eventually switch to PO. * Leukocytosis- agree this is likely steroids and taper started. Observe. * Delerium- likely combo of ICU, prolonged hospital stay and fentanyl drip. Previously failed precedex and haldol, but would favor haldol or Zyprexa should this become an issue tonight. Avoid fentanyl for agitation. * COPD- not a clear diagnosis- she has a smoking history but was only using albuterol prn as an outpatient. Continue duoneb for now given multiple intubations. * critical care time 60 minutes including bedside eval, discussion with family and re-eval post-extubation Subjective: Stable overnight and weaning well this AM. Objective: Vital Signs Temp Pulse Resp BP Pulse Ox 37.7 C 120 H 16 156/76 H 99 06/05/17 12:00 06/05/17 12:00 06/05/17 12:00 06/05/17 12:00 06/05/17 12:00 Laboratory Results 06/05/17 05:22 06/05/17 05:22 06/04/17 06/05/17 06/06/17 05:59 05:59 05:59 Intake Total 1849.5 2506 Output Total 2300 2525 300 Balance -450.5 -19 -300 PT 14.8 SEC (12.0-15.0) 05/26/17 10:00 INR 1.16 (0.83-1.16) 05/26/17 10:00 Physical Exam - Physical Exam General Appearance: alert, no apparent distress EENT: PERRL/EOMI Neck: supple Respiratory: lungs clear, normal breath sounds, No respiratory distress Cardiac/Chest: regular rate, rhythm, No edema Abdomen: non-tender, soft, No distended Skin: normal color, warm/dry Lymphatic: no adenopathy Extremities: normal range of motion, No pedal edema Neuro/Psych: cognition abnormalities, No abnormal data operations director II-XII ICD10 Worksheet Patient Problems: Problems Problem Status Onset Lung cancer Acute
[2017-06-05] MEDS: ENOXAPARIN 40 MG/0.4 ML SYR SC SCH (14:11)
[2017-06-05] MEDS: predniSONE 20 MG TAB PO SCH (14:18)
[2017-06-05] MEDS ORDERED: ACETAMINOPHEN 650 MG/20.3 ML UDCUP TUBE ONE (15:15)
[2017-06-05] MEDS: IPRATROPIUM/ALBUTEROL 3 ML DEYVIAL IH SCH ×2 (15:53→22:09)
[2017-06-05] MEDS: FAMOTIDINE 20 MG TAB TUBE SCH (22:58)
[2017-06-05] MEDS: AMITRIPTYLINE HCL 50 MG TAB TUBE SCH (22:59)
[2017-06-05 23:52] LABS: POTASSIUM 3.9 mEq/L (3.5-5.2)
[2017-06-06] MEDS: PIPERACILLIN/TAZO 2.25 GM/DEX 50 ML IV SCH ×3 (00:25→12:42)
[2017-06-06] MEDS: LORazepam 2 MG/ML INJ IVP PRN (01:41)
[2017-06-06] MEDS: IPRATROPIUM/ALBUTEROL 3 ML DEYVIAL IH SCH ×4 (05:37→21:13)
[2017-06-06 06:13] LABS: POTASSIUM 3.4 mEq/L (3.5-5.2)
[2017-06-06] MEDS ORDERED: ALPRAZolam 0.25 MG TAB TUBE PRN (07:35)
[2017-06-06] MEDS: DILTIAZEM 30 MG TAB TUBE SCH ×4 (09:02→23:57)
[2017-06-06] MEDS: METOPROLOL TARTRATE 5 MG/5 ML INJ IVP SCH ×2 (09:03→12:42)
[2017-06-06] MEDS: FUROSEMIDE 40 MG/4 ML VIAL IVP SCH (09:04)
[2017-06-06] MEDS: ENOXAPARIN 40 MG/0.4 ML SYR SC SCH (09:04)
[2017-06-06] MEDS: SENNOSIDES 17.6 MG/10 ML UDL - IF LIQUID ORDERED PO SCH ×2 (09:04→20:59)
[2017-06-06] MEDS: predniSONE 20 MG TAB PO SCH (09:04)
[2017-06-06] MEDS: ALTEPLASE 2 MG VIAL IVP PRN (09:05)
[2017-06-06] MEDS: POTASSIUM Cl (KCl) 50 ML IV SCH ×3 (09:35→12:43)
[2017-06-06 09:56] LABS: ADD DIFF? YES; ADD MORPH? NO; ADD SCAN? NO; ATYPICAL LYMPHOCYTE FLAG 20 (0-99); FRAGMENT RBC FLAG 0 (0-99); HEMATOCRIT 25.8 % (38.0-47.0); HEMOGLOBIN 8.3 g/dL (12.6-16.3); LEFT SHIFT FLG 10 (0-99); LIPEMIA HEMOLYSIS FLAG 80 (0-99); MEAN CELL HEMOGLOBIN 28.4 pg (27.9-34.1); MEAN CELL HEMOGLOBIN CONCENTR. 32.2 g/dL (32.4-36.7); MEAN CELL VOLUME 88.4 fL (81.5-99.8); MEAN PLATELET VOLUME 10.3 fL (8.7-11.7); PLATELET CLUMPS FLAG 0 (0-99); PLATELET COUNT 235 10^3/uL (150-400); RED BLOOD CELL COUNT 2.92 10^6/uL (4.18-5.33); RED CELL DISTRIBUTION WIDTH 13.4 % (11.5-15.2)
[2017-06-06 10:04] LABS: ANION GAP 29 mEq/L (8-16); CALCIUM 6.6 mg/dL (8.5-10.4); CARBON DIOXIDE 27 mEq/l (22-31); CHLORIDE 80 mEq/L (97-110); CREATININE 0.8 mg/dL (0.6-1.0); GLOMERULAR FILTRATION RATE > 60; GLUCOSE 329 mg/dL (70-100); SODIUM 136 mEq/L (134-144)
[2017-06-06 10:11] LABS: POTASSIUM 2.6 mEq/L (3.5-5.2)
[2017-06-06 10:36] LABS: PLATELET ESTIMATE ADEQUATE (ADEQ)
--- NOTE | 2017-06-06 10:49 | SOAPPROG ---
SOAP Progress Note Assessment/Plan: Assessment/Plan: 71 Y F s/p R thoracotomy with completion pneumonectomy for 2nd primary lung cancer. Seen with Dr. Hassan. Appreciate curing supervisor and ICU team work. Patient now extubated. Febrile. Continue zosyn. On prednisone taper. Wounds ok--staple out later this week. Renee out today. Continue to monitor. S: OOB in chair. O: No work of breathing. Continue ICU care. 06/06/17 10:51 Objective: Vital Signs Temp Pulse Resp BP Pulse Ox 38.1 C 107 H 18 135/59 H 99 06/05/17 23:56 06/06/17 09:03 06/06/17 04:00 06/06/17 09:03 06/06/17 04:00 Microbiology 05/31/17 21:45 Blood Culture - Final Blood 05/31/17 21:30 Blood Culture - Final Blood Laboratory Results 06/06/17 09:38 06/05/17 06/06/17 06/07/17 05:59 05:59 05:59 Intake Total 2502 723 Output Total 5209 3027 250 Balance -19 -2304 -250 PT 14.8 SEC (12.0-15.0) 05/26/17 10:00 INR 1.16 (0.83-1.16) 05/26/17 10:00 ICD10 Worksheet Patient Problems: Problems Problem Status Onset Lung cancer Acute
[2017-06-06 10:55] LABS: POTASSIUM 3.6 mEq/L (3.5-5.2)
--- NOTE | 2017-06-06 15:01 | PDINTPN ---
Neuropathologist Progress Note Assessment/Plan: Assessment/plan: 71 F known to me from outpatient preop evaluation. She had a remote lung cancer in 2000 that was treated with resection and stayed stable for years. After an episode of PNA in [address] scans, but appeared benign until recently when a new nodule appeared, was PET-avid, and biopsy showed well- differentiated adenocarcinoma. With a pre-op FEV1 of 1.93 L (97% predicted) she was thought likely to tolerate a pneumonectomy if needed, which occurred on . She was extubated postop, but required re-intubation 05/28, perhaps from an aspiration event since BAL revealed MSSA. Another attempt at extubation failed on 05/31, but she has remained stable since with excellent weans through her 7.0 ETT, though her mental status has also been challenging. * Acute respiratory failure with hypoxemia- her re-intubation events may have been related to aspiration (05/28) and volume overload (05/31), but she is doing much better today. She is not quite understanding how to do IS, but will get ongoing coaching from RT, RN. Agree with conservative approach to resuming TF/PO and await swallow eval when mental status is better. Lasix dc'd as well given improvement. Completed 14 days of Zosyn (completed today). * Atrial fibrillation- Now in NSR with redundant meds (dilt and IV metoprolol) DC metoprolol and observe. * Leukocytosis- agree this is likely steroids and taper started. Continues to fall * Delerium- likely combo of ICU, prolonged hospital stay and fentanyl drip. Improved, but still intermittently inappropriate. Would favor haldol or Zyprexa should this become an issue. Per patient and , she rarely used xanax at home, so would avoid benzos as well. * COPD- not a clear diagnosis- she has a smoking history but was only using albuterol prn as an outpatient. Continue duoneb for now given multiple intubations. * 06/06/17 14:56 Subjective: Stable post-extubation with minimal O2 requirement. Still confused but improved Objective: Vital Signs Temp Pulse Resp BP Pulse Ox 37.2 C 97 20 136/51 H 100 06/06/17 10:00 06/06/17 12:42 06/06/17 11:47 06/06/17 12:42 06/06/17 10:00 Microbiology 05/28/17 19:45 Mycobacterial Smear (ELISABETH) - Final Lung Left Lower Lobe - Bronchial Washings 05/31/17 21:45 Blood Culture - Final Blood 05/31/17 21:30 Blood Culture - Final Blood Laboratory Results 06/06/17 09:38 06/06/17 10:25 06/05/17 06/06/17 06/07/17 05:59 05:59 05:59 Intake Total 2501 723 Output Total 8207 3027 250 Balance -19 -2304 -250 PT 14.8 SEC (12.0-15.0) 05/26/17 10:00 INR 1.16 (0.83-1.16) 05/26/17 10:00 Physical Exam - Physical Exam General Appearance: alert, no apparent distress, other (mild intermittent confusion) EENT: PERRL/EOMI Neck: supple Respiratory: lungs clear, normal breath sounds, No respiratory distress Cardiac/Chest: regular rate, rhythm, No edema Abdomen: normal bowel sounds, non-tender, soft, No distended Skin: normal color, warm/dry, No cyanosis Lymphatic: no adenopathy Extremities: No pedal edema Neuro/Psych: alert, normal mood/affect, cognition abnormalities ICD10 Worksheet Patient Problems: Problems Problem Status Onset Lung cancer Acute
[2017-06-06 16:29] LABS: IONIZED CALCIUM 1.15 MMOL/L (1.12-1.30)
--- NOTE | 2017-06-06 16:39 | ASMTCMCOM ---
CM Note CM Note Notes: "Family Meeting" met with Cruzito who was thinking he could take patient home on discharge. She was somewhat confused today and has just started working with therapies. encouraged to think about SNF Rehab for patient before home. He will go look at [facility] which would be close to their home. Referral has been made. Date Signed: 06/06/2017 04:38 PM Electronically Signed By:Flower Rouse LCSW
[2017-06-06 17:38] LABS: ANION GAP 12 mEq/L (8-16); CALCIUM 8.4 mg/dL (8.5-10.4); CARBON DIOXIDE 29 mEq/l (22-31); CHLORIDE 97 mEq/L (97-110); GLOMERULAR FILTRATION RATE 55; GLUCOSE 123 mg/dL (70-100); POTASSIUM 4.2 mEq/L (3.5-5.2); SODIUM 138 mEq/L (134-144)
[2017-06-06] MEDS: AMITRIPTYLINE HCL 50 MG TAB TUBE SCH (20:59)
[2017-06-06] MEDS: FAMOTIDINE 20 MG TAB TUBE SCH (20:59)
[2017-06-07 05:28] LABS: ADD DIFF? YES; ADD MORPH? NO; ATYPICAL LYMPHOCYTE FLAG 20 (0-99); FRAGMENT RBC FLAG 0 (0-99); HEMATOCRIT 26.8 % (38.0-47.0); HEMOGLOBIN 8.5 g/dL (12.6-16.3); LEFT SHIFT FLG 20 (0-99); LIPEMIA HEMOLYSIS FLAG 80 (0-99); MEAN CELL HEMOGLOBIN 27.8 pg (27.9-34.1); MEAN CELL HEMOGLOBIN CONCENTR. 31.7 g/dL (32.4-36.7); MEAN CELL VOLUME 87.6 fL (81.5-99.8); MEAN PLATELET VOLUME 10.8 fL (8.7-11.7); PLATELET COUNT 273 10^3/uL (150-400); RED BLOOD CELL COUNT 3.06 10^6/uL (4.18-5.33); RED CELL DISTRIBUTION WIDTH 13.6 % (11.5-15.2)
[2017-06-07 05:34] LABS: ADD SCAN? NO
[2017-06-07] MEDS: IPRATROPIUM/ALBUTEROL 3 ML DEYVIAL IH SCH ×4 (05:55→21:05)
[2017-06-07] MEDS: DILTIAZEM 30 MG TAB TUBE SCH ×2 (06:14→12:44)
[2017-06-07 06:16] LABS: ANION GAP 5 mEq/L (8-16); CALCIUM 8.2 mg/dL (8.5-10.4); CARBON DIOXIDE 34 mEq/l (22-31); CHLORIDE 100 mEq/L (97-110); GLOMERULAR FILTRATION RATE 55; GLUCOSE 140 mg/dL (70-100); POTASSIUM 3.5 mEq/L (3.5-5.2); SODIUM 139 mEq/L (134-144)
[2017-06-07 06:47] LABS: PLATELET ESTIMATE ADEQUATE (ADEQ)
--- NOTE | 2017-06-07 08:24 | SOAPPROG ---
SOAP Progress Note Assessment/Plan: Assessment/Plan: 71 Y F s/p R thoracotomy with completion pneumonectomy for 2nd primary lung cancer. Lungs sound great this morning. Afebrile. Mental status more clear. On zosyn and prednisone taper. Wounds ok. Will order swallow study today in hopes of advancing diet. Would be ok with transfer to step down versus med surg pending Dr. Coreas's input. S: awake in bed. denies pain. hungry. had applesauce and ice chips and eager for more. O: alert, nad CTAL, no BS R inc cdi c ecchymosis, no erythema rrr abd soft 06/07/17 08:21 Objective: Vital Signs Temp Pulse Resp BP Pulse Ox 37 C 108 H 16 136/55 H 99 06/06/17 20:00 06/07/17 06:14 06/07/17 06:00 06/07/17 06:14 06/07/17 06:00 Microbiology 05/28/17 19:45 Mycobacterial Smear (ELISABETH) - Final Lung Left Lower Lobe - Bronchial Washings 05/31/17 21:45 Blood Culture - Final Blood 05/31/17 21:30 Blood Culture - Final Blood Laboratory Results 06/07/17 05:00 06/07/17 05:00 06/06/17 06/07/17 06/08/17 05:59 05:59 05:59 Intake Total 723 1590 Output Total 3027 602 Balance -2304 988 PT 14.8 SEC (12.0-15.0) 05/26/17 10:00 INR 1.16 (0.83-1.16) 05/26/17 10:00 ICD10 Worksheet Patient Problems: Problems Problem Status Onset Lung cancer Acute
--- NOTE | 2017-06-07 09:55 | PDINTPN ---
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 She had a remote lung cancer in 2000 that was treated with resection and stayed stable for years. After an episode of PNA in [address], but appeared benign until recently when a new nodule appeared, was PET-avid, and biopsy showed well- differentiated adenocarcinoma. With a pre-op FEV1 of 1.93 L (97% predicted) she was thought likely to tolerate a pneumonectomy if needed, which occurred on . She was extubated postop, but required re-intubation 05/28, perhaps from an aspiration event since BAL revealed MSSA. Another attempt at extubation failed on 05/31, but she has remained stable since with excellent weans through her 7.0 ETT, though her mental status has also been challenging. * Acute respiratory failure with hypoxemia- Her re-intubation events may have been related to aspiration (05/28) and volume overload (05/31), but successfully extubated 06/05. Completed 14 days of Zosyn 06/06. Minimal O2 requirement (3 lpm) with occasional desat on RA. Continue efforts to use iS and stress OOB with PT/OT. * Atrial fibrillation- has not recurred and remains in sinus tachycardia at 105- 110. Continue dilt at current dose of 30 QID. * Leukocytosis- agree this is likely steroids and taper started. Continues to fall * Delerium- likely combo of ICU, prolonged hospital stay and fentanyl drip. Improving daily. Use haldol or Zyprexa should this become an issue. Per patient and , she rarely used xanax at home, so would avoid benzos as well. * COPD- not a clear diagnosis- she has a smoking history but was only using albuterol prn as an outpatient. Continue duoneb for now given multiple intubations. * OK for med/surg 06/06/17 14:56 06/07/17 09:51 Subjective: feels well and denies pain or sob Objective: Vital Signs Temp Pulse Resp BP Pulse Ox 37 C 111 H 19 127/51 H 99 06/07/17 08:00 06/07/17 08:00 06/07/17 08:00 06/07/17 08:00 06/07/17 08:00 Microbiology 05/28/17 19:45 Mycobacterial Smear (ELISABETH) - Final Lung Left Lower Lobe - Bronchial Washings 05/31/17 21:45 Blood Culture - Final Blood 05/31/17 21:30 Blood Culture - Final Blood Laboratory Results 06/07/17 05:00 06/07/17 05:00 06/06/17 06/07/17 06/08/17 05:59 05:59 05:59 Intake Total 723 1590 Output Total 3027 602 Balance -2304 988 PT 14.8 SEC (12.0-15.0) 05/26/17 10:00 INR 1.16 (0.83-1.16) 05/26/17 10:00 Physical Exam - Physical Exam General Appearance: alert, no apparent distress EENT: PERRL/EOMI Neck: supple Respiratory: lungs clear (on left), normal breath sounds, decreased breath sounds (on right), No respiratory distress Cardiac/Chest: regular rate, rhythm, No edema Abdomen: normal bowel sounds, non-tender, soft, No distended Skin: normal color, warm/dry, No cyanosis Lymphatic: no adenopathy Extremities: No pedal edema Neuro/Psych: alert, normal mood/affect, oriented x 3 ICD10 Worksheet Patient Problems: Problems Problem Status Onset Lung cancer Acute
[2017-06-07] MEDS: SENNOSIDES 17.6 MG/10 ML UDL - IF LIQUID ORDERED PO SCH ×2 (11:57→20:24)
[2017-06-07] MEDS: predniSONE 10 MG TAB PO SCH (11:57)
[2017-06-07] MEDS: POTASSIUM Cl (KCl) 50 ML IV SCH ×2 (11:58→12:52)
[2017-06-07] MEDS: ENOXAPARIN 40 MG/0.4 ML SYR SC SCH (11:58)
--- NOTE | 2017-06-07 15:00 | ASMTCMCOM ---
CM Note CM Note Notes: Met with patient, , and son to discuss discharge planning - family requested that I sent updated notes to [facility] ('s preference) and [facility] (son's preference). [facility] is following pending patient's progress; [facility] did not respond to my fax. Case Management will follow. Date Signed: 06/07/2017 02:59 PM Electronically Signed By:Taylor Bone RN
[2017-06-07] MEDS ORDERED: ONDANSETRON 4 MG/2 ML VIAL ONE (18:18)
[2017-06-07] MEDS: AMITRIPTYLINE HCL 50 MG TAB PO SCH ×2 (20:24→20:59)
[2017-06-07] MEDS: DILTIAZEM 30 MG TAB PO SCH (20:24)
[2017-06-07] MEDS: FAMOTIDINE 20 MG TAB PO SCH ×2 (20:24→20:59)
[2017-06-08] MEDS: DILTIAZEM 30 MG TAB PO SCH ×4 (00:43→17:35)
[2017-06-08] MEDS: IPRATROPIUM/ALBUTEROL 3 ML DEYVIAL IH SCH (05:34)
[2017-06-08 06:31] LABS: % IMMATURE GRANULYOCYTES 1.3 % (0.0-1.1); ABSOLUTE IMMATURE GRANULOCYTES 0.21 10^3/uL (0.00-0.10); ADD DIFF? NO; ADD MORPH? NO; ADD SCAN? NO; ATYPICAL LYMPHOCYTE FLAG 30 (0-99); FRAGMENT RBC FLAG 0 (0-99); HEMATOCRIT 29.4 % (38.0-47.0); HEMOGLOBIN 9.6 g/dL (12.6-16.3); LEFT SHIFT FLG 20 (0-99); LIPEMIA HEMOLYSIS FLAG 80 (0-99); MEAN CELL HEMOGLOBIN 28.9 pg (27.9-34.1); MEAN CELL HEMOGLOBIN CONCENTR. 32.7 g/dL (32.4-36.7); MEAN CELL VOLUME 88.6 fL (81.5-99.8); MEAN PLATELET VOLUME 10.3 fL (8.7-11.7); PLATELET CLUMPS FLAG 0 (0-99); PLATELET COUNT 333 10^3/uL (150-400); RED BLOOD CELL COUNT 3.32 10^6/uL (4.18-5.33); RED CELL DISTRIBUTION WIDTH 13.5 % (11.5-15.2)
[2017-06-08 07:05] LABS: ANION GAP 8 mEq/L (8-16); CALCIUM 8.4 mg/dL (8.5-10.4); CARBON DIOXIDE 29 mEq/l (22-31); CHLORIDE 102 mEq/L (97-110); CREATININE 0.9 mg/dL (0.6-1.0); GLOMERULAR FILTRATION RATE > 60; GLUCOSE 84 mg/dL (70-100); POTASSIUM 3.9 mEq/L (3.5-5.2); SODIUM 139 mEq/L (134-144)
--- NOTE | 2017-06-08 08:56 | PDINTPN ---
Manager College Progress Note Assessment/Plan: Assessment/plan: 71 F known to me from outpatient preop evaluation. She had a remote lung cancer in 2000 that was treated with resection and stayed stable for years. After an episode of PNA in [address] scans, but appeared benign until recently when a new nodule appeared, was PET-avid, and biopsy showed well- differentiated adenocarcinoma. With a pre-op FEV1 of 1.93 L (97% predicted) she was thought likely to tolerate a pneumonectomy if needed, which occurred on . She was extubated postop, but required re-intubation 05/28, perhaps from an aspiration event since BAL revealed MSSA. Another attempt at extubation failed on 05/31, but she has remained stable since with excellent weans through her 7.0 ETT, though her mental status has also been challenging. * Acute respiratory failure with hypoxemia- Currently stable on 2-3 lpm O2 NC. I expect her O2 needs will diminish if not pj once she is more mobile. Her re -intubation events may have been related to aspiration (05/28) and volume overload (05/31), but successfully extubated 06/05. Completed 14 days of Zosyn 06/06. Continue efforts to use IS and stress OOB with PT/OT. * Atrial fibrillation- has not recurred and remains in sinus tachycardia at 105- 110. Continue dilt at current dose of 30 QID. * Leukocytosis- agree this is likely steroids and taper started. Continues to fall * Delerium- likely combo of ICU, prolonged hospital stay and fentanyl drip. Improving daily. Use haldol or Zyprexa should this become an issue. Per patient and , she rarely used xanax at home, so would avoid benzos as well. * COPD- not a clear diagnosis- she has a smoking history but was only using albuterol prn as an outpatient. She thought the nebs were causing trouble sleeping, so will change to prn only. * OK for med/surg 06/06/17 14:56 06/07/17 09:51 06/08/17 08:56 Subjective: feels better daily, no sob. C/O non productive cough Objective: Vital Signs Temp Pulse Resp BP Pulse Ox 37.2 C 105 H 20 140/52 H 98 06/08/17 07:49 06/08/17 07:49 06/08/17 07:49 06/08/17 07:49 06/08/17 07:49 Laboratory Results 06/08/17 06:15 06/08/17 06:15 06/07/17 06/08/17 06/09/17 05:59 05:59 05:59 Intake Total 1590 334 Output Total 602 1475 Balance 988 -1141 PT 14.8 SEC (12.0-15.0) 05/26/17 10:00 INR 1.16 (0.83-1.16) 05/26/17 10:00 Physical Exam - Physical Exam General Appearance: alert, no apparent distress EENT: PERRL/EOMI Neck: supple Respiratory: lungs clear, normal breath sounds, decreased breath sounds (on right), No respiratory distress Cardiac/Chest: regular rate, rhythm, No edema Abdomen: non-tender, soft, No distended Skin: normal color, warm/dry, No cyanosis Lymphatic: no adenopathy Extremities: No pedal edema Neuro/Psych: alert, normal mood/affect, oriented x 3 ICD10 Worksheet Patient Problems: Problems Problem Status Onset Lung cancer Acute
[2017-06-08] MEDS ORDERED: IPRATROPIUM/ALBUTEROL 3 ML DEYVIAL IH PRN (09:02)
[2017-06-08] MEDS: ENOXAPARIN 40 MG/0.4 ML SYR SC SCH (10:02)
[2017-06-08] MEDS: SENNOSIDES 17.6 MG/10 ML UDL - IF LIQUID ORDERED PO SCH ×2 (10:03→20:39)
[2017-06-08] MEDS: predniSONE 10 MG TAB PO SCH (10:03)
[2017-06-08] MEDS ORDERED: ACETAMINOPHEN 325 MG TAB ONE (13:42)
[2017-06-08] MEDS ORDERED: ACETAMINOPHEN 325 MG TAB PO PRN (14:32)
[2017-06-08 18:47] LABS: POTASSIUM 4.4 mEq/L (3.5-5.2)
[2017-06-08] MEDS: AMITRIPTYLINE HCL 50 MG TAB PO SCH (21:01)
[2017-06-08] MEDS: FAMOTIDINE 20 MG TAB PO SCH (21:01)
[2017-06-09] MEDS: DILTIAZEM 30 MG TAB PO SCH ×3 (00:46→12:44)
[2017-06-09 05:48] LABS: % IMMATURE GRANULYOCYTES 1.2 % (0.0-1.1); ABSOLUTE IMMATURE GRANULOCYTES 0.17 10^3/uL (0.00-0.10); ADD DIFF? NO; ADD MORPH? NO; ADD SCAN? NO; ATYPICAL LYMPHOCYTE FLAG 30 (0-99); FRAGMENT RBC FLAG 0 (0-99); HEMATOCRIT 29.2 % (38.0-47.0); HEMOGLOBIN 9.5 g/dL (12.6-16.3); LEFT SHIFT FLG 10 (0-99); LIPEMIA HEMOLYSIS FLAG 80 (0-99); MEAN CELL HEMOGLOBIN 28.5 pg (27.9-34.1); MEAN CELL HEMOGLOBIN CONCENTR. 32.5 g/dL (32.4-36.7); MEAN CELL VOLUME 87.7 fL (81.5-99.8); MEAN PLATELET VOLUME 9.7 fL (8.7-11.7); PLATELET CLUMPS FLAG 0 (0-99); PLATELET COUNT 339 10^3/uL (150-400); RED BLOOD CELL COUNT 3.33 10^6/uL (4.18-5.33); RED CELL DISTRIBUTION WIDTH 13.2 % (11.5-15.2)
[2017-06-09 06:16] LABS: ANION GAP 9 mEq/L (8-16); CALCIUM 8.7 mg/dL (8.5-10.4); CARBON DIOXIDE 29 mEq/l (22-31); CHLORIDE 103 mEq/L (97-110); CREATININE 0.8 mg/dL (0.6-1.0); GLOMERULAR FILTRATION RATE > 60; GLUCOSE 90 mg/dL (70-100); POTASSIUM 3.8 mEq/L (3.5-5.2); SODIUM 141 mEq/L (134-144)
--- NOTE | 2017-06-09 07:46 | SOAPPROG ---
SOAP Progress Note Assessment/Plan: Assessment: stable/ cxr ok/ hct pending Plan:icu monitor 05/23/17 19:43 05/26/17 09:09 WOUND OK/ CXR STABLE/ AFEBRILE/ WORKUP FOR TROPONIN ELEVATION SHOWS LIKELY PERICARDITIS SHE ALSO HAS LEFT PLEURAL EFFUSION/ CREAT IMPROVED AND UO IMPROVED/ HCT STABLE 05/29/17 09:04 PT STABLE NOW BUT HAD TO BE REINTUBATED OVER THE WEEKEND/ CXR STABLE WITH INTERSTITIAL INFILTRATE/ HCT 29/ LABS OK WOUND OK/ CHEST CLEAR/ VS STABLE/ UO BRISK/ AFEBRILE CONTINUE VENT SUPPORT AND DIURESIS 05/31/17 09:49 MORE ALERT/ COMFORTABLE/ VS STABLE CXR IMPROVED/ UO BRISK/ LABS STABLE/ WOUND OK/ AFEBRILE/ HOPEFULLY WEAN TODAY 05/31/17 18:55 Status post pneumonectomy on the right/doing well this a.m. but now struggling on BiPAP/vital signs stable/afebrile Anxiety seemed to create respiratory troubles for her rather than the other way around May need to consider re-intubation and sedation Path shows all negative nodes and clear margins but a large tumor at 5.5 cm 06/09/17 07:45 AFEBRILE/ VS STABLE/ WOUND OK/ BS GOOD ON LEFT/ HCT STABLE/ REHAB OR HOME SOON Objective: Vital Signs Temp Pulse Resp BP Pulse Ox 37.1 C 103 H 16 167/65 H 97 06/09/17 05:02 06/09/17 05:20 06/09/17 05:02 06/09/17 05:20 06/09/17 05:02 Laboratory Results 06/09/17 05:20 06/09/17 05:20 06/08/17 06/09/17 06/10/17 05:59 05:59 05:59 Intake Total 334 690 Output Total 1475 500 Balance -1141 190 PT 14.8 SEC (12.0-15.0) 05/26/17 10:00 INR 1.16 (0.83-1.16) 05/26/17 10:00 ICD10 Worksheet Patient Problems: Problems Problem Status Onset Lung cancer Acute - ICD10 Problem Qualifiers (1) Lung cancer
[2017-06-09] MEDS ORDERED: POTASSIUM CL 10 MEQ TAB PO ONE (08:43)
[2017-06-09] MEDS: SENNOSIDES 17.6 MG/10 ML UDL - IF LIQUID ORDERED PO SCH ×2 (09:56→23:09)
[2017-06-09] MEDS: ENOXAPARIN 40 MG/0.4 ML SYR SC SCH (09:56)
--- NOTE | 2017-06-09 11:54 | SOAPPROG ---
SOAP Progress Note Assessment/Plan: Assessment/Plan: 71 yo woman w hx of stage I lung ca in 2000 now w stage IIB lung adeno RUL s/p R pneumonectomy Recent ca was 5.5cm w visceral pleural invasion but no positive nodes Pt finally out of ICU and doing well She has had an extended ICU stay and complications due to vilume overload and re -intubation Briefly discussed final path w pt and family today Consideration for adjuvant chemotherapy given stage but needs to discuss risk vs beneft w Dr Walter was overwhelmed will continue to follow peripherally 06/09/17 11:48 06/09/17 11:50 Subjective: Pt now on floor on [place] Still reports increase work of breathing denies new pain Objective: Vital Signs Temp Pulse Resp BP Pulse Ox 37.2 C 111 H 20 144/92 H 98 06/09/17 08:02 06/09/17 08:02 06/09/17 08:02 06/09/17 09:21 06/09/17 08:02 Laboratory Results 06/09/17 05:20 06/09/17 05:20 06/08/17 06/09/17 06/10/17 05:59 05:59 05:59 Intake Total 334 690 Output Total 1475 500 Balance -1141 190 PT 14.8 SEC (12.0-15.0) 05/26/17 10:00 INR 1.16 (0.83-1.16) 05/26/17 10:00 Gen - NAD Resp - BS absent on R no CT, increase work of breathing ICD10 Worksheet Patient Problems: Problems Problem Status Onset Lung cancer Acute
[2017-06-09] MEDS ORDERED: DILTIAZEM 25 MG/5 ML VIAL IVP ONE (13:30)
--- NOTE | 2017-06-09 13:48 | CPEKG ---
Heart Rate: 152 RR Interval: 395 P-R Interval: 60 QRSD Interval: 70 QT Interval: 284 QTC Interval: 452 P [place]: 0 QRS [place]: 15 T Wave [place]: 50 EKG Severity - ABNORMAL ECG - EKG Impression: SUPRAVENTRICULAR TACHYCARDIA EKG Impression: CONSIDER ANTEROSEPTAL INFARCT EKG Impression: ST DEPRESSION, PROBABLY RATE RELATED Electronically Signed By: Toan Mar 10-Jun-2017 13:24:49
--- NOTE | 2017-06-09 13:48 | CPEKG ---
Heart Rate: 122 RR Interval: 492 P-R Interval: 180 QRSD Interval: 74 QT Interval: 276 QTC Interval: 393 P [place]: 69 QRS [place]: 19 T Wave [place]: 48 EKG Severity - ABNORMAL ECG - EKG Impression: SINUS TACHYCARDIA EKG Impression: CONSIDER ANTEROSEPTAL INFARCT Electronically Signed By: Toan Mar 10-Jun-2017 13:24:39
[2017-06-09] MEDS ORDERED: ZOLPIDEM TARTRATE 5 MG TAB PO PRN (14:44)
[2017-06-09] MEDS ORDERED: ALBUTEROL 3 ML DEYVIAL IH PRN (14:44)
--- NOTE | 2017-06-09 14:46 | HOSPPROG ---
Hospitalist Progress Note Assessment/Plan: 71F admitted post R lung resection (hx lobectomy) for recurrent lung cancer with hospital course complicated by intubation, now extubated, cassy/myocarditis , GUS and acute encephalopathy as well as paroxysmal a fib w/rvr. # paroxysmal a fib w/rvr: recurrent today despite being on oral diltiazem-- given IV dilt and will keep on dilt gtt overnight. Cards has been involved and will ask for their input again. CHADS vasc of 2 and had not been started on full dose AC previously given recent surgery and acute blood loss, will continue ppx for now. # sepsis - now resolved suspect d/t pna # acute hypoxic resp failure -required recurrent intubation after initial extubation 05/31. Now extubated since 06/05 and stable on low flow o2. multifactorial and due to pna, underlying lung cancer and underlying lobectomy. # pneumonia - s/p zosyn, azith and stable off of abx since 06/06 # adenocarcinoma lung: stage 2B with pleural involvement but no orion involvement, and hx of prior lung cancer s/p lobectomy in 2000, sp surgical resection. Met with oncology today who is recommending consideration for adjuvant chemo however this led to patients and patient feeling quite overwhelmed and upset. This will need to be further discussed with patients primary oncologist. # GUS - resolved, likely pre renal in setting of diuresis # acute dCHF with pulm edema -resolved, nearing euvolemia at this point # elevated troponin - likely d/t cassy/myocarditis # acute encephalopathy - resolved, likely metabolic d/t infection and ICU delirium, possible component of etoh w/d and was treated with CIWA/precedex gtt that has been discontinued # etOH use - as above # RAD - with continued dry cough and scant wheeze, will continue nebs as needed # ABLA post op - s/p transfusion, stable since then # IP status, patient new to my care, old records reviewed and summarized as above. Care plan reviewed with patients present at bedside as well as with Dr. Hassan Subjective: patient has been feeling poorly for weeks per her report, today became very upset due to her being upset and being told that she may need chemotherapy Objective: Vital Signs Temp Pulse Resp BP Pulse Ox 36.7 C 124 H 18 155/82 H 96 06/09/17 14:36 06/09/17 14:36 06/09/17 14:36 06/09/17 14:36 06/09/17 14:36 Laboratory Results 06/09/17 05:20 06/09/17 05:20 06/08/17 06/09/17 06/10/17 05:59 05:59 05:59 Intake Total 334 690 Output Total 1475 500 Balance -1141 190 PT 14.8 SEC (12.0-15.0) 05/26/17 10:00 INR 1.16 (0.83-1.16) 05/26/17 10:00 awake alert nad anicteric op clear irreg irreg no mrg scattered wheeze, dec bs on left soft nt nd no cce warm dry well perfused oriented appropriate ICD10 Worksheet Patient Problems: Problems Problem Status Onset Lung cancer Acute
[2017-06-09] MEDS: DILTIAZEM 125 MG in D5W 125 ML IV SCH (15:15)
[2017-06-09 17:26] LABS: POTASSIUM 3.9 mEq/L (3.5-5.2)
[2017-06-09] MEDS: guaiFENesin/CODEINE PHOS 10 ML UDCUP PO PRN (18:21)
[2017-06-09] MEDS: IPRATROPIUM/ALBUTEROL 3 ML DEYVIAL IH SCH (18:28)
[2017-06-09] MEDS: ACETYLCYSTEINE 10% IH/PO 4 ML VIAL IH SCH (18:28)
--- NOTE | 2017-06-09 18:28 | ASMTCMCOM ---
CM Note CM Note Notes: Pt had a stat team called today and was tx'd to PCU. Met with pt's for support. He was not understanding why she needed to tx. RN explained it to him. also mentioned that oncologist had come to speak with them about further treatment. Pt was very surprised because up until now, he thought the surgery was on the treatment needed. Discussed this with but feel could use further information from the medical team. Plan is currently DC to [facility]. Date Signed: 06/09/2017 06:27 PM Electronically Signed By:Taina Alexander LCSW
[2017-06-09] MEDS: AMITRIPTYLINE HCL 50 MG TAB PO SCH (23:18)
[2017-06-09] MEDS: FAMOTIDINE 20 MG TAB PO SCH (23:22)
[2017-06-10] MEDS: ACETYLCYSTEINE 10% IH/PO 4 ML VIAL IH SCH ×3 (00:54→10:14)
[2017-06-10] MEDS: IPRATROPIUM/ALBUTEROL 3 ML DEYVIAL IH SCH ×3 (00:54→10:13)
[2017-06-10] MEDS: DILTIAZEM 125 MG in D5W 125 ML IV SCH ×2 (00:57→11:13)
[2017-06-10] MEDS: guaiFENesin/CODEINE PHOS 10 ML UDCUP PO PRN ×4 (00:57→22:04)
[2017-06-10 04:29] LABS: % IMMATURE GRANULYOCYTES 1.2 % (0.0-1.1); ABSOLUTE IMMATURE GRANULOCYTES 0.17 10^3/uL (0.00-0.10); ADD DIFF? NO; ADD MORPH? NO; ADD SCAN? NO; ATYPICAL LYMPHOCYTE FLAG 20 (0-99); FRAGMENT RBC FLAG 0 (0-99); HEMATOCRIT 28.9 % (38.0-47.0); HEMOGLOBIN 9.7 g/dL (12.6-16.3); LEFT SHIFT FLG 10 (0-99); LIPEMIA HEMOLYSIS FLAG 80 (0-99); MEAN CELL HEMOGLOBIN CONCENTR. 33.6 g/dL (32.4-36.7); MEAN CELL VOLUME 86.3 fL (81.5-99.8); MEAN PLATELET VOLUME 9.3 fL (8.7-11.7); PLATELET CLUMPS FLAG 0 (0-99); PLATELET COUNT 324 10^3/uL (150-400); RED BLOOD CELL COUNT 3.35 10^6/uL (4.18-5.33); RED CELL DISTRIBUTION WIDTH 13.1 % (11.5-15.2)
[2017-06-10 04:41] LABS: ANION GAP 9 mEq/L (8-16); CALCIUM 8.7 mg/dL (8.5-10.4); CARBON DIOXIDE 29 mEq/l (22-31); CHLORIDE 101 mEq/L (97-110); CREATININE 0.8 mg/dL (0.6-1.0); GLOMERULAR FILTRATION RATE > 60; GLUCOSE 97 mg/dL (70-100); POTASSIUM 3.7 mEq/L (3.5-5.2); SODIUM 139 mEq/L (134-144)
[2017-06-10] MEDS: SENNOSIDES 17.6 MG/10 ML UDL - IF LIQUID ORDERED PO SCH (07:06)
[2017-06-10] MEDS ORDERED: POTASSIUM CL 10 MEQ TAB PO ONE (09:00)
[2017-06-10] MEDS: ENOXAPARIN 40 MG/0.4 ML SYR SC SCH (09:33)
--- NOTE | 2017-06-10 11:42 | SOAPPROG ---
SOAP Progress Note Assessment/Plan: Assessment: stable/ cxr ok/ hct pending Plan:icu monitor 05/23/17 19:43 05/26/17 09:09 WOUND OK/ CXR STABLE/ AFEBRILE/ WORKUP FOR TROPONIN ELEVATION SHOWS LIKELY PERICARDITIS SHE ALSO HAS LEFT PLEURAL EFFUSION/ CREAT IMPROVED AND UO IMPROVED/ HCT STABLE 05/29/17 09:04 PT STABLE NOW BUT HAD TO BE REINTUBATED OVER THE WEEKEND/ CXR STABLE WITH INTERSTITIAL INFILTRATE/ HCT 29/ LABS OK WOUND OK/ CHEST CLEAR/ VS STABLE/ UO BRISK/ AFEBRILE CONTINUE VENT SUPPORT AND DIURESIS 05/31/17 09:49 MORE ALERT/ COMFORTABLE/ VS STABLE CXR IMPROVED/ UO BRISK/ LABS STABLE/ WOUND OK/ AFEBRILE/ HOPEFULLY WEAN TODAY 05/31/17 18:55 Status post pneumonectomy on the right/doing well this a.m. but now struggling on BiPAP/vital signs stable/afebrile Anxiety seemed to create respiratory troubles for her rather than the other way around May need to consider re-intubation and sedation Path shows all negative nodes and clear margins but a large tumor at 5.5 cm 06/09/17 07:45 AFEBRILE/ VS STABLE/ WOUND OK/ BS GOOD ON LEFT/ HCT STABLE/ REHAB OR HOME SOON 06/10/17 11:41 AFEBRILE/ALERT, COMFORTABLE/VITAL SIGNS STABLE/CLEAR BREATH SOUNDS ON THE LEFT/ STILL VERY TIRED AND SHORT WINDED WITH ACTIVITY BUT IMPROVING/SINUS TACH ON DILTIAZEM DRIP Objective: Vital Signs Temp Pulse Resp BP Pulse Ox 36.5 C 107 H 16 167/64 H 95 06/10/17 07:46 06/10/17 10:19 06/10/17 10:19 06/10/17 07:46 06/10/17 10:19 Laboratory Results 06/10/17 04:15 06/10/17 04:15 06/09/17 06/10/17 06/11/17 05:59 05:59 05:59 Intake Total 690 350 Output Total 500 450 Balance 190 -100 PT 14.8 SEC (12.0-15.0) 05/26/17 10:00 INR 1.16 (0.83-1.16) 05/26/17 10:00 ICD10 Worksheet Patient Problems: Problems Problem Status Onset Lung cancer Acute - ICD10 Problem Qualifiers (1) Lung cancer
--- NOTE | 2017-06-10 12:50 | HOSPPROG ---
Hospitalist Progress Note Assessment/Plan: 71F admitted post R lung pneumonectomy (hx lobectomy) for recurrent lung cancer with hospital course complicated by intubation, now extubated, cassy/myocarditis , GUS and acute encephalopathy as well as paroxysmal a fib w/rvr. # paroxysmal a fib w/rvr: recurrent today despite being on oral diltiazem-- continued on dilt gtt. CHADS vasc of 2 and had not been started on full dose AC previously given recent surgery and acute blood loss, will continue ppx for now. Have requested cards consultation. # sepsis - now resolved suspect d/t pna # acute hypoxic resp failure -required recurrent intubation after initial extubation 05/31. Now extubated since 06/05 and stable on low flow o2. 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 Adjuvant chemo proposed by oncology however patient and her not quite ready to make that decision. Continued dry cough--codeine and tessalon perles seems most helpful # GUS - resolved, likely pre renal in setting of diuresis # acute dCHF with pulm edema -resolved, nearing euvolemia at this point # elevated troponin - likely d/t cassy/myocarditis # acute encephalopathy - resolved, likely metabolic d/t infection and ICU delirium, possible component of etoh w/d and was treated with CIWA/precedex gtt that has been discontinued # etOH use - as above # RAD - with continued dry cough and scant wheeze, will continue nebs as needed # ABLA post op - s/p transfusion, stable since then # IP status. Care plan reviewed with patients present at bedside Subjective: no significant overnight events, patient notes that the breathing treatments she has been doing seem to be making her somewhat worse Objective: Vital Signs Temp Pulse Resp BP Pulse Ox 36.5 C 107 H 16 167/64 H 95 06/10/17 07:46 06/10/17 10:19 06/10/17 10:19 06/10/17 07:46 06/10/17 10:19 Laboratory Results 06/10/17 04:15 06/10/17 04:15 06/09/17 06/10/17 06/11/17 05:59 05:59 05:59 Intake Total 690 350 Output Total 500 450 Balance 190 -100 PT 14.8 SEC (12.0-15.0) 05/26/17 10:00 INR 1.16 (0.83-1.16) 05/26/17 10:00 awake alert nad anicteric op clear irreg irreg no mrg scattered wheeze, dec bs on left soft nt nd no cce warm dry well perfused oriented appropriate ICD10 Worksheet Patient Problems: Problems Problem Status Onset Lung cancer Acute
[2017-06-10] MEDS: BENZONATATE 100 MG CAP PO PRN ×2 (13:19→22:04)
[2017-06-10] MEDS: FAMOTIDINE 20 MG TAB PO SCH (22:05)
[2017-06-10] MEDS: AMITRIPTYLINE HCL 50 MG TAB PO SCH (22:05)
[2017-06-11] MEDS: SENNOSIDES 17.6 MG/10 ML UDL - IF LIQUID ORDERED PO SCH ×3 (02:26→20:44)
[2017-06-11] MEDS: DILTIAZEM 125 MG in D5W 125 ML IV SCH ×2 (06:09→15:35)
[2017-06-11 06:36] LABS: % IMMATURE GRANULYOCYTES 0.9 % (0.0-1.1); ABSOLUTE IMMATURE GRANULOCYTES 0.12 10^3/uL (0.00-0.10); ADD DIFF? NO; ADD MORPH? NO; ADD SCAN? NO; ATYPICAL LYMPHOCYTE FLAG 20 (0-99); FRAGMENT RBC FLAG 0 (0-99); HEMATOCRIT 26.9 % (38.0-47.0); HEMOGLOBIN 8.9 g/dL (12.6-16.3); LEFT SHIFT FLG 0 (0-99); LIPEMIA HEMOLYSIS FLAG 80 (0-99); MEAN CELL HEMOGLOBIN 28.3 pg (27.9-34.1); MEAN CELL HEMOGLOBIN CONCENTR. 33.1 g/dL (32.4-36.7); MEAN CELL VOLUME 85.7 fL (81.5-99.8); MEAN PLATELET VOLUME 9.5 fL (8.7-11.7); PLATELET CLUMPS FLAG 10 (0-99); PLATELET COUNT 290 10^3/uL (150-400); RED BLOOD CELL COUNT 3.14 10^6/uL (4.18-5.33); RED CELL DISTRIBUTION WIDTH 13.2 % (11.5-15.2)
[2017-06-11 07:16] LABS: ANION GAP 8 mEq/L (8-16); CALCIUM 8.3 mg/dL (8.5-10.4); CARBON DIOXIDE 28 mEq/l (22-31); CHLORIDE 100 mEq/L (97-110); CREATININE 0.8 mg/dL (0.6-1.0); GLOMERULAR FILTRATION RATE > 60; GLUCOSE 90 mg/dL (70-100); POTASSIUM 3.8 mEq/L (3.5-5.2); SODIUM 136 mEq/L (134-144)
[2017-06-11] MEDS: guaiFENesin/CODEINE PHOS 10 ML UDCUP PO PRN ×3 (07:23→20:43)
[2017-06-11] MEDS: BENZONATATE 100 MG CAP PO PRN ×3 (07:23→23:26)
[2017-06-11] MEDS: ENOXAPARIN 40 MG/0.4 ML SYR SC SCH (07:23)
[2017-06-11] MEDS ORDERED: POTASSIUM CL 10 MEQ TAB PO ONE (08:59)
--- NOTE | 2017-06-11 16:03 | HOSPPROG ---
Hospitalist Progress Note Assessment/Plan: 71F admitted post R lung pneumonectomy (hx lobectomy) for recurrent lung cancer with hospital course complicated by intubation, now extubated, cassy/myocarditis , GUS and acute encephalopathy as well as paroxysmal a fib w/rvr. # paroxysmal a fib w/rvr: has been on dilt gtt with rate improved, seems to be largely sinus tach at this point, will transition back to oral dilt. Given brief episodes of a fib only have not started her on full dose AC, cardiology has been following. # sepsis - now resolved suspect d/t pna # acute hypoxic resp failure -required recurrent intubation after initial extubation 05/31. Now extubated since 06/05 and stable on low flow o2. 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 Adjuvant chemo proposed by oncology however patient and her not quite ready to make that decision. Continued dry cough--codeine and tessalon perles seems most helpful # GUS - resolved, likely pre renal in setting of diuresis # acute dCHF with pulm edema -resolved, nearing euvolemia at this point # elevated troponin - likely d/t cassy/myocarditis # acute encephalopathy - resolved, likely metabolic d/t infection and ICU delirium, possible component of etoh w/d and was treated with CIWA/precedex gtt that has been discontinued # etOH use - as above # RAD - with continued dry cough and scant wheeze, will continue nebs as needed # ABLA post op - s/p transfusion, stable since then # IP status. Care plan reviewed with patients present at bedside Subjective: no significant overnight events, patient notes she is feeling a bit better today Objective: Vital Signs Temp Pulse Resp BP Pulse Ox 36.9 C 109 H 26 H 161/74 H 91 L 06/11/17 12:00 06/11/17 12:00 06/11/17 12:00 06/11/17 12:00 06/11/17 12:00 Laboratory Results 06/11/17 06:10 06/11/17 06:10 06/10/17 06/11/17 06/12/17 05:59 05:59 05:59 Intake Total 350 900 Output Total 450 600 Balance -100 300 PT 14.8 SEC (12.0-15.0) 05/26/17 10:00 INR 1.16 (0.83-1.16) 05/26/17 10:00 awake alert nad anicteric op clear irreg irreg no mrg scattered wheeze, dec bs on left soft nt nd no cce warm dry well perfused oriented appropriate ICD10 Worksheet Patient Problems: Problems Problem Status Onset Lung cancer Acute
--- NOTE | 2017-06-11 16:28 | SOAPPROG ---
SOAP Progress Note Assessment/Plan: Assessment: stable/ cxr ok/ hct pending Plan:icu monitor 05/23/17 19:43 05/26/17 09:09 WOUND OK/ CXR STABLE/ AFEBRILE/ WORKUP FOR TROPONIN ELEVATION SHOWS LIKELY PERICARDITIS SHE ALSO HAS LEFT PLEURAL EFFUSION/ CREAT IMPROVED AND UO IMPROVED/ HCT STABLE 05/29/17 09:04 PT STABLE NOW BUT HAD TO BE REINTUBATED OVER THE WEEKEND/ CXR STABLE WITH INTERSTITIAL INFILTRATE/ HCT 29/ LABS OK WOUND OK/ CHEST CLEAR/ VS STABLE/ UO BRISK/ AFEBRILE CONTINUE VENT SUPPORT AND DIURESIS 05/31/17 09:49 MORE ALERT/ COMFORTABLE/ VS STABLE CXR IMPROVED/ UO BRISK/ LABS STABLE/ WOUND OK/ AFEBRILE/ HOPEFULLY WEAN TODAY 05/31/17 18:55 Status post pneumonectomy on the right/doing well this a.m. but now struggling on BiPAP/vital signs stable/afebrile Anxiety seemed to create respiratory troubles for her rather than the other way around May need to consider re-intubation and sedation Path shows all negative nodes and clear margins but a large tumor at 5.5 cm 06/09/17 07:45 AFEBRILE/ VS STABLE/ WOUND OK/ BS GOOD ON LEFT/ HCT STABLE/ REHAB OR HOME SOON 06/10/17 11:41 AFEBRILE/ALERT, COMFORTABLE/VITAL SIGNS STABLE/CLEAR BREATH SOUNDS ON THE LEFT/ STILL VERY TIRED AND SHORT WINDED WITH ACTIVITY BUT IMPROVING/SINUS TACH ON DILTIAZEM DRIP 06/11/17 16:27 AFEBRILE BUT PERSISTENT COUGH/BREATH SOUNDS CLEAR/LAB STABLE/WOUND OKAY/EATING BETTER/ HOPEFULLY HOME SOON Objective: Vital Signs Temp Pulse Resp BP Pulse Ox 36.9 C 109 H 26 H 161/74 H 91 L 06/11/17 12:00 06/11/17 12:00 06/11/17 12:00 06/11/17 12:00 06/11/17 12:00 Laboratory Results 06/11/17 06:10 06/11/17 06:10 06/10/17 06/11/17 06/12/17 05:59 05:59 05:59 Intake Total 350 900 Output Total 450 600 Balance -100 300 PT 14.8 SEC (12.0-15.0) 05/26/17 10:00 INR 1.16 (0.83-1.16) 05/26/17 10:00 ICD10 Worksheet Patient Problems: Problems Problem Status Onset Lung cancer Acute - ICD10 Problem Qualifiers (1) Lung cancer
[2017-06-11] MEDS: DILTIAZEM 30 MG TAB PO SCH ×2 (17:27→23:22)
[2017-06-11] MEDS: AMITRIPTYLINE HCL 50 MG TAB PO SCH (20:43)
[2017-06-11] MEDS: FAMOTIDINE 20 MG TAB PO SCH (20:43)
[2017-06-12] MEDS: DILTIAZEM 30 MG TAB PO SCH ×3 (05:32→19:05)
[2017-06-12] MEDS: BENZONATATE 100 MG CAP PO PRN ×3 (05:32→20:32)
[2017-06-12 05:39] LABS: % IMMATURE GRANULYOCYTES 0.9 % (0.0-1.1); ABSOLUTE IMMATURE GRANULOCYTES 0.09 10^3/uL (0.00-0.10); ADD DIFF? NO; ADD MORPH? NO; ADD SCAN? NO; ATYPICAL LYMPHOCYTE FLAG 10 (0-99); FRAGMENT RBC FLAG 0 (0-99); HEMATOCRIT 26.1 % (38.0-47.0); HEMOGLOBIN 8.9 g/dL (12.6-16.3); LEFT SHIFT FLG 0 (0-99); LIPEMIA HEMOLYSIS FLAG 90 (0-99); MEAN CELL HEMOGLOBIN 29.2 pg (27.9-34.1); MEAN CELL HEMOGLOBIN CONCENTR. 34.1 g/dL (32.4-36.7); MEAN CELL VOLUME 85.6 fL (81.5-99.8); MEAN PLATELET VOLUME 9.1 fL (8.7-11.7); PLATELET CLUMPS FLAG 0 (0-99); PLATELET COUNT 281 10^3/uL (150-400); RED BLOOD CELL COUNT 3.05 10^6/uL (4.18-5.33); RED CELL DISTRIBUTION WIDTH 13.2 % (11.5-15.2)
[2017-06-12 05:58] LABS: POTASSIUM 3.6 mEq/L (3.5-5.2)
[2017-06-12 05:59] LABS: ANION GAP 8 mEq/L (8-16); CALCIUM 8.2 mg/dL (8.5-10.4); CARBON DIOXIDE 28 mEq/l (22-31); CHLORIDE 99 mEq/L (97-110); CREATININE 0.8 mg/dL (0.6-1.0); GLOMERULAR FILTRATION RATE > 60; GLUCOSE 91 mg/dL (70-100); SODIUM 135 mEq/L (134-144)
[2017-06-12] MEDS ORDERED: POTASSIUM CL 10 MEQ TAB PO ONE (07:26)
[2017-06-12] MEDS: ENOXAPARIN 40 MG/0.4 ML SYR SC SCH (07:48)
[2017-06-12] MEDS: ENALAPRILAT DIHYDRATE 1.25 MG/ML VIAL IVP PRN ×2 (07:48→20:44)
[2017-06-12] MEDS: SENNOSIDES 17.6 MG/10 ML UDL - IF LIQUID ORDERED PO SCH ×2 (07:50→20:43)
[2017-06-12] MEDS: guaiFENesin/CODEINE PHOS 10 ML UDCUP PO PRN ×2 (09:24→20:33)
--- NOTE | 2017-06-12 10:23 | ASMTCMCOM ---
CM Note CM Note Notes: Spoke with Sharyn Perez, surgery PA, who says that patient will likely discharge tomorrow. I faxed updates to [facility] and informed them of likely discharge. Date Signed: 06/12/2017 10:23 AM Electronically Signed By:Taylor Bone RN
--- NOTE | 2017-06-12 12:07 | SOAPPROG ---
SOAP Progress Note Assessment/Plan: Assessment/Plan: 71 Y F s/p R thoracotomy with completion pneumonectomy for 2nd primary lung cancer. PNA. ARF. pafib c rvr. acute encephalopathy. Appreciate medicine input and care. Transitioning back to oral dilt. D/c to SNF once medically cleared. Likely not until tomorrow at the earliest due her rough morning, see below. Will d/w Dr. Hassan. S: Difficult morning. Having trouble with dry cough. Can't get comfortable, can' t sleep. No SOB or CP. No fever. Tessalon pearls and syrup helping but still a problem. O: alert, nad CTAL, no BS R inc cdi c improved ecchymosis, no erythema abd soft 06/12/17 12:05 Objective: Vital Signs Temp Pulse Resp BP Pulse Ox 36.6 C 110 H 16 153/84 H 96 06/12/17 11:56 06/12/17 11:56 06/12/17 11:56 06/12/17 11:56 06/12/17 11:56 Laboratory Results 06/12/17 05:30 06/12/17 05:30 06/11/17 06/12/17 06/13/17 05:59 05:59 05:59 Intake Total 900 987.5 Output Total 600 380 150 Balance 300 607.5 -150 PT 14.8 SEC (12.0-15.0) 05/26/17 10:00 INR 1.16 (0.83-1.16) 05/26/17 10:00 ICD10 Worksheet Patient Problems: Problems Problem Status Onset Lung cancer Acute
--- NOTE | 2017-06-12 20:06 | HOSPPROG ---
Hospitalist Progress Note Assessment/Plan: 71F admitted post R lung pneumonectomy (hx lobectomy) for recurrent lung cancer with hospital course complicated by intubation, now extubated, cassy/myocarditis , GUS and acute encephalopathy as well as paroxysmal a fib w/rvr. # paroxysmal a fib w/rvr: has been on dilt gtt with rate improved, seems to be largely sinus tach at this point, will transition back to oral dilt. Given brief episodes of a fib only have not started her on full dose AC, cardiology has been following. # sepsis - now resolved suspect d/t pna # acute hypoxic resp failure -required recurrent intubation after initial extubation 05/31. Now extubated since 06/05 and stable on low flow o2. 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 Adjuvant chemo proposed by oncology however patient and her not quite ready to make that decision. Continued dry cough--codeine and tessalon perles seems most helpful # GUS - resolved, likely pre renal in setting of diuresis # acute dCHF with pulm edema -resolved, nearing euvolemia at this point # elevated troponin - likely d/t cassy/myocarditis # acute encephalopathy - resolved, likely metabolic d/t infection and ICU delirium, possible component of etoh w/d and was treated with CIWA/precedex gtt that has been discontinued * resolved # etOH use - as above # RAD - with continued dry cough and scant wheeze, will continue nebs as needed # ABLA post op - s/p transfusion, stable since then # IP status. Care plan reviewed with patients present at bedside Subjective: continued cough Objective: Vital Signs Temp Pulse Resp BP Pulse Ox 36.8 C 118 H 16 180/92 H 98 06/12/17 19:16 06/12/17 19:16 06/12/17 19:16 06/12/17 19:16 06/12/17 19:16 Laboratory Results 06/12/17 05:30 06/12/17 05:30 06/11/17 06/12/17 06/13/17 05:59 05:59 05:59 Intake Total 900 987.5 560 Output Total 600 380 550 Balance 300 607.5 10 PT 14.8 SEC (12.0-15.0) 05/26/17 10:00 INR 1.16 (0.83-1.16) 05/26/17 10:00 - Physical Exam Constitutional: no apparent distress, appears nourished, not in pain Eyes: anicteric sclera, EOMI Cardiovascular: regular rate and rhythym Respiratory: no respiratory distress, no rales or rhonchi, clear to auscultation Gastrointestinal: normoactive bowel sounds, soft, non-tender abdomen Neurologic: AAOx3 Psychiatric: interacting appropriately, not anxious, not encephalopathic, thought process linear ICD10 Worksheet Patient Problems: Problems Problem Status Onset Lung cancer Acute
[2017-06-12] MEDS: FAMOTIDINE 20 MG TAB PO SCH (20:32)
[2017-06-12] MEDS: AMITRIPTYLINE HCL 50 MG TAB PO SCH (20:33)
[2017-06-13] MEDS: BENZONATATE 100 MG CAP PO PRN (03:24)
[2017-06-13] MEDS: guaiFENesin/CODEINE PHOS 10 ML UDCUP PO PRN ×2 (03:24→16:27)
[2017-06-13] MEDS: DILTIAZEM 30 MG TAB PO SCH ×2 (03:25→06:10)
[2017-06-13 03:52] LABS: POTASSIUM 4.2 mEq/L (3.5-5.2)
[2017-06-13] MEDS ORDERED: ASPIRIN 81 MG CHEWABLE TAB PO SCH (09:45)
[2017-06-13] MEDS ORDERED: DILTIAZEM CD 120 MG CAP PO SCH (09:45)
[2017-06-13] MEDS: SENNOSIDES 17.6 MG/10 ML UDL - IF LIQUID ORDERED PO SCH (09:59)
[2017-06-13] MEDS: ENOXAPARIN 40 MG/0.4 ML SYR SC SCH (10:02)
--- NOTE | 2017-06-13 10:41 | PDIAF ---
- Diagnosis Diagnosis: s/p R completion pneumonectomy for lung cancer Code Status: Full Code - Medication Management Discharge Medications: Medications to Continue on Transfer Albuterol [Proventil Inhaler HFA (*)] 1 - 2 puffs IH DAILY PRN 05/19/17 [Last Taken Unknown] Amitriptyline HCl [Elavil 50 mg (*)] 50 mg PO HS 05/19/17 [Last Taken 05/22/17] Cholecalciferol Vit D3 [Vitamin D3 (*)] 1,000 units PO BID 05/19/17 [Last Taken 05/22/17] Estradiol [Estradiol 1 MG (*)] 0.5 mg PO DAILY 05/19/17 [Last Taken 05/22/17] Herbals/Supplements -Info Only 1 ea PO DAILY 05/19/17 [Last Taken 05/22/17] Multivitamins [Multivitamin (*)] 1 each PO DAILY 05/19/17 [Last Taken 05/22/17] [place]-3 Fatty Acids [Fish Oil 1000 mg (*)] 1,000 mg PO BID 05/19/17 [Last Taken 05/16/17] Vitamin B Complex [Super B-50 Complex] 1 each PO DAILY 05/19/17 [Last Taken ] Docusate Sodium [Colace 100 MG (*)] 100 mg PO DAILY PRN 05/23/17 [Last Taken ] Aspirin [Aspirin 81mg (*)] 81 mg PO DAILY tab.chew 06/13/17 [Last Taken Unknown ] Benzonatate [Tessalon Pearles] 200 mg PO TID PRN #30 cap 06/13/17 [Last Taken Unknown] Diltiazem Cd [Cardizem ER 120 MG (*)] 120 mg PO DAILY #10 cap 06/13/17 [Last Taken Unknown] Ibuprofen [Motrin (*)] 600 mg PO Q6H PRN #40 tab 06/13/17 [Last Taken Unknown] oxyCODONE IR [Oxycodone Ir (*)] 5 - 10 mg PO Q4H PRN #30 tab 06/13/17 [Last Taken Unknown] Discharge Medications: Refer to the Discharge Home Medication list for PRN reason. PICC Care - Routine: N/A - Orders Services needed: Registered Nurse, Physical Therapy, Occupational Therapy Diet Recommendation: no restrictions on diet Diet Texture: Regular Texture Diet, Thin Liquids, Meds Whole w/Liquids Wound Care Instructions: No lifting greater than 15 lbs. Ok to shower and take baths. Activity/Weight Bearing Restrictions: No lifting greater than 15 lbs. Ok to shower and take baths. - Follow Up Care Current Providers and Referrals: Mark Hassan MD [Medical Doctor] - follow up in 1 week (please tell the office that you will need a chest xray for your appointment.) Demarco Montanez MD [Primary Care Provider] - follow up in 1 week (You are on a new medicine, diltiazem, due to paroxysmal atrial fibrillation. You will need to follow up with your PCP about this. ) Pati Walter MD [Medical Doctor] -
[2017-06-13 12:54] VITALS: BP 171/80; PULSE 108; RESP 19; TEMP 97.8; O2SAT 99
--- NOTE | 2017-06-14 14:42 | ASDISCHSUM ---
Discharge Information Plan Status:SNF Medically Cleared to Leave:06/12/2017 Discharge Date:06/13/2017 05:14 PM D/C Disposition:Jail Facility ADT D/C Disposition:Jail Facility Projected Discharge Date:06/13/2017 11:00 AM Transportation at D/C: Discharge Delay Reason: Follow-Up Date:06/13/2017 11:00 AM Discharge Slot: Final Diagnosis: Placement Information Referral Type:*Fpc/SNF Referral ID:[id number] Provider Name:[facility] Address 1:[address] [place] [address] Address 2: City:[place] Selection Factors: State:[place] Patient Contact Information Contact Name:JUAN FRANCISCO Relationship: Address:[address] [place] City:[place] Alternate Phone: State/Zip Code:[place] [address] Email: Financial Information Financial Class: Primary Plan Desc:MEDICARE INPATIENT Primary Plan Number:[id number] Secondary Plan Desc:AARP/MDR SUPPLEMENT Secondary Plan Number:[id number] Assessment Information [facility] CM Progress Note CM Note CM Note Notes: Patient admitted after planned thoracotomy and pneumonectomy for second primary lung cancer. She is stable in the ICU. Lives independently with . No therapy evals were ordered, therefore I anticipate discharge home with family support. CM available for any changes/needs. Date Signed: 05/24/2017 10:38 AM Electronically Signed By:Taylor Bone RN [facility] CM Progress Note CM Note CM Note Notes: Reviewed chart regarding discharge plan, pt's progress. Per MD notes, pt confused, disoriented today; received Ativan last noc. Pt slowly improving s/p planned thoracotomy, pneumoncetomy for lung cancer. Epidural remains in place, will likely be discontinued 05/28/17. PT/OT rec home w/ home care. CM will cont to follow and will meet w/ pt to discuss HC options. Current Discharge Plan: Home w/ home care and family support Date Signed: 05/27/2017 06:29 PM Electronically Signed By:Pauline Garnica RN [facility] CM Progress Note CM Note CM Note Notes: Spoke to and son regarding possible discharge plans. Explained the different levels of rehab. They report that patient was independent at home but needs knee surgery so needed some assist getting up and down the stairs. and son live at home with her. 's mother is in [facility]. Patient on vent will need therapy evals. Patient may qualify for In-pt Rehab? If SNF level their preference 1. [facility], 2. [facility]. CM to follow. Date Signed: 05/29/2017 04:39 PM Electronically Signed By:Flower Rouse LCSW [facility] CM Progress Note CM Note CM Note Notes: "Family Meeting" with patient's and 2 sons. Medical questions answered by Dr. Prieto and Liza Chino RN Manager. Family very pleased with the care at [facility]. Talked a little about possible SNF rehab needs on discharge. Family would like her information to go to [facility]. Referral made. Date Signed: 05/30/2017 03:24 PM Electronically Signed By:Flower Rouse LCSW [facility] CM Progress Note CM Note CM Note Notes: Patient had to be reintubated. If patient cannot be weaned she may need a trach. CM will follow. Date Signed: 06/02/2017 12:43 PM Electronically Signed By:Lucrecia James LCSW [facility] CM Progress Note CM Note CM Note Notes: Pt remains vented and sedated, dc needs unclear, CM w/f. Date Signed: 06/03/2017 01:59 PM Electronically Signed By:Ester Heredia RN [facility] CM Progress Note CM Note CM Note Notes: "Family Meeting" met with [facility] who was thinking he could take patient home on discharge. She was somewhat confused today and has just started working with therapies. encouraged to think about SNF Rehab for patient before home. He will go look at [facility] which would be close to their home. Referral has been made. Date Signed: 06/06/2017 04:38 PM Electronically Signed By:Flower Rouse LCSW [facility] Progress Note CM Note CM Note Notes: Met with patient, , and son to discuss discharge planning - family requested that I sent updated notes to [facility] ('s preference) and [facility] (son's preference). [facility] is following pending patient's progress; [facility] did not respond to my fax. Case Management will follow. Date Signed: 06/07/2017 02:59 PM Electronically Signed By:Taylor Bone RN [facility] Progress Note CM Note CM Note Notes: Pt had a stat team called today and was tx'd to PCU. Met with pt's for support. He was not understanding why she needed to tx. RN explained it to him. also mentioned that oncologist had come to speak with them about further treatment. Pt was very surprised because up until now, he thought the surgery was on the treatment needed. Discussed this with but feel could use further information from the medical team. Plan is currently DC to [facility]. Date Signed: 06/09/2017 06:27 PM Electronically Signed By:Taina Alexander LCSW [facility] CM Progress Note CM Note CM Note Notes: Spoke with Sharyn Perez, surgery PA, who says that patient will likely discharge tomorrow. I faxed updates to [facility] and informed them of likely discharge. Date Signed: 06/12/2017 10:23 AM Electronically Signed By:Taylor Bone RN [facility] Length of stay for Answers: 14 days or more current admission Acuity / Level of Care Answers: No. Comorbidities - select Answers: Any tumor (including all that apply lymphoma or leukemia) Connective tissue disease Emergency dept visits in Answers: 0 last 6 months Score: 12 Date Signed: 06/13/2017 11:34 AM Electronically Signed By:Eri Small RN Case Management Discharge Plan Note Case Management Discharge Discharge Order Complete? Answers: Yes Patient to Obtain Answers: Other Notes: [facility] Transportation Arranged Answers: [facility]AC[facility] Patel Transport will Pick (Date 06/13/2017 04:30 PM & Time) Case Management Transport Answers: Yes Form Complete Faxed Final Orders Answers: Yes Agency/Facility Transfer Answers: Yes Report Printed & Faxed to Receiving Agency Discharge Comments Notes: Transport arranged by [facility]. Faxed final orders through [facility] d/t diffculties with [employer]. Notified [facility] of d/c. RN to call report. Pickup at 1630. Date Signed: 06/13/2017 11:40 AM Electronically Signed By:Eri Small RN Intervention Information Intervention Type:*IM-Signed Date of Service:06/13/2017 11:49 AM Patient Type:Inpatient Staff Member:Elena Sharpe Hours: Discipline: Severity: Comment:
== END 2017-06-13 17:14 | DRG 163 ==
LOC: F3E 10:36 → F2N 17:58 → F1N 06-08 15:25 → F2W 06-09 14:08
PROVIDERS: ADMIT Surgery; ATTEND Surgery
PROC: 07TB0ZZ Resection of Mesenteric Lymphatic, Open Approach (ICD-10-PCS; principal; 2017-05-23 12:00)
PROC: 0BTK0ZZ Resection of Right Lung, Open Approach (ICD-10-PCS; principal; 2017-05-23 12:00)
PROC: 30233N1 Transfusion of Nonautologous Red Blood Cells into Peripheral Vein, Percutaneous Approach (ICD-10-PCS; 2017-05-24)
PROC: 02HV33Z Insertion of Infusion Device into Superior Vena Cava, Percutaneous Approach (ICD-10-PCS; 2017-05-26)
PROC: 0B9J8ZX Drainage of Left Lower Lung Lobe, Via Natural or Artificial Opening Endoscopic, Diagnostic (ICD-10-PCS; 2017-05-28)
PROC: 5A1945Z Respiratory Ventilation, 24-96 Consecutive Hours (ICD-10-PCS; 2017-05-28)
PROC: 0BH17EZ Insertion of Endotracheal Airway into Trachea, Via Natural or Artificial Opening (ICD-10-PCS; 2017-05-28)
PROC: 0B9G8ZX Drainage of Left Upper Lung Lobe, Via Natural or Artificial Opening Endoscopic, Diagnostic (ICD-10-PCS; 2017-05-31)
PROC: 5A1945Z Respiratory Ventilation, 24-96 Consecutive Hours (ICD-10-PCS; 2017-05-31)
PROC: 0BH17EZ Insertion of Endotracheal Airway into Trachea, Via Natural or Artificial Opening (ICD-10-PCS; 2017-05-31)
DX: C34.31 Malignant neoplasm of lower lobe, right bronchus or lung (principal); J96.01 Acute respiratory failure with hypoxia; J69.0 Pneumonitis due to inhalation of food and vomit; A41.01 Sepsis due to Methicillin susceptible Staphylococcus aureus; I11.0 Hypertensive heart disease with heart failure; I50.31 Acute diastolic (congestive) heart failure; G93.41 Metabolic encephalopathy; D62 Acute posthemorrhagic anemia; N17.9 Acute kidney failure, unspecified; I48.91 Unspecified atrial fibrillation; J45.909 Unspecified asthma, uncomplicated; Z53.32 Thoracoscopic surgical procedure converted to open procedure; T42.4X5A Adverse effect of benzodiazepines, initial encounter; Z87.891 Personal history of nicotine dependence; Z23 Encounter for immunization
CPT/HCPCS: 87449-90; 92523-GN; 92526-GN; 92610-GN; 97110-GP; 97116-GP; 97161-GP; 97164-GP; 97166-GO; 97168-GO; 97530-GO; 97530-GP; 97535-GO; C1751; C8924; G0008; G8978-GP-CJ; G8978-GP-CK; G8979-GP-CI; G8979-GP-CJ; G8987-GO-CK; G8987-GO-CL; G8988-GO-CI; G8988-GO-CJ; G8996-GN-CK; G8997-GN-CH; G9168-GO-CI; G9169-GN-CI; G9170-GN-CI; J0330; J0456; J0690; J1100; J1170; J1650; J1940; J2060; J2250; J2370; J2405; J2543; J2704; J2920; J2930; J2997; J3010; J3370; P9016; P9041; P9047; Q9957

== ENCOUNTER → 2017-06-16 | Outpatient (CLI) | payer OTHER, MEDICARE | LOC: FIMAGING 09:44 | PROVIDERS: ATTEND Physician Assistant | DX: C34.90 Malignant neoplasm of unspecified part of unspecified bronchus or lung (principal); Z90.2 Acquired absence of lung [part of] ==

== ENCOUNTER → 2017-06-29 | Outpatient (CLI) | payer OTHER, MEDICARE | LOC: FIMAGING 10:24 → EDSTATUS 10:25 | PROVIDERS: ATTEND Surgery | DX: C34.90 Malignant neoplasm of unspecified part of unspecified bronchus or lung (principal) ==

== ENCOUNTER → 2017-08-02 | Outpatient (CLI) | payer OTHER, MEDICARE | LOC: BHLMT 15:30 | PROVIDERS: ATTEND Internal Medicine Cardiovascular Disease | DX: I48.91 Unspecified atrial fibrillation (principal) | CPT/HCPCS: 93306-PO ==

== ENCOUNTER → 2017-08-30 | Outpatient (CLI) | payer OTHER, MEDICARE | LOC: FIMAGING 15:27 → EDSTATUS 15:28 | PROVIDERS: ATTEND Surgery | DX: Z08 Encounter for follow-up examination after completed treatment for malignant neoplasm (principal); R05 Cough; Z90.2 Acquired absence of lung [part of]; Z85.118 Personal history of other malignant neoplasm of bronchus and lung ==

== ENCOUNTER → 2017-12-29 | Outpatient (CLI) | payer OTHER, MEDICARE | LOC: FIMAGING 14:53 | PROVIDERS: ATTEND Internal Medicine Pulmonary Disease | DX: J98.4 Other disorders of lung (principal); Z90.2 Acquired absence of lung [part of]; M84.88 Other disorders of continuity of bone, other site ==

== ENCOUNTER 2018-01-04 20:09 | Inpatient (IN) | payer OTHER, MEDICARE ==
[2018-01-04] MEDS ORDERED: IOPAMIDOL (ISOVUE 370) 100 ML BTL IV ONE (20:23)
[2018-01-04 20:41] LABS: PLATELET COUNT 382 10^3/uL (150-400)
--- NOTE | 2018-01-04 20:49 | EDPHY ---
H & P Stated Complaint: SENT FOR CTA, SOB LUNG CA, POSS ADMIT Time Seen by Provider: 01/04/18 20:17 HPI/ROS: CHIEF COMPLAINT: Progressive dyspnea HISTORY OF PRESENT ILLNESS: The patient has a history of lung cancer status post lobectomy and pneumonectomy. The patient has been experiencing severe worsening dyspnea over the past 3 weeks. The patient was evaluated by Pulmonary. She started taking prednisone yesterday. The patient reports that her dyspnea has been worsening. She denies any asymmetric calf pain or swelling. The patient is currently under the care of Hua Prieto from pulmonology and Dr. Pati Walter from Oncology. Given her progressive dyspnea she was referred to the ED for further evaluation. The patient denies fever, exertional chest pain or prior history of thromboembolic disease. The patient is on estrogen. REVIEW OF SYSTEMS: A comprehensive 10 point review of systems is otherwise negative aside from elements mentioned in the history of present illness. Source: Patient - Personal History Current Tetanus/Diphtheria Vaccine: Yes Current Tetanus Diphtheria and Acellular Pertussis (TDAP): Yes Tetanus Vaccine Date: < 10 YEARS - Medical/Surgical History Hx Asthma: No Hx Chronic Respiratory Disease: No Hx Diabetes: No Hx Cardiac Disease: No Hx Renal Disease: No Hx Cirrhosis: No Hx Alcoholism: No Hx HIV/AIDS: No Hx Splenectomy or Spleen Trauma: No Other PMH: ARTHRITIS, Lung CA, Osteoporosis - Social History Smoking Status: Former smoker - Physical Exam Exam: General Appearance: Alert, no distress Eyes: Pupils equal and round no pallor or injection ENT, Mouth: Mucous membranes moist Respiratory: Tachypneic, decreased breath sounds right lung field Cardiovascular: Tachycardic Gastrointestinal: Abdomen is soft and nontender, no masses, bowel sounds normal Neurological: 5/5 strength all 4 extremities Skin: Warm and dry, no rashes Musculoskeletal: Neck is supple nontender Extremities: symmetrical, full range of motion Constitutional: Initial Vital Signs Temperature (C) 36.8 C 01/04/18 20:11 Heart Rate 120 H 01/04/18 20:11 Respiratory Rate 20 01/04/18 20:11 Blood Pressure 132/102 H 01/04/18 20:11 O2 Sat (%) 97 01/04/18 20:11 O2 Delivery Mode Nasal Cannula O2 (L/minute) 3 Allergies/Adverse Reactions: No Known Allergies Allergy (Unverified 01/04/18 20:15) Home Medications: Medication Instructions Recorded Albuterol [Proventil Inhaler HFA 1 - 2 puffs IH DAILY PRN 05/19/17 (*)] Amitriptyline HCl [Elavil 50 mg 50 mg PO HS 05/19/17 (*)] Cholecalciferol Vit D3 [Vitamin D3 1,000 units PO BID 05/19/17 (*)] Estradiol [Estradiol 1 MG (*)] 0.5 mg PO DAILY 05/19/17 Herbals/Supplements -Info Only 1 ea PO DAILY 05/19/17 Multivitamins [Multivitamin (*)] 1 each PO DAILY 05/19/17 [place]-3 Fatty Acids [Fish Oil 1000 1,000 mg PO BID 05/19/17 mg (*)] Vitamin B Complex [Super B-50 1 each PO DAILY 05/19/17 Complex] Docusate Sodium [Colace 100 MG (*)] 100 mg PO DAILY PRN 05/23/17 Aspirin [Aspirin 81mg (*)] 81 mg PO DAILY tab.chew 06/13/17 Benzonatate [Tessalon Pearles] 200 mg PO TID PRN #30 cap 06/13/17 Diltiazem Cd [Cardizem ER 120 MG 120 mg PO DAILY #10 cap 06/13/17 (*)] Ibuprofen [Motrin (*)] 600 mg PO Q6H PRN #40 tab 06/13/17 oxyCODONE IR [Oxycodone Ir (*)] 5 - 10 mg PO Q4H PRN #30 tab 06/13/17 predniSONE [Prednisone] 10 mg PO 01/04/18 Medical Decision Making - Diagnostics Imaging Results: Imaging Impressions Chest/Thorax CTA 01/04/18 20:18 Impression: 1. Likely a bland thrombus in the right pulmonary artery stump. No evidence for left-sided pulmonary emboli. 2. Patchy left upper lobe pneumonia versus pulmonary edema. The enlarged left sided heart chambers and prominent left pleural effusion suggest edema. The pleural effusion is larger than one would expect from the chest x-ray 6 days ago. Results called to Dr. Arnol Padilla at 21:25 PM General information for patients regarding this examination can be found at [email or web address]. If you have questions or comments about this report, please contact me at (hospital) or [phone] (cell). Procedures: Procedure: Limited transthoracic echocardiogram. A limited transthoracic echocardiogram was performed and interpreted by myself for possible pericardial effusion. Limited transthoracic echocardiogram: The pericardium was visualized and found to be negative for pericardial fluid. Cardiac activity was present. The study was negative for pericardial effusion. ED Course/Re-evaluation: The patient presents to the ED for evaluation of worsening dyspnea. The patient is noted to be tachypneic and tachycardic upon arrival. I did perform a limited bedside echocardiogram which demonstrated no pericardial effusion. I reviewed the patient's outpatient laboratory studies and chest x-ray. A CT pulmonary angiogram has been ordered for evaluation of possible thromboembolic disease. CT scan demonstrates no evidence of left-sided pulmonary embolism. She does have a clot noted in the stop of her right pulmonary artery following her pneumonectomy. The patient is noted to have a moderate left pleural effusion and radiographic evidence of heart failure. The patient will be admitted to the hospital for further evaluation and management. Differential Diagnosis: Differential diagnosis considered includes congestive heart failure, pulmonary embolism, pneumonia, pleural effusion, pericardial effusion - Data Points Laboratory Results: Laboratory Results 01/04/18 20:30 01/04/18 20:30 01/04/18 01/04/18 01/04/18 20:35 20:30 20:30 WBC 9.18 10^3/uL 10^3/uL (3.80-9.50) RBC 3.84 10^6/uL L 10^6/uL (4.18-5.33) Hgb 9.6 g/dL L g/dL (12.6-16.3) Hct 29.7 % L % (38.0-47.0) MCV 77.3 fL L fL (81.5-99.8) MCH 25.0 pg L pg (27.9-34.1) MCHC 32.3 g/dL L g/dL (32.4-36.7) RDW 16.0 % H % (11.5-15.2) Plt Count 382 10^3/uL 10^3/uL (150-400) MPV 9.3 fL fL (8.7-11.7) Neut % (Auto) 85.4 % H % (39.3-74.2) Lymph % (Auto) 9.9 % L % (15.0-45.0) [place] % (Auto) 4.1 % L % (4.5-13.0) Eos % (Auto) 0.1 % L % (0.6-7.6) Baso % (Auto) 0.2 % L % (0.3-1.7) Nucleat RBC Rel Count 0.0 % % (0.0-0.2) Absolute Neuts (auto) 7.83 10^3/uL H 10^3/uL (1.70-6.50) Absolute Lymphs (auto) 0.91 10^3/uL L 10^3/uL (1.00-3.00) Absolute Monos (auto) 0.38 10^3/uL 10^3/uL (0.30-0.80) Absolute Eos (auto) 0.01 10^3/uL L 10^3/uL (0.03-0.40) Absolute Basos (auto) 0.02 10^3/uL 10^3/uL (0.02-0.10) Absolute Nucleated RBC 0.00 10^3/uL 10^3/uL (0-0.01) Immature Gran % 0.3 % % (0.0-1.1) Immature Gran # 0.03 10^3/uL 10^3/uL (0.00-0.10) Sodium 138 mEq/L mEq/L (135-145) Potassium 4.7 mEq/L mEq/L (3.3-5.0) Chloride 101 mEq/L mEq/L (97-110) Carbon Dioxide 24 mEq/l mEq/l (22-31) Anion Gap 13 mEq/L mEq/L (8-16) BUN 27 mg/dL H mg/dL (7-23) Creatinine 0.8 mg/dL mg/dL (0.6-1.0) Estimated GFR > 60 Glucose 102 mg/dL H mg/dL (70-100) Calcium 10.0 mg/dL mg/dL (8.5-10.4) POC Troponin I 0.02 ng/mL ng/mL (0.00-0.08) Point of Care Test Results: Chemistry 01/04/18 20:35 POC Troponin I 0.02 ng/mL ng/mL (0.00-0.08) Departure - Departure Disposition: [facility] Inpatient Acute Clinical Impression: Dyspnea, Pleural effusion, Tachycardia
--- NOTE | 2018-01-04 22:12 | CPEKG ---
Heart Rate: 119 RR Interval: 504 P-R Interval: 124 QRSD Interval: 88 QT Interval: 308 QTC Interval: 434 P [place]: 227 QRS [place]: 4 T Wave [place]: 244 EKG Severity - ABNORMAL ECG - EKG Impression: SINUS OR ECTOPIC ATRIAL TACHYCARDIA EKG Impression: CONSIDER LEFT VENTRICULAR HYPERTROPHY EKG Impression: BORDERLINE T ABNORMALITIES, INFERIOR LEADS Electronically Signed By: Romel Rich 05-Jan-2018 12:14:01
[2018-01-04] MEDS ORDERED: ACETAMINOPHEN 325 MG TAB PO PRN (22:16)
[2018-01-04] MEDS ORDERED: ONDANSETRON 4 MG/2 ML VIAL IVP PRN (22:16)
[2018-01-04] MEDS ORDERED: ONDANSETRON DISINTEGRATING 4 MG TAB PO PRN (22:16)
[2018-01-04] MEDS ORDERED: AMITRIPTYLINE HCL 50 MG TAB PO PRN (23:07)
[2018-01-04] MEDS ORDERED: DOCUSATE SODIUM 100 MG CAP PO PRN (23:14)
[2018-01-04] MEDS ORDERED: SENNOSIDES 17.6 MG/10 ML UDL PO PRN (23:15)
[2018-01-05] MEDS: AMITRIPTYLINE HCL 50 MG TAB PO PRN ×2 (00:10→20:40)
[2018-01-05] MEDS: DOCUSATE SODIUM 100 MG CAP PO PRN ×2 (00:11→20:40)
--- NOTE | 2018-01-05 01:46 | PDGENHP ---
History and Physical - Chief Complaint Shortness of breath - History of Present Illness 72 yo F w/ hx of lung CA p/w shortness of breath. Patient tells me she has been experiencing progressive dyspnea on exertion for about 3 weeks. She first noted it during a pulmonary rehab appointment 3 weeks ago and the feeling has remained since. She visited Dr. Hua Prieto for this on 12/29 but an etiology was not clear at that time. She was directed to the ED by Dr. Walter and Dr. Prieto for further evaluation of these symptoms. She denies infectious symptoms ( cough, fever, sore throat, etc.), as well as any sick contacts. Today she became aware of bilateral leg swelling; she denies any prior occurrences of this. In the ED a CTPE was performed, which was notable for a moderate L sided pleural effusion; this is a new finding. She is being admitted for further evaluation and treatment. Of note, patient tells me she has had chronic tachycardia for many years. She does not know the etiology of this. Case discussed with Dr. Arnol Padilla, previous records reviewed. History Information - Allergies/Home Medication List Allergies/Adverse Reactions: No Known Allergies Allergy (Unverified 01/04/18 20:15) Home Medications: Albuterol [Proventil Inhaler HFA (*)] 1 - 2 puffs IH DAILY PRN 05/19/17 [Last Taken 01/03/18] Amitriptyline HCl [Elavil 50 mg (*)] 50 mg PO HS 05/19/17 [Last Taken 01/03/18] Cholecalciferol Vit D3 [Vitamin D3 (*)] 1,000 units PO BID 05/19/17 [Last Taken 01/04/18 09:00] Estradiol [Estradiol 1 MG (*)] 0.5 mg PO DAILY 05/19/17 [Last Taken 01/04/18 09: 00] Herbals/Supplements -Info Only 1 ea PO DAILY 05/19/17 [Last Taken 01/04/18] Multivitamins [Multivitamin (*)] 1 each PO DAILY 05/19/17 [Last Taken 01/04/18] [place]-3 Fatty Acids [Fish Oil 1000 mg (*)] 1,000 mg PO BID 05/19/17 [Last Taken 1 Week Ago ~12/28/17] Vitamin B Complex [Super B-50 Complex] 1 each PO DAILY 05/19/17 [Last Taken ] Docusate Sodium [Colace 100 MG (*)] 100 mg PO DAILY PRN 05/23/17 [Last Taken ] Ibuprofen [Motrin (*)] 400 mg PO Q6H PRN 01/04/18 [Last Taken 01/04/18 09:00] predniSONE [Prednisone] 10 mg PO AD 01/04/18 [Last Taken 01/04/18] I have personally reviewed and updated: family history, medical history - Past Medical History atrial fibrillation, cancer (Lung CA) - Surgical History Additional surgical history: R pneumonectomy. Bladder repair. Hysterectomy. Arthrodesis. - Family History Additional family history: Denies family hx of lung CA - Social History Smoking Status: Former smoker Review of Systems Review of Systems: ROS: 10pt was reviewed & negative except for what was stated in HPI & below Physical Exam Physical Exam: Temp Pulse Resp BP Pulse Ox 36.8 C 116 H 20 150/97 H 98 01/04/18 23:23 01/04/18 23:23 01/04/18 23:23 01/04/18 23:23 01/04/18 23:23 O2 (L/minute) 3 Constitutional: no apparent distress, not in pain Eyes: PERRL, EOMI Ears, Nose, Mouth, Throat: moist mucous membranes, no oral mucosal ulcers Cardiovascular: no murmur, rub, or gallop, tachycardia, edema (1+ b/l FELICITY) Respiratory: no respiratory distress, reduced air movement (R side) Gastrointestinal: normoactive bowel sounds, soft, non-tender abdomen Skin: warm, normal color Musculoskeletal: full muscle strength, no muscle tenderness Neurologic: AAOx3, CN II-XII Intact Psychiatric: interacting appropriately, not anxious Lab Data & Imaging Review 01/04/18 20:30 01/04/18 20:30 WBC 9.18 10^3/uL (3.80-9.50) 01/04/18 20:30 RBC 3.84 10^6/uL (4.18-5.33) L 01/04/18 20:30 Hgb 9.6 g/dL (12.6-16.3) L 01/04/18 20:30 Hct 29.7 % (38.0-47.0) L 01/04/18 20:30 MCV 77.3 fL (81.5-99.8) L 01/04/18 20:30 MCH 25.0 pg (27.9-34.1) L 01/04/18 20:30 MCHC 32.3 g/dL (32.4-36.7) L 01/04/18 20:30 RDW 16.0 % (11.5-15.2) H 01/04/18 20:30 Plt Count 382 10^3/uL (150-400) 01/04/18 20:30 MPV 9.3 fL (8.7-11.7) 01/04/18 20:30 Neut % (Auto) 85.4 % (39.3-74.2) H 01/04/18 20: Lymph % (Auto) 9.9 % (15.0-45.0) L 01/04/18 20:30 [place] % (Auto) 4.1 % (4.5-13.0) L 01/04/18 20: Eos % (Auto) 0.1 % (0.6-7.6) L 01/04/18 20:30 Baso % (Auto) 0.2 % (0.3-1.7) L 01/04/18 20:30 Nucleat RBC Rel Count 0.0 % (0.0-0.2) 01/04/18 20:30 Absolute Neuts (auto) 7.83 10^3/uL (1.70-6.50) H 01/04/18 20:30 Absolute Lymphs (auto) 0.91 10^3/uL (1.00-3.00) L 01/04/18 20:30 Absolute Monos (auto) 0.38 10^3/uL (0.30-0.80) 01/04/18 20:30 Absolute Eos (auto) 0.01 10^3/uL (0.03-0.40) L 01/04/18 20:30 Absolute Basos (auto) 0.02 10^3/uL (0.02-0.10) 01/04/18 20:30 Absolute Nucleated RBC 0.00 10^3/uL (0-0.01) 01/04/18 20: Immature Gran % 0.3 % (0.0-1.1) 01/04/18 20:30 Immature Gran # 0.03 10^3/uL (0.00-0.10) 01/04/18 20:30 Sodium 138 mEq/L (135-145) 01/04/18 20:30 Potassium 4.7 mEq/L (3.3-5.0) 01/04/18 20:30 Chloride 101 mEq/L (97-110) 01/04/18 20:30 Carbon Dioxide 24 mEq/l (22-31) 01/04/18 20:30 Anion Gap 13 mEq/L (8-16) 01/04/18 20:30 BUN 27 mg/dL (7-23) H 01/04/18 20:30 Creatinine 0.8 mg/dL (0.6-1.0) 01/04/18 20:30 Estimated GFR > 60 01/04/18 20:30 Glucose 102 mg/dL (70-100) H 01/04/18 20:30 Calcium 10.0 mg/dL (8.5-10.4) 01/04/18 20:30 POC Troponin I 0.02 ng/mL (0.00-0.08) 01/04/18 20:35 NT-Pro-B Natriuret Pep 5260 pg/mL (0-125) H 01/04/18 22:00 Imaging Review: Imaging Impressions Chest/Thorax CTA 01/04/18 20:18 Impression: 1. Likely a bland thrombus in the right pulmonary artery stump. No evidence for left-sided pulmonary emboli. 2. Patchy left upper lobe pneumonia versus pulmonary edema. The enlarged left sided heart chambers and prominent left pleural effusion suggest edema. The pleural effusion is larger than one would expect from the chest x-ray 6 days ago. Results called to Dr. Arnol Padilla at 21:25 PM General information for patients regarding this examination can be found at [email or web address]. If you have questions or comments about this report, please contact me at [phone] (hospital) or [phone] (cell). Visualized and Interpreted EKG results: Yes EKG Interpretation: Positive for: other (Sinus tach) Assessment & Plan Assessment: 72 yo F w/ hx of lung CA s/p R pneumonectomy p/w dyspnea and L pleural effusion. Plan: 1. Dyspnea - Present for 3 weeks, now with signs of volume overload (pedal edema , pulmonary edema, L pleural effusion). BNP is 5260 but this is lower than previous values. Noting hx of R pneumonectomy and decreased reserve, it is reasonable to suspect that L pleural effusion and pulmonary edema could be responsible for her symptoms. - TTE for further cardiac evaluation - Will have IR perform therapeutic and diagnostic(including cytology) thoracentesis tomorrow - Lasix 20 mg IV x1, assess response and consider ongoing dosing - Albuterol PRN 2. L pleural effusion - Moderate size, new compared to prior imaging. Etiology most likely new CHF but recurrent malignancy also a possibility. - Thoracentesis as above, include cytology 3. Hx lung CA - S/p R pneumonectomy on 05/[address] Ilia Hassan. 4. Suspected CHF - Will evaluate with TTE. - Lasix x1 - Daily weights, monitor I/Os, cardiac diet Diet - NPO pending thoracentesis Code - Full Ppx - SCDs Dispo - Admit under observation status
[2018-01-05] MEDS ORDERED: ALPRAZolam 0.5 MG TAB PO PRN (05:06)
[2018-01-05 05:07] LABS: PLATELET COUNT 441 10^3/uL (150-400)
[2018-01-05] MEDS ORDERED: ALPRAZolam 0.25 MG TAB PO PRN (05:30)
[2018-01-05] MEDS ORDERED: FUROSEMIDE 20 MG/2 ML VIAL IVP ONE (08:00)
[2018-01-05 08:30] LABS: INR 1.06 (0.83-1.16)
[2018-01-05] MEDS ORDERED: LIDOCAINE 1% 300 MG/30 ML SDV ONE (10:16)
[2018-01-05] MEDS: ALBUTEROL 3 ML DEYVIAL IH PRN ×2 (10:22→15:43)
[2018-01-05] MEDS ORDERED: FUROSEMIDE 40 MG/4 ML VIAL IVP ONE (11:02)
--- NOTE | 2018-01-05 11:10 | HOSPPROG ---
Hospitalist Progress Note Assessment/Plan: 72 yo F w h/o Lung ca, R pneumonectomy (05/26) here w w LE edema, dyspnea, small Left pleural effusion pleural effusion: suspect chf as opposed to malignancy thoracentesis high risk, limited diagnostic yield, and likely alternative diagnosis so will hold off follow d/w dr edwards chf: prelim echo ride is lower ef w worsening MR this explains her clinical presentation lasix 40 iv bid start carvedilol tachycardia: sinus tele low dose carvedilol lung CA: w R pneumoniectomy follow proph: lmwh dispo: inpt Subjective: case d.w dr edwards. notes new LE edema, dyspnea, no f/c Objective: Vital Signs Temp Pulse Resp BP Pulse Ox 36.6 C 110 H 16 168/101 H 97 01/05/18 07:20 01/05/18 10:28 01/05/18 10:28 01/05/18 07:20 01/05/18 10:28 Laboratory Results 01/05/18 04:32 01/05/18 04:32 01/04/18 01/05/18 01/06/18 05:59 05:59 05:59 Intake Total 200 Balance 200 PT 14.0 SEC (12.0-15.0) 01/05/18 08:08 INR 1.06 (0.83-1.16) 01/05/18 08:08 - Physical Exam Constitutional: no apparent distress, appears nourished Eyes: PERRL, anicteric sclera Ears, Nose, Mouth, Throat: moist mucous membranes, hearing normal Cardiovascular: regular rate and rhythym, tachycardia Respiratory: no respiratory distress, no rales or rhonchi Gastrointestinal: normoactive bowel sounds, soft, non-tender abdomen Genitourinary: No fernandez in urethra Skin: warm, normal color Musculoskeletal: full muscle strength, no muscle tenderness Neurologic: AAOx3, sensation intact bilaterally Psychiatric: interacting appropriately, not anxious ICD10 Worksheet Patient Problems: Problems Problem Status Onset Dyspnea Acute Pleural effusion Acute Tachycardia Acute Lung cancer Acute
[2018-01-05] MEDS: CARVEDILOL 3.125 MG TAB PO SCH ×2 (11:42→17:20)
--- NOTE | 2018-01-05 13:06 | ECHO ---
[email or web address] [address] [address] Main: [phone] Fax: Transthoracic Echocardiogram Name: SARAH JAEGER MR#: [id number] Study Date: 01/05/2018 Study Time: 09:48 AM Date of : 1945 Age: 72 year(s) Height: 154.9 cm (61 in.) Weight: 46.72 kg (103 lb.) BSA: 1.42 m2 Gender: Female Examination: Echo Indication: Pleural Effusion, volume overload Image Quality: Technically Difficult Contrast: Requested by: Louis Licona BP: 168 mmHg/101 mmHg Heart Rate: Rhythm: Indication: Pleural Effusion, volume overload Procedure Staff Facility Maintenance Supervisor: Lori Weir [facility] Reading Physician: Romel Alvarado MD Requesting Provider: Conclusions: Groslsly normal left ventricular size. Mild to moderately reduced systolic function. Difficult to assess for regional wall motion abnormalities however the septum appears hypokinetic.. Left atrial enlargement. Mild to moderate mitral regurgitation. Aortic valve is not well visualized. Mild aortic valve regurgitation is present. The tricuspid valve appears normal. Mild tricuspid regurgitation is present. Right ventricular systolic pressure measures 52mmHg. Estimated RVSP may be underestimated due to inadequate TR envelope.. Patient very short of breath during echocardiogram; large pleural has pushed heart to right side of chest. Limited acoustic windows.. In comparison to prior echocardiogram from 08-02-17 there has been a dramatic drop in systolic function noted (previously 69% and now 45%). Visualization of the LVEF and valves was pardicularly difficult given patient's implants. Consider MIGEUL to better visualize myocardial structure and function. Measurements: Chambers Valvular Assessment AV/MV Valvular Assessment TV/PV Normal Normal Normal Name Value Range Name Value Range Name Value Range Ao Cristina (MM): 3.1 cm (2.2 cm-3.7 AV Vmax: 1.01 m/s (1 m/s-1.7 TR Vmax: 3.24 mm/s ( - ) cm) m/s) TR PGmax: 42 mmHg ( - ) LVDd (2D): 4.1 cm (3.9 cm-5.3 AV maxP mmHg ( - ) syst. PAP: 52 mmHg ( - ) cm) LVDs (2D): 3.3 cm (2.1 cm-4 cm) LVEF (2D): 40 (>=54 %) Continued Measurements: Patient: SARAH JAEGER Study Date: 01/05/2018 Page 1 of 2 09:48 AM Valvular Assessment TV/PV Name Value CVP (est.): 10 mmHg Findings: Left Ventricle: Groslsly normal left ventricular size. Mild to moderately reduced systolic function. Difficult to assess for regional wall motion abnormalities however the septum appears hypokinetic.. Right Ventricle: Normal size right ventricle. Normal RV function. Left Atrium: Left atrial enlargement. Right Atrium: The right atrium is normal in size. Mitral Valve: The mitral valve is normal in appearance. Mild to moderate mitral regurgitation. No mitral stenosis is present. Aortic Valve: Aortic valve is not well visualized. Mild aortic valve regurgitation is present. No aortic valve stenosis is present. Tricuspid Valve: The tricuspid valve appears normal. Mild tricuspid regurgitation is present. Right ventricular systolic pressure measures 52mmHg. The pulmonary artery pressure is moderately increased. Estimated RVSP may be underestimated due to inadequate TR envelope.. Pulmonic Valve: Pulmonary valve not visualized. Aorta: Normal size aortic root measuring 3.1 cm. IVC: The IVC is normal sized. There is less than 50% respiratory excursion. Pericardium: No pericardial effusion. There is a pleural effusion present. Exam Comments: Patient very short of breath during echocardiogram; large pleural has pushed heart to right side of chest. Limited acoustic windows.. (No Signature Object) Patient: SARAH JAEGER Study Date: 01/05/2018 Page 2 of 2 09:48 AM [id number]
--- NOTE | 2018-01-05 14:13 | PDCARCONS ---
Cardiology Consult Reason for Consult: Shortness of breath Chief Complaint: Shortness of breath fatigue Requesting Physician: Jose Angel History of Present Illness: I am asked to visit with this 72-year-old female history of paroxysmal atrial fibrillation, history of hypertension history of adenocarcinoma status post resection admitted to the hospital with progressive shortness of breath and fatigue. Echocardiogram today shows significant reduction LV systolic function as compared to previous study and I am asked to comment. Patient has had progressive shortness of breath. This is not associated with chest pain. She has had no PND orthopnea. She does have mild peripheral swelling. Patient was seen by our service in May. At that time she had an echocardiogram performed which revealed overall normal LV systolic function. She had no significant valvular abnormalities identified at that time. She had paroxysmal atrial fibrillation during a pneumonectomy while under observation. She was seen in follow-up by my partner Dr. Kyree Larson cardiac medicines had been discontinued. She currently denies PND orthopnea. She has had no palpitations syncope or near syncope. History Information - Allergies/Home Medication List Allergies/Adverse Reactions: No Known Allergies Allergy (Unverified 01/04/18 20:15) Home Medications: Albuterol [Proventil Inhaler HFA (*)] 1 - 2 puffs IH DAILY PRN 05/19/17 [Last Taken 01/03/18] Amitriptyline HCl [Elavil 50 mg (*)] 50 mg PO HS 05/19/17 [Last Taken 01/03/18] Cholecalciferol Vit D3 [Vitamin D3 (*)] 1,000 units PO BID 05/19/17 [Last Taken 01/04/18 09:00] Estradiol [Estradiol 1 MG (*)] 0.5 mg PO DAILY 05/19/17 [Last Taken 01/04/18 09: 00] Herbals/Supplements -Info Only 1 ea PO DAILY 05/19/17 [Last Taken 01/04/18] Multivitamins [Multivitamin (*)] 1 each PO DAILY 05/19/17 [Last Taken 01/04/18] [place]-3 Fatty Acids [Fish Oil 1000 mg (*)] 1,000 mg PO BID 05/19/17 [Last Taken 1 Week Ago ~12/28/17] Vitamin B Complex [Super B-50 Complex] 1 each PO DAILY 05/19/17 [Last Taken ] Docusate Sodium [Colace 100 MG (*)] 100 mg PO DAILY PRN 05/23/17 [Last Taken ] Ibuprofen [Motrin (*)] 400 mg PO Q6H PRN 01/04/18 [Last Taken 01/04/18 09:00] predniSONE [Prednisone] 10 mg PO AD 01/04/18 [Last Taken 01/04/18] I have personally reviewed and updated: family history, medical history, social history, surgical history Past Medical History: - Past Medical History atrial fibrillation, hypertension - Surgical History Additional surgical history: Lobectomy - Family History Positive for: non-pertinent - Social History Smoking Status: Former smoker Alcohol Use: Occasionally Physical Exam Physical Exam: Temp Pulse Resp BP Pulse Ox 36.6 C 106 H 22 H 160/96 H 96 01/05/18 07:20 01/05/18 12:18 01/05/18 12:18 01/05/18 11:42 01/05/18 12:18 O2 (L/minute) 3.5 Constitutional: not in pain, chronically ill appearing Eyes: anicteric sclera Ears, Nose, Mouth, Throat: moist mucous membranes Cardiovascular: systolic murmur, tachycardia, edema, other (S4), No JVD Peripheral Pulses: 1+: carotid (R), carotid (L), femoral (R), femoral (L), dorsalis-pedis (R), dorsalis-pedis (L) Respiratory: reduced air movement, rhonchi Gastrointestinal: normoactive bowel sounds, soft, non-tender abdomen Genitourinary: no bladder fullness Skin: warm, normal color Musculoskeletal: full muscle strength Neurologic: AAOx3, No facial droop Psychiatric: interacting appropriately Lab and Imaging 01/05/18 04:32 01/05/18 04:32 WBC 10.98 10^3/uL (3.80-9.50) H 01/05/18 04:32 RBC 4.18 10^6/uL (4.18-5.33) 01/05/18 04:32 Hgb 10.4 g/dL (12.6-16.3) L 01/05/18 04:32 Hct 32.9 % (38.0-47.0) L 01/05/18 04:32 MCV 78.7 fL (81.5-99.8) L 01/05/18 04:32 MCH 24.9 pg (27.9-34.1) L 01/05/18 04:32 MCHC 31.6 g/dL (32.4-36.7) L 01/05/18 04:32 RDW 16.1 % (11.5-15.2) H 01/05/18 04:32 Plt Count 441 10^3/uL (150-400) H 01/05/18 04:32 MPV 9.5 fL (8.7-11.7) 01/05/18 04:32 Neut % (Auto) 73.7 % (39.3-74.2) 01/05/18 04:32 Lymph % (Auto) 16.6 % (15.0-45.0) 01/05/18 04:32 [place] % (Auto) 7.6 % (4.5-13.0) 01/05/18 04:32 Eos % (Auto) 1.2 % (0.6-7.6) 01/05/18 04:32 Baso % (Auto) 0.3 % (0.3-1.7) 01/05/18 04:32 Nucleat RBC Rel Count 0.0 % (0.0-0.2) 01/05/18 04:32 Absolute Neuts (auto) 8.10 10^3/uL (1.70-6.50) H 01/05/18 04:32 Absolute Lymphs (auto) 1.82 10^3/uL (1.00-3.00) 01/05/18 04:32 Absolute Monos (auto) 0.83 10^3/uL (0.30-0.80) H 01/05/18 04:32 Absolute Eos (auto) 0.13 10^3/uL (0.03-0.40) 01/05/18 04:32 Absolute Basos (auto) 0.03 10^3/uL (0.02-0.10) 01/05/18 04:32 Absolute Nucleated RBC 0.00 10^3/uL (0-0.01) 01/05/18 04:32 Immature Gran % 0.6 % (0.0-1.1) 01/05/18 04:32 Immature Gran # 0.07 10^3/uL (0.00-0.10) 01/05/18 04:32 PT 14.0 SEC (12.0-15.0) 01/05/18 08:08 INR 1.06 (0.83-1.16) 01/05/18 08:08 APTT 26.6 SEC (23.0-38.0) 01/05/18 08:08 Sodium 138 mEq/L (135-145) 01/05/18 04:32 Potassium 4.9 mEq/L (3.3-5.0) 01/05/18 04:32 Chloride 102 mEq/L (97-110) 01/05/18 04:32 Carbon Dioxide 25 mEq/l (22-31) 01/05/18 04:32 Anion Gap 11 mEq/L (8-16) 01/05/18 04:32 BUN 28 mg/dL (7-23) H 01/05/18 04:32 Creatinine 0.9 mg/dL (0.6-1.0) 01/05/18 04:32 Estimated GFR > 60 01/05/18 04:32 Glucose 111 mg/dL (70-100) H 01/05/18 04:32 Calcium 9.7 mg/dL (8.5-10.4) 01/05/18 04:32 Lactate Dehydrogenase 536 IU/L (313-618) 01/05/18 04:32 POC Troponin I 0.02 ng/mL (0.00-0.08) 01/04/18 20:35 NT-Pro-B Natriuret Pep 5260 pg/mL (0-125) H 01/04/18 22:00 EKG additional interpertation: Sinus rhythm with anterior Q-waves nonspecific ST -T changes. Echocardiogram: Reduced LV systolic function with LV dilatation. Valvular function poorly delineated with technically difficult study secondary to breast implants A/P Assessment: Impression: New onset moderate to severe LV dysfunction associated with decompensated heart failure/volume overload and elevated brain atretic peptide. Differential diagnosis in the longstanding smoker include coronary artery disease, hypertensive cardiomyopathy, rate-related atrial fibrillation, viral, considerations for mitral etiology. Recommendations are for diagnostic right left heart catheterization with transesophageal ECHO for full risk stratification diagnosis. This should help guide therapy. In the short term will begin diuretic therapy low-dose beta-lillie and Erwin inhibition. Plan: Agree with gentle diuresis. Agree with low-dose carvedilol. Begin low-dose Erwin inhibition. MIGUEL right left heart catheterization tomorrow morning. Past Medical History PMH: - Personal History Current Tetanus/Diphtheria Vaccine: Yes Current Tetanus Diphtheria and Acellular Pertussis (TDAP): Yes Tetanus Vaccine Date: < 10 YEARS - Medical/Surgical History Hx Asthma: No Hx Chronic Respiratory Disease: No Hx Cardiac Disease: No Hx Diabetes: No Hx Renal Disease: No Hx Alcoholism: No Hx Cirrhosis: No Hx HIV/AIDS: No Hx Splenectomy or Spleen Trauma: No Other PMH: ARTHRITIS, Lung CA, Osteoporosis, atrial fibrillation - Family History Significant Family History: Hypertension - Social History Smoking Status: Former smoker Alcohol Use: Occasionally Additional Social History: Review of Systems Review of Systems: - Review of Systems Constitutional: malaise. denies: chills, fever EENTM: no symptoms reported Respiratory: cough, shortness of breath Cardiac: edema. denies: chest pain, irregular heart rate Gastrointestinal/Abdominal: no symptoms reported Genitourinary: no symptoms Musculoskelatal: no symptoms Skin: no symptoms Neurological: no symptoms Hematologic/Lymphatic: no symptoms reported Immunologic/allergic: no symptoms reported All Other Systems: Reviewed and Negative
[2018-01-05] MEDS ORDERED: diphenhydrAMINE 25 MG CAP PO ONE (14:17)
[2018-01-05] MEDS ORDERED: NITROGLYCERIN 0.4 MG BTL SL PRN (14:17)
[2018-01-05] MEDS ORDERED: FAMOTIDINE 20 MG TAB PO ONE (14:17)
[2018-01-05] MEDS ORDERED: DIAZEPAM 5 MG TAB PO ONE (14:17)
[2018-01-05] MEDS ORDERED: TEMAZEPAM 15 MG CAP PO PRN (14:17)
[2018-01-05] MEDS ORDERED: ASPIRIN EC 325 MG TAB PO ONE (14:17)
[2018-01-05] MEDS ORDERED: ACETAMINOPHEN 325 MG TAB PO PRN (14:17)
[2018-01-05] MEDS: FUROSEMIDE 40 MG/4 ML VIAL IVP SCH (15:31)
--- NOTE | 2018-01-05 16:00 | ASMTCMCOM ---
CM Note CM Note Notes: Pt with hx of lung ca admitted from home for dypsnea. Cardiology consulting, MIGUEL planned for tomorrow AM. At pt's last admission in May she DC'd to [facility]. CM to follow Date Signed: 01/05/2018 03:59 PM Electronically Signed By:Taina Alexander LCSW
--- NOTE | 2018-01-05 18:03 | GCON ---
[f rep st] CONSULTATION REASONS FOR CONSULTATION: Increasing dyspnea/dyspnea on exertion in a patient status post right pneumonectomy for lung cancer. HISTORY: The patient is a very pleasant 72-year-old with a history of lung cancer on the right side. Her original diagnosis was a number of years ago. She had right upper lobectomy. She had a recurrence and in May 2017 had a completion right pneumonectomy. She had a difficult hospital course that was complicated by respiratory failure, pneumonia, and pulmonary edema. There was atrial fibrillation at that time that was transient. Left ventricular ejection fraction was felt to be normal. Right ventricular pressures were not commented on at that time. Following discharge, she was in [facility] [place]. She rehabilitated and returned home. She did relatively well initially. Pulmonary function studies were notable for a 50% drop in her vital capacity compared to pre-pneumonectomy, not unexpected. I last saw her in the office about a month ago. She was more short of breath at that time. She was using oxygen more in the day. She had been on it at night previously. She remains somewhat tachycardic in the low 100s, somewhat tachypneic. She had an arterial blood gas done which was relatively normal. PCO2 was not elevated. Chest x-ray showed a small left-sided pleural effusion. BNP was elevated at approximately 5000. She did not want to come in the hospital for further evaluation at that time. She has been seen by Dr. Walter as well. She convinced her to come in for further evaluation of her dyspnea last night. CT angiogram chest has been performed and is negative for pulmonary embolic disease. A moderate-sized pleural effusion is seen on the left with some vague ground-glass infiltrates possibly consistent with mild pulmonary edema. BNP remains elevated at 5000. A cardiac echo shows decreased left ventricular function compared to her cardiac echo in May. There is a question of septal hypokinesis. Right ventricular systolic pressure is estimated to be elevated at 52. She has been seen by Cardiology. Repeat blood gas has not been obtained. Spirometry today shows a forced vital capacity of approximately 1 L, 40% of predicted. Vital capacity was 1.28 L when measured postoperatively. There was a small reversible component at that time. She denies cough or mucus, signs or symptoms of infection. She denies wheezing. She denies peripheral edema. She is on albuterol as needed at home, which may be of some benefit. She was recently started on empiric prednisone at 40 mg per day. She only had 2 days of this without any improvement in her symptoms. PAST MEDICAL HISTORY: Remarkable for the lung cancer as outlined above, completion right pneumonectomy, tachycardia with an episode of atrial fibrillation, depression, and COPD. SOCIAL HISTORY: The patient is , with a very supportive spouse. She smoked cigarettes in the past. Alcohol is denied. FAMILY HISTORY: Negative for lung cancer or COPD. REVIEW OF SYSTEMS: A 10-point review of systems is negative except as noted in the HPI. PHYSICAL EXAMINATION: GENERAL: Reveals a woman who is quite thin, on oxygen, sitting comfortably in bed. She has no dyspnea at rest. VITAL SIGNS: Blood pressure is approximately 160/100, heart rate 110 and regular. Respiratory rate is 20. She is on 3.5 L of oxygen with saturations near 100%. She is afebrile. HEENT: Unremarkable for lymphadenopathy or thyromegaly. There is some jugular venous distention. RESPIRATORY: The chest is clear on the left side. Breath sounds and excursions are generally diminished. Expiratory phase is not particularly prolonged. There is no congestion, no rales. Dullness at the base cannot be excluded. CARDIAC: Heart tones are distant. The rhythm is regular and tachycardic. P2 does appear to be increased. There is a soft systolic murmur. A gallop cannot be excluded. ABDOMEN: Soft, nontender. Bowel sounds are present. EXTREMITIES: Unremarkable for edema, cords, or tenderness. NEUROLOGIC: Examination is intact. DATABASE: Radiologic studies and cardiac echo are as noted above. LABORATORY: White blood cell count is 10,900, hematocrit 33, platelets are 441, 000. PT and PTT were normal on admission. BNP is 5260. Basic metabolic panel is within normal limits with the exception of a mildly elevated BUN at 28. Calcium is 9.7. ASSESSMENT: 1. Increasing dyspnea on exertion. This is in the setting of completed pneumonectomy on the right and underlying chronic obstructive pulmonary disease. Cardiac echo has changed, with decreased left ventricular function and possibly some septal hypokinesis. Moderate pulmonary hypertension is also present. Estimated right ventricular systolic pressure is 50. This would not be necessarily unexpected after pneumonectomy in the setting of some COPD in the remaining lung. In any case, I think there is evidence for congestive heart failure playing the most significant role in her increasing shortness of breath and dyspnea on exertion. She has been seen by Cardiology. A MIGUEL and a right heart catheterization are being planned for tomorrow. 2. Decreased left ventricular function, pulmonary hypertension for MIGUEL and catheterization. 3. History of lung cancer with completed pneumonectomy on the right. There has been no evidence of recurrence. 4. Hypoxemia. She is on oxygen at night and needs it for the most part during the day. 5. Chronic obstructive pulmonary disease, now with significant restrictive lung disease after pneumonectomy. Current spirometry is down approximately 25% . This may be related to heart failure? PLAN AND RECOMMENDATIONS: The patient will be kept on oxygen. Bronchodilator therapies will be given. Steroids do not necessarily need to be continued. Right heart catheterization and a MIGUEL have been ordered for tomorrow. She has been started on Lasix, which I agree with. Carvedilol and lisinopril have also been given. The results of the above cardiologic studies to be done tomorrow will be awaited. We will see how she does with diuresis and afterload reduction/beta blockade. Further plans and recommendations will be made based on her progress over the next 12-24 hours. A thoracentesis would not appear to be indicated at this time, but could be considered if her effusion does not respond to diuretic therapy. /[id number]/MODL MTDD
[2018-01-06 04:57] LABS: PLATELET COUNT 347 10^3/uL (150-400)
[2018-01-06 06:47] LABS: INR 1.14 (0.83-1.16); PROTIME(PATIENT) 14.8 SEC (12.0-15.0)
[2018-01-06] MEDS ORDERED: diphenhydrAMINE 25 MG CAP PO ONE (07:00)
[2018-01-06] MEDS ORDERED: ASPIRIN EC 325 MG TAB PO ONE (07:00)
[2018-01-06] MEDS ORDERED: DIAZEPAM 5 MG TAB PO ONE (07:00)
[2018-01-06] MEDS ORDERED: FAMOTIDINE 20 MG TAB PO ONE (07:00)
[2018-01-06] MEDS ORDERED: LIDOCAINE 1% 300 MG/30 ML SDV ONE (08:01)
[2018-01-06] MEDS ORDERED: MIDAZOLAM 2 MG/2 ML VIAL ONE (08:01)
[2018-01-06] MEDS ORDERED: fentaNYL 100 MCG/2 ML INJ ONE (08:01)
[2018-01-06] MEDS ORDERED: IOPAMIDOL (ISOVUE-370) 150 ML BTL IV ONE (08:02)
[2018-01-06] MEDS ORDERED: HEPARIN 10,000 UNIT/10 ML MDV (1,000 UNIT/ML) ONE (08:02)
[2018-01-06] MEDS ORDERED: VERAPAMIL 5 MG/2 ML VIAL ONE (08:02)
[2018-01-06] MEDS: CARVEDILOL 3.125 MG TAB PO SCH (09:03)
--- NOTE | 2018-01-06 09:11 | PDPROPOC ---
Sedation Plan of Care Sedation Plan of Care: vital signs stable, mental status noted, patient educated of risks, benefits, alternatives, patient can tolerate sedation ASA Classification: ASA 2 Planned drugs: fentanyl, midazolam Mallampati Score: Class 1 Mallampati Reference Image: Patient passed 3-3-2 rule?: Yes
[2018-01-06] MEDS: ENOXAPARIN 40 MG/0.4 ML SYR SC SCH (10:22)
[2018-01-06] MEDS: FUROSEMIDE 40 MG/4 ML VIAL IVP SCH (10:24)
[2018-01-06] MEDS ORDERED: ATROPINE SULFATE 1 MG/10 ML SYR IVP PRN (11:23)
--- NOTE | 2018-01-06 11:28 | PDDXCAT ---
Diagnostic Cath Note - . Date: 01/06/18 Distribution Engineer: Fei Indication: other (New onset LV dysfunction Class 3-4 CHF) - Procedure Access: right groin Procedure: left heart catheterization, coronary angiography, left ventriculogram , right heart catheterization - Materials Left Heart Cath size: 6F Left Heart Cath materials: standard multipack (JL4, JR4, pigtail) Right Heart Cath size: 7F Right Heart Cath materials: PWP catheter - Findings-Left Heart Catheterization LM: Unobstructed LAD: Unobstructed LCX: Unobstructed RCA: Dominant: Unobstructed EDP: 13 mm of mercury LVEF: 25% Wall motion: Global hypokinesis - Findings-Right Heart Catheterization RA: 5 mm of mercury RV: 35/6 mm of mercury PA: 35/12 mm of mercury PAOP: 12 mm of mercury Complications: None Estimated blood loss: <50ml Closure method: manual pressure Assessment: Nonischemic dilated cardiomyopathy ejection fraction 25%. Angiographically normal coronary arteries. Normal filling pressures. No evidence of pulmonary hypertension Plan: IV diuresis will be discontinued. Will begin oral diuretic. Increase carvedilol to 25 mg p.o. Twice daily over upcoming weeks to months. Begin low-dose lisinopril 2.5 mg at HS. Considerations for Aldactone. Prophylactic ICD to be discussed in 30-45 days. No Patient Problems: Problems Problem Status Onset Lung cancer Acute Dyspnea Acute Pleural effusion Acute Tachycardia Acute
--- NOTE | 2018-01-06 11:31 | ASMTCMCOM ---
CM Note CM Note Notes: Pt to crime lab technician today and will tx to PCU afterwards. Pt's DC needs are TBD. Date Signed: 01/06/2018 11:30 AM Electronically Signed By:Taina Alexander LCSW
--- NOTE | 2018-01-06 11:31 | SOAPPROG ---
[facility] Progress Note Assessment/Plan: Assessment: 1. 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 2. Nonischemic dilated cardiomyopathy. 3. History of atrial fibrillation 4. History of hypertension. Procedures: Echocardiogram, left heart catheterization coronary ventricular angiography, right heart catheterization, ana 01/06/18 11:28 Impression: Significantly improved with initiation of diuretic therapy and low- dose beta-lillie. Invasive evaluation today show a dilated nonischemic cardiomyopathy ejection fraction of 25%. There was no significant valvular abnormalities. There is no significant coronary artery disease. Her filling pressures today are normal. Recommendations are for aggressive medical therapy with up titration of beta- lillie to 25 mg p.o. Twice daily of carvedilol. Will begin low-dose Erwin inhibitor. Considerations for Aldactone/digoxin over time. Considerations for prophylactic ICD in the future. Patient rapidly compensated with low-dose diuretic. Will transition her to oral today. Likely discharge from a cardiac point of view tomorrow. Aggressive follow-up. With history of atrial fibrillation will need to consider chronic anticoagulation especially with LV dysfunction. Subjective: Feeling significantly better today. No PND orthopnea. No further shortness of breath. Objective: Medications Generic Name Dose Route Start Last Admin Trade Name Freq PRN Reason Stop Dose Admin Lisinopril 2.5 mg 01/06/18 11:30 Zestril PO 07/05/18 11:29 DAILY COUNTS INCLUDE 234 BEDS AT THE [facility] Carvedilol 3.125 mg 01/05/18 11:06 01/06/18 09:03 Coreg PO 07/04/18 11:05 3.125 mg BIDMEAL COUNTS INCLUDE 234 BEDS AT THE [facility] Furosemide 20 mg 01/06/18 15:00 Lasix PO 07/05/18 14:59 BID@0900,1500 COUNTS INCLUDE 234 BEDS AT THE [facility] Vital Signs Temp Pulse Resp BP Pulse Ox 36.6 C 107 H 14 137/79 H 91 L 01/06/18 08:29 01/06/18 09:03 01/06/18 08:29 01/06/18 09:03 01/06/18 08:29 Laboratory Results 01/06/18 04:27 01/06/18 04:27 01/05/18 01/06/18 01/07/18 05:59 05:59 05:59 Intake Total 200 1200 Output Total 4400 Balance 200 -3200 PT 14.8 SEC (12.0-15.0) 01/06/18 04:27 INR 1.14 (0.83-1.16) 01/06/18 04:27 Physical Exam - Physical Exam General Appearance: alert, no apparent distress EENT: normal ENT inspection Neck: supple Respiratory: other (No breath sounds on the right. Clear breath sounds on the left) Cardiac/Chest: regular rate, rhythm, No edema Peripheral Pulses: 2+: carotid (R), carotid (L), femoral (R), femoral (L), dorsalis-pedis (R), dorsalis-pedis (L) Abdomen: normal bowel sounds, non-tender, soft Back: Normal inspection Skin: warm/dry, No rash Extremities: No pedal edema, No calf tenderness ICD10 Worksheet Patient Problems: Problems Problem Status Onset Dyspnea Acute Pleural effusion Acute Tachycardia Acute Lung cancer Acute Review of Systems - Review of Systems Constitutional: no symptoms reported EENTM: no symptoms reported Respiratory: no symptoms reported Cardiac: no symptoms reported Gastrointestinal/Abdominal: no symptoms reported Genitourinary: no symptoms Musculoskelatal: no symptoms Skin: no symptoms Neurological: no symptoms Hematologic/Lymphatic: no symptoms reported Immunologic/allergic: no symptoms reported All Other Systems: Reviewed and Negative
--- NOTE | 2018-01-06 11:43 | ECHO ---
[email or web address] [address] [address] Main: [phone] Fax: Transesophageal Echocardiography Name: SARAH JAEGER MR#: [id number] Study Date: 01/06/2018 Study Time: 10:46 AM Date of : 1945 Age: 72 year(s) Height: ( ) Weight: ( ) BSA: Gender: Female Examination: MIGUEL Indication: new chf. eval mitral valve Image Quality: Adequate Contrast: Requested by: Martin Enamorado Heart Rate: Rhythm: BP: / Procedure Staff Impregnating Helper: Emma Nolasco [facility] Reading Physician: Martin Enamorado MD Requesting Provider: MIGUEL Exam Details Measurements: Chambers Valvular Assessment AV/MV Valvular Assessment TV/PV Normal Normal Normal Name Value Range Name Value Range Name Value Range Visual EF: 30 % Additional Measurements: Findings: Left Ventricle: Dilated left ventricle. The ejection fraction is visually estimated to be 30 %. Reduced systolic function. Right Ventricle: Normal size right ventricle. Left Atrium: Left atrial enlargement. Left Atrial Appendage: The left atrial appendage is unilobular. No thrombus in left appendage. Right Atrium: The right atrium is normal in size. Mitral Valve: The mitral valve is normal in appearance and function. Mild mitral valve regurgitation is present. No mitral stenosis is present. Patient: SARAH JAEGER Study Date: 01/06/2018 Page 1 of 2 10:46 AM Aortic Valve: The aortic valve is tri-leaflet. Mild aortic valve regurgitation is present. No aortic valve stenosis is present. Tricuspid Valve: The tricuspid valve is normal in appearance and function. Mild tricuspid regurgitation is present. Pulmonic Valve: The pulmonic valve is normal in appearance and function. Trivial pulmonic valve regurgitation. l1n (No Signature Object) Patient: SARAH JAEGER Study Date: 01/06/2018 Page 2 of 2 10:46 AM [id number]
[2018-01-06] MEDS: LISINOPRIL 5 MG TAB PO SCH (13:17)
--- NOTE | 2018-01-06 14:31 | PDMN ---
Medical Necessity Medical necessity: change to IP; los>2mn for new onset class 3-4 heart failure w /systolic dysfunction, nonischemic dilated cardiomyopathy s/p cath/MIGUEL; requires aggressive medical therapy with medication management, transition to oral diuretic; comorbid HTN, AFIB; per order and cardiology progress note
--- NOTE | 2018-01-06 15:02 | HOSPPROG ---
Hospitalist Progress Note Assessment/Plan: 72 yo F w h/o Lung ca, R pneumonectomy (05/26) here w w LE edema, dyspnea, small Left pleural effusion pleural effusion: suspect chf as opposed to malignancy thoracentesis high risk, limited diagnostic yield, and likely alternative diagnosis so will hold off follow d/w dr edwards chf: acute systolic heart failure carvedill, chris-i po diuretics low salt diet tachycardia: sinus tele low dose carvedilol lung CA: w R pneumonectomy follow proph: [facility] dispo: inpt Subjective: case d/w dr jose. tele- no events (interp by me) Objective: Vital Signs Temp Pulse Resp BP Pulse Ox 36.6 C 92 15 134/78 H 92 01/06/18 13:00 01/06/18 13:00 01/06/18 13:00 01/06/18 13:00 01/06/18 13:00 01/05/18 01/06/18 01/07/18 05:59 05:59 05:59 Intake Total 350 Balance 350 PT 14.8 SEC (12.0-15.0) 01/06/18 04:27 INR 1.14 (0.83-1.16) 01/06/18 04:27 - Physical Exam Constitutional: no apparent distress, not in pain Eyes: PERRL, anicteric sclera Ears, Nose, Mouth, Throat: moist mucous membranes, hearing normal Cardiovascular: regular rate and rhythym, systolic murmur, other (decreased edema) Respiratory: no respiratory distress, no rales or rhonchi Gastrointestinal: normoactive bowel sounds, soft, non-tender abdomen Genitourinary: no bladder fullness, no bladder tenderness Skin: warm, normal color Musculoskeletal: full muscle strength Neurologic: AAOx3 ICD10 Worksheet Patient Problems: Problems Problem Status Onset Dyspnea Acute Pleural effusion Acute Tachycardia Acute Lung cancer Acute
[2018-01-06] MEDS: FUROSEMIDE 20 MG TAB PO SCH (15:52)
--- NOTE | 2018-01-06 17:01 | SOAPPROG ---
SOAP Progress Note Assessment/Plan: Assessment: New nonischemic cardiomyopathy. Responding to diuresis, carvedilol, lisinopril. Dyspnea/dyspnea on exertion and hypoxemia. All are improved with the above. History of lung cancer, status post right pneumonectomy. Stable. COPD. On as needed albuterol. Does not have a big reversible component. Plan: Continue diuresis, cardiac medications. Continue oxygen at night. Does not need oxygen during the day if saturations 88% or above. May need some oxygen with more strenuous physical activity during the day. Possibly home tomorrow. I will see her back as an outpatient. Appointment already scheduled. Subjective: Feels better. Less short of breath. Off oxygen during the day. Status post MIGUEL and catheterization earlier today. Objective: Vital Signs Temp Pulse Resp BP Pulse Ox 36.6 C 92 15 134/78 H 92 01/06/18 13:00 01/06/18 13:00 01/06/18 13:00 01/06/18 13:00 01/06/18 13:00 01/05/18 01/06/18 01/07/18 05:59 05:59 05:59 Intake Total 350 Output Total 300 Balance 50 PT 14.8 SEC (12.0-15.0) 01/06/18 04:27 INR 1.14 (0.83-1.16) 01/06/18 04:27 MIGUEL and catheterization consistent with a new nonischemic cardiomyopathy: Ejection fraction 25%. Right-sided pressures near normal. Physical Exam - Physical Exam General Appearance: alert, no apparent distress, thin EENT: other (On room air: Sats 92%) Neck: normal inspection (No JVD) Respiratory: lungs clear (On left), decreased breath sounds, No rales, No rhonchi, No wheezing Cardiac/Chest: regular rate, rhythm, gallop Abdomen: normal bowel sounds, non-tender, soft Skin: normal color, warm/dry Extremities: No pedal edema Neuro/Psych: no motor/sensory deficits, No cognition abnormalities ICD10 Worksheet Patient Problems: Problems Problem Status Onset Lung cancer Acute Dyspnea Acute Pleural effusion Acute Tachycardia Acute
[2018-01-06] MEDS: CARVEDILOL 6.25 MG TAB PO SCH (18:17)
[2018-01-06] MEDS: AMITRIPTYLINE HCL 50 MG TAB PO PRN (22:23)
[2018-01-06] MEDS: DOCUSATE SODIUM 100 MG CAP PO PRN (22:24)
[2018-01-07] MEDS: ENOXAPARIN 40 MG/0.4 ML SYR SC SCH (08:31)
[2018-01-07] MEDS: CARVEDILOL 6.25 MG TAB PO SCH (08:31)
[2018-01-07] MEDS: LISINOPRIL 5 MG TAB PO SCH (08:31)
[2018-01-07] MEDS: FUROSEMIDE 20 MG TAB PO SCH (08:31)
--- NOTE | 2018-01-07 09:07 | SOAPPROG ---
[facility] Progress Note Assessment/Plan: Assessment: 1. 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 2. Nonischemic dilated cardiomyopathy. 3. History of atrial fibrillation 4. History of hypertension. Procedures: Echocardiogram, left heart catheterization coronary ventricular angiography, right heart catheterization, ana 01/07/18 09:05 Impression: Asymptomatic this morning with excellent clinical response to medical therapy for a nonischemic dilated cardiomyopathy, ejection fraction 25% . Patient can be discharged from a cardiac point of view with follow-up in our office in 7-10 days for optimization of medical therapy. 01/06/18 11:28 Impression: Significantly improved with initiation of diuretic therapy and low- dose beta-lillie. Invasive evaluation today show a dilated nonischemic cardiomyopathy ejection fraction of 25%. There was no significant valvular abnormalities. There is no significant coronary artery disease. Her filling pressures today are normal. Recommendations are for aggressive medical therapy with up titration of beta- lillie to 25 mg p.o. Twice daily of carvedilol. Will begin low-dose Erwin inhibitor. Considerations for Aldactone/digoxin over time. Considerations for prophylactic ICD in the future. Patient rapidly compensated with low-dose diuretic. Will transition her to oral today. Likely discharge from a cardiac point of view tomorrow. Aggressive follow-up. With history of atrial fibrillation will need to consider chronic anticoagulation especially with LV dysfunction. Subjective: Feeling well. No chest pain, shortness of breath. No PND orthopnea. Tolerated procedure yesterday well. Results discussed. Objective: Medications Generic Name Dose Route Start Last Admin Trade Name Freq PRN Reason Stop Dose Admin Carvedilol 6.25 mg 01/06/18 18:00 01/07/18 08:31 Coreg PO 07/05/18 17:59 6.25 mg BIDMEAL GENIE Furosemide 20 mg 01/06/18 15:00 01/07/18 08:31 Lasix PO 07/05/18 14:59 20 mg BID@0900,1500 GENIE Lisinopril 2.5 mg 01/06/18 11:30 01/07/18 08:31 Zestril PO 07/05/18 11:29 2.5 mg DAILY GENIE Vital Signs Temp Pulse Resp BP Pulse Ox 36.7 C 88 12 128/66 H 100 01/07/18 07:16 01/07/18 07:16 01/07/18 07:16 01/07/18 07:16 01/07/18 07:16 01/06/18 01/07/18 01/08/18 05:59 05:59 05:59 Intake Total 700 Output Total 850 Balance -150 PT 14.8 SEC (12.0-15.0) 01/06/18 04:27 INR 1.14 (0.83-1.16) 01/06/18 04:27 Physical Exam - Physical Exam General Appearance: alert, no apparent distress, other (Flat in bed) Neck: full range of motion, supple Respiratory: other (Absent breath sounds on the right, normal breath sounds on the left) Cardiac/Chest: regular rate, rhythm, No edema, No gallop Skin: No rash Extremities: No pedal edema, No calf tenderness Neuro/Psych: alert, normal mood/affect ICD10 Worksheet Patient Problems: Problems Problem Status Onset Nonischemic cardiomyopathy Acute Lung cancer Acute Dyspnea Acute Pleural effusion Acute Tachycardia Acute Review of Systems - Review of Systems Constitutional: no symptoms reported EENTM: no symptoms reported Respiratory: no symptoms reported Cardiac: no symptoms reported Gastrointestinal/Abdominal: no symptoms reported Genitourinary: no symptoms Musculoskelatal: no symptoms Skin: no symptoms Neurological: no symptoms Hematologic/Lymphatic: no symptoms reported Immunologic/allergic: no symptoms reported All Other Systems: Reviewed and Negative
[2018-01-07 11:35] VITALS: BP 104/58
--- NOTE | 2018-01-07 12:01 | HOSPPROG ---
Hospitalist Progress Note Assessment/Plan: 72 yo F w h/o Lung ca, R pneumonectomy (05/26) here w w LE edema, dyspnea, small Left pleural effusion pleural effusion: suspect chf as opposed to malignancy thoracentesis high risk, limited diagnostic yield, and likely alternative diagnosis so will hold off follow d/w dr edwards chf: acute systolic heart failure carvedill, chris-i po diuretics low salt diet tachycardia: sinus tele low dose carvedilol lung CA: w R pneumonectomy follow proph: [facility] dispo: home today see dc summary Subjective: case d/w dr jose. no events telemetry Objective: Vital Signs Temp Pulse Resp BP Pulse Ox 36.7 C 89 14 104/58 L 95 01/07/18 11:33 01/07/18 11:33 01/07/18 11:33 01/07/18 11:33 01/07/18 11:33 01/06/18 01/07/18 01/08/18 05:59 05:59 05:59 Intake Total 700 Output Total 850 Balance -150 PT 14.8 SEC (12.0-15.0) 01/06/18 04:27 INR 1.14 (0.83-1.16) 01/06/18 04:27 - Physical Exam Constitutional: no apparent distress, appears nourished Eyes: PERRL, anicteric sclera Ears, Nose, Mouth, Throat: moist mucous membranes, hearing normal Cardiovascular: regular rate and rhythym, no murmur, rub, or gallop Respiratory: no respiratory distress, no rales or rhonchi Gastrointestinal: normoactive bowel sounds, soft, non-tender abdomen Genitourinary: no bladder fullness, No fernandez in urethra Skin: warm, normal color Musculoskeletal: no muscle tenderness Neurologic: AAOx3 ICD10 Worksheet Patient Problems: Problems Problem Status Onset Dyspnea Acute Nonischemic cardiomyopathy Acute Pleural effusion Acute Tachycardia Acute Lung cancer Acute
--- NOTE | 2018-01-07 12:24 | ASMTCMCOM ---
CM Note CM Note Notes: Pt to DC today with no needs. Date Signed: 01/07/2018 12:23 PM Electronically Signed By:Taina Alexander LCSW
--- NOTE | 2018-01-07 12:25 | ASMTLACE ---
[facility]ACE Length of stay for Answers: 2 days current admission Acuity / Level of Answers: Yes Care: Did the patient have an inpatient admission? Comorbidities - select Answers: Any tumor (including all that apply lymphoma or leukemia) Other Notes: Atrial fibrillation # of Emergency department Answers: 1-2 visits in the last 6 months Score: 9 Date Signed: 01/07/2018 12:24 PM Electronically Signed By:Taina Alexander LCSW
--- NOTE | 2018-01-07 12:45 | GDS ---
[f rep st] DISCHARGE SUMMARY DISCHARGE DIAGNOSES: 1. Acute systolic heart failure with secondary dilated cardiac cardiomyopathy with left ventricular ejection fraction of 25%. 2. Mitral regurgitation. 3. Elevated pulmonary pressures. 4. History of lung cancer with right-sided pneumonectomy. HOSPITAL COURSE: Please see admission history and physical by Dr. Louis Xavier. Patient presented with dyspnea, lower extremity edema. She had a small left-sided pleural effusion. There was plan to tap it; however, given that her left lung is her only lung and the likely etiology of heart failure, this was foregone. She underwent MIGUEL, which confirmed mitral regurgitation, low ejection fraction. The patient had an angiogram showing normal LV function. She was started on LEXI inhibitor, carvedilol. She was diuresed about 3 kg worth of fluid with improvement in her edema and shortness of breath. She is discharged home with carvedilol 6.25, Lasix 20 b.i.d., and lisinopril 2.5 daily. She has Cardiology followup within 6-10 weeks. She is advised to follow a low-salt diet and low-salt diet was explained to her in good detail. /[id number]/MODL MTDD
== END 2018-01-07 12:45 | disposition home or self-care (01) | DRG 287 ==
LOC: INTOOBSV 21:35 → F1N 22:55 → OBSVTOIN 01-06 11:07 → F2W 01-06 11:40
PROVIDERS: ADMIT Internal Medicine; ATTEND Internal Medicine
PROC: 4A023N8 Measurement of Cardiac Sampling and Pressure, Bilateral, Percutaneous Approach (ICD-10-PCS; principal; 2018-01-06 11:51)
PROC: B2151ZZ Fluoroscopy of Left Heart using Low Osmolar Contrast (ICD-10-PCS; principal; 2018-01-06 11:51)
PROC: B2111ZZ Fluoroscopy of Multiple Coronary Arteries using Low Osmolar Contrast (ICD-10-PCS; principal; 2018-01-06 11:51)
DX: I50.21 Acute systolic (congestive) heart failure (principal); J90 Pleural effusion, not elsewhere classified; I42.9 Cardiomyopathy, unspecified; I27.0 Primary pulmonary hypertension; I34.0 Nonrheumatic mitral (valve) insufficiency; J44.9 Chronic obstructive pulmonary disease, unspecified; Z85.118 Personal history of other malignant neoplasm of bronchus and lung; Z90.2 Acquired absence of lung [part of]; Z87.891 Personal history of nicotine dependence
CPT/HCPCS: 84484-PO; G0378; J1644; J1650; J1940; J2250; J3010; J7613; Q9967

== ENCOUNTER 2018-01-19 17:17 | Emergency (ER) | payer OTHER, MEDICARE ==
[2018-01-19] MEDS ORDERED: NS 1,000 ML IV ONE (19:45)
[2018-01-19 20:18] LABS: PLATELET COUNT 326 10^3/uL (150-400)
--- NOTE | 2018-01-19 20:35 | EDPHY ---
H & P Time Seen by Provider: 01/19/18 18:47 HPI/ROS: Chief complaint. Possible urinary tract infection, shortness of breath HPI. Patient is a 72-year-old female with lung cancer and status post right pneumonectomy in May 2017. She was hospitalized and admitted for 3 days on January 06 for shortness of breath. She had congestive heart failure, pleural effusion and a dilated cardiomyopathy. She was diuresed and discharged from the hospital. However she now for the last several days has increasing shortness of breath. She also has urinary frequency and dysuria. She has no fever or cough. No chest discomfort. No unusual leg pain or swelling. No abdominal pain. ROS Constitutional. no fever/chills, no weakness Eyes. no problems with vision ENT. no sore throat, no nasal drainage Cardiovascular. no chest pain Respiratory. Shortness of breath Abdominal. no abdominal pain, no nausea/vomiting, no diarrhea . Urinary frequency and burning with urination MS. no calf pain/swelling, no neck/back pain, no joint pain Skin. no rash Lymph. no swollen glands Neuro. no headache, no dizziness, no difficulty walking or with speech Past Medical/Surgical History: Arthritis, lung cancer, osteoporosis, atrial fibrillation Social History: , nonsmoker, no alcohol Smoking Status: Former smoker Physical Exam: General Appearance: Alert well-developed female moderate distress vital signs significant for blood pressure of 97/70 Eyes: Pupils equal and round no pallor or injection. ENT, Mouth: Mucous membranes are moist. Respiratory: Accessary muscle use and tachypnea. Decreased breath sounds on right where she had her pneumonectomy. Breath sounds on left are normal Cardiovascular: Regular rate and rhythm. Gastrointestinal: Abdomen is soft and nontender, no masses, bowel sounds normal. Neurological: Awake and alert, sensory and motor exams grossly normal. Skin: Warm and dry, no rashes. Musculoskeletal: Neck is supple nontender. Extremities symmetrical, full range of motion. Psychiatric: Patient is oriented X 3, there is no agitation. Constitutional: Initial Vital Signs Temperature (C) 36.4 C 01/19/18 17:20 Heart Rate 94 01/19/18 17:20 Respiratory Rate 20 01/19/18 17:20 Blood Pressure 97/78 L 01/19/18 17:20 O2 Sat (%) 98 01/19/18 17:20 O2 Delivery Mode Nasal Cannula O2 (L/minute) 3 Allergies/Adverse Reactions: No Known Allergies Allergy (Unverified 01/19/18 17:24) Home Medications: Medication Instructions Recorded Albuterol [Proventil Inhaler HFA 1 - 2 puffs IH DAILY PRN 05/19/17 (*)] Amitriptyline HCl [Elavil 50 mg 50 mg PO HS 05/19/17 (*)] Cholecalciferol Vit D3 [Vitamin D3 1,000 units PO BID 05/19/17 (*)] Estradiol [Estradiol 1 MG (*)] 0.5 mg PO DAILY 05/19/17 Herbals/Supplements -Info Only 1 ea PO DAILY 05/19/17 Multivitamins [Multivitamin (*)] 1 each PO DAILY 05/19/17 [place]-3 Fatty Acids [Fish Oil 1000 1,000 mg PO BID 05/19/17 mg (*)] Vitamin B Complex [Super B-50 1 each PO DAILY 05/19/17 Complex] Docusate Sodium [Colace 100 MG (*)] 100 mg PO DAILY PRN 05/23/17 Ibuprofen [Motrin (*)] 400 mg PO Q6H PRN 01/04/18 predniSONE [Prednisone] 10 mg PO AD 01/04/18 Carvedilol [Coreg (*)] 6.25 mg PO BIDMEAL #60 tab 01/07/18 Furosemide [Lasix 20 MG (*)] 20 mg PO BID@0900,1500 #60 tab 01/07/18 Lisinopril [Zestril 5 mg (*)] 2.5 mg PO DAILY #30 tab 01/07/18 Cephalexin [Keflex (*)] 500 mg PO TID #21 cap 01/19/18 Medical Decision Making - Diagnostics Imaging Results: Imaging Impressions Chest X-Ray 01/19/18 19:13 Impression: 1. Postoperative changes of pneumonectomy on the right. 2. No active cardiopulmonary disease seen. Chest/Thorax CTA 01/19/18 21:47 Impression: 1. No evidence of new pulmonary embolus involving the remaining left lung. 2. Relatively stable filling defect in the distal blind end right main pulmonary artery that could represent postoperative involuted tissue versus stable thrombus. 3. Interval resolution of small left effusion and patchy areas of pneumonitis left mid lung. Findings discussed with Ever Desouza M.D. at 22:37 hour, 01/19/2018. Chest x-ray reviewed by me shows right pneumonectomy and left lung normal CT chest with IV contrast shows no evidence of pulmonary embolus. No evidence of pneumonia Procedures: IV normal saline and patient is given 500 cc of IV fluids ED Course/Re-evaluation: Re-evaluation 8:30 p.m.. Patient is stable. Patient and I discussed laboratory and imaging studies. We discussed elevated D-dimer and pulmonary embolus as possible etiology of shortness of breath. Risk factor is lung cancer. We discussed CT angiogram of chest. She expresses understanding and agreement. We're still waiting for patient to be able to urinate. Patient has urinary tract infection. She is given IV Rocephin. The urine is sent for culture Sips serial evaluations patient is stable. She still has tachypnea. She is offered admission but declines and would like to be treated as an outpatient. The patient, her and I discussed treatment plan including criteria for return and the patient is encouraged to return over the weekend for worsening breathing. We talked about treatment for urinary tract infection. We talked about treatment for congestive heart failure as the patient does have an elevated BNP Differential Diagnosis: I considered pneumonia, pneumothorax, congestive heart failure. I have considered urinary tract infection. - Data Points Laboratory Results: Laboratory Results 01/19/18 20:03 01/19/18 20:03 01/19/18 01/19/18 01/19/18 21:00 20:03 20:03 WBC RBC Hgb Hct MCV MCH MCHC RDW Plt Count MPV Neut % (Auto) Lymph % (Auto) [place] % (Auto) Eos % (Auto) Baso % (Auto) Nucleat RBC Rel Count Absolute Neuts (auto) Absolute Lymphs (auto) Absolute Monos (auto) Absolute Eos (auto) Absolute Basos (auto) Absolute Nucleated RBC Immature Gran % Immature Gran # D-Dimer 2.71 ug/mLFEU H ug/mLFEU (0.00-0.50) Sodium 134 mEq/L L mEq/L (135-145) Potassium 3.9 mEq/L mEq/L (3.3-5.0) Chloride 96 mEq/L L mEq/L (97-110) Carbon Dioxide 30 mEq/l mEq/l (22-31) Anion Gap 8 mEq/L mEq/L (8-16) BUN 30 mg/dL H mg/dL (7-23) Creatinine 1.1 mg/dL H mg/dL (0.6-1.0) Estimated GFR 49 Glucose 108 mg/dL H mg/dL (70-100) Calcium 9.4 mg/dL mg/dL (8.5-10.4) NT-Pro-B Natriuret Pep 1430 pg/mL H pg/mL (0-125) Urine Color GOPI Urine Appearance MODERATELY TURBID Urine pH 5.0 (5.0-7.5) Ur Specific [place] 1.015 (1.002-1.030) Urine Protein 1+ H (NEGATIVE) Urine Ketones NEGATIVE (NEGATIVE) Urine Blood NEGATIVE (NEGATIVE) Urine Nitrate POSITIVE H (NEGATIVE) Urine Bilirubin NEGATIVE (NEGATIVE) Urine Urobilinogen 4.0 EU H EU (0.2-1.0) Ur Leukocyte Esterase TRACE H (NEGATIVE) Urine RBC 50-182 /hpf H /hpf (0-3) Urine WBC 50-182 /hpf H /hpf (0-3) Ur Epithelial Cells 2+ /lpf H /lpf (NONE-1+) Urine Bacteria 4+ /hpf H /hpf (NONE SEEN) Hyaline Casts 25-50 /lpf H /lpf (0-1) Urine Mucus TRACE /lpf /lpf (NONE-1+) Urine Glucose NEGATIVE (NEGATIVE) 01/19/18 20:03 WBC 10.40 10^3/uL H 10^3/uL (3.80-9.50) RBC 4.24 10^6/uL 10^6/uL (4.18-5.33) Hgb 10.5 g/dL L g/dL (12.6-16.3) Hct 33.8 % L % (38.0-47.0) MCV 79.7 fL L fL (81.5-99.8) MCH 24.8 pg L pg (27.9-34.1) MCHC 31.1 g/dL L g/dL (32.4-36.7) RDW 15.0 % % (11.5-15.2) Plt Count 326 10^3/uL 10^3/uL (150-400) MPV 9.5 fL fL (8.7-11.7) Neut % (Auto) 84.0 % H % (39.3-74.2) Lymph % (Auto) 7.7 % L % (15.0-45.0) [place] % (Auto) 6.2 % % (4.5-13.0) Eos % (Auto) 1.3 % % (0.6-7.6) Baso % (Auto) 0.4 % % (0.3-1.7) Nucleat RBC Rel Count 0.0 % % (0.0-0.2) Absolute Neuts (auto) 8.75 10^3/uL H 10^3/uL (1.70-6.50) Absolute Lymphs (auto) 0.80 10^3/uL L 10^3/uL (1.00-3.00) Absolute Monos (auto) 0.64 10^3/uL 10^3/uL (0.30-0.80) Absolute Eos (auto) 0.13 10^3/uL 10^3/uL (0.03-0.40) Absolute Basos (auto) 0.04 10^3/uL 10^3/uL (0.02-0.10) Absolute Nucleated RBC 0.00 10^3/uL 10^3/uL (0-0.01) Immature Gran % 0.4 % % (0.0-1.1) Immature Gran # 0.04 10^3/uL 10^3/uL (0.00-0.10) D-Dimer Sodium Potassium Chloride Carbon Dioxide Anion Gap BUN Creatinine Estimated GFR Glucose Calcium NT-Pro-B Natriuret Pep Urine Color Urine Appearance Urine pH Ur Specific [place] Urine Protein Urine Ketones Urine Blood Urine Nitrate Urine Bilirubin Urine Urobilinogen Ur Leukocyte Esterase Urine RBC Urine WBC Ur Epithelial Cells Urine Bacteria Hyaline Casts Urine Mucus Urine Glucose Medications Given: Discontinued Medications Sodium Chloride (Ns) 1,000 mls @ 0 mls/hr IV ONCE ONE; Wide Open PRN Reason: Protocol Stop: 01/19/18 19:46 Last Admin: 01/19/18 20:01 Dose: 1,000 mls Ceftriaxone Sodium/Dextrose (Rocephin 1 Gm (Premix)) 50 mls @ 100 mls/hr IV EDNOW ONE PRN Reason: Protocol Stop: 01/19/18 22:16 Last Admin: 01/19/18 21:57 Dose: 50 mls Departure - Departure Clinical Impression: Urinary tract infection Qualifiers: Urinary tract infection type: site unspecified Hematuria presence: with hematuria Qualified Code(s): N39.0 - Urinary tract infection, site not specified Dyspnea Qualifiers: Dyspnea type: shortness of breath Qualified Code(s): R06.02 - Shortness of breath Acute exacerbation of congestive heart failure Qualifiers: Heart failure type: systolic Qualified Code(s): I50.23 - Acute on chronic systolic (congestive) heart failure Condition: Fair Instructions: Urinary Tract Infection in Women (ED) Additional Instructions: Continue regular medications including Lasix(furosemide). Increase Lasix to 40 mg in the morning and then continue the 20 mg in the evening. Cephalexin as antibiotic for urinary tract infection with 1 pill 3 times daily. Return for worsening symptoms Recheck in 2-3 days without fail for recheck of your breathing. Referrals: Demarco Montanez MD [Primary Care Provider] - 2-3 days without fail Prescriptions: Cephalexin [Keflex (*)] 500 mg PO TID #21 cap
[2018-01-19] MEDS ORDERED: IOPAMIDOL (ISOVUE 370) 100 ML BTL IV ONE (21:57)
[2018-01-19 23:07] VITALS: BP 116/76
== END 2018-01-19 23:07 | disposition home or self-care (01) ==
DX: I50.23 Acute on chronic systolic (congestive) heart failure (principal); N39.0 Urinary tract infection, site not specified; B96.20 Unspecified Escherichia coli [E. coli] as the cause of diseases classified elsewhere; E86.9 Volume depletion, unspecified; Z87.891 Personal history of nicotine dependence
CPT/HCPCS: 71046; 71275; 96365; 99285; J0696; Q9967

== ENCOUNTER → 2018-06-19 | Outpatient (CLI) | payer OTHER, MEDICARE ==
[~2018-06-19] MED LIST changes: +DIAZEPAM 5 MG TAB PO ONE; +FLUMAZENIL 0.5 MG/5 ML MDV IVP PRN; -GADOBUTROL 10 ML VIAL IVP ONE; +LIDOCAINE 1% 300 MG/30 ML SDV ONE; +MEPERIDINE 25 MG/ML SYR IVP PRN; +MIDAZOLAM 2 MG/2 ML VIAL IVP PRN; +NALOXONE HCL 0.4 MG/ML INJ IVP PRN; +NS 1,000 ML IV SCH; +fentaNYL 100 MCG/2 ML INJ IVP PRN
[2018-06-19 09:55] VITALS: BP 145/73
== END ==
LOC: FIMAGING 09:06
PROVIDERS: ATTEND Internal Medicine Hematology & Oncology
PROC: 07B13ZX Excision of Right Neck Lymphatic, Percutaneous Approach, Diagnostic (ICD-10-PCS; principal; 2018-06-19)
DX: R59.1 Generalized enlarged lymph nodes (principal)
CPT/HCPCS: J2250; J2310; J3010

== ENCOUNTER 2018-10-26 12:56 | Inpatient (IN) | payer OTHER, MEDICARE ==
[2018-10-26] MEDS ORDERED: ONDANSETRON 4 MG/2 ML VIAL IVP PRN (19:16)
[2018-10-26] MEDS ORDERED: DEXAMETHASONE 10 MG/ML VIAL IVP ONE (19:16)
[2018-10-26] MEDS ORDERED: ONDANSETRON DISINTEGRATING 4 MG TAB PO PRN (19:16)
[2018-10-26] MEDS ORDERED: oxyCODONE IR 5 MG TAB PO PRN (19:16)
[2018-10-26] MEDS ORDERED: ACETAMINOPHEN 325 MG TAB PO PRN (19:16)
[2018-10-26] MEDS ORDERED: PROMETHAZINE HCL 25 MG/ML INJ IVP PRN (19:16)
[2018-10-26] MEDS ORDERED: LORazepam 2 MG/ML INJ IVP PRN (19:16)
[2018-10-26] MEDS ORDERED: HYDROmorphONE/DILAUDID 1 MG/ML INJ IVP PRN (19:16)
[2018-10-26] MEDS ORDERED: DEXAMETHASONE 4 MG/ML VIAL IVP ONE ×2 (19:30→20:30)
[2018-10-26] MEDS: LORazepam 0.5 MG TAB PO PRN (20:00)
--- NOTE | 2018-10-26 20:28 | PDGENHP ---
History and Physical - Chief Complaint gait and visual issues--found to have brain mets on brain MRI - History of Present Illness 73 yo F with PMH of lung adenocarcinoma s/p right pneumonectomy as well as NICM with systolic dysfunction and a fib who presents from urgent care where she was seen for c/o gait issues and visual changes. She notes she has had these symptoms for several months along with significantly increased fatigue. She states she is sleepy all of the time and frequently will need to take a nap right after breakfast. She has had issues where the left side of her visual field seems to cut out, and she has to turn her head to be able to see things that normally would be in her peripheral vision on the left. She has also had issues with feeling off balance and unsteady when she walks, she states this is not related to weakness or just to the visual issues. She has not had any seizure activity. She has never had similar issues in the past. She initially thought these sxs were stress related as she has had a very difficult year with the recent unexpected of her son as well as her mother in law and her husbands declining health. Her weight has been stable since her pneumonectomy in 2017, but she did lose nearly 30 pounds at that time. History Information - Allergies/Home Medication List Allergies/Adverse Reactions: No Known Allergies Allergy (Verified 06/12/18 12:25) Home Medications: Albuterol [Proventil Inhaler HFA (*)] 1 - 2 puffs IH DAILY PRN 05/19/17 [Last Taken 01/03/18] Amitriptyline HCl [Elavil 50 mg (*)] 50 mg PO HS 05/19/17 [Last Taken 10/26/18] Cholecalciferol Vit D3 [Vitamin D3 (*)] 1,000 units PO BID 05/19/17 [Last Taken 10/26/18] Herbals/Supplements -Info Only 1 ea PO DAILY 05/19/17 [Last Taken 10/26/18] Multivitamins [Multivitamin (*)] 1 each PO DAILY 05/19/17 [Last Taken 10/26/18] [place]-3 Fatty Acids [Fish Oil 1000 mg (*)] 1,000 mg PO DAILY 05/19/17 [Last Taken 10/26/18] Docusate Sodium [Colace 100 MG (*)] 100 mg PO DAILY 05/23/17 [Last Taken ] Ibuprofen [Motrin (*)] 400 mg PO Q6H PRN 01/04/18 [Last Taken 01/04/18 09:00] ALPRAZolam [Xanax 0.5 MG (*)] 0.5 mg PO DAILY 06/12/18 [Last Taken 10/26/18] Estradiol [Estradiol 0.5 MG (RX)] 0.5 mg PO DAILY 10/26/18 [Last Taken 10/26/18] I have personally reviewed and updated: family history, medical history, social history, surgical history - Past Medical History atrial fibrillation, cancer (stage 1 adenocarcinoma of the lung with secondary primary recurrence per onc notes), CHF (systolic HF with EF of 25% ), COPD, hypertension Additional medical history: moderate pulm htn - Surgical History Reports: cancer surgery, hysterectomy Additional surgical history: right pneumonectomy. bladder surgery - Family History Positive for: non-pertinent Additional family history: Denies family hx of lung CA - Social History Smoking Status: Former smoker Alcohol Use: None Drug Use: None Additional social history: , with dementia per her report, 3 sons 1 of whom recently at age 43 of uncertain causes Review of Systems Review of Systems: ROS: 10pt was reviewed & negative except for what was stated in HPI & below Physical Exam Physical Exam: Temp Pulse Resp BP Pulse Ox 36.7 C 103 H 18 174/87 H 96 10/26/18 19:11 10/26/18 19:11 10/26/18 19:11 10/26/18 19:11 10/26/18 19:11 Constitutional: not in pain, chronically ill appearing Eyes: PERRL, anicteric sclera Ears, Nose, Mouth, Throat: hearing normal, dry mucous membranes Cardiovascular: regular rate and rhythym, no murmur, rub, or gallop Respiratory: reduced air movement, respiratory distress Gastrointestinal: normoactive bowel sounds, soft, non-tender abdomen Genitourinary: no bladder tenderness Skin: warm, normal color Musculoskeletal: full muscle strength Neurologic: AAOx3, CN II-XII Intact Psychiatric: interacting appropriately, not anxious, not encephalopathic Lab Data & Imaging Review Visualized and Interpreted imaging results: Yes Interpretation: Brain MRI : multiple intracranial mets, largest in right occipital region with associated edema Assessment & Plan Assessment: 73 yo F with PMH of lung cancer (adenocarcinoma) with recurrent primary apparently both diagnosed stage 1 and s/p pneumonectomy presenting with gait instability and visual field deficits found to have intracranial mets # brain mets: with several small and one dominant lesion located in right occipital region, sxs of visual issues as well as gait instability noted by patient present for months. Oncology consulted by and recommended admission, they will see patient in am. Discussed care plan with NSG--they are recommending initiation of dexamethasone and will evaluate in am and discuss with oncology to determine if tissue diagnosis necessary given that her lung cancer was not previously metastatic. PT/OT to eval. # lung cancer: as above, s/p right pneumonectomy in 2017 and without recurrence since that time, she is followed by Dr. Walter, has not undergone chemo/ radiation only surgery apparently # chronic systolic heart failure: with EF as low as 25% in the past, most recent echo EF has improved to 55%, non ischemic presumably due to afib, currently appears compensated # HTN: on presentation was elevated in setting of anxiety, will continue her home medications as well as prn hydralazine # copd: without e/o acute exacerbation though patient noted to have increased wob on exam, she does have limited reserve given only 1 lung and copd in remaining lung, monitoring # IP status # FC # Patient new to my care. Old records reviewed and summarized as above. Care plan reviewed with doctor as above.
[2018-10-26] MEDS ORDERED: ALBUTEROL 60 PUFFS/8 GM MDI IH PRN (22:34)
[2018-10-27] MEDS: DEXAMETHASONE 4 MG/ML VIAL IVP SCH ×3 (00:16→12:59)
[2018-10-27 04:28] LABS: PLATELET COUNT 256 10^3/uL (150-400)
[2018-10-27 04:40] LABS: INR 1.06 (0.83-1.16); PROTIME(PATIENT) 13.4 SEC (12.0-15.0)
--- NOTE | 2018-10-27 06:52 | PDMN ---
Medical Necessity Medical necessity: Pt meets IP criteria as of 10/26/2018 per and [place] MG-N ( Neurology [facility]); est los > 2 mn for ongoing tx and evaluation of acute onset gait instability and visual field deficits, several small and one dominant brain lesions noted on imaging. This is in the setting of lung cancer without known mets; requiring oncology consultation, neurosurgery consultation, PT/OT, and dexamethasone. Hx CHF, lung CA, HTN, and COPD.
[2018-10-27] MEDS: ESTRADIOL 0.5 MG TAB PO SCH (09:13)
[2018-10-27] MEDS: DOCUSATE SODIUM 100 MG CAP PO SCH (09:13)
[2018-10-27] MEDS: ALPRAZolam 0.5 MG TAB PO SCH (09:13)
[2018-10-27] MEDS: MULTIVITAMINS 1 EACH TAB PO SCH (09:13)
[2018-10-27] MEDS: CHOLECALCIFEROL VIT D3 1,000 UNITS TAB PO SCH ×2 (09:13→21:36)
[2018-10-27] MEDS: OMEGA-3 FATTY ACIDS 1,000 MG CAP PO SCH (09:13)
[2018-10-27] MEDS: CARVEDILOL 6.25 MG TAB PO SCH ×2 (09:13→18:23)
--- NOTE | 2018-10-27 11:27 | PDCONSULT ---
Mica Plate Layer Note: Patient is a 73-year-old female with a history of lung cancer who had an MRI for vision changes and ataxia was subsequently found to have multiple brain metastases. Patient reports 3-4 months worth of difficulty ambulating favoring the right side. She also reports a persistent left visual field defect as well. She ended up getting an MRI of the brain 10/26/2018 showed multiple intracranial metastatic lesions the largest is present in the right occipital region measuring 3.2 x 2.4 cm in size with adjacent vasogenic edema. Other smaller cortical and subcortical metastases are present in the parietal lobes bilaterally. In regard to the patient's cancer history she was initially diagnosed with stage I well-differentiated adenocarcinoma of the right upper lobe in September 2000. She underwent a right upper lobe lobectomy with hilar node sampling the pathology showed adenocarcinoma that was well differentiated with areas of bronchial duration. The primary tumor measured 2.2 cm there was no lymphovascular invasion. Hilar nodes were negative for malignancy, margins were negative. Then on a screening CT scan in February 2017 there was identified an area of thickening associated with the right apical pleural-parenchymal scarring. This region was found to be PET/CT avid and she underwent a right pneumonectomy on 05/26/2017. The pathology from that showed a 5.5 cm well- differentiated adenocarcinoma with peripheral lipidic growth pattern. Visceropleural involvement was present. Margins were negative one hilar lymph node was negative. Pleural biopsy was unremarkable. She was staged [id number] lymph nodes sampled. Her postoperative course was complicated. Past medical history: Adenocarcinoma of the right lung as per HPI Past surgical history: Pneumonectomy and lobectomy as per HPI Social history: Patient has a 30+ pack year smoking history but quit after the diagnosis of her first lung cancer. No significant alcohol or drug use. She is . She recently lost a son. Family history: No family history of cancer Review of systems: A complete 12 point review of systems was obtained and found to be negative unless indicated in history of present illness Physical examination: ECOG 1 General: No acute distress nontoxic appearing female HEENT: Pupils are equal round and reactive to light no scleral icterus or conjunctival pallor is appreciated, oral mucosa is moist without any evidence of oropharyngeal lesions Neck: Supple without adenopathy Cardiovascular: Regular rate and rhythm without rubs of gallops murmurs Chest: Clear to auscultation and percussion of bilateral posterior lungs Abdomen: Soft nontender nondistended without any hepatosplenomegaly Extremities: Warm well perfused 2+ dorsalis pedis and radial pulses bilaterally Neurologic: Cranial nerves II through XII are intact. To have a quadrantanopsia in the left lower quadrant, gait is somewhat antalgic favoring the right side, Romberg is negative, patient has difficulty with rapid alternating movements on the right side I personally reviewed all laboratory and imaging findings as well as medications as per electronic medical record Assessment and plan: Patient is a 73-year-old female with a history of lung cancer status post resection in 2017 who presents with 3 months worth of gait instability and left visual field loss and subsequent found to have a symptomatic right occipital lobe metastasis in addition to other smaller brain metastasis. Problem #1symptomatic brain metastasis Patient has a visual field defect as well as gait instability. She also has difficulty with rapid alternating movements on the right side. These findings would all be concordant with the MRI finding of a right occipital lobe metastasis. She has not had significant improvement on dexamethasone. As the lesion is peripheral would favor surgical resection followed by SRS to the resection cavity. Presumably this is metastatic lung cancer some tissue sent for pathology and for extensive genomic testing. Given her history of smoking is unlikely she has a class a regional drivers mutation. In the meantime we will scans to look for any other evidence of metastatic disease. I agree with neurosurgical consult and continuing steroids. I will continue to follow along with patient
[2018-10-27] MEDS ORDERED: IOPAMIDOL (ISOVUE-300) 100 ML BTL ONE (11:48)
[2018-10-27] MEDS ORDERED: SODIUM CL NASAL 45 ML BTL EACHNARE PRN (14:08)
--- NOTE | 2018-10-27 15:31 | CPEKG ---
Test Reason : OPEN Blood Pressure : / mmHG Vent. Rate : 096 BPM Atrial Rate : 096 BPM P-R Int : 241 ms QRS Dur : 096 ms QT Int : 381 ms P-R-T Axes : 079 -07 -14 degrees QTc Int : 482 ms Sinus rhythm Prolonged DE interval Confirmed by Nereida Hamm ([id number]) on 10/27/2018 3:30:46 PM Referred By: Augustina Herrera Confirmed By:Nereida Hamm
--- NOTE | 2018-10-27 15:58 | ASMTCMCOM ---
CM Note CM Note Notes: CM reviewed pt's chart for d/c planning. Pt is a 73y/o woman, with a hx of lung adenocarcinoma, with several months of increased sleepiness, gait issues and visual changes. Pt now has brain mets with several small and one dominant lesion in right occipital region. PT and OT have been ordered. OT has recommended out-pt rehab. CM will follow for further recommendations. D/C Plan: TBD Date Signed: 10/27/2018 03:57 PM Electronically Signed By:Madonna Henderson
--- NOTE | 2018-10-27 16:03 | HOSPPROG ---
Hospitalist Progress Note Assessment/Plan: 73 yo F with PMH of lung cancer (adenocarcinoma) with recurrent primary apparently both diagnosed stage 1 and s/p pneumonectomy presenting with gait instability and visual field deficits found to have intracranial mets # brain mets: with several small and one dominant lesion located in right occipital region, sxs of visual issues as well as gait instability noted by patient present for months. I discussed the case with neurosurgery who will likely take the patient to surgery in the next few days. -continue decadron -neurosurgery to see -likely will require surgery this admission -PT/OT -neuro checks. # lung cancer: as above, s/p right pneumonectomy in 2017 and without recurrence since that time, she is followed by Dr. Walter, has not undergone chemo/ radiation only surgery apparently # chronic systolic heart failure: with EF as low as 25% in the past, most recent echo EF has improved to 55%, non ischemic presumably due to afib, currently appears compensated # HTN: on presentation was elevated in setting of anxiety, will continue her home medications as well as prn hydralazine # copd: without e/o acute exacerbation though patient noted to have increased wob on exam, she does have limited reserve given only 1 lung and copd in remaining lung, monitoring # IP status # FC # Patient new to my care. Old records reviewed and summarized as above. Subjective: patient with some fatigue and vision problems but wants to go home for the weekend if no surgery. eating a hamburger and fries with no issues during interview. Objective: Vital Signs Temp Pulse Resp BP Pulse Ox 36.7 C 102 H 16 162/101 H 98 10/27/18 15:39 10/27/18 15:39 10/27/18 15:39 10/27/18 15:39 10/27/18 15:39 Laboratory Results 10/27/18 04:00 10/27/18 04:02 10/26/18 10/27/18 10/28/18 05:59 05:59 05:59 Intake Total 100 600 Output Total 900 1000 Balance -800 -400 PT 13.4 SEC (12.0-15.0) 10/27/18 04:00 INR 1.06 (0.83-1.16) 10/27/18 04:00 - Physical Exam Constitutional: no apparent distress, appears nourished, not in pain Eyes: PERRL, anicteric sclera, EOMI Ears, Nose, Mouth, Throat: moist mucous membranes, hearing normal, ears appear normal, no oral mucosal ulcers Cardiovascular: regular rate and rhythym, no murmur, rub, or gallop Respiratory: no respiratory distress, no rales or rhonchi, clear to auscultation Gastrointestinal: normoactive bowel sounds, soft, non-tender abdomen, no palpable masses Genitourinary: no bladder fullness, no bladder tenderness, no renal bruits Skin: no rashes or abrasions, no fluctuance, no induration Musculoskeletal: full muscle strength, no muscle tenderness, normal joint ROM Neurologic: AAOx3, sensation intact bilaterally, other (visual field deficit noted. ) Psychiatric: interacting appropriately, not anxious, not encephalopathic, thought process linear Lymph, Heme, Immunologic: no cervical LAD, no supraclavicular LAD ICD10 Worksheet Patient Problems: Problems Problem Status Onset Dyspnea Acute Lung cancer Acute Nonischemic cardiomyopathy Acute Pleural effusion Acute Tachycardia Acute
--- NOTE | 2018-10-27 16:05 | GCON ---
[f rep st] CONSULTATION HISTORY OF PRESENT ILLNESS: The patient is a pleasant 73-year-old female, who presented to the emergency room yesterday and was admitted to the medicine service with finding of multiple bilateral prior lesions and one large 3 cm left occipital lesion on MRI imaging after presenting with complaints of left- sided visual field deficits, as well as gait instability that has been ongoing and worsening for the last 3 months. She has a history of adenocarcinoma of the lung starting in 2001 when she underwent a right upper lobe lobectomy with negative sentinel nodes. She then had recurrence in February 2017 found on a screening CT scan and underwent a total right pneumonectomy on 05/26/2017. Pathology showed adenocarcinoma, and she was stage T3 N03 per Oncology report. She states today that she can see out of it peripherally, but, when she tries to read, she notices the left field is missing, and it makes it frustrating. She has been unable to read. She also complains of falls and instability without being on an unstable surface. She denies any weakness, any difficulties of speech, or any changes in hearing. PAST MEDICAL HISTORY: Includes adenocarcinoma of the right lung, as stated above. AFib. CHF with systolic heart failure, with an ejection fraction of 25% . COPD and hypertension. She does have moderate pulmonary hypertension. PAST SURGICAL HISTORY: Includes hysterectomy, right lobectomy in 2000, and a pneumonectomy in 2016, as well as bladder surgery. FAMILY HISTORY: She denies a family history of lung cancer. SOCIAL HISTORY: The patient is a former smoker. She does not use alcohol. She has no illicit drug use. She is . She had 3 sons, one of whom at 43 of uncertain causes. Her is reported to have dementia. REVIEW OF SYSTEMS: Negative except as stated in the HPI. ALLERGIES: The patient has no known drug allergies. HOME MEDICATIONS: Include daily herbal supplements, ibuprofen 600 mg as needed , albuterol Proventil inhaler 1 to 2 puffs daily, Xanax 0.5 mg daily as needed, amitriptyline 50 mg p.o. nightly, carvedilol 6.25 mg twice a day, 1000 units of vitamin D3 twice a day, Colace 100 mg daily, estradiol 0.5 mg daily, daily multivitamin, and daily omega-3. NEUROLOGICAL PHYSICAL EXAM: The patient is in no acute distress. She is alert and oriented x3. Her speech is clear and fluent. She has no facial droop. Cranial nerves 2 through 12 do appear grossly intact. Visual acuity midline is grossly intact. Visual woods are grossly intact except for a questionable left lower field. The patient moves all extremities x4. She has 5/5 strength in her bilateral upper and lower extremities. Her reflexes are normal. She has no Guillermo and no clonus. Her coordination appears normal. Finger-to- nose is accurate. Gait is deferred on exam this a.m. IMAGING: Reviewed in HPI. ASSESSMENT/PLAN: This is a 73-year-old female with a history of recurrent adenocarcinoma and multiple metastatic lesions to the head. So far, CT of the abdomen and pelvis have not confirmed any other areas of lesion. However, there is a suspicious infraclavicular lymph node. The patient does have one large 3 cm left occipital lesion. We will likely favor resection given Oncology 's recommendations; however, it does come with risks of possible visual deficits postoperatively. We will continue Decadron 4 mg q.6 h. for the remainder of the admission. There is no need for Keppra at this time. There is no suspected seizure activity. However, if there were, we would recommend loading Keppra [address] Parra met with the at at approximately 17:30 to discuss the pros and cons of resection. We will plan accordingly after completing discussion with Oncology and the medicine team. Thank you for this consultation. We will continue to follow along. /[id number]/MODL MTDD
[2018-10-27] MEDS: DEXAMETHASONE 4 MG TAB PO SCH (18:23)
[2018-10-27] MEDS: AMITRIPTYLINE HCL 50 MG TAB PO SCH (21:36)
[2018-10-27] MEDS: LORazepam 0.5 MG TAB PO PRN (21:37)
[2018-10-27] MEDS: diphenhydrAMINE 50 MG CAP PO PRN (21:37)
[2018-10-28] MEDS: DEXAMETHASONE 4 MG TAB PO SCH ×4 (00:10→18:51)
--- NOTE | 2018-10-28 08:32 | NEUSURGPN ---
Assessment/Plan: 73F with multiple small b/l parietal metastatic lesions, and one large right occipital lesion with c/o visual field deficit and gait issues of the past few months. She has hx of adenocarcinoma of the lung resected in 2000 and again in 2017 after recurrent which required pneumonectomy. She also has hx of CHF, last EF reported at 55%, but has been as low as 25% in the past. -Neuro checks per unit routine -continue decadron 4q6 -will need MRI [facility] tomorrow AM- this is ordered -no need for AED's at this time. -tentatively plan for resection and biopsy for pathology tomorrow afternoon -will enter pre surg orders and NPO at midnight once time confirmed -DVT ppx- SCD's, LICHA's, hold chemoppx. -PT for gait issues. dw Dr. Parra. Subjective: doing OK. No improvement in vision with steroids. Objective: NAD VSS AAOx4 [id number] grossly intact visual acuity grossly intact, ?left lower field cut EOMI, PEARLA Speech clear and fluent MAEx4, 5/5= SILT - Physician Discussed Patient with Dr.: Parra Neurosurgery Physical Exam - Vitals, I&O, Labs I and O 10/27/18 10/28/18 10/29/18 05:59 05:59 05:59 Intake Total 100 2400 Output Total 900 1000 Balance -800 1400 Weight 46.72 kg Intake: Oral (ml) 100 2400 Output: Urine (ml) 900 1000 Toilet 900 1000 Other: Number of Voids Toilet 1 2 Number of Stools Toilet 1 Vital Signs Temp Pulse Resp BP Pulse Ox 36.6 C 97 15 144/73 H 97 10/28/18 04:00 10/28/18 04:00 10/28/18 04:00 10/28/18 04:00 10/28/18 04:00 Laboratory Results 10/27/18 04:00 10/27/18 04:02 ICD10 Worksheet Patient Problems: Problems Problem Status Onset Dyspnea Acute Lung cancer Acute Nonischemic cardiomyopathy Acute Pleural effusion Acute Tachycardia Acute
[2018-10-28] MEDS: OMEGA-3 FATTY ACIDS 1,000 MG CAP PO SCH (09:34)
[2018-10-28] MEDS: CHOLECALCIFEROL VIT D3 1,000 UNITS TAB PO SCH ×2 (09:34→20:41)
[2018-10-28] MEDS: CARVEDILOL 6.25 MG TAB PO SCH ×2 (09:34→18:45)
[2018-10-28] MEDS: ESTRADIOL 0.5 MG TAB PO SCH (09:34)
[2018-10-28] MEDS: MULTIVITAMINS 1 EACH TAB PO SCH (09:34)
[2018-10-28] MEDS: ALPRAZolam 0.5 MG TAB PO SCH (09:34)
[2018-10-28] MEDS: DOCUSATE SODIUM 100 MG CAP PO SCH (09:34)
[2018-10-28] MEDS ORDERED: GADOBUTROL 10 ML VIAL IVP ONE (10:41)
--- NOTE | 2018-10-28 11:10 | SOAPPROG ---
SOAP Progress Note Assessment/Plan: Assessment/Plan: Patient is a 73-year-old female with a history of localized lung cancer status post resection who presents with a symptomatic brain metastasis. Problem #1 - symptomatic brain metastasis Patient symptoms have improved on dexamethasone but it gets resolved. Given the symptomatic nature of her brain metastasis, the dominant left occipital lobe , and agree with resection followed by SRS to the resection cavity as well as to the smaller brain lesions. He appears to have a low burden systemic disease with defecation of a large right infraclavicular large axillary lymph CT of the chest and pelvis.Patient understands the palliative nature of the surgery. Subjective: Patient reports feeling better without any complaints. She continues to have some left-sided visual field loss however this seems to not be as severe as it was yesterday. In addition her ataxia seems to have a period yesterday. No new neurologic symptoms. Objective: Vital Signs Temp Pulse Resp BP Pulse Ox 36.6 C 106 H 16 150/105 H 93 10/28/18 09:21 10/28/18 09:21 10/28/18 09:21 10/28/18 09:21 10/28/18 09:21 Laboratory Results 10/27/18 04:00 10/27/18 04:02 10/27/18 10/28/18 10/29/18 05:59 05:59 05:59 Intake Total 100 2400 Output Total 900 1000 Balance -800 1400 PT 13.4 SEC (12.0-15.0) 10/27/18 04:00 INR 1.06 (0.83-1.16) 10/27/18 04:00 Physical examination: General: No acute distress nontoxic appearing female HEENT: Pupils are equal round and reactive to light no scleral icterus or conjunctival pallor is appreciated, oral mucosa is moist without any evidence of oropharyngeal lesions Neck: Supple without adenopathy Cardiovascular: Regular rate and rhythm without rubs of gallops murmurs Chest: Clear to auscultation and percussion of bilateral posterior lungs Abdomen: Soft nontender nondistended without any hepatosplenomegaly Extremities: Warm well perfused 2+ dorsalis pedis and radial pulses bilaterally Neurologic: Cranial nerves II through XII are intact. Improve rapid alternating movements on the right side, mild drift to the right with gait. ICD10 Worksheet Patient Problems: Problems Problem Status Onset Dyspnea Acute Lung cancer Acute Nonischemic cardiomyopathy Acute Pleural effusion Acute Tachycardia Acute
--- NOTE | 2018-10-28 13:06 | HOSPPROG ---
Hospitalist Progress Note Assessment/Plan: 73 yo F with PMH of lung cancer (adenocarcinoma) with recurrent primary apparently both diagnosed stage 1 and s/p pneumonectomy presenting with gait instability and visual field deficits found to have intracranial mets # brain mets: with several small and one dominant lesion located in right occipital region, symptoms currently consist of mostly left sided visual field deficits and mild gait instability. I discussed the case with oncology and neurosurgery and the plan is for OR Monday, most likely followed by radiation. -continue decadron -surgery Monday(NPO at Ne, hold heparin) -neuro checks # lung cancer: as above, s/p right pneumonectomy in 2017 and without recurrence since that time, she is followed by Dr. Walter, has not undergone chemo/ radiation only surgery apparently -CT chest abdomen done and reviewed and it shows an enlarged supraclavicular and axillary node that is concerning for mets. -Onc following. # chronic systolic heart failure: with EF as low as 25% in the past, most recent echo EF has improved to 55%, non ischemic presumably due to afib, currently appears compensated # HTN: on presentation was elevated in setting of anxiety, will continue her home medications as well as prn hydralazine # copd: without e/o acute exacerbation though patient noted to have increased wob on exam, she does have limited reserve given only 1 lung and copd in remaining lung, monitoring # IP status # FC # inpatient, to OR in am. Subjective: patient feels fine. Still with left sided vision deficit. no other issues. Objective: Vital Signs Temp Pulse Resp BP Pulse Ox 36.6 C 106 H 16 150/105 H 93 10/28/18 09:21 10/28/18 09:21 10/28/18 09:21 10/28/18 09:21 10/28/18 09:21 Laboratory Results 10/27/18 04:00 10/27/18 04:02 10/27/18 10/28/18 10/29/18 05:59 05:59 05:59 Intake Total 100 2400 Output Total 900 1000 Balance -800 1400 PT 13.4 SEC (12.0-15.0) 10/27/18 04:00 INR 1.06 (0.83-1.16) 10/27/18 04:00 - Physical Exam Constitutional: no apparent distress, appears nourished, not in pain Eyes: PERRL, anicteric sclera, EOMI Ears, Nose, Mouth, Throat: moist mucous membranes, hearing normal, ears appear normal, no oral mucosal ulcers Cardiovascular: regular rate and rhythym, no murmur, rub, or gallop Respiratory: no respiratory distress, no rales or rhonchi, clear to auscultation Gastrointestinal: normoactive bowel sounds, soft, non-tender abdomen, no palpable masses Genitourinary: no bladder fullness, no bladder tenderness, no renal bruits Skin: no rashes or abrasions, no fluctuance, no induration Musculoskeletal: full muscle strength, no muscle tenderness, normal joint ROM Neurologic: AAOx3, sensation intact bilaterally, other (left sided visual field deficit still present. ) Psychiatric: interacting appropriately, not anxious, not encephalopathic, thought process linear Lymph, Heme, Immunologic: no cervical LAD, no supraclavicular LAD ICD10 Worksheet Patient Problems: Problems Problem Status Onset Dyspnea Acute Lung cancer Acute Nonischemic cardiomyopathy Acute Pleural effusion Acute Tachycardia Acute
--- NOTE | 2018-10-28 15:27 | ASMTCMCOM ---
CM Note CM Note Notes: Chart reviewed. Patient scheduled for neurosurgery tomorrow. Will go to ICU and likely need an inpatient rehab somewhere when medically stable. CM to follow for needs. Plan: TBD Date Signed: 10/28/2018 03:27 PM Electronically Signed By:Emily Gilliam RN
[2018-10-28] MEDS: AMITRIPTYLINE HCL 50 MG TAB PO SCH ×2 (20:41→20:51)
[2018-10-28] MEDS: LORazepam 0.5 MG TAB PO PRN (20:50)
[2018-10-28] MEDS: diphenhydrAMINE 50 MG CAP PO PRN (20:50)
[2018-10-29] MEDS ORDERED: NS W/ 20 KCl/L 1,000 ML IV SCH
[2018-10-29] MEDS: DEXAMETHASONE 4 MG TAB PO SCH ×5 (00:40→21:20)
[2018-10-29] MEDS: hydrALAZINE 10 MG TAB PO PRN ×3 (00:48→15:37)
[2018-10-29] MEDS: CARVEDILOL 6.25 MG TAB PO SCH ×2 (08:05→16:58)
[2018-10-29] MEDS: DOCUSATE SODIUM 100 MG CAP PO SCH (08:05)
[2018-10-29] MEDS: CHOLECALCIFEROL VIT D3 1,000 UNITS TAB PO SCH ×2 (08:06→21:21)
[2018-10-29] MEDS: ESTRADIOL 0.5 MG TAB PO SCH (08:06)
[2018-10-29] MEDS: ALPRAZolam 0.5 MG TAB PO SCH (08:06)
[2018-10-29] MEDS: OMEGA-3 FATTY ACIDS 1,000 MG CAP PO SCH (08:06)
[2018-10-29] MEDS: MULTIVITAMINS 1 EACH TAB PO SCH (08:07)
[2018-10-29] MEDS ORDERED: ceFAZolin 2 GM/DEXTROSE 100 ML IV ONE (08:46)
--- NOTE | 2018-10-29 09:01 | HOSPPROG ---
Hospitalist Progress Note Assessment/Plan: # brain mets, symptomatic - plan surgical resection today - also has abnormal infraclavicular and axillary LNs - cont decadron # hx lung cancer s/p R pneumonectomy # htn - quite elevated today - recheck prior to surgery - cont coreg for now, may need additional agent # chronic NICM and sCHF with recovered EF (25-55%) - cont coreg; she is not on an LEXI-I # a-fib - cont coreg # COPD - she currently is complaining of losing her voice and is concerned about bronchitis - follow closely post-op for bronchitis Subjective: hypertensive today; thirsty Objective: Vital Signs Temp Pulse Resp BP Pulse Ox 36.9 C 99 18 180/122 H 100 10/29/18 07:27 10/29/18 08:05 10/29/18 07:27 10/29/18 08:06 10/29/18 07:27 Laboratory Results 10/27/18 04:00 10/27/18 04:02 10/28/18 10/29/18 10/30/18 05:59 05:59 05:59 Intake Total 2400 644 Output Total 1000 Balance 1400 644 PT 13.4 SEC (12.0-15.0) 10/27/18 04:00 INR 1.06 (0.83-1.16) 10/27/18 04:00 chart reviewed MRI personally reviewed - Physical Exam Constitutional: no apparent distress, appears nourished Eyes: anicteric sclera Ears, Nose, Mouth, Throat: hearing normal, ears appear normal Cardiovascular: no murmur, rub, or gallop, irregularly irregular Respiratory: no respiratory distress, no rales or rhonchi, other (no R side breath souds), No expiratory wheeze Gastrointestinal: No distension Genitourinary: No fernandez in urethra Skin: warm Musculoskeletal: full muscle strength Neurologic: AAOx3 Psychiatric: not anxious ICD10 Worksheet Patient Problems: Problems Problem Status Onset Nonischemic cardiomyopathy Acute Lung cancer Acute Dyspnea Acute Pleural effusion Acute Tachycardia Acute
[2018-10-29] MEDS ORDERED: BUPIVACAINE/EPI 0.25% 30 ML SDV ONE (11:12)
[2018-10-29] MEDS ORDERED: CHLORHEXIDINE GLUC HIBICLENS 118 ML BTL TP ONE (11:13)
[2018-10-29] MEDS ORDERED: POVIDONE-IODINE 30 GM OINTTUBE TP ONE (11:14)
[2018-10-29] MEDS ORDERED: GENTAMICIN SULFATE 80 MG/2 ML VIAL ONE ×2 (11:15→12:01)
[2018-10-29] MEDS ORDERED: BACITRACIN ZINC 0.5 OZ OINTTUBE TP ONE (11:15)
[2018-10-29] MEDS ORDERED: SURGIFLO MATRIX KIT WITH THROMBIN 8 ML TP ONE (11:17)
[2018-10-29] MEDS ORDERED: THROMBIN (BOVINE) 5,000 UNIT VIAL TP ONE (11:17)
[2018-10-29] MEDS ORDERED: HYDROGEN PEROXIDE 236 ML BOTTLE TP ONE (11:18)
[2018-10-29] MEDS ORDERED: AVITENE POWDER 1 GM JAR TP ONE (11:21)
[2018-10-29] MEDS ORDERED: MANNITOL 20% 100 GM/500 ML BAG IV ONE (11:21)
[2018-10-29] MEDS ORDERED: LR 1,000 ML IV ONE (11:23)
[2018-10-29] MEDS ORDERED: CEFAZOLIN 2 GM/DEXTROSE/100 ML BAG IV ONE (11:26)
--- NOTE | 2018-10-29 11:29 | SOAPPROG ---
IRIS Progress Note Assessment/Plan: Assessment: Assessment/Plan: Patient is a 73-year-old female with a history of localized lung cancer status post resection who presents with a symptomatic brain metastasis. Problem #1 - symptomatic brain metastasis Patient symptoms have improved on dexamethasone. Given the symptomatic nature of her brain metastasis, the dominant left occipital lobe, agree with resection followed by SRS to the resection cavity as well as to the smaller brain lesions. Plan:To surgery today, may need rebiopsy right ax/sc adenopathy, path benign . 10/29/18 11:27 Objective: Vital Signs Temp Pulse Resp BP Pulse Ox 98.4 F 99 118 H 180/122 H 100 10/29/18 10:58 10/29/18 10:58 10/29/18 10:58 10/29/18 10:58 10/29/18 10:58 Laboratory Results 10/27/18 04:00 10/27/18 04:02 10/28/18 10/29/18 10/30/18 05:59 05:59 05:59 Intake Total 2400 644 Output Total 1000 Balance 1400 644 PT 13.4 SEC (12.0-15.0) 10/27/18 04:00 INR 1.06 (0.83-1.16) 10/27/18 04:00 ICD10 Worksheet Patient Problems: Problems Problem Status Onset Dyspnea Acute Lung cancer Acute Nonischemic cardiomyopathy Acute Pleural effusion Acute Tachycardia Acute
[2018-10-29] MEDS ORDERED: MIDAZOLAM 2 MG/2 ML VIAL ONE (11:40)
[2018-10-29] MEDS ORDERED: PROPOFOL 200 MG/20 ML VIAL ONE (11:41)
[2018-10-29] MEDS ORDERED: fentaNYL 100 MCG/2 ML INJ ONE ×2 (11:41→15:54)
[2018-10-29] MEDS ORDERED: METOCLOPRAMIDE 10 MG/2 ML VIAL ONE (11:46)
[2018-10-29] MEDS ORDERED: ROCURONIUM 50 MG/5 ML VIAL ONE (11:46)
[2018-10-29] MEDS ORDERED: ONDANSETRON 4 MG/2 ML VIAL ONE (11:46)
--- NOTE | 2018-10-29 12:48 | PDANEPAE ---
ANE Past Medical History - Cardiovascular History Hx Hypertension: Yes Hx Arrhythmias: Yes Hx Chest Pain: No Hx Coronary Artery / Peripheral Vascular Disease: No Hx CHF / Valvular Disease: Yes Hx Palpitations: No - Pulmonary History Hx COPD: No Hx Asthma/Reactive Airway Disease: No Hx Recent Upper Respiratory Infection: No Hx Oxygen in Use at Home: Yes O2 in Use at Home (L/minute): 2 Hx Sleep Apnea: No Sleep Apnea Screening Result - Last Documented: Negative Pulmonary History Comment: chronic bronchitis (1-2 cases / year) - Neurologic History Hx Cerebrovascular Accident: No Hx Seizures: No Hx Dementia: No Neurologic History Comment: cervical dystonia; - Endocrine History Hx Diabetes: No - Renal History Hx Renal Disorders: No - Liver History Hx Hepatic Disorders: No - Neurological & Psychiatric Hx Hx Neurological and Psychiatric Disorders: No - Cancer History Hx Cancer: Yes Cancer History Comment: Small cell lung ca; - Congenital Disorder History Hx Congenital Disorders: No - GI History Hx Gastrointestinal Disorders: No - Other Health History Other Health History: 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 - Chronic Pain History Chronic Pain: No (arthritis) - Surgical History Prior Surgeries: lung CA; partial hysterectomy; T&A; wisdom teeth extraction; ANE Review of Systems Review of Systems: ANE Patient History - Allergies Allergies/Adverse Reactions: No Known Allergies Allergy (Verified 06/12/18 12:25) - Home Medications Home Medications: Albuterol [Proventil Inhaler HFA (*)] 1 - 2 puffs IH DAILY PRN 05/19/17 [Last Taken 01/03/18] Amitriptyline HCl [Elavil 50 mg (*)] 50 mg PO HS 05/19/17 [Last Taken 10/26/18] Cholecalciferol Vit D3 [Vitamin D3 (*)] 1,000 units PO BID 05/19/17 [Last Taken 10/26/18] Herbals/Supplements -Info Only 1 ea PO DAILY 05/19/17 [Last Taken 10/26/18] Multivitamins [Multivitamin (*)] 1 each PO DAILY 05/19/17 [Last Taken 10/26/18] [place]-3 Fatty Acids [Fish Oil 1000 mg (*)] 1,000 mg PO DAILY 05/19/17 [Last Taken 10/26/18] Docusate Sodium [Colace 100 MG (*)] 100 mg PO DAILY 05/23/17 [Last Taken ] Ibuprofen [Motrin (*)] 400 mg PO Q6H PRN 01/04/18 [Last Taken 01/04/18 09:00] ALPRAZolam [Xanax 0.5 MG (*)] 0.5 mg PO DAILY 06/12/18 [Last Taken 10/26/18] Estradiol [Estradiol 0.5 MG (RX)] 0.5 mg PO DAILY 10/26/18 [Last Taken 10/26/18] - NPO status NPO Since - Liquids (Date): 10/29/18 NPO Since - Liquids (Time): 08:05 NPO Since - Solids (Date): 10/28/18 NPO Since - Solids (Time): 21:00 - Smoking Hx Smoking Status: Former smoker - Alcohol Use Alcohol Use: None - Family Anes Hx Family Hx Anesthesia Complications: denies ANE Labs/Vital Signs - Labs Result Diagrams: 10/27/18 04:00 10/27/18 04:02 - Vital Signs Blood Pressure: 180/122 Heart Rate: 99 Respiratory Rate: 118 O2 Sat (%): 100 Weight: 46.72 kg ANE Physical Exam - Airway Mallampati Score: Class 2 - ASA Status ASA Status: III ANE Anesthesia Plan Anesthesia Plan: general endotracheal anesthesia Urgent/Emergent Case: Harish rios completed preop but documented later for safe timely pt care
[2018-10-29] MEDS ORDERED: SUGAMMADEX SODIUM 200 MG/2 ML VIAL IVP ONE (14:26)
[2018-10-29] MEDS ORDERED: hydrALAZINE 20 MG/ML VIAL ONE (14:27)
[2018-10-29] MEDS ORDERED: POLYETHYLENE GLYCOL 3350 17 GM PKT PO PRN (14:45)
[2018-10-29] MEDS ORDERED: *MD ORDERING ONLY-DEXAMETHASONE TAPER PO SCH (14:45)
[2018-10-29] MEDS ORDERED: LACTULOSE 20 GM/30 ML UDCUP PO PRN (14:45)
[2018-10-29] MEDS ORDERED: MAGNESIUM HYDROXIDE 30 ML UDCUP PO PRN (14:45)
[2018-10-29] MEDS ORDERED: BISACODYL 10 MG SUPP PR PRN (14:45)
[2018-10-29] MEDS ORDERED: fentaNYL 100 MCG/2 ML INJ IVP PRN (14:47)
[2018-10-29] MEDS ORDERED: NALOXONE HCL 0.4 MG/ML INJ IVP PRN (14:47)
[2018-10-29] MEDS ORDERED: ONDANSETRON 4 MG/2 ML VIAL IVP PRN (14:47)
[2018-10-29] MEDS ORDERED: LR 500 ML IV PRN (14:47)
--- NOTE | 2018-10-29 14:50 | POSTANESTH ---
Post Anesthetic Evaluation Cardiovascular Status: Similar to Pre-Op Cond Respiratory Status: Similar to Pre-op Cond. Level of Consciousness/Mental Status: Can Participate in Eval Pain Control: Adequate, Prn Tx Ordered Nausea/Vomiting Control: Adequate, Prn Tx Ordered Complications Possibly Related to Anesthesia: None Noted
--- NOTE | 2018-10-29 15:07 | POSTOPPROG ---
Post Op Note Date of Operation: 10/29/18 Surgeon: Ronald Parra English As A Second Language Teacher: Lavinia Nesbitt [facility] Anesthesia: GET(General Endotracheal) Pre-op Diagnosis: Brain Metastases Post-op Diagnosis: same Procedure: Right occipital craniotomy for resection of brain met Inf/Abcess present in the surg proc area at time of surgery?: No Depth: Organ Space EBL: 50 Complications: None observed SOAP Progress Note Assessment/Plan: Assessment: Plan: 10/29/18 15:00 S: Patient in PACU. Stable and still waking up from surgery O: NAD, VSS Vision grossly intact- will need to assess visual woods more with therapies PERRL, EOMI No droop Following commands EDMONDS X4 5/5 Incision c/d/i- dressed A: 73 yo female sp Right occipital craniotomy for resection of brain met P: -Admit to SDU -Q2 hour neuro checks -SBP 90-140 -Postop MRI in am -10 day steroid taper -Frozen path consistent with primary lung met -Final path pending -May shower tomorrow and wash hair -PT.OT.BUSINESS COORDINATOR -Call with any changes in neuro exam -Seen by Dr. Parra as well in PACU Objective: Vital Signs Temp Pulse Resp BP Pulse Ox 36.9 C 99 118 H 180/122 H 100 10/29/18 11:34 10/29/18 12:49 10/29/18 12:49 10/29/18 12:49 10/29/18 12:49 Laboratory Results 10/27/18 04:00 10/27/18 04:02 10/28/18 10/29/18 10/30/18 05:59 05:59 05:59 Intake Total 2400 644 Output Total 1000 Balance 1400 644 PT 13.4 SEC (12.0-15.0) 10/27/18 04:00 INR 1.06 (0.83-1.16) 10/27/18 04:00
--- NOTE | 2018-10-29 15:09 | GOP ---
[f rep st] OPERATIVE REPORT DATE OF OPERATION: 10/29/2018 SURGEON: Ronald Parra MD NEUROSURGEON: Ronald Parra MD. AUTOMOTIVE TIRE WORKER: JERMAN Deras (Mirabella). ANESTHESIA: General endotracheal. PREOPERATIVE DIAGNOSIS: Metastatic lung cancer with large right occipital met. POSTOPERATIVE DIAGNOSIS: Metastatic lung cancer with large right occipital met. PROCEDURE PERFORMED: 1. Right occipital craniotomy. 2. Microsurgical gross total resection of right occipital metastatic brain tumor. 3. Use of stealth stereotactic neuronavigation for volumetric gross total resection of tumor. 4. Use of the intraoperative ultrasound. 5. Use of the intraoperative microscope. FINDINGS: Successful tumor resection. SPECIMENS: Specimen was a right occipital brain mass for frozen and permanent section. ESTIMATED BLOOD LOSS: Blood loss was 50 mL. INDICATIONS: The patient is a 73-year-old woman who has had a long history of lung cancer. She has had a pneumonectomy in the past. She presented with some visual field changes and slight confusion. MRI of the brain showed about a 3.5 cm cystic mass in the right occipital lobe with surrounding vaso genic edema, as well as numerous other subcentimeter lesions throughout the bilateral cerebral hemisp heres. Given that the larger lesion was symptomatic, I discussed the case with Dr. Zuleta, the oncolog ist, and ultimately, we decided that it would be better to remove the larger lesion and then treat th e remaining lesions with stereotactic radiosurgery. She presents electively today for this procedure . DESCRIPTION OF PROCEDURE: After informed consent was obtained from the patient, the patient was brou ght to the operating room and a formal time-out was performed, identifying the patient by name, medic al record number and date of . Preoperative antibiotics were given. The endotracheal tube was placed and general endotracheal anesthesia was smoothly induced. The patient's head was placed in th e Melgoza pins and she was then turned to the prone position and all appropriate pressure points wer e padded and checked. The Stealth was then registered to the scalp and checked for accuracy using kn own surface landmarks. This was then used to pro out the transverse and sagittal sinuses and to mar k a linear incision over the tumor in the right occipital region. The small patch of hair was clippe d along the line of the incision and the head was prepped and draped in the normal sterile fashion. 10 mL 0.25% Marcaine with epinephrine was infiltrated in the skin for hemostasis. The skin incision was then made using a 10 blade and the subcutaneous tissues were dissected using monopolar electrocau bright. Stanley clips were placed for hemostasis. A self-retaining retractor was placed. Again, the na vigation was used to localize the torcula at the junction of the transverse and sagittal sinuses. Th e high-speed drill was used to make a traci hole distal to the right of the sagittal sinus and superio r to the transverse sinus. A second traci hole was made along the sagittal sinus. The dura was strip ped from beneath carefully and the craniotome was then used to turn a 2.5 x 2.5 cm2 square craniotomy flap. Again, the navigation was used to be sure that we had covered the area and seemed to be sligh tly off, as the sagittal sinus was exposed, but we were not quite as far lateral as expected. Intrao perative ultrasound was then used to assure that we had enough exposure to resect the tumor, which we did. At this point, the dura was opened in a cruciate fashion over the tumor and care was taken to keep the sagittal sinus intact. The tumor was visualized at the surface of the brain and contained m ultiple vessels and small cystic structures consistent with a lung mass. The operative microscope wa s then brought into the field and the procedure was performed under high-powered magnification. Firs t, utilizing the bipolar electrocautery, the small corticectomy was made at the junction of the tumor and the brain. This allowed us to disconnect the solid portion of the tumor, which was superficial from the surrounding brain. This allowed decompression of the cyst, which allowed relaxation of the brain. As we disconnected the solid portion, piece was sent for frozen section, which confirmed a pro ng metastasis. The remaining was sent for permanent section. Once this solid portion was removed, t he cavity was inspected and the cystic gonzalez, which also appeared to be malignant tissue, were also r emoved. Once we had removed all the abnormal-looking tissue, navigation was used to check the depth and we indeed had encompassed the area of the tumor as expected. The cavity was checked one last andi e and was completely dry. I did not see any further malignant-looking tissue. The cavity was then l ined with Surgicel and copiously irrigated using sterile saline. The dura was closed using interrupt ed 4-0 Nurolon. Some Gelfoam was placed over the dural opening and the craniotomy flap was plated ba ck in place using Synthes titanium plates and screws. The wound was then copiously irrigated using b acitracin irrigation. The galea was closed using interrupted 2-0 Vicryl and the skin was closed usin g a running 4-0 Monocryl. The hair was washed. Sterile dressings were placed. The patient was then turned back in the supine position where she was extubated and was transferred to the PACU in stable condition. There were no operative complications. I was scrubbed and present the entire procedure. All sponge and needle counts were correct at the end of the case. FLUIDS AND URINE OUTPUT: Per the Anesthesia record DRAINS: There were no drains. /[id number]/MODL
[2018-10-29] MEDS ORDERED: niCARdipine/NACL 200 ML IV PRN (15:11)
[2018-10-29] MEDS ORDERED: ACETAMINOPHEN 325 MG TAB ONE (15:18)
[2018-10-29] MEDS: HYDROCODONE/APAP 5/325 TAB PO PRN ×2 (18:58→23:31)
[2018-10-29] MEDS: SENNOSIDES/DOCUSATE SODIUM TAB PO SCH (21:20)
[2018-10-29] MEDS: AMITRIPTYLINE HCL 50 MG TAB PO SCH (21:21)
[2018-10-29] MEDS: LORazepam 0.5 MG TAB PO PRN (23:30)
[2018-10-29] MEDS: diphenhydrAMINE 50 MG CAP PO PRN (23:31)
[2018-10-30 05:46] LABS: PLATELET COUNT 315 10^3/uL (150-400)
[2018-10-30] MEDS: DEXAMETHASONE 4 MG TAB PO SCH ×4 (06:14→22:08)
--- NOTE | 2018-10-30 08:17 | NEUSURGPN ---
Assessment/Plan: A: 73 yo female sp Right occipital craniotomy for resection of brain met POD1 P: -SBP 90-140, tachycardic this morning, patient states she runs high normally, will defer to medicine for evaluation/treatment -Postop MRI pending, if okay can transfer to floor - Continue 10 day steroid taper -Frozen path consistent with primary lung met -Final path pending -May shower today and wash hair -PT/OT/HAND FLESHER -Call with any changes in neuro exam -Discussed with Dr. Parra Subjective: Incisional site pain, vision slightly worse this morning in left eye Objective: NAD, VSS PERRL, EOMI Following commands EDMONDS X4 5/5 Incision dressing with some dry staining - Physician Discussed Patient with : [facility] Physical Exam - Vitals, I&O, Labs I and O 10/29/18 10/30/18 10/31/18 05:59 05:59 05:59 Intake Total 644 2220 Output Total 1925 Balance 644 295 Weight 46.72 kg Intake: Oral (ml) 400 1120 IV Intake (ml) 244 960 IV Infused (ml) 140 niCARdipine/NACL 200 ml @ 140 Titrate IV PRN PRN Rx#: [id number] Output: Urine (ml) 1875 Catheter 1450 Toilet 425 Estimated Blood Loss (ml) 50 Other: Intake Quantity Yes Yes Sufficient Number of Voids Toilet 1 1 Number of Stools Toilet 1 Vital Signs Temp Pulse Resp BP Pulse Ox 36.8 C 106 H 11 L 121/70 H 99 10/29/18 20:00 10/30/18 04:00 10/30/18 04:00 10/30/18 04:00 10/30/18 04:00 Laboratory Results 10/30/18 05:33 10/30/18 05:33 ICD10 Worksheet Patient Problems: Problems Problem Status Onset Dyspnea Acute Lung cancer Acute Nonischemic cardiomyopathy Acute Pleural effusion Acute Tachycardia Acute
[2018-10-30] MEDS: ALPRAZolam 0.5 MG TAB PO SCH (08:18)
[2018-10-30] MEDS: SENNOSIDES/DOCUSATE SODIUM TAB PO SCH ×2 (08:18→22:08)
[2018-10-30] MEDS: DOCUSATE SODIUM 100 MG CAP PO SCH (08:18)
[2018-10-30] MEDS: MULTIVITAMINS 1 EACH TAB PO SCH (08:18)
[2018-10-30] MEDS: CARVEDILOL 6.25 MG TAB PO SCH ×2 (08:18→18:16)
[2018-10-30] MEDS: OMEGA-3 FATTY ACIDS 1,000 MG CAP PO SCH (08:18)
[2018-10-30] MEDS: CHOLECALCIFEROL VIT D3 1,000 UNITS TAB PO SCH ×2 (08:18→22:09)
[2018-10-30] MEDS: HYDROCODONE/APAP 5/325 TAB PO PRN ×3 (08:21→22:08)
[2018-10-30] MEDS: ESTRADIOL 0.5 MG TAB PO SCH (10:17)
[2018-10-30] MEDS ORDERED: GADOBUTROL 10 ML VIAL IVP ONE (13:47)
--- NOTE | 2018-10-30 14:33 | HOSPPROG ---
Hospitalist Progress Note Assessment/Plan: # brain mets, symptomatic - s/p craniotomy and resection POD#1 - f/u path - also has abnormal infraclavicular and axillary LNs - cont decadron taper per nsg # hx lung cancer s/p R pneumonectomy # htn - better controlled today - cont coreg for now, may need additional agent # tachycardia - sinus currently, possibly a-fib previously - cont coreg and follow # a-fib - cont coreg # chronic NICM and sCHF with recovered EF (25-55%) - cont coreg; she is not on an LEXI-I # COPD - she currently is complaining of losing her voice and is concerned about bronchitis - follow closely post-op for bronchitis Subjective: s/p surgery without complications; wants to go home Objective: Vital Signs Temp Pulse Resp BP Pulse Ox 36.4 C 102 H 18 122/55 H 95 10/30/18 08:00 10/30/18 11:40 10/30/18 11:40 10/30/18 11:40 10/30/18 11:40 Laboratory Results 10/30/18 05:33 10/30/18 05:33 10/29/18 10/30/18 10/31/18 05:59 05:59 05:59 Intake Total 644 2220 Output Total 1925 350 Balance 644 295 -350 PT 13.4 SEC (12.0-15.0) 10/27/18 04:00 INR 1.06 (0.83-1.16) 10/27/18 04:[address] Parra and Anai op note reviewed - Physical Exam Constitutional: no apparent distress, appears nourished Eyes: anicteric sclera Ears, Nose, Mouth, Throat: hearing normal, other (incision on posterior scalp) Cardiovascular: No edema Respiratory: no respiratory distress Gastrointestinal: No distension Genitourinary: No fernandez in urethra Skin: warm Musculoskeletal: full muscle strength Neurologic: AAOx3 Psychiatric: not anxious ICD10 Worksheet Patient Problems: Problems Problem Status Onset Nonischemic cardiomyopathy Acute Lung cancer Acute Dyspnea Acute Pleural effusion Acute Tachycardia Acute
[2018-10-30] MEDS: diphenhydrAMINE 50 MG CAP PO PRN (22:08)
[2018-10-30] MEDS: AMITRIPTYLINE HCL 50 MG TAB PO SCH (22:08)
[2018-10-30] MEDS: LORazepam 0.5 MG TAB PO PRN (22:09)
[2018-10-31] MEDS: DEXAMETHASONE 4 MG TAB PO SCH ×2 (05:07→09:31)
[2018-10-31 05:51] LABS: PLATELET COUNT 310 10^3/uL (150-400)
[2018-10-31] MEDS: hydrALAZINE 10 MG TAB PO PRN (07:18)
--- NOTE | 2018-10-31 07:45 | SOAPPROG ---
SOAP Progress Note Assessment/Plan: Assessment: 73 yo F POD #2 right occipital craniotomy for resection of metastatic adenocarcinoma Plan: Neuro: stable and doing well overall :) on decadron post op MRI shows good resection of lesion PT/OT ok to dc home Follow up with Dr Parra in 2 weeks discharge with craniotomy post op instructions from [email or web address] please call with neuro changes discussed with Dr Parra 10/31/18 07:42 Subjective: mild headache, no N/V. No weakness. Objective: Vital Signs Temp Pulse Resp BP Pulse Ox 36.6 C 95 21 H 163/91 H 99 10/30/18 19:43 10/31/18 04:00 10/31/18 04:00 10/31/18 07:18 10/31/18 04:00 Laboratory Results 10/31/18 05:21 10/30/18 05:33 10/30/18 10/31/18 11/01/18 05:59 05:59 05:59 Intake Total 2220 400 Output Total 1925 550 Balance 295 -150 PT 13.4 SEC (12.0-15.0) 10/27/18 04:00 INR 1.06 (0.83-1.16) 10/27/18 04:00 AAOx4, +FC PERRL, EOMI, no facial droop ILDA x 4 + light touch ICD10 Worksheet Patient Problems: Problems Problem Status Onset Dyspnea Acute Lung cancer Acute Nonischemic cardiomyopathy Acute Pleural effusion Acute Tachycardia Acute
[2018-10-31] MEDS: CARVEDILOL 6.25 MG TAB PO SCH (09:30)
[2018-10-31] MEDS: ALPRAZolam 0.5 MG TAB PO SCH (09:31)
[2018-10-31] MEDS: MULTIVITAMINS 1 EACH TAB PO SCH (09:31)
[2018-10-31] MEDS: CHOLECALCIFEROL VIT D3 1,000 UNITS TAB PO SCH (09:31)
[2018-10-31] MEDS: SENNOSIDES/DOCUSATE SODIUM TAB PO SCH (09:31)
[2018-10-31] MEDS: DOCUSATE SODIUM 100 MG CAP PO SCH (09:31)
[2018-10-31] MEDS: OMEGA-3 FATTY ACIDS 1,000 MG CAP PO SCH (09:31)
[2018-10-31] MEDS: ESTRADIOL 0.5 MG TAB PO SCH (09:31)
[2018-10-31 11:43] VITALS: BP 122/83
[2018-10-31] MEDS ORDERED: DEXAMETHASONE 4 MG TAB PO SCH (18:00)
--- NOTE | 2018-11-01 10:15 | GDS ---
[f rep st] DISCHARGE SUMMARY DISCHARGE DIAGNOSES: 1. History of lung cancer status post right pneumonectomy with newly diagnosed brain metastases. 2. Hypertension. 3. Atrial fibrillation. 4. Chronic nonischemic cardiomyopathy. 5. Chronic systolic heart failure. 6. Chronic obstructive pulmonary disease. PROCEDURES: Right occipital craniotomy with resection of right occipital metastatic brain tumor by Remy Parra October 29, 2018. CONSULTANTS: 1. Dr. Stevie Holder, oncology. 2. Dr. Ronald Parra, neurosurgery. HISTORY OF PRESENT ILLNESS: For details, please see the History and Physical dated October 26, 2018. In brief, this patient is a 73-year-old female with a history of lung cancer status post right pneumo nectomy as well as chronic systolic heart failure, atrial fibrillation, who was admitted to the [facility] from urgent care after evaluation for gait instability and vision changes. She was found to have metastatic brain tumor and was admitted to the hospital for further management. HOSPITAL COURSE: The patient admitted to the stepdown unit. She was started on dexamethasone, neuro surgery consult as well as oncology consult was obtained. Surgical resection of the 3 cm occipital l obe tumor was recommended. She underwent a craniotomy with tumor resection on October 29, 2018. She h ad unremarkable postop recovery with no acute issues from her heart failure or atrial fibrillation. Her vital signs on the day of discharge were stable with blood pressure 122/83, heart rate 90, respir atory rate 18, and she is 94% on room air. She did have some hypertension pre- and postoperatively. Her carvedilol dose was increased from 6.25 mg p.o. b.i.d. to 9.375 mg twice daily. In addition, irma browne will discharge with dexamethasone taper, and close followup was planned with her neurosurgeon. DISPOSITION: Patient is discharged home in stable condition. FOLLOWUP: 1. Dr. Ronald Parra, neurosurgery, in [address] Demarco Montanez, primary care. DISCHARGE MEDICATIONS: Please see [facility] for completed outpatient medication list. New medications on discharge include: 1. Dexamethasone taper 4 mg p.o. q.8 hours for 1 day, then 4 mg p.o. q.12 hours for a day, then 2 mg p.o. q.12 hours for a day, then mg p.o. daily, #13, no refills. 2. [place] 5/325 one tablet p.o. q.6 hours p.r.n., #20, no refills. Changed medications: Carvedilol was increased from 6.25 to 9.375 p.o. b.i.d., #90, no refills. Discontinued medications: Ibuprofen is discontinued. She is advised to not take anti-inflammatories while on steroids. She will continue all other outpatient medications as previously prescribed. /[id number]/MODL
[2018-11-02] MEDS ORDERED: DEXAMETHASONE 4 MG TAB PO SCH (22:00)
[2018-11-04] MEDS ORDERED: DEXAMETHASONE 2 MG TAB PO SCH (22:00)
[2018-11-07] MEDS ORDERED: DEXAMETHASONE 2 MG TAB PO SCH (10:00)
== END 2018-10-31 10:15 | disposition home or self-care (01) | DRG 26 ==
LOC: EMCIMAGING 12:56 → EDSTATUS 13:15 → F1N 18:48 → OBSVTOIN 19:19 → F2N 10-29 16:06
PROVIDERS: ADMIT Internal Medicine; ATTEND Hospitalist
PROC: 00B00ZX Excision of Brain, Open Approach, Diagnostic (ICD-10-PCS; principal; 2018-10-29 13:30)
DX: C79.31 Secondary malignant neoplasm of brain (principal); I50.22 Chronic systolic (congestive) heart failure; I42.9 Cardiomyopathy, unspecified; I48.91 Unspecified atrial fibrillation; J44.9 Chronic obstructive pulmonary disease, unspecified; I11.0 Hypertensive heart disease with heart failure; I27.20 Pulmonary hypertension, unspecified; Z90.2 Acquired absence of lung [part of]; Z85.118 Personal history of other malignant neoplasm of bronchus and lung; Z87.891 Personal history of nicotine dependence
CPT/HCPCS: 70553-PN; 92507-GN; 92523-GN; 97116-GP; 97162-GP; 97164-GP; 97166-GO; 97168-GO; A9585; C1713; J0360; J0690; J1100; J1580; J2250; J2405; J2704; J2765; J3010; Q9967